=== PATIENT | female | born 1965 | race Caucasian/White ===

== ENCOUNTER 2020-10-30 22:08 | Inpatient (IN) | payer MEDICAID, SELFPAY ==
--- NOTE | ~2020-10-30 | XR_ITS ---
EXAMINATIONS: LEFT HAND 3 VIEWS AND FOREARM 2 VIEWS, LEFT CLINICAL INFORMATION: Pain. COMPARISON: None. TECHNIQUE: PA, lateral, oblique views of the left hand were obtained. AP and lateral views of the left forearm are provided. FINDINGS: There is dorsal angulation to a fracture to the proximal aspect of the fourth proximal phalanx. The proximal carpal row is intact. There is no elbow joint effusion. There is no displacement of the pronator fat pad. XR/XR forearm LT 2V IMPRESSION: Fourth proximal phalanx fracture.
--- NOTE | ~2020-10-30 | XR_ITS ---
EXAMINATIONS: LEFT HAND 3 VIEWS AND FOREARM 2 VIEWS, LEFT CLINICAL INFORMATION: Pain. COMPARISON: None. TECHNIQUE: PA, lateral, oblique views of the left hand were obtained. AP and lateral views of the left forearm are provided. FINDINGS: There is dorsal angulation to a fracture to the proximal aspect of the fourth proximal phalanx. The proximal carpal row is intact. There is no elbow joint effusion. There is no displacement of the pronator fat pad. XR/XR hand LT min 3V IMPRESSION: Fourth proximal phalanx fracture.
--- NOTE | ~2020-10-30 | XR_ITS ---
EXAMINATION: XR CHEST CLINICAL INFORMATION: Shortness of breath COMPARISON: None TECHNIQUE: Frontal view of the chest was obtained. FINDINGS: Heart size is normal. No infiltrates, effusions or lung masses are seen. A right-sided PICC line has its tip in the SVC. Adjacent to the PICC line near the right humeral head is a approximately 5 cm catheter fragment that appears to be encrusted with calcification that I suspect may be intravascular. I suspect that there may be underlying COPD with hyperinflation and pulmonary. Cervical spine fixation hardware is present. Embolization coils are seen near the area of the splenic or coronary vein. Curvilinear calcification in the right paravertebral region could represent a hips but this is a bit unusual in appearance and EKG leads overlie the area of question. XR/XR chest 1V IMPRESSION: 1. Right PICC line with tip in SVC 2. Intravascular encrusted catheter fragment in right brachial/axillary vein. 3. A TIPS is present with embolization coils which I suspect are in the coronary vein. This critical result was discussed with Dr. Tomasa Snyder at 11:35 PM on the day of the exam and it was ascertained that the content and urgency of the report was understood at the time of direct communication.
--- NOTE | ~2020-10-30 | CT_ITS ---
EXAMINATION: CT PULMONARY EMBOLISM STUDY CLINICAL INFORMATION: Elevated d-dimer. Hypoxia. COMPARISON: 10/30/2020. TECHNIQUE: Contiguous helical images of the chest were obtained following the administration of IV contrast. Multiplanar reconstructions were performed. MIPS were obtained and reviewed. DLP: 377 mGy-cm. CONTRAST: 65 mL of Omnipaque 350 were administered without incident. FINDINGS: The heart is of normal size. There is no pericardial effusion. The great vessels are unremarkable. Specifically, there is no pulmonary arterial filling defect. There is no CT evidence for pulmonary embolism. There are no chest wall masses. Review of lung windows demonstrates that there are neither pleural effusions nor pneumothoraces. There are severe manifestations of emphysema. There are consolidations within the posterior basal segments within the lower lobes bilaterally. There are no pulmonary parenchymal nodules. Limited evaluation of the upper abdomen demonstrates that the liver is of normal size and attenuation without focal lesions. Normal adrenal glands are identified. Vascular coils are noted within the upper abdomen. There is an ovoid focus of low-attenuation along the lateral aspect of the spleen measuring approximately 6.4 x 3.3 cm. This is likely subcapsular in location. CT/CT angio chest PE protocol IMPRESSION: No CT evidence for pulmonary embolism. Bilateral posterior basal segment lower lobe consolidations. Severe emphysema. Automated exposure control (Care Dose) Adjustment of the mA and/or kv according to patient size (this includes techniques or standardized protocols for targeted exams where dose is matched to indication / reason for exam; i.e. extremities or head).
--- NOTE | 2020-10-30 22:24 | ECG_ITS ---
Test Reason : DIFF BREATHING Blood Pressure : / mmHG Vent. Rate : 077 BPM Atrial Rate : 077 BPM P-R Int : 138 ms QRS Dur : 088 ms QT Int : 416 ms P-R-T Axes : 067 038 039 degrees QTc Int : 470 ms Normal sinus rhythm Normal ECG No previous ECGs available Referred By: Tomasa Snyder Electronically Signed By:ANNA IVAN MD
[2020-10-30 22:26] VITALS: BP 90/55; PULSE 78; RESP 19; TEMP 36.8; O2SAT 97; O2SAT 99; BMI 26.4
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
[2020-10-30 23:04] LABS: MANUAL DIFF FLAG NO
[2020-10-30 23:05] LABS: Basophils Percent Auto 0.3 % (0-2); Eosinophils Absolute Auto 0.5 X10*3/uL (0.0-0.4); Eosinophils Percent Auto 4.5 % (0-4); Hematocrit 29.8 % (37-47); Hemoglobin 9.5 g/dl (12.0-16.0); Imm Gran Pct Auto 0.8 % (0.0-0.4); Lymphocytes Absolute Auto 1.2 X10*3/uL (1.2-4.9); Lymphocytes Percent Auto 10.2 % (20-40); Mean Corpuscular HGB Conc 31.9 g/dl (31.0-35.0); Mean Corpuscular Hemoglobin 26.8 pg (27.0-33.0); Mean Corpuscular Volume 84.2 fL (80-98); Mean Platelet Volume 10.4 fL (9.4-12.3); Monocytes Absolute Auto 0.6 X10*3/uL (0.1-1.2); Monocytes Percent Auto 4.7 % (2-11); Neutrophils Absolute Auto 9.6 X10*3/uL (2.0-8.3); Neutrophils Percent Auto 79.5 % (45-73); Platelet Count 310 X10*3/uL (160-400); Red Blood Count 3.54 X10*6/uL (4.20-5.50); Red Cell Distribution Width 18.2 % (11.0-16.0)
[2020-10-30 23:11] LABS: INTERNATIONAL NORM RATIO 1.9 (0.9-1.1); Prothrombin Time 22.1 SEC (10.8-13.0)
[2020-10-30] MEDS: 0.9 % Sodium Chloride 1,000 ML 999 ML IVCONT (23:13)
--- NOTE | 2020-10-30 23:24 | PC.NURSE ---
picc line in left upper extremity used for saline bolus. pt's picc line needs to be flushed with heparin before discharge, instructions in her mar from [facility].
[2020-10-30 23:26] VITALS: BP 87/67; PULSE 76; RESP 21; O2SAT 99
--- NOTE | 2020-10-30 23:26 | PC.NURSE ---
transferrring patient to ne at 4lpm, pt reports feeling much better on nrb mask, has been 99%.
[2020-10-30 23:36] LABS: Lactic Acid 0.5 mmol/L (0.5-2.0)
[2020-10-30 23:41] LABS: Alanine Aminotransferase 28 U/L (0-31); Albumin Level 3.3 g/dL (3.5-5.0); Alkaline Phosphatase 106 U/L (39-117); Anion Gap 15 (12-20); Aspartate Amino Transferase 28 U/L (5-31); Bilirubin Direct < 0.2 mg/dL (0.0-0.5); Bilirubin Total 0.2 mg/dL (0.0-1.0); Blood Urea Nitrogen 17 mg/dL (9-16); Calcium 8.7 mg/dL (8.4-10.2); Carbon Dioxide 26 mmol/L (22-29); Chloride 96 mmol/L (96-108); Creatinine Clr Calc Pharmacy 99.1; Estimated Glomerular Filt Rate > 60; Glucose Random 108 mg/dL (60-115); Potassium 3.9 mmol/L (3.3-5.1); Sodium 133 mmol/L (135-145); Total Protein 6.8 g/dL (6.5-8.0)
[2020-10-30 23:44] LABS: B Type Natriuretic Peptide 22 pg/mL (<100); Troponin-I High Sensitivity < 3.5 ng/L (<3.5-17.0)
[2020-10-31] VITALS (23 sets, daily range): BP systolic 78–147; BP diastolic 38–75; PULSE 54–87; RESP 12–26; TEMP 36.3–36.9; O2SAT 86–100
[2020-10-31 00:22] LABS: D Dimer 427 NG/ML
--- NOTE | 2020-10-31 00:31 | PC.NURSE ---
PT NEEDED TO BE PLACED BACK ON NRB MASK, SPO2 86% ON 4 LPM NC.
[2020-10-31 01:09] LABS: Glucose Urine UA NEG (NEG); Leukocyte Esterase Urine 3+ (NEG); Nitrite Urine NEG (NEG); Specific Gravity - Urine 1.015 (1.005-1.025); UACC Culture Trigger YES; Urine Blood 3+ (NEG); Urine Ketones NEG (NEG); Urine Protein TRACE MG/DL (NEG-TRACE)
[2020-10-31 01:10] LABS: Appearance Urine HAZY; Color Urine YELLOW
[2020-10-31 01:14] LABS: VBG Base Excess 0.5 mmol/L; VBG HCO3 22 mmol/L (22-26); VBG pCO2 27 mmHg; VBG pH 7.52 (7.32-7.43); VBG pO2 176 mmHg
[2020-10-31] MEDS: levoFLOXacin/D5W 500 MG/100 ML PIGGYBACK 100 MG IV (01:14)
[2020-10-31] MEDS: 0.9 % Sodium Chloride 1,000 ML 999 ML IVCONT ×2 (01:14→04:24)
[2020-10-31 01:16] LABS: Venous Blood Gas Refer to POC result
[2020-10-31 01:24] LABS: Bacteria Urine 2+ /LPF; Calcium Oxalate Crystals Urine 2+ /LPF; Mucus Urine 2+ /LPF; RBC Urine 30-49 /HPF (0); Squamous Epithelial Cell Urine 1+ /LPF; WBC Urine 50-75 /HPF (0-4)
[2020-10-31 01:54] LABS: Influenza A PCR NEGATIVE (Negative); Influenza B PCR NEGATIVE (Negative); Resp Syncy Virus RNA Qual PCR NEGATIVE (Negative); SARS COV2 PCR INHOUSE NEGATIVE (Negative)
--- NOTE | 2020-10-31 02:20 | PC.NURSE ---
PT CAME WITH URINARY CATHETER FROM FACILITY, CLOUDY YELLOW URINE IN TUBING.
[2020-10-31] MEDS: Midodrine HCl 10 MG TABLET PO (03:03)
--- NOTE | 2020-10-31 03:03 | PC.NURSE ---
PT HAS A WET SOUNDING COUGH, MOSTLY IN UPPER AIRWAY. PT HAS A TRACH THAT IS CLOSED, HAS HAD A MUCUS PLUG IN THE PAS CAUSING LOW SPO2.
--- NOTE | 2020-10-31 04:08 | PC.NURSE ---
RT AND MD AT BEDSIDE, TRACH SUCTIONED WITH THICK SPUTUM FROM SMALL OPENING. PT PLACED ON 3 LPM 02 VIA NC AND WILL MONITOR SPO2.
--- NOTE | 2020-10-31 04:16 | PC.NURSE ---
PT TRANSFERRED TO TRACH MASK AT 80%. SPO2 89% WITH EXISTING 3 LPM NC.
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
[2020-10-31] MEDS: Albuterol/Iprat 2.5/0.5MG 3 ML AMPUL.NEB INHALE (04:24)
[2020-10-31] MEDS: Albuterol Sulfate (0.083%) 2.5 MG/3 ML VIAL.NEB INHALE (04:24)
[2020-10-31] MEDS: Morphine Sulfate 4 MG/ML CARTRIDGE IVPUSH (05:04)
[2020-10-31] MEDS: 0.9 % Sodium Chloride 1,000 ML 100 ML IVCONT (05:25)
[2020-10-31 07:20] LABS: MANUAL DIFF FLAG NO
[2020-10-31 07:22] LABS: Basophils Percent Auto 0.4 % (0-2); Eosinophils Absolute Auto 0.3 X10*3/uL (0.0-0.4); Hematocrit 27.1 % (37-47); Hemoglobin 8.5 g/dl (12.0-16.0); Imm Gran Abs Auto 0.05 X10*3/uL (0.00-0.03); Imm Gran Pct Auto 0.7 % (0.0-0.4); Lymphocytes Absolute Auto 1.3 X10*3/uL (1.2-4.9); Mean Corpuscular HGB Conc 31.4 g/dl (31.0-35.0); Mean Corpuscular Hemoglobin 26.3 pg (27.0-33.0); Mean Corpuscular Volume 83.9 fL (80-98); Mean Platelet Volume 10.8 fL (9.4-12.3); Monocytes Absolute Auto 0.6 X10*3/uL (0.1-1.2); Monocytes Percent Auto 7.6 % (2-11); Neutrophils Absolute Auto 5.2 X10*3/uL (2.0-8.3); Neutrophils Percent Auto 70.3 % (45-73); Platelet Count 286 X10*3/uL (160-400); Red Blood Count 3.23 X10*6/uL (4.20-5.50); White Blood Count 7.5 X10*3/uL (4.8-10.8)
[2020-10-31] MEDS: Morphine Sulfate 2 MG/ML CARTRIDGE 1 MG IVPUSH ×3 (07:28→20:39)
[2020-10-31] MEDS: 0.9 % Sodium Chloride Flush 3 ML SYRINGE IVFLUSH (07:30)
[2020-10-31 07:52] LABS: Anion Gap 12 (12-20); Blood Urea Nitrogen 12 mg/dL (9-16); Calcium 8.2 mg/dL (8.4-10.2); Carbon Dioxide 24 mmol/L (22-29); Chloride 108 mmol/L (96-108); Creatinine Clr Calc Pharmacy 138.8; Estimated Glomerular Filt Rate > 60; Glucose Random 101 mg/dL (60-115); Potassium 3.7 mmol/L (3.3-5.1); Sodium 140 mmol/L (135-145)
[2020-10-31] MEDS: Midodrine HCl 5 MG TABLET PO ×3 (09:29→20:45)
[2020-10-31] MEDS: Famotidine 20 MG TABLET PO ×2 (09:30→20:42)
[2020-10-31] MEDS: Sertraline HCL 100 MG TABLET 200 MG PO (09:30)
[2020-10-31] MEDS: Baclofen 10 MG TABLET 5 MG PO ×3 (09:30→20:43)
[2020-10-31] MEDS: Gabapentin 100 MG CAPSULE PO ×3 (09:31→20:42)
[2020-10-31] MEDS: rifAMPin 300 MG CAPSULE PO ×2 (09:31→20:43)
[2020-10-31] MEDS: QUEtiapine Fumarate 50 MG TABLET PO ×2 (09:31→20:43)
[2020-10-31] MEDS: Apixaban 5 MG TABLET PO ×2 (09:31→20:42)
[2020-10-31] MEDS: Ascorbic Acid 500 MG TABLET PO (09:31)
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
--- NOTE | 2020-10-31 11:54 | MHC.CM.PN ---
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 She reports she was at [facility] and plans to return there however pts H&P indicates she is here from [facility]. CM did send a message to [facility] to determine if pt is a resident. pt reports her daughter Monet is her HCP. CM attempted to reach Monet at both of the numbers listed however both were out of service. CM currently awaiting response from SNF. Current DC plan is for pt to return to alf facility via BLS
--- NOTE | 2020-10-31 15:14 | MHC.CLN ---
RE: CONSULT RECOMMEND ADDING CORRIE AND ENSURE BID TO INCREASE KCALS AND PROMOTE WOUND HEALING SUPPLEMENT TO PROVIDE [id number], 45G PROTEIN FULL ASSESSMENT TO FOLLOW
--- NOTE | 2020-10-31 16:42 | PC.NURSE ---
P: Patient c/o dizziness. bp 81/47. o2 sat 87% on 4L cannula. Patient with weak cough and congestion. Unable to bring up secretions. Feeling more anxious and in distress. I: MD notified. Orders already in place to suction. Patient refusing nasal suctioning. Respiratory called to assist with oral suctioning. Small amount of clear phlegm suctioned. o2 sats remaining in high 80's. Encouraged pursed lip breathing but breathes through mouth. Ventimask applied but patient c/o discomfort from the mask being too big. Small size nonrebreather at bedside from ED. Patient placed on that. o2 sat 95% on nonrebreather. BP 108/60.
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
[2020-10-31] MEDS: Melatonin 3 MG TABLET PO (20:42)
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
[2020-10-31] MEDS: Heparin Sodium,Porcine Flush 50 UNITS/5 ML SYRINGE 10 UNITS IVFLUSH (21:04)
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
[2020-11-01] VITALS (8 sets, daily range): BP systolic 92–153; BP diastolic 42–70; PULSE 66–84; RESP 18–19; TEMP 36.2–37.3; O2SAT 97–99
[2020-11-01] MEDS: Heparin Sodium,Porcine Flush 50 UNITS/5 ML SYRINGE IVFLUSH ×3 (01:00→16:44)
[2020-11-01] MEDS: Morphine Sulfate 2 MG/ML CARTRIDGE 1 MG IVPUSH ×3 (04:51→18:26)
[2020-11-01] MEDS: guaiFEN/Codeine SF 200/20/10ML 10 ML LIQUID 5 ML PO (06:06)
[2020-11-01 06:56] LABS: MANUAL DIFF FLAG NO
[2020-11-01 07:02] LABS: Basophils Percent Auto 0.5 % (0-2); Eosinophils Absolute Auto 0.6 X10*3/uL (0.0-0.4); Eosinophils Percent Auto 6.6 % (0-4); Hematocrit 27.7 % (37-47); Hemoglobin 8.8 g/dl (12.0-16.0); Imm Gran Abs Auto 0.06 X10*3/uL (0.00-0.03); Imm Gran Pct Auto 0.7 % (0.0-0.4); Lymphocytes Absolute Auto 1.1 X10*3/uL (1.2-4.9); Lymphocytes Percent Auto 12.9 % (20-40); Mean Corpuscular HGB Conc 31.8 g/dl (31.0-35.0); Mean Corpuscular Hemoglobin 26.7 pg (27.0-33.0); Mean Corpuscular Volume 83.9 fL (80-98); Mean Platelet Volume 10.7 fL (9.4-12.3); Monocytes Absolute Auto 0.7 X10*3/uL (0.1-1.2); Monocytes Percent Auto 7.7 % (2-11); Neutrophils Absolute Auto 6.1 X10*3/uL (2.0-8.3); Neutrophils Percent Auto 71.6 % (45-73); Platelet Count 295 X10*3/uL (160-400); Red Cell Distribution Width 18.5 % (11.0-16.0); White Blood Count 8.5 X10*3/uL (4.8-10.8)
[2020-11-01 07:19] LABS: Anion Gap 12 (12-20); Blood Urea Nitrogen 8 mg/dL (9-16); Calcium 8.6 mg/dL (8.4-10.2); Carbon Dioxide 28 mmol/L (22-29); Chloride 103 mmol/L (96-108); Creatinine Clr Calc Pharmacy 130.1; Estimated Glomerular Filt Rate > 60; Glucose Fasting 84 mg/dL (60-99); Potassium 3.7 mmol/L (3.3-5.1); Sodium 139 mmol/L (135-145)
[2020-11-01] MEDS: Sertraline HCL 100 MG TABLET 200 MG PO (09:34)
[2020-11-01] MEDS: Apixaban 5 MG TABLET PO ×2 (09:35→22:09)
[2020-11-01] MEDS: Gabapentin 100 MG CAPSULE PO ×3 (09:35→22:08)
[2020-11-01] MEDS: Famotidine 20 MG TABLET PO ×2 (09:35→22:08)
[2020-11-01] MEDS: Baclofen 10 MG TABLET 5 MG PO ×3 (09:35→22:07)
[2020-11-01] MEDS: rifAMPin 300 MG CAPSULE PO ×2 (09:35→22:11)
[2020-11-01] MEDS: Ascorbic Acid 500 MG TABLET PO (09:35)
[2020-11-01] MEDS: QUEtiapine Fumarate 50 MG TABLET PO ×2 (09:35→22:09)
[2020-11-01] MEDS: Midodrine HCl 5 MG TABLET PO ×2 (09:36→14:57)
--- NOTE | 2020-11-01 11:45 | HO.PM.IMPN ---
Subjective Subjective Date of Service: 11/01/20 Interval History: secreations, otherwise no changes Cardiovascular Cardiovascular: Reports no additional cardiovascular complaints Gastrointestinal Gastrointestinal: Reports no additional gastrointestinal complaints Physical Exam Vital Signs: Vital Signs: Last Vital Signs Temp 97.1 F 11/01/20 11:42 Pulse 66 11/01/20 11:42 Resp 18 11/01/20 11:42 BP 92/42 L 11/01/20 11:42 Pulse Ox 99 11/01/20 11:42 Body Mass Index 26.4 General: AO X 3, no acute distress Resp: rhonchi CVS: S1,S2,RRR GI: soft, non tender, non distended Neuro: motor grossly intact Psych: appropriate affect skin: see previous pics Objective Data Current Medications Generic Name Dose Route Start Last Admin Trade Name Freq PRN Reason Stop Dose Admin Acetaminophen 650 mg 10/31/20 04:11 Acetaminophen 325 Mg Tablet PO Q6H PRN Pain, Mild (Pain Scale 1-3) Apixaban 5 mg 10/31/20 09:00 11/01/20 09:35 Apixaban 5 Mg Tablet PO 5 mg BID RAMBO Administration Ascorbic Acid 500 mg 10/31/20 09:00 11/01/20 09:35 Ascorbic Acid 500 Mg Tablet PO 500 mg DAILY RAMBO Administration Baclofen 5 mg 10/31/20 09:00 11/01/20 09:35 Baclofen 10 Mg Tablet PO 5 mg TID RAMBO Administration Famotidine 20 mg 10/31/20 09:00 11/01/20 09:35 Famotidine 20 Mg Tablet PO 20 mg BID RAMBO Administration Gabapentin 100 mg 10/31/20 09:00 11/01/20 09:35 Gabapentin 100 Mg Capsule PO 100 mg TID RAMBO Administration Heparin Sodium (Porcine) 50 units 11/01/20 00:00 11/01/20 09:34 Heparin Sodium,Porcine Flush 50 Units/5 Ml Syringe IVFLUSH 50 units QSHIFT RAMBO Administration Lorazepam 1 mg 10/31/20 04:16 Lorazepam 1 Mg Tablet PO BID PRN Anxiety Melatonin 3 mg 10/31/20 04:16 10/31/20 20:42 Melatonin 3 Mg Tablet PO 3 mg BEDTIME PRN Administration Sleep Midodrine 5 mg 10/31/20 09:00 11/01/20 09:36 Midodrine Hcl 5 Mg Tablet PO 5 mg TID RAMBO Administration Morphine Sulfate 1 mg 10/31/20 05:19 11/01/20 04:51 Morphine Sulfate 2 Mg/Ml Cartridge IVPUSH 1 mg Q6H PRN Administration [facility] Consult 1 each 10/31/20 03:47 Consult Rx Perform Med Rec MISCELLANE ONCE PRN Consult order Quetiapine Fumarate 50 mg 10/31/20 09:00 11/01/20 09:35 Quetiapine Fumarate 50 Mg Tablet PO 50 mg BID RAMBO Administration Rifampin 300 mg 10/31/20 09:00 11/01/20 09:35 Rifampin 300 Mg Capsule PO 300 mg BID RAMBO Administration Sertraline HCl 200 mg 10/31/20 09:00 11/01/20 09:34 Sertraline Hcl 100 Mg Tablet PO 200 mg DAILY RAMBO Administration Sodium Chloride 3 ml 10/31/20 08:00 11/01/20 09:37 0.9 % Sodium Chloride Flush 3 Ml Syringe IVFLUSH Not Given QSHIFT RAMBO Trimethoprim/Sulfamethoxazole 1 tab 10/31/20 09:00 11/01/20 09:34 Sulfamethox/Trimeth 800/160 1 Tab Tablet PO 1 tab BID RAMBO Administration Labs CBC & Chem 7: 11/01/20 06:31 11/01/20 06:31 Microbiology Microbiology Results: Microbiology 10/31/20 00:00 Urine clean catch - Clean Catch Midstream Urine Culture - Final No growth. 10/30/20 22:54 Blood - Venous Blood Culture - Preliminary No growth after 24 hours. 10/30/20 22:54 Blood - Venous Blood Culture - Preliminary No growth after 24 hours. Assessment and Plan (1) Chronic pulmonary aspiration: Problem details: She has chronic mucus plugging and aspiration and likely pyuria as well chronic There is no acute illness at this time and no fever,toxicity and WBC unremarkable Status: Acute (2) Aspiration pneumonitis: Status: Acute Assessment and Plan: 55F presented with hypoxia. 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
[2020-11-01] MEDS: guaiFENesin 100 MG/5 ML LIQUID PO (16:43)
[2020-11-01] MEDS: LORazepam 1 MG TABLET PO (22:07)
[2020-11-01] MEDS: Melatonin 3 MG TABLET PO (22:12)
--- NOTE | 2020-11-01 23:38 | PC.NURSE ---
pt has more pain in left hand she said last night maybe she dislocated while pooling blankiet she has hardware in there. also special air bed was ordered for skin breakdown prevention. dr Ho notified about the hand pain
[2020-11-02] VITALS (9 sets, daily range): BP systolic 90–150; BP diastolic 47–77; PULSE 64–90; RESP 16–19; TEMP 36.1–37.2; O2SAT 94–98
[2020-11-02] MEDS: 0.9 % Sodium Chloride Flush 3 ML SYRINGE IVFLUSH ×2 (00:28→09:02)
[2020-11-02] MEDS: Heparin Sodium,Porcine Flush 50 UNITS/5 ML SYRINGE IVFLUSH (00:28)
[2020-11-02] MEDS: Morphine Sulfate 2 MG/ML CARTRIDGE 1 MG IVPUSH ×3 (09:02→20:09)
[2020-11-02] MEDS: Ascorbic Acid 500 MG TABLET PO (09:03)
[2020-11-02] MEDS: Dextrose 5 % and 0.9 % NaCl 1,000 ML 50 ML IVCONT (09:03)
[2020-11-02] MEDS: Baclofen 10 MG TABLET 5 MG PO ×3 (09:04→20:08)
[2020-11-02] MEDS: Apixaban 5 MG TABLET PO ×2 (09:04→20:08)
[2020-11-02] MEDS: QUEtiapine Fumarate 50 MG TABLET PO ×2 (09:04→20:08)
[2020-11-02] MEDS: Sertraline HCL 100 MG TABLET 200 MG PO (09:04)
[2020-11-02] MEDS: Gabapentin 100 MG CAPSULE PO ×3 (09:04→20:09)
[2020-11-02] MEDS: rifAMPin 300 MG CAPSULE PO ×2 (09:04→20:08)
[2020-11-02] MEDS: Famotidine 20 MG TABLET PO ×2 (09:04→20:09)
--- NOTE | 2020-11-02 14:40 | HO.PM.IMPN ---
Subjective Subjective Date of Service: 11/05/20 Interval History: ? aspiration vs mucuc pluging Review of Systems Says shortness of breath improving, feels generally very weak, also blood pressure is on softer side. She also have left hand pain which was scanned last night found to have fracture of the finger. Says that no cough or phlegm. Denies any abdominal pain or nausea or vomiting. No fever or chills. Physical Exam Vital Signs: Vital Signs: Last Vital Signs Temp 97.0 F 11/02/20 11:19 Pulse 64 11/02/20 11:19 Resp 18 11/02/20 11:19 BP 93/57 L 11/02/20 11:19 Pulse Ox 94 11/02/20 11:19 Body Mass Index 26.4 Physical exam: Constitutional: Not in acute distress, slightly anxious. Cvs: rrr, [id number] , no murmur res: grossly fair air entry , slightly diminshes at bases , no rales or wheezing abd: no rebound or guarding ,nt, bs present. ext pulses present , no cyanosis neuro: axo3 , nonfocal. Objective Data Current Medications Generic Name Dose Route Start Last Admin Trade Name Freq PRN Reason Stop Dose Admin Acetaminophen 650 mg 10/31/20 04:11 Acetaminophen 325 Mg Tablet PO Q6H PRN Pain, Mild (Pain Scale 1-3) Apixaban 5 mg 10/31/20 09:00 11/02/20 09:04 Apixaban 5 Mg Tablet PO 5 mg BID RAMBO Administration Ascorbic Acid 500 mg 10/31/20 09:00 11/02/20 09:03 Ascorbic Acid 500 Mg Tablet PO 500 mg DAILY RAMBO Administration Baclofen 5 mg 10/31/20 09:00 11/02/20 09:04 Baclofen 10 Mg Tablet PO 5 mg TID RAMBO Administration Famotidine 20 mg 10/31/20 09:00 11/02/20 09:04 Famotidine 20 Mg Tablet PO 20 mg BID RAMBO Administration Gabapentin 100 mg 10/31/20 09:00 11/02/20 09:04 Gabapentin 100 Mg Capsule PO 100 mg TID RAMBO Administration Guaifenesin 5 ml 11/01/20 15:36 11/01/20 16:43 Guaifenesin 100 Mg/5 Ml Liquid PO 5 ml Q4H PRN Administration cough Heparin Sodium (Porcine) 50 units 11/01/20 00:00 11/02/20 09:35 Heparin Sodium,Porcine Flush 50 Units/5 Ml Syringe IVFLUSH Not Given QSHIFT [facility] Dextrose/Sodium Chloride 1,000 mls @ 50 mls/hr 11/02/20 08:00 11/02/20 09:03 D5ns IVCONT 50 mls/hr .Q20H RAMBO Administration Lorazepam 1 mg 10/31/20 04:16 11/01/20 22:07 Lorazepam 1 Mg Tablet PO 1 mg BID PRN Administration Anxiety Melatonin 3 mg 10/31/20 04:16 11/01/20 22:12 Melatonin 3 Mg Tablet PO 3 mg BEDTIME PRN Administration Sleep Midodrine 5 mg 10/31/20 09:00 11/02/20 09:05 Midodrine Hcl 5 Mg Tablet PO Not Given TID RAMBO Morphine Sulfate 1 mg 10/31/20 05:19 11/02/20 09:02 Morphine Sulfate 2 Mg/Ml Cartridge IVPUSH 1 mg Q6H PRN Administration [facility] Consult 1 each 10/31/20 03:47 Consult Rx Perform Med Rec MISCELLANE ONCE PRN Consult order Quetiapine Fumarate 50 mg 10/31/20 09:00 11/02/20 09:04 Quetiapine Fumarate 50 Mg Tablet PO 50 mg BID RAMBO Administration Rifampin 300 mg 10/31/20 09:00 11/02/20 09:04 Rifampin 300 Mg Capsule PO 300 mg BID RAMBO Administration Sertraline HCl 200 mg 10/31/20 09:00 11/02/20 09:04 Sertraline Hcl 100 Mg Tablet PO 200 mg DAILY RAMBO Administration Sodium Chloride 3 ml 10/31/20 08:00 11/02/20 09:02 0.9 % Sodium Chloride Flush 3 Ml Syringe IVFLUSH 3 ml QSHIFT [facility] Administration Trimethoprim/Sulfamethoxazole 1 tab 10/31/20 09:00 11/02/20 09:03 Sulfamethox/Trimeth 800/160 1 Tab Tablet PO 1 tab BID RAMBO Administration Labs CBC & Chem 7: 11/03/20 06:33 11/03/20 06:33 Microbiology Microbiology Results: Microbiology 10/30/20 22:54 Blood - Venous Blood Culture - Preliminary No growth after 48 hours. 10/30/20 22:54 Blood - Venous Blood Culture - Preliminary No growth after 48 hours. 10/31/20 00:00 Urine clean catch - Clean Catch Midstream Urine Culture - Final No growth. Assessment and Plan (1) Aspiration pneumonitis: Status: Acute Assessment and Plan: 55F presented with hypoxia. 1.acute hypoxic respiratory failure due to acute on chronic mucus plugging/aspiration pneumonitis noted to be thought-no evidence of bacterial infection sob seems imrpving but still requies oxygen blood culture neg@48 hours plan: no acute illness at this time and no fever,toxicity and WBC unremarkable. continue intermittent suctioning, wean o2 , incentive sprio, chest physio [employer] eval pending 2.osteomyelitis continue bactrim, rifampin 3.history of P.E. eliquis 4. ? orthostasis hx: gentle hydraion/midodrine , if still bloodpressure stay lower side -will adjust midodrine dose. 5.left hand -4th phalanx fx : pain management, as per patient she does not know if she had any injury. will add ortho eval.
[2020-11-02] MEDS: Midodrine HCl 5 MG TABLET PO (15:06)
[2020-11-02] MEDS: LORazepam 1 MG TABLET PO (22:19)
[2020-11-02] MEDS: Acetaminophen 325 MG TABLET 650 MG PO (22:43)
[2020-11-03] MEDS: 0.9 % Sodium Chloride Flush 3 ML SYRINGE IVFLUSH ×2 (00:03→09:06)
[2020-11-03] MEDS: HYDROmorphone HCl 2 MG TABLET 1 MG PO ×3 (01:05→14:40)
[2020-11-03 01:07] VITALS: BP 90/47; PULSE 88
[2020-11-03] MEDS: Midodrine HCl 5 MG TABLET PO ×3 (01:07→14:38)
[2020-11-03 03:38] VITALS: BP 100/56; PULSE 60; RESP 16; TEMP 36.6; O2SAT 98
[2020-11-03] MEDS: Dextrose 5 % and 0.9 % NaCl 1,000 ML 50 ML IVCONT (04:18)
[2020-11-03] MEDS: Acetaminophen 325 MG TABLET 650 MG PO (05:56)
[2020-11-03] MEDS: Morphine Sulfate 2 MG/ML CARTRIDGE 1 MG IVPUSH (05:56)
[2020-11-03 06:52] LABS: Hemoglobin 9.8 g/dl (12.0-16.0); Mean Corpuscular HGB Conc 31.6 g/dl (31.0-35.0); Mean Corpuscular Hemoglobin 26.3 pg (27.0-33.0); Mean Corpuscular Volume 83.3 fL (80-98); Mean Platelet Volume 10.6 fL (9.4-12.3); Platelet Count 344 X10*3/uL (160-400); Red Blood Count 3.72 X10*6/uL (4.20-5.50); Red Cell Distribution Width 18.7 % (11.0-16.0); White Blood Count 6.9 X10*3/uL (4.8-10.8)
[2020-11-03 07:15] LABS: Anion Gap 14 (12-20); Blood Urea Nitrogen 17 mg/dL (9-16); Calcium 8.5 mg/dL (8.4-10.2); Carbon Dioxide 26 mmol/L (22-29); Chloride 102 mmol/L (96-108); Creatinine Clr Calc Pharmacy 111.5; Estimated Glomerular Filt Rate > 60; Glucose Random 86 mg/dL (60-115); Potassium 3.7 mmol/L (3.3-5.1); Sodium 138 mmol/L (135-145)
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
[2020-11-03 07:59] VITALS: BP 104/55; PULSE 64; RESP 18; TEMP 36.5; O2SAT 97
[2020-11-03] MEDS: Baclofen 10 MG TABLET 5 MG PO ×2 (09:05→14:39)
[2020-11-03] MEDS: Ascorbic Acid 500 MG TABLET PO (09:05)
[2020-11-03] MEDS: Apixaban 5 MG TABLET PO (09:06)
[2020-11-03] MEDS: QUEtiapine Fumarate 50 MG TABLET PO (09:06)
[2020-11-03] MEDS: rifAMPin 300 MG CAPSULE PO (09:06)
[2020-11-03] MEDS: Gabapentin 100 MG CAPSULE PO ×2 (09:06→14:39)
[2020-11-03] MEDS: Famotidine 20 MG TABLET PO (09:06)
[2020-11-03] MEDS: Sertraline HCL 100 MG TABLET 200 MG PO (09:06)
[2020-11-03 11:24] VITALS: BP 113/53; PULSE 63; RESP 19; TEMP 36.2; O2SAT 97
[2020-11-03 12:08] LABS: COVID-19 Test Negative (Negative); IDNOW Serial# 9DD0AD1C
--- NOTE | 2020-11-03 12:31 | PM.DS ---
DS: Providers Provider Date of Service: 11/03/20 Date of admission: 10/31/20 04:11 Primary care physician: Unknown Physician Consults: 10/31/20 04:11 Consult to Infectious Diseases Routine Consulting Provider: Zeenat Corado Reason for consultation: PNA Consult to Pulmonology Routine Consulting Provider: Ara Bailey Reason for consultation: Resp Failure; hx Trach; PNA 11/02/20 13:12 Consult to Orthopedics Routine Consulting Provider: Marky Correa Reason for consultation: left hand fracture?4th phlanx fx Has provider been notified: No DS: Diagnosis Discharge Diagnosis (1) Aspiration pneumonitis: Status: Acute (2) Chronic pulmonary aspiration: Status: Acute Problem details: She has chronic mucus plugging and aspiration and likely pyuria as well chronic There is no acute illness at this time and no fever,toxicity and WBC unremarkable (3) History of pulmonary embolism: Status: Acute (4) Acute on chronic respiratory failure with hypoxemia: Status: Acute (5) Paraplegia: Status: Acute DS: Medications Discharge Medications Home Medications: Home Medications Medication Instructions Recorded Confirmed Eliquis 5 mg PO BID 10/31/20 10/31/20 SilvaSorb 1 appl TOPICAL Q2D@0900 10/31/20 10/31/20 acetaminophen 650 mg PO Q4H PRN 10/31/20 10/31/20 ascorbic acid (vitamin C) 500 mg PO DAILY 10/31/20 10/31/20 aspirin 81 mg PO DAILY 10/31/20 10/31/20 baclofen 5 mg PO TID 10/31/20 10/31/20 bisacodyl 10 mg GA Q24H PRN 10/31/20 10/31/20 famotidine 20 mg PO BID 10/31/20 10/31/20 gabapentin 200 mg PO TID 10/31/20 10/31/20 lorazepam 1 mg PO Q12H PRN 10/31/20 10/31/20 magnesium hydroxide [Milk of 30 ml PO BEDTIME PRN 10/31/20 10/31/20 Magnesia] melatonin 6 mg PO BEDTIME PRN 10/31/20 10/31/20 midodrine 5 mg PO TID 10/31/20 10/31/20 multivitamin 1 tab PO DAILY 10/31/20 10/31/20 ondansetron HCl [Zofran] 4 mg PO Q8H PRN 10/31/20 10/31/20 oxycodone 2.5 mg PO Q4H PRN 10/31/20 10/31/20 oxycodone 5 mg PO Q4H PRN 10/31/20 10/31/20 polyethylene glycol 3350 [Miralax] 17 g PO BID PRN 10/31/20 10/31/20 quetiapine 50 mg PO BID 10/31/20 10/31/20 quetiapine [Seroquel] 25 mg PO BID 10/31/20 10/31/20 rifampin 300 mg PO BID 10/31/20 10/31/20 sertraline 200 mg PO DAILY 10/31/20 10/31/20 sulfamethoxazole-trimethoprim 1 tab PO BID 10/31/20 10/31/20 [Bactrim DS] DS: Summary Hospital Course Hospital Course: patient was admitted for acute on chronic hypoxic respiratory failure due to mucus secretions/ aspiratoin pneumonitis. she was suctioned to good effect and o2 requirements significantly decreased. she did have a couple other episodes during hospitalization that responded to suctioning. she was seen by infectious disease who felt that there was no active bacterial infection. intermittent suctioning to help clear secreations was recommended. patient had also complained of left 4th finger pain. she was noted to have Fourth proximal phalanx fracture. she was seen by ortho who recommended conservative management. Time Spent with Patient Time attestation: Total time spent providing and/or coordinating discharge services: Discharge coordination time: Greater than 30 minutes Physical Exam Vital Signs: Vital Signs: Last Vital Signs Temp 97.2 F 11/03/20 11:24 Pulse 63 11/03/20 11:24 Resp 19 11/03/20 11:24 BP 113/53 L 11/03/20 11:24 Pulse Ox 97 11/03/20 11:24 Body Mass Index 26.4 General: AO X 3, no acute distress Resp: rhonchi CVS: S1,S2,RRR GI: soft, non tender, non distended Neuro: paraplegia Psych: appropriate affect DS: Data Data Completed and Pending Labs on day of discharge: Laboratory Results - last 24 hr 11/03/20 11/03/20 11/03/20 06:33 06:33 11:30 WBC 6.9 RBC 3.72 L Hgb 9.8 L Hct 31.0 L MCV 83.3 MCH 26.3 L MCHC 31.6 RDW 18.7 H Plt Count 344 MPV 10.6 Absolute Nucleated RBC 0.000 Nucleated RBC % (auto) 0.0 Sodium 138 Potassium 3.7 Chloride 102 Carbon Dioxide 26 Anion Gap 14 BUN 17 H D Creatinine 0.56 Estim Creat Clear Calc 111.5 Estimated GFR > 60 Random Glucose 86 Calcium 8.5 COVID-19 (THEO) Negative COVID-19 Clin Com See Note Preliminary micro results at discharge 10/30/20 22:54 Blood Culture - Preliminary Blood - Venous No growth after 48 hours. 10/30/20 22:54 Blood Culture - Preliminary Blood - Venous No growth after 48 hours. Discharge Plan Discharge Patient Disposition: [facility] Referrals: Physician,Unknown [Primary Care Provider] - Discharge Medications: Continued baclofen 5 mg Tablet 5 mg PO TID RF: 0 sulfamethoxazole-trimethoprim [Bactrim DS] 800-160 mg Tablet 1 tab PO BID RF: 0 famotidine 20 mg Tablet 20 mg PO BID RF: 0 gabapentin 100 mg Capsule 200 mg PO TID RF: 0 Eliquis 5 mg Tablet 5 mg PO BID RF: 0 acetaminophen 325 mg Tablet 650 mg PO Q4H PRN (Reason: Fever Or Pain) RF: 0 ascorbic acid (vitamin C) 500 mg Tablet 500 mg PO DAILY RF: 0 ondansetron HCl [Zofran] 4 mg Tablet 4 mg PO Q8H PRN (Reason: Nausea) RF: 0 sertraline 100 mg Tablet 200 mg PO DAILY RF: 0 midodrine 5 mg Tablet 5 mg PO TID RF: 0 rifampin 300 mg Capsule 300 mg PO BID RF: 0 lorazepam 1 mg Tablet 1 mg PO Q12H PRN (Reason: Anxiety) RF: 0 quetiapine 50 mg Tablet 50 mg PO BID RF: 0 melatonin 3 mg Capsule 6 mg PO BEDTIME PRN (Reason: Sleep) RF: 0 multivitamin Tablet 1 tab PO DAILY RF: 0 quetiapine [Seroquel] 25 mg Tablet 25 mg PO BID RF: 0 aspirin 81 mg Tablet,Delayed Release (Dr/Ec) 81 mg PO DAILY RF: 0 magnesium hydroxide [Milk of Magnesia] 400 mg/5 mL Suspension 30 ml PO BEDTIME PRN (Reason: Constipation) RF: 0 bisacodyl 10 mg Suppository 10 mg GA Q24H PRN (Reason: Constipation) RF: 0 oxycodone 5 mg Capsule 5 mg PO Q4H PRN (Reason: Pain (Scale Score 7-10)) RF: 0 polyethylene glycol 3350 [Miralax] 17 gram/dose Powder 17 g PO BID PRN (Reason: Constipation) RF: 0 oxycodone 5 mg Tablet 2.5 mg PO Q4H PRN (Reason: Pain (Scale Score 4-6)) RF: 0 SilvaSorb Gel,Extended Release 1 appl TOPICAL Q2D@0900 RF: 0 Discharge Orders: Discharge Order (Routine); Ordered 11/03/20 Ordered By: Jorden Babcock Activity on Discharge: As tolerated Stand Alone Forms: Patient Portal Discharge page Care Plan Goals: avoid hospitalizations Health Concerns: secretions, hand fracture Plan of Treatment: intermittent suctioning Discharge Date/Time: 11/03/20 18:11
--- NOTE | 2020-11-03 13:04 | MHC.CM.PN ---
nurse care manger ntoe electronic medical record reviewed along with case discussed with staff nurse and on multiple disciplianry rounds patient will be discharged today back to [facility] to be transported vio[facility] pending hui and micheal assess emnt, clinical update sent to [facility] i tried to reach her next of kin mignon tavares [phone] phone number out of services (tried several times and checked with [facility] and this isthe correctm,number . discharge plan return back to [facility] transported via [facility] stretcher with o2 currently ahmadi cath, clinical updates sent to them and informed staff nurse of pending time for 4pm
[2020-11-03 15:21] VITALS: BP 117/59; PULSE 69; RESP 19; TEMP 36.8; O2SAT 94
== END 2020-11-03 18:11 | disposition skilled nursing facility (03) | DRG 137 ==
LOC: HO.ED 10-31 04:49 → HO.EDOVER 10-31 07:08 → HO.S3 11-02 07:30 → HO.ED 01-02 11:50 → HO.EDOVER 01-02 11:50 → HO.IMC 01-02 11:50 → HO.S3 01-02 11:50
PROVIDERS: Internal Medicine; Admitting Provider Hospitalist; Emergency Provider Emergency Medicine; Visit Provider Internal Medicine
DX: J69.0 Pneumonitis due to inhalation of food and vomit (principal); J96.21 Acute and chronic respiratory failure with hypoxia; Z93.0 Tracheostomy status; G82.20 Paraplegia, unspecified; N39.0 Urinary tract infection, site not specified; F41.9 Anxiety disorder, unspecified; F32.9 Major depressive disorder, single episode, unspecified; I95.1 Orthostatic hypotension; M86.9 Osteomyelitis, unspecified; Z20.822 Contact with and (suspected) exposure to COVID-19; Z86.711 Personal history of pulmonary embolism; S62.611A Displaced fracture of proximal phalanx of left index finger, initial encounter for closed fracture; X58.XXXA Exposure to other specified factors, initial encounter; Y93.9 Activity, unspecified; Y92.9 Unspecified place or not applicable; Y99.9 Unspecified external cause status; Z88.0 Allergy status to penicillin; Z88.5 Allergy status to narcotic agent; Z79.01 Long term (current) use of anticoagulants; Z79.82 Long term (current) use of aspirin; Z79.891 Long term (current) use of opiate analgesic; Z79.899 Other long term (current) drug therapy
CPT/HCPCS: 0241U; 36415; 71045; 71275; 73090; 73130; 80048; 80076; 81001; 81003; 83605; 83880; 84484; 85025; 85027; 85379; 85610; 87040; 87086; 87635; 92610; 93005; 94640; 96365; 96367; 99285; J1642; J1956; J2270; J2543; Q9967

== ENCOUNTER 2021-01-24 18:32 | Emergency (ER) | payer MEDICAID, SELFPAY ==
--- NOTE | 2021-01-24 | ECG_ITS ---
Test Reason : WEAKNESS Blood Pressure : / mmHG Vent. Rate : 045 BPM Atrial Rate : 045 BPM P-R Int : 166 ms QRS Dur : 076 ms QT Int : 504 ms P-R-T Axes : 063 055 068 degrees QTc Int : 435 ms Sinus bradycardia Nonspecific ST and T wave abnormality Abnormal ECG When compared with ECG of 30-OCT-2020 22:29, Vent. rate has decreased BY 32 BPM Referred By: Generic ED Physician Electronically Signed By:Asad Melara
[2021-01-24 18:37] VITALS: BP 120/65; PULSE 48; RESP 16; TEMP 36.5; O2SAT 94; BMI 25.0
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
[2021-01-24 19:20] VITALS: BP 103/52; PULSE 45
[2021-01-24] MEDS: Midodrine HCl 10 MG TABLET PO (19:20)
[2021-01-24] MEDS: 0.9 % Sodium Chloride 1,000 ML 999 ML IVCONT (19:21)
[2021-01-24 19:35] LABS: MANUAL DIFF FLAG NO
[2021-01-24 19:43] LABS: Basophils Absolute Auto 0.1 X10*3/uL (0.0-0.2); Basophils Percent Auto 0.9 % (0-2); Eosinophils Absolute Auto 0.4 X10*3/uL (0.0-0.4); Eosinophils Percent Auto 6.7 % (0-4); Hematocrit 34.3 % (37-47); Hemoglobin 10.7 g/dl (12.0-16.0); Imm Gran Abs Auto 0.01 X10*3/uL (0.00-0.03); Imm Gran Pct Auto 0.2 % (0.0-0.4); Lymphocytes Absolute Auto 1.8 X10*3/uL (1.2-4.9); Lymphocytes Percent Auto 31.5 % (20-40); Mean Corpuscular HGB Conc 31.2 g/dl (31.0-35.0); Mean Corpuscular Hemoglobin 28.4 pg (27.0-33.0); Monocytes Absolute Auto 0.5 X10*3/uL (0.1-1.2); Monocytes Percent Auto 9.4 % (2-11); Neutrophils Absolute Auto 2.9 X10*3/uL (2.0-8.3); Neutrophils Percent Auto 51.3 % (45-73); Platelet Count 299 X10*3/uL (160-400); Red Blood Count 3.77 X10*6/uL (4.20-5.50); Red Cell Distribution Width 16.2 % (11.0-16.0); White Blood Count 5.6 X10*3/uL (4.8-10.8)
[2021-01-24 19:59] LABS: Lactic Acid 1.4 mmol/L (0.5-2.0)
[2021-01-24 20:01] LABS: Anion Gap 16 (12-20); Blood Urea Nitrogen 21 mg/dL (9-16); Calcium 8.8 mg/dL (8.4-10.2); Carbon Dioxide 23 mmol/L (22-29); Chloride 105 mmol/L (96-108); Creatinine Clr Calc Pharmacy 103.2; Estimated Glomerular Filt Rate > 60; Glucose Random 85 mg/dL (60-115); Potassium 4.5 mmol/L (3.3-5.1); Sodium 139 mmol/L (135-145)
[2021-01-24 21:06] VITALS: BP 124/58; PULSE 46; RESP 16; TEMP 36.6; O2SAT 94
[2021-01-24 21:17] LABS: Glucose Urine UA NEG (NEG); Leukocyte Esterase Urine 3+ (NEG); Nitrite Urine POS (NEG); UACC Culture Trigger YES; Urine Blood 1+ (NEG); Urine Ketones NEG (NEG); Urine Protein NEG (NEG-TRACE)
[2021-01-24 21:18] LABS: Appearance Urine CLEAR; Color Urine YELLOW
[2021-01-24 21:27] LABS: Bacteria Urine 2+ /LPF; Squamous Epithelial Cell Urine TRACE /LPF; WBC Urine 30-49 /HPF (0-4)
[2021-01-24 21:28] LABS: Calcium Oxalate Crystals Urine TRACE /LPF; Mucus Urine TRACE /LPF
--- NOTE | 2021-01-24 21:52 | PC.NURSE ---
FERNANDEZ CATHETER CHANGER PER PROVIDER ORDER. PT TOLERATED PROCESS WELL. WHEN EXISTING CATHETER REMOVED THE TIP OF THE CATHETER WAS COVERED IN BROWN SLUDGE AND CRYSTALLINE STRUCTURES, PT REPORTS FERNANDEZ WAS PLACED 05/20 AND HAS NOT BEEN REPLACED SINCE.
[2021-01-24] MEDS: cefTRIAXone sodium 1 GM in 0.9 % Sodium Chloride 50 ML IV (21:57)
[2021-01-24] MEDS: oxyCODONE HCl Immed Release 5 MG TABLET PO (22:06)
== END 2021-01-24 23:04 ==
PROVIDERS: Emergency Provider Internal Medicine
DX: N30.00 Acute cystitis without hematuria (principal); R00.1 Bradycardia, unspecified; I10 Essential (primary) hypertension; G82.20 Paraplegia, unspecified; Z86.711 Personal history of pulmonary embolism; Z79.01 Long term (current) use of anticoagulants; Z79.82 Long term (current) use of aspirin; Z79.899 Other long term (current) drug therapy; Z96.0 Presence of urogenital implants; Z93.0 Tracheostomy status
CPT/HCPCS: 36415; 51702; 80048; 81001; 81003; 83605; 85025; 87040; 87086; 87088; 87186; 93005; 96360; 96361; 96365; 99284; 99285; J0696

== ENCOUNTER 2021-10-03 06:55 | Emergency (ER) | payer MEDICAID, SELFPAY ==
--- NOTE | ~2021-10-03 | XR_ITS ---
EXAMINATION: XR CHEST CLINICAL INFORMATION: Cough. COMPARISON: Chest radiograph dated 10/30/2020. TECHNIQUE: Frontal view of the chest was obtained. FINDINGS: No airspace consolidation. No pleural effusion or pneumothorax. Stable cardiomediastinal silhouette. Partially visualized cervical spine orthopedic hardware. XR/XR chest 1V IMPRESSION: No acute cardiopulmonary findings.
[2021-10-03 07:15] VITALS: BP 85/36; PULSE 60; RESP 20; TEMP 36.5; O2SAT 94; BMI 30.3
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
[2021-10-03] MEDS: 0.9 % Sodium Chloride 1,000 ML 999 ML IV (07:48)
[2021-10-03 07:50] LABS: MANUAL DIFF FLAG NO
--- NOTE | 2021-10-03 07:50 | PC.NURSE ---
Provider made aware of pts BP in triage. 1 L NS ordered and given 20g PIV placed in the left hand. Labs sent.
[2021-10-03 07:55] LABS: Basophils Percent Auto 0.6 % (0-2); Eosinophils Absolute Auto 0.3 X10*3/uL (0.0-0.4); Eosinophils Percent Auto 6.3 % (0-4); Hematocrit 36.9 % (37.0-47.0); Hemoglobin 11.7 g/dl (12.0-16.0); Imm Gran Abs Auto 0.02 X10*3/uL (0.00-0.03); Imm Gran Pct Auto 0.4 % (0.0-0.4); Lymphocytes Absolute Auto 1.9 X10*3/uL (1.2-4.9); Lymphocytes Percent Auto 36.5 % (20-40); Mean Corpuscular HGB Conc 31.7 g/dl (31.0-35.0); Mean Corpuscular Hemoglobin 29.8 pg (27.0-33.0); Mean Corpuscular Volume 93.9 fL (80.0-98.0); Mean Platelet Volume 10.9 fL (9.4-12.3); Monocytes Absolute Auto 0.5 X10*3/uL (0.1-1.2); Monocytes Percent Auto 10.1 % (2-11); Neutrophils Absolute Auto 2.3 x10*3/uL (2.0-8.3); Neutrophils Percent Auto 46.1 % (45-73); Platelet Count 243 X10*3/uL (160-400); Red Blood Count 3.93 X10*6/uL (4.20-5.50); Red Cell Distribution Width 14.5 % (11.0-16.0); White Blood Count 5.1 X10*3/uL (4.8-10.8)
[2021-10-03 08:11] LABS: COVID-19 Test Negative (Negative); IDNOW Serial# 16C4AD1C
[2021-10-03 08:42] LABS: Alanine Aminotransferase 9 U/L (0-31); Albumin Level 3.5 g/dL (3.5-5.0); Alkaline Phosphatase 116 U/L (39-117); Anion Gap 10 (12-20); Aspartate Amino Transferase 15 U/L (5-31); Bilirubin Total 0.2 mg/dL (0.0-1.0); Blood Urea Nitrogen 15 mg/dL (9-16); Calcium 8.8 mg/dL (8.4-10.2); Carbon Dioxide 25 mmol/L (22-29); Chloride 108 mmol/L (96-108); Creatinine Clr Calc Pharmacy 119.8; Estimated Glomerular Filt Rate > 60; Glucose Random 95 mg/dL (60-115); Potassium 4.2 mmol/L (3.3-5.1); Sodium 139 mmol/L (135-145); Total Protein 6.7 g/dL (6.5-8.0)
[2021-10-03 09:30] VITALS: BP 106/40; PULSE 52; RESP 20; O2SAT 95
--- NOTE | 2021-10-03 09:38 | PC.NURSE ---
Report given to Yaritza STOLL at [facility] [place]. RN verbalized understanding of DC instructions. Awaiting ambulance to transport pt home.
[2021-10-03] MEDS: Acetaminophen 325 MG TABLET 650 MG PO (13:48)
--- NOTE | 2021-10-03 13:56 | PC.NURSE ---
Report given to EMS at this time. Care transferred.
== END 2021-10-03 13:58 | disposition home or self-care (01) ==
PROVIDERS: Emergency Provider Emergency Medicine
DX: J40 Bronchitis, not specified as acute or chronic (principal); R06.02 Shortness of breath; G82.20 Paraplegia, unspecified; Z93.0 Tracheostomy status; Z20.822 Contact with and (suspected) exposure to COVID-19; Z86.711 Personal history of pulmonary embolism; Z86.14 Personal history of Methicillin resistant Staphylococcus aureus infection
CPT/HCPCS: 71045; 80053; 85025; 87635; 96360; 99284; 99285

== ENCOUNTER 2021-10-12 20:16 | Emergency (ER) | payer MEDICAID, SELFPAY ==
--- NOTE | ~2021-10-12 | CT_ITS ---
EXAMINATION: CT HEAD WITHOUT CONTRAST CLINICAL INFORMATION: Headache. COMPARISON: None TECHNIQUE: Contiguous axial imaging was performed from the skull base to vertex without intravenous administration of contrast. Coronal and sagittal reformatted images were obtained. This CT examination was performed using dose optimization techniques as appropriate, variously including the following: *Automated exposure control *Adjustment of mA and/or kV according to patient size (this includes techniques or standardized protocols for targeted exams where dose is matched to indication/reason for exam; i.e. extremities or head) *Use of iterative reconstruction technique DLP: 1282 mGy-cm FINDINGS: Mild encephalomalacia is seen posteromedially in the left parietal-occipital region, asymmetric with the right side. No mass effect or midline shift. No evidence for acute hemorrhage. Huber to white matter differentiation is well preserved. No extra-axial fluid collections are identified. The ventricles are normal in size. The osseous structures and soft tissues are normal. There is a trace dependent air-fluid level in the right maxillary sinus. The remainder of the paranasal sinuses are clear. The mastoid air cells are clear. CT/CT head/brain wo con IMPRESSION: 1. No acute intracranial pathology. 2. Mild encephalomalacia posteromedially in the left parietal occipital region could be secondary to old infarct or asymmetric atrophy. 3. Trace air-fluid level in the right maxillary sinus.
--- NOTE | ~2021-10-12 | CT_ITS ---
EXAMINATION: CT ABDOMEN AND PELVIS WITHOUT CONTRAST CLINICAL INFORMATION: No bowel movement for 5 days rule out ileus versus COMPARISON: CT angiogram chest 10/31/2020 TECHNIQUE: Multidetector volumetric imaging was performed from the superior aspect of the liver through the pubic symphysis. Sagittal and coronal reformatted images were obtained on the technologist's workstation. This CT examination was performed using dose optimization techniques as appropriate, variously including the following: *Automated exposure control *Adjustment of mA and/or kV according to patient size (this includes techniques or standardized protocols for targeted exams where dose is matched to indication/reason for exam; i.e. extremities or head) *Use of iterative reconstruction technique DLP: 722 mGy-cm FINDINGS: LUNG BASES: Bibasilar atelectasis is present with some traction bronchiectasis. No pleural effusions LIVER, GALLBLADDER, AND BILIARY TREE: The liver is normal in size, shape, and attenuation. No focal hepatic lesion or biliary ductal dilatation is present. The gallbladder is unremarkable with no evidence of radiopaque gallstones, gallbladder wall thickening, or obvious pericholecystic inflammatory changes. PANCREAS: Unremarkable. SPLEEN: There is probably an evolving subcapsular hematoma in the peripheral aspect of the spleen with some calcifications. Possibly secondary to old injury. 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 Please correlate with any known history. ADRENAL GLANDS: Unremarkable. KIDNEYS AND URETERS: The kidneys are normal in size, shape, and attenuation. No hydronephrosis, hydroureter, or calculi seen. No perinephric stranding. BLADDER: Beatty catheter is present in the bladder which is empty. GASTROINTESTINAL TRACT: The small and large bowel are unremarkable. Moderate stool burden is present in the colon. There is no evidence of obstruction. The appendix is unremarkable. ABDOMINAL WALL: No significant hernia is appreciated. Tiny periumbilical hernia seen containing only fat. LYMPH NODES: No retroperitoneal lymphadenopathy. VASCULAR: An inferior vena cava filter is in place. Embolization coils are seen in the splenic artery with one possibly distally in the spleen. PELVIC VISCERA: An anteverted retroflexed uterus is present. An abnormal adnexal mass or free intraperitoneal fluid is not seen. OSSEOUS STRUCTURES: Unremarkable. CT/CT abdomen pelvis wo con IMPRESSION: There is no evidence of bowel obstruction. Moderate stool burden is present colon. Embolization coils are present in the splenic artery with probable evolving subcapsular hematoma which has developed some calcifications. Fleischner guidelines were followed.
[2021-10-12 20:26] VITALS: BP 108/42; PULSE 52; O2SAT 95
[2021-10-12 20:27] VITALS: BP 134/62; PULSE 46; RESP 16; O2SAT 93; BMI 28.3
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
[2021-10-12 20:42] VITALS: TEMP 36.3
[2021-10-12] MEDS: Ondansetron ODT 4 MG TAB.RAPDIS TRANSLINGU (20:54)
[2021-10-12] MEDS: 0.9 % Sodium Chloride 1,000 ML 999 ML IV (21:45)
[2021-10-12 21:54] LABS: Basophils Percent Auto 0.4 % (0-2); Eosinophils Percent Auto 0.8 % (0-4); Hematocrit 37.9 % (37.0-47.0); Hemoglobin 12.8 g/dl (12.0-16.0); Imm Gran Abs Auto 0.01 X10*3/uL (0.00-0.03); Imm Gran Pct Auto 0.2 % (0.0-0.4); Lymphocytes Absolute Auto 1.1 X10*3/uL (1.2-4.9); Lymphocytes Percent Auto 21.7 % (20-40); MANUAL DIFF FLAG NO; Mean Corpuscular HGB Conc 33.8 g/dl (31.0-35.0); Mean Corpuscular Hemoglobin 30.5 pg (27.0-33.0); Mean Corpuscular Volume 90.2 fL (80.0-98.0); Mean Platelet Volume 10.8 fL (9.4-12.3); Monocytes Absolute Auto 0.2 X10*3/uL (0.1-1.2); Monocytes Percent Auto 4.3 % (2-11); Neutrophils Absolute Auto 3.7 x10*3/uL (2.0-8.3); Neutrophils Percent Auto 72.6 % (45-73); Platelet Count 198 X10*3/uL (160-400); Red Cell Distribution Width 13.8 % (11.0-16.0); White Blood Count 5.1 X10*3/uL (4.8-10.8)
[2021-10-12] MEDS: Acetaminophen 325 MG TABLET 650 MG PO (21:58)
[2021-10-12 22:10] LABS: Appearance Urine HAZY; Color Urine YELLOW; Glucose Urine UA NEG (NEG); Leukocyte Esterase Urine 3+ (NEG); Nitrite Urine NEG (NEG); UACC Culture Trigger YES; Urine Blood 3+ (NEG); Urine Ketones 5 MG/DL (NEG); Urine Protein NEG (NEG-TRACE)
[2021-10-12 22:19] LABS: Bacteria Urine 4+ /LPF
[2021-10-12 22:20] LABS: Squamous Epithelial Cell Urine 1+ /LPF
[2021-10-12 22:21] LABS: Amorphous Sediment Urine 1+ /LPF; WBC Urine 30-49 /HPF (0-4)
[2021-10-12 23:30] LABS: Alanine Aminotransferase 13 U/L (0-31); Albumin Level 3.7 g/dL (3.5-5.0); Alkaline Phosphatase 124 U/L (39-117); Anion Gap 15 (12-20); Aspartate Amino Transferase 17 U/L (5-31); Bilirubin Direct 0.2 mg/dL (0.0-0.5); Bilirubin Total 0.2 mg/dL (0.0-1.0); Blood Urea Nitrogen 10 mg/dL (9-16); Calcium 8.7 mg/dL (8.4-10.2); Carbon Dioxide 21 mmol/L (22-29); Chloride 99 mmol/L (96-108); Creatinine Clr Calc Pharmacy 127.4; Estimated Glomerular Filt Rate > 60; Glucose Random 105 mg/dL (60-115); Lipase 17 U/L (8-78); Potassium 4.8 mmol/L (3.3-5.1); Sodium 130 mmol/L (135-145); Total Protein 7.6 g/dL (6.5-8.0)
[2021-10-13 00:11] VITALS: BP 108/61; PULSE 58; RESP 16; O2SAT 94
[2021-10-13 00:23] VITALS: BP 116/50; PULSE 50; RESP 18; TEMP 36.6; O2SAT 95
[2021-10-13] MEDS: HYDROmorphone HCl 0.5 MG/0.5 ML SYRINGE IVPUSH (00:24)
[2021-10-13] MEDS: 0.9 % Sodium Chloride 1,000 ML 999 ML IV (00:25)
== END 2021-10-13 00:57 | disposition skilled nursing facility (03) ==
PROVIDERS: Emergency Medicine; Emergency Provider Emergency Medicine
DX: K59.00 Constipation, unspecified (principal); E87.6 Hypokalemia; M54.2 Cervicalgia; Z86.711 Personal history of pulmonary embolism; G82.20 Paraplegia, unspecified
CPT/HCPCS: 36415; 70450; 74176; 80048; 80076; 81001; 83690; 85025; 87086; 96361; 96374; 99284; J1170

== ENCOUNTER 2022-12-16 13:36 | Emergency (ER) | payer MEDICAID, SELFPAY ==
--- NOTE | ~2022-12-16 | CT_ITS ---
EXAMINATION: CT ABDOMEN AND PELVIS WITHOUT CONTRAST CLINICAL INFORMATION: Distention, pain, concern for bowel obstruction COMPARISON: CT abdomen pelvis 10/12/2021 TECHNIQUE: Multidetector volumetric imaging was performed from the superior aspect of the liver through the pubic symphysis. Sagittal and coronal reformatted images were obtained on the technologist's workstation. This CT examination was performed using dose optimization techniques as appropriate, variously including the following: *Automated exposure control *Adjustment of mA and/or kV according to patient size (this includes techniques or standardized protocols for targeted exams where dose is matched to indication/reason for exam; i.e. extremities or head) *Use of iterative reconstruction technique DLP: 992 mGy-cm FINDINGS: LUNG BASES: Trace right pleural effusion similar to prior. Calcified pulmonary granulomas. Dependent bibasilar consolidation similar to prior may reflect atelectasis. ABDOMINAL AND PELVIC WALL: Small fat-containing umbilical hernia. LIVER AND BILIARY TREE: Unremarkable. GALLBLADDER: Unremarkable. PANCREAS: Unremarkable. SPLEEN: Again seen is a partially calcified subcapsular splenic fluid collection measuring approximately 5.3 cm, previously 5.8 cm. Embolization coil material noted in the splenic artery and spleen. ADRENAL GLANDS: Unremarkable. KIDNEYS AND URETERS: Mild right hydroureter nephrosis without obstructing stone seen. There is asymmetric right-sided periureteral fat stranding. A nonobstructing 3 mm right midpole renal stone. GASTROINTESTINAL TRACT: Small bowel is nondilated without evidence of bowel obstruction. Large volume of desiccated stool in the rectum measuring up to 6.9 cm with some rectal wall thickening relative to the degree of underdistention which could reflect mild stercoral colitis. Background of large colonic stool burden suggesting constipation. VASCULAR: IVC filter in place. LYMPH NODES/PERITONEUM: No lymphadenopathy. FREE FLUID: Small volume ascites. BLADDER: Beatty catheter decompresses the bladder. PELVIC VISCERA: Unremarkable. OSSEOUS STRUCTURES: New age-indeterminate wedge compression deformities of the L3 and L5 vertebral bodies with 25% height loss and 50% height loss respectively. CT/CT abdomen pelvis wo IV con IMPRESSION: 1. Large volume of desiccated stool in the rectum measuring up to 6.9 cm with some rectal wall thickening relative to the degree of underdistention which could reflect mild stercoral colitis. Background of large colonic stool burden suggesting constipation. 2. Mild right hydroureter nephrosis without obstructing stone seen. There is asymmetric right-sided periureteral fat stranding. Differential considerations could include a recently passed stone or possibly ascending urinary tract infection, recommend correlation with urinalysis. A nonobstructing 3 mm right midpole renal stone is seen. 3. New age-indeterminate wedge compression deformities of the L3 and L5 vertebral bodies with 25% height loss and 50% height loss respectively. 4. Again seen is a partially calcified subcapsular splenic fluid collection measuring approximately 5.3 cm slightly decreased in size, which may reflect an old seroma or hematoma. 5. Trace right pleural effusion similar to prior. Dependent bibasilar consolidation similar to prior may reflect atelectasis.
--- NOTE | ~2022-12-16 | XR_ITS ---
EXAMINATION: XR CHEST CLINICAL INFORMATION: Hypoxia with history of aspiration COMPARISON: 10/03/2021 TECHNIQUE: Frontal view of the chest was obtained. FINDINGS: No significant abnormality is noted involving the heart, lungs, mediastinum, bony thorax or soft tissues. Again seen is cervical fixation hardware and embolization coils in the splenic artery. No infiltrates, pleural effusions or pneumothorax is seen. XR/XR chest 1V IMPRESSION: No acute intrathoracic disease.
[2022-12-16 13:43] VITALS: BP 134/85; PULSE 65; O2SAT 91
[2022-12-16 13:46] VITALS: BMI 32.2
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
[2022-12-16 14:52] LABS: MANUAL DIFF FLAG NO
[2022-12-16 15:11] LABS: Basophils Absolute Auto 0.1 X10*3/uL (0.0-0.2); Basophils Percent Auto 0.5 % (0-2); Eosinophils Absolute Auto 0.1 X10*3/uL (0.0-0.4); Eosinophils Percent Auto 0.7 % (0-4); Hematocrit 40.7 % (37.0-47.0); Hemoglobin 13.2 g/dl (12.0-16.0); Imm Gran Abs Auto 0.05 X10*3/uL (0.00-0.03); Imm Gran Pct Auto 0.5 % (0.0-0.4); Lymphocytes Absolute Auto 1.1 X10*3/uL (1.2-4.9); Lymphocytes Percent Auto 11.1 % (20-40); Mean Corpuscular HGB Conc 32.4 g/dl (31.0-35.0); Mean Corpuscular Hemoglobin 30.1 pg (27.0-33.0); Mean Corpuscular Volume 92.7 fL (80.0-98.0); Mean Platelet Volume 10.4 fL (9.4-12.3); Monocytes Absolute Auto 0.9 X10*3/uL (0.1-1.2); Monocytes Percent Auto 9.2 % (2-11); Neutrophils Absolute Auto 7.8 x10*3/uL (2.0-8.3); Platelet Count 220 X10*3/uL (160-400); Red Blood Count 4.39 X10*6/uL (4.20-5.50); Red Cell Distribution Width 13.8 % (11.0-16.0)
[2022-12-16 15:24] VITALS: BP 121/53; PULSE 70; RESP 18; TEMP 37; O2SAT 91
[2022-12-16 15:24] LABS: Alanine Aminotransferase 10 U/L (0-31); Albumin Level 3.6 g/dL (3.5-5.0); Alkaline Phosphatase 129 U/L (39-117); Anion Gap 17 (12-20); Aspartate Amino Transferase 19 U/L (5-31); Bilirubin Direct 0.3 mg/dL (0.0-0.5); Bilirubin Total 0.8 mg/dL (0.0-1.0); Blood Urea Nitrogen 17 mg/dL (9-16); Calcium 9.1 mg/dL (8.4-10.2); Carbon Dioxide 18 mmol/L (22-29); Chloride 108 mmol/L (96-108); Creatinine Clr Calc Pharmacy 85.9; Estimated Glomerular Filt Rate > 60; Glucose Random 118 mg/dL (60-115); Potassium 4.8 mmol/L (3.3-5.1); Sodium 138 mmol/L (135-145); Total Protein 7.1 g/dL (6.5-8.0)
[2022-12-16] MEDS: ondansetron HCL 4 MG/2 ML VIAL IVPUSH (15:31)
[2022-12-16] MEDS: 0.9 % Sodium Chloride 1,000 ML 999 ML IVCONT (15:31)
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
[2022-12-16] MEDS: Pregabalin 50 MG CAPSULE PO (18:37)
[2022-12-16 18:40] VITALS: BP 94/64; PULSE 62; RESP 16; O2SAT 92
[2022-12-16 18:45] LABS: Appearance Urine Turbid; Color Urine Dark Yellow; Glucose Urine UA Negative (Negative); Leukocyte Esterase Urine Large (3+) (Negative); Nitrite Urine Negative (Negative); PH 5.5 (5.0-9.0); Specific Gravity - Urine 1.015 (1.005-1.025); UMIC TRIGGER UACC YES; Urine Blood Large (3+) (Negative); Urine Ketones Negative (Negative); Urine Protein 100 (2+) mg/dL (Neg-Trace)
[2022-12-16 19:11] LABS: WBC Clumps Urine Present
[2022-12-16 19:12] LABS: Bacteria Urine 4+ (None Seen); RBC Urine >20 /HPF (0-2); Squamous Epithelial Cell Urine 0-2 /HPF (0-2); UACC Culture Trigger YES; WBC Urine >50 /HPF (0-5)
--- NOTE | 2022-12-16 19:31 | PC.NURSE ---
assumed care of pt A&O no apparent distress, watching tv pain 10/08, but states that pain is chronic and she is comfortable
--- NOTE | 2022-12-16 19:58 | PC.NURSE ---
pt up for discharge pt made aware US aware pt awaiting transport
[2022-12-16 20:39] VITALS: BP 95/47; PULSE 55; RESP 12; O2SAT 92
--- NOTE | 2022-12-16 20:44 | PC.NURSE ---
Addendum entered by April Richardson 12/16/22 21:08: [facility]* report given to DODIE Amanda Addendum entered by April Richardson 12/16/22 20:46: discharged* pt to be transported back to SNF ([facility]) Original Note: pt dischared via stretcher with [facility] IV cath tip intact upon removal no apparent distress aox4 discharge instructions given and report given to EMS [facility]
== END 2022-12-16 20:45 | disposition home or self-care (01) ==
PROVIDERS: Physician Assistant; Emergency Provider Student in an Organized Health Care Education/Training Program
DX: J69.0 Pneumonitis due to inhalation of food and vomit (principal); R14.0 Abdominal distension (gaseous); R33.9 Retention of urine, unspecified; T83.098A Other mechanical complication of other urinary catheter, initial encounter; Y73.8 Miscellaneous gastroenterology and urology devices associated with adverse incidents, not elsewhere classified; Y92.129 Unspecified place in nursing home as the place of occurrence of the external cause; Z79.01 Long term (current) use of anticoagulants; Z79.899 Other long term (current) drug therapy
CPT/HCPCS: 36415; 51702; 71045; 74176; 80048; 80076; 81001; 83735; 85025; 87086; 87088; 87186; 96361; 96374; 99284; 99285; J2405

== ENCOUNTER 2024-06-30 11:50 | Inpatient (IN) | payer MEDICAID, SELFPAY ==
[2024-06-30] VITALS (38 sets, daily range): BP systolic 74–150; BP diastolic 29–93; PULSE 82–121; RESP 11–28; TEMP 34.4–37.3; O2SAT 75–98; BMI 25.1; BMI 23.5
--- NOTE | ~2024-06-30 | CT_ITS ---
EXAMINATION: CT ANGIOGRAM CHEST CLINICAL INFORMATION: Dyspnea. Hypoxia. Sepsis. COMPARISON: Chest radiograph done earlier the same day. CTA chest dated 10/31/2020. TECHNIQUE: Multiple axial images were obtained through the chest after the administration of 85 mL of Omnipaque 350 intravenous contrast. Extensive vascular post-processing including two-dimensional and three-dimensional reformatted images were created and reviewed on an independent workstation. This CT examination was performed using dose optimization techniques as appropriate, variously including the following: *Automated exposure control *Adjustment of mA and/or kV according to patient size (this includes techniques or standardized protocols for targeted exams where dose is matched to indication/reason for exam; i.e. extremities or head) *Use of iterative reconstruction technique DLP: 1116 mGy-cm. FINDINGS: QUALITY OF STUDY/CONTRAST BOLUS: Satisfactory. PULMONARY ARTERIES: No central or segmental pulmonary embolism. Evaluation of the peripheral pulmonary artery is somewhat limited due to respiratory motion. THORACIC AORTA: No thoracic aortic dilatation or dissection. LUNG: Prominent emphysematous changes are redemonstrated. Posterior right upper and lower lobe airspace opacities, which could represent atelectasis versus early infiltrates. More linear left basilar probable atelectasis, decreased when compared to the prior examination. No large pulmonary nodule or mass. The central airways are patent. PLEURA: No pleural effusion or pneumothorax. MEDIASTINUM: Normal heart size. No pericardial effusion. No hilar or mediastinal lymphadenopathy. No evidence of septal bowing or right heart strain. CORONARY ARTERY CALCIFICATION: None visualized on this study. CHEST WALL/AXILLA: No axillary or internal mammary lymphadenopathy. OSSEOUS STRUCTURES: No acute or suspicious osseous abnormality. UPPER ABDOMEN: Unremarkable. No reflux of contrast into the hepatic veins to suggest elevated right heart pressures. CT/CT angio chest PE protocol IMPRESSION: 1. No central or segmental pulmonary embolism. Evaluation of the peripheral pulmonary arteries somewhat limited due to respiratory motion. 2. Prominent emphysematous changes are redemonstrated. Posterior right upper and lower lobe airspace opacities, which could represent atelectasis versus early infiltrates. More linear left basilar probable atelectasis, decreased when compared to the prior examination. 3. No significant lymphadenopathy. Fleischner guidelines were followed. Electronically signed by: Phoenix Choudhary MD 06/30/2024 03:23 PM [facility]
--- NOTE | ~2024-06-30 | CT_ITS ---
EXAMINATION: CT ABDOMEN AND PELVIS WITH CONTRAST CLINICAL INFORMATION: Sepsis. COMPARISON: Most recent CT abdomen/pelvis dated 12/16/2022. TECHNIQUE: Multidetector volumetric images were obtained from the superior aspect of the liver through the pubic symphysis following administration 85 mL of Omnipaque 350 intravenous contrast. Sagittal and coronal reformatted images were obtained on the technologist's workstation. Oral contrast: No This CT examination was performed using dose optimization techniques as appropriate, variously including the following: *Automated exposure control *Adjustment of mA and/or kV according to patient size (this includes techniques or standardized protocols for targeted exams where dose is matched to indication/reason for exam; i.e. extremities or head) *Use of iterative reconstruction technique DLP: 1116 mGy-cm. FINDINGS: LUNG BASES: Bibasilar dependent atelectasis versus infiltrates, better evaluated on the recent CT chest. LIVER, GALLBLADDER, AND BILIARY TREE: The liver is normal in size, shape, and attenuation. No focal hepatic lesion or biliary ductal dilatation is present. The gallbladder is unremarkable with no evidence of radiopaque gallstones, gallbladder wall thickening, or obvious pericholecystic inflammatory changes. PANCREAS: Atrophic. SPLEEN: Probable lateral splenic, partially calcified hemangioma with adjacent surgical clips, unchanged when compared to the prior examination. No new splenic parenchymal lesion. ADRENAL GLANDS: Unremarkable. KIDNEYS AND URETERS: The kidneys are normal in size, shape, and attenuation. Posterior right midpole renal stone. No additional renal or ureteral stone. No hydronephrosis or hydroureter. No perinephric stranding. BLADDER: Nondistended with a Beatty catheter in place. GASTROINTESTINAL TRACT: Prominent stool within the rectum measuring up to 7.6 cm, consistent with fecal impaction. [id number]-jm-[id number] stool throughout the colon which could indicate a degree of constipation. No bowel wall thickening or inflammatory change. No small or large bowel obstruction. Appendix not seen; however, no right lower quadrant inflammatory changes suggesting acute appendicitis. PERITONEAL CAVITY: No intra-abdominal free air or free fluid. ABDOMINAL WALL: No significant hernia is appreciated. LYMPH NODES: No significant lymphadenopathy. VASCULAR: No abdominal aortic dilatation or dissection. Atherosclerotic calcifications. IVC filter in place. PELVIC VISCERA: Atrophic uterus. OSSEOUS STRUCTURES: Stable superior endplate compression deformities at L3 and L5, unchanged. There is a new inferior endplate compression deformity at L3 with cortical step-off, measuring up to 0.5 cm. Findings could represent an acute/subacute compression deformity in the appropriate clinical setting. CT/CT abdomen pelvis w IV con IMPRESSION: 1. Prominent stool within the rectum, consistent with fecal impaction. Oeqf-[id number]-hmhyexik stool throughout the colon which could indicate a degree of constipation. No small or large bowel obstruction. 2. Inferior endplate compression deformity at L3 with cortical step-off measuring up to 0.5 cm, new compared to the prior examination. Findings could represent an acute/subacute compression deformity in the appropriate clinical setting. Stable superior endplate depression deformities at L3 and L5. 3. Additional chronic findings are unchanged. Fleischner guidelines were followed. Electronically signed by: Phoenix Choudhary MD 06/30/2024 03:22 PM [facility]
--- NOTE | ~2024-06-30 | XR_ITS ---
EXAMINATION: XR CHEST CLINICAL INFORMATION: Hypoxia. Dyspnea. Cough. COMPARISON: Chest radiograph dated 12/16/2022. TECHNIQUE: Frontal view of the chest was obtained. FINDINGS: Chronic interstitial prominence without focal airspace consolidation. No pleural effusion or pneumothorax. Stable cardiomediastinal silhouette. Cervical and thoracic orthopedic hardware is unchanged. XR/XR chest 1V IMPRESSION: Chronic interstitial prominence without focal airspace consolidation. Electronically signed by: Phoenix Choudhary MD 06/30/2024 01:25 PM EST
--- NOTE | 2024-06-30 11:58 | ECG_ITS ---
Test Reason : sob Blood Pressure : / mmHG Vent. Rate : 094 BPM Atrial Rate : 094 BPM P-R Int : 148 ms QRS Dur : 086 ms QT Int : 382 ms P-R-T Axes : 086 033 041 degrees QTc Int : 477 ms Artifact in tracing Normal sinus rhythm Nonspecific ST and T wave abnormality Abnormal ECG When compared with ECG of 24-JAN-2021 18:46, Vent. rate has increased BY 49 BPM T wave inversion no longer evident in Anterior leads Nonspecific T wave abnormality now evident in Lateral leads Referred By: Judy Mi Electronically Signed By:JET LOZANO
[2024-06-30 12:00] LABS: Glucose, Whole Blood 120 mg/dL (60-115)
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
[2024-06-30 12:13] LABS: MANUAL DIFF FLAG NO
[2024-06-30 12:14] LABS: ABG Base Excess -18.4 mmol/L; ABG HCO3 7 mmol/L (22-26); ABG pCO2 15 mmHg (32-45); ABG pH 7.26 (7.35-7.45); ABG pO2 51 mmHg (83-108)
[2024-06-30 12:16] LABS: Basophils Percent Auto 0.8 % (0-2); Eosinophils Absolute Auto 0.2 X10*3/uL (0.0-0.4); Eosinophils Percent Auto 4.2 % (0-4); Hematocrit 35.2 % (37.0-47.0); Hemoglobin 11.4 g/dl (12.0-16.0); Imm Gran Abs Auto 0.01 X10*3/uL (0.00-0.03); Imm Gran Pct Auto 0.2 % (0.0-0.4); Lymphocytes Absolute Auto 1.5 X10*3/uL (1.2-4.9); Lymphocytes Percent Auto 28.5 % (20-40); Mean Corpuscular HGB Conc 32.4 g/dl (31.0-35.0); Mean Corpuscular Hemoglobin 29.2 pg (27.0-33.0); Mean Corpuscular Volume 90.3 fL (80.0-98.0); Mean Platelet Volume 11.5 fL (9.4-12.3); Monocytes Absolute Auto 0.5 X10*3/uL (0.1-1.2); Monocytes Percent Auto 8.5 % (2-11); Neutrophils Absolute Auto 3.1 x10*3/uL (2.0-8.3); Neutrophils Percent Auto 57.8 % (45-73); Platelet Count 178 X10*3/uL (160-400); Red Cell Distribution Width 15.1 % (11.0-16.0); White Blood Count 5.3 X10*3/uL (4.8-10.8)
[2024-06-30] MEDS: Lactated Ringers 1,000 ML 999 ML IV ×2 (12:17→12:39)
[2024-06-30] MEDS: Acetaminophen Supp 650 MG SUPP.RECT PR (12:17)
[2024-06-30] MEDS: cefEPime HCl/D5W 2 GM/50 ML PIGGYBACK IV ×2 (12:22→21:15)
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
[2024-06-30 12:30] LABS: Lactic Acid 1.1 mmol/L (0.5-2.0)
[2024-06-30 12:36] LABS: B Type Natriuretic Peptide 89 pg/mL (<100)
[2024-06-30 12:40] LABS: Alanine Aminotransferase 25 U/L (0-31); Albumin Level 3.6 g/dL (3.5-5.0); Alkaline Phosphatase 114 U/L (39-117); Anion Gap 15 (12-20); Aspartate Amino Transferase 47 U/L (5-31); Bilirubin Direct < 0.2 mg/dL (0.0-0.5); Bilirubin Total 0.2 mg/dL (0.0-1.0); Blood Urea Nitrogen 11 mg/dL (9-16); C Reactive Protein 3.98 mg/dL (< or = 0.50); Calcium 9.3 mg/dL (8.4-10.2); Carbon Dioxide 18 mmol/L (22-29); Chloride 111 mmol/L (96-108); Creatinine Clr Calc Pharmacy 103.5; Estimated Glomerular Filt Rate > 60; Glucose Random 122 mg/dL (60-115); Lipase 12 U/L (8-78); Magnesium 1.9 mg/dL (1.6-2.6); Potassium 4.1 mmol/L (3.3-5.1); Sodium 140 mmol/L (135-145); Total Protein 7.6 g/dL (6.5-8.0); Troponin-I High Sensitivity < 2.7 ng/L (<3.5-17.0)
[2024-06-30] MEDS: Albuterol Sulfate 5 MG, Albuterol/Iprat 2.5/0.5MG 3 ML 3 ML INHALE (12:42)
[2024-06-30] MEDS: Lactated Ringers 500 ML 999 ML IV (12:49)
[2024-06-30 12:53] LABS: Influenza A PCR NEGATIVE (Negative); Influenza B PCR NEGATIVE (Negative); Resp Syncy Virus RNA Qual PCR NEGATIVE (Negative); SARS COV2 PCR INHOUSE NEGATIVE (Negative)
[2024-06-30 13:02] LABS: VBG Base Excess 1.8 mmol/L; VBG HCO3 29 mmol/L (22-26); VBG pCO2 61 mmHg; VBG pH 7.28 (7.32-7.43); VBG pO2 118 mmHg
[2024-06-30 13:02] LABS: Venous Blood Gas Refer to POC result
[2024-06-30 13:04] LABS: Procalcitonin 0.04 ng/mL
[2024-06-30] MEDS: Midodrine HCl 5 MG TABLET PO (13:23)
[2024-06-30] MEDS: Albumin Human 25 % 100 ML IV ×2 (13:27→13:58)
[2024-06-30] MEDS: Norepinephrine Bitartrate/D5W 8 MG/250 ML PLAST..BAG 6.81 MG IVCONT (13:45)
--- NOTE | 2024-06-30 13:57 | PC.NURSE ---
Albumin rate increased above protocol per MD request d/t hypotension. Pressors started at this time.
[2024-06-30 14:32] LABS: ABG Refer to POC result
[2024-06-30 14:33] LABS: Appearance Urine Clear; Color Urine Yellow; Glucose Urine UA Negative (Negative); Leukocyte Esterase Urine Negative (Negative); Nitrite Urine Negative (Negative); PH 5.5 (5.0-9.0); UMIC TRIGGER UACC YES; Urine Blood Large (3+) (Negative); Urine Ketones Negative (Negative); Urine Protein Negative (Neg-Trace)
[2024-06-30 14:40] LABS: Bacteria Urine None Seen (None Seen); Hyaline Casts Urine 0-2 /LPF (0-2); RBC Urine >20 /HPF (0-2); Squamous Epithelial Cell Urine 0-2 /HPF (0-2); WBC Urine 0-5 /HPF (0-5)
--- NOTE | 2024-06-30 14:41 | PC.NURSE ---
Levophed paused d/t improved pressures, Dr. Mi aware.
[2024-06-30] MEDS: iohexoL 350 MG/ML 100 ML INFUS..BTL 85 ML IV (14:52)
--- NOTE | 2024-06-30 15:05 | PC.NURSE ---
BP dropping, levophed to be restarted.
[2024-06-30] MEDS: vancomycin HCL 1,000 MG, vancomycin HCL 750 MG in 0.9 % Sodium Chloride 500 ML 267.5 MG IV (15:24)
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
--- NOTE | 2024-06-30 16:31 | PHA.MEDREC ---
Pharmacy Consult ? Medication Reconciliation Pharmacy has completed the medication reconciliation. MED REC COMPLETE USING LIST PROVIDED BY [facility] DATED 06/30/24.
--- NOTE | 2024-06-30 17:10 | HO.SKINPHOTO ---
Location: upper back back Location: Right lower leg
[2024-06-30] MEDS: Sulfamethoxazole/Trimethoprim 160 MG in Dextrose 5 % 500 ML 225 MG IV (17:44)
[2024-06-30 18:30] LABS: VBG Base Excess -5.8 mmol/L; VBG HCO3 18 mmol/L (22-26); VBG pCO2 32 mmHg; VBG pH 7.36 (7.32-7.43); VBG pO2 80 mmHg
[2024-06-30 18:30] LABS: Venous Blood Gas Refer to POC result
[2024-06-30 18:47] LABS: Anion Gap 17 (12-20); Blood Urea Nitrogen 9 mg/dL (9-16); Calcium 8.7 mg/dL (8.4-10.2); Carbon Dioxide 18 mmol/L (22-29); Chloride 109 mmol/L (96-108); Creatinine Clr Calc Pharmacy 113.1; Estimated Glomerular Filt Rate > 60; Glucose Random 208 mg/dL (60-115); Magnesium 1.6 mg/dL (1.6-2.6); Phosphorus 3.3 mg/dL (2.7-4.5); Potassium 4.2 mmol/L (3.3-5.1); Sodium 140 mmol/L (135-145)
[2024-06-30] MEDS: Albuterol/Iprat 2.5/0.5MG 3 ML AMPUL.NEB INHALE (20:24)
[2024-06-30] MEDS: Famotidine/PF 20 MG/2 ML VIAL IVPUSH (21:15)
[2024-06-30] MEDS: Morphine Sulfate 2 MG/ML CARTRIDGE IVPUSH (21:54)
[2024-06-30] MEDS: oxyCODONE HCl Immed Release 5 MG TABLET 10 MG PO (23:42)
[2024-06-30] MEDS: Apixaban 5 MG TABLET PO (23:43)
[2024-06-30] MEDS: Midodrine HCl 5 MG TABLET 15 MG PO (23:43)
[2024-06-30] MEDS: Baclofen 10 MG TABLET PO (23:43)
[2024-06-30] MEDS: ondansetron HCL 4 MG/2 ML VIAL IVPUSH (23:50)
[2024-07-01] VITALS (37 sets, daily range): BP systolic 103–154; BP diastolic 41–74; PULSE 53–94; RESP 11–23; TEMP 36.3–36.7; O2SAT 90–96; BMI 23.6
[2024-07-01] MEDS: vancomycin HCL 1,250 MG in 0.9 % Sodium Chloride 250 ML 166.67 MG IV (02:24)
[2024-07-01] MEDS: cefEPime HCl/D5W 2 GM/50 ML PIGGYBACK IV ×3 (03:11→21:01)
[2024-07-01] MEDS: Sulfamethoxazole/Trimethoprim 160 MG in Dextrose 5 % 500 ML 225 MG IV ×2 (03:11→16:45)
[2024-07-01] MEDS: oxyCODONE HCl Immed Release 5 MG TABLET 10 MG PO ×2 (03:18→08:13)
[2024-07-01] MEDS: Acetaminophen 325 MG TABLET PO ×2 (03:18→08:13)
[2024-07-01] MEDS: bisacodyL 10 MG SUPP.RECT PR (05:46)
[2024-07-01 05:51] LABS: MANUAL DIFF FLAG NO
[2024-07-01 05:53] LABS: Basophils Percent Auto 0.5 % (0-2); Eosinophils Percent Auto 0.3 % (0-4); Hematocrit 30.4 % (37.0-47.0); Hemoglobin 9.8 g/dl (12.0-16.0); Imm Gran Abs Auto 0.03 X10*3/uL (0.00-0.03); Imm Gran Pct Auto 0.5 % (0.0-0.4); Lymphocytes Absolute Auto 0.8 X10*3/uL (1.2-4.9); Lymphocytes Percent Auto 13.6 % (20-40); Mean Corpuscular HGB Conc 32.2 g/dl (31.0-35.0); Mean Corpuscular Hemoglobin 28.7 pg (27.0-33.0); Mean Corpuscular Volume 89.1 fL (80.0-98.0); Mean Platelet Volume 12.1 fL (9.4-12.3); Monocytes Absolute Auto 0.5 X10*3/uL (0.1-1.2); Monocytes Percent Auto 7.7 % (2-11); Neutrophils Absolute Auto 4.5 x10*3/uL (2.0-8.3); Neutrophils Percent Auto 77.4 % (45-73); Platelet Count 174 X10*3/uL (160-400); Red Blood Count 3.41 X10*6/uL (4.20-5.50); Red Cell Distribution Width 14.8 % (11.0-16.0); White Blood Count 5.8 X10*3/uL (4.8-10.8)
[2024-07-01 06:13] LABS: Anion Gap 14 (12-20); Blood Urea Nitrogen 6 mg/dL (9-16); Carbon Dioxide 20 mmol/L (22-29); Chloride 107 mmol/L (96-108); Creatinine Clr Calc Pharmacy 117.5; Estimated Glomerular Filt Rate > 60; Glucose Random 155 mg/dL (60-115); Magnesium 1.6 mg/dL (1.6-2.6); Phosphorus 1.5 mg/dL (2.7-4.5); Potassium 3.6 mmol/L (3.3-5.1); Sodium 137 mmol/L (135-145)
[2024-07-01] MEDS: Albuterol/Iprat 2.5/0.5MG 3 ML AMPUL.NEB INHALE ×4 (07:48→20:58)
[2024-07-01] MEDS: Potassium Phosphate/NS 15 MMOL/250 ML PLAST..BAG 62.5 MMOL IV (08:01)
[2024-07-01] MEDS: 0.9 % Sodium Chloride Flush 3 ML SYRINGE IVFLUSH ×3 (08:03→16:46)
[2024-07-01] MEDS: Baclofen 10 MG TABLET PO ×3 (08:04→20:18)
[2024-07-01] MEDS: Famotidine/PF 20 MG/2 ML VIAL IVPUSH ×2 (08:04→20:21)
[2024-07-01] MEDS: Midodrine HCl 5 MG TABLET 15 MG PO ×3 (08:04→20:18)
[2024-07-01] MEDS: Apixaban 5 MG TABLET PO ×2 (08:04→20:18)
[2024-07-01] MEDS: Aspirin 81 MG TAB.CHEW PO (08:04)
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
[2024-07-01] MEDS: Magnesium Sulfate/D5W 1 GM/100 ML PIGGYBACK IV (08:57)
--- NOTE | 2024-07-01 10:54 | MHC.SLORD ---
Speech Language Pathology Order Status: EXECUTIVE TEAM LEADER called-in to see patient for bedside swallow eval this morning. Patient was lying in bed, shivering, requesting her tv be turned off. EXECUTIVE TEAM LEADER honored that request, explained rationale for swallow eval and procedure. Patient refused, c/o not feeling well, nausea. RN reports patient tolerated pills whole with applesauce this morning. EXECUTIVE TEAM LEADER called [facility] for hx, nursing staff reports she was on a chopped diet with thin liquids, tolerated some foods regular texture, took her pills whole with liquid, was followed by OT and EXECUTIVE TEAM LEADER. Notified RN and MD. Eval deferred for tomorrow a.m.
[2024-07-01 12:38] LABS: Vancomycin Random 23.8 mcg/mL (15-20)
--- NOTE | 2024-07-01 12:47 | HE.PHANOTE ---
Re: Vanco Renal function improving. Trough returned at 23.8. Dose held, to resume at 2100 07/01. Dose reduced to 750mg q12h with predicted AUC 476 and predicted trough 14.5. Next trough 07/03 @ 0700.
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
[2024-07-01] MEDS: Pregabalin 75 MG CAPSULE PO ×2 (14:34→20:18)
[2024-07-01] MEDS: LORazepam 0.5 MG TABLET PO (20:18)
[2024-07-01] MEDS: vancomycin HCL 750 MG in 0.9 % Sodium Chloride 250 ML 265 MG IV (21:05)
[2024-07-01] MEDS: QUEtiapine Fumarate 50 MG TABLET PO (21:10)
[2024-07-01] MEDS: Melatonin 3 MG TABLET 6 MG PO (21:10)
[2024-07-02] VITALS (25 sets, daily range): BP systolic 99–135; BP diastolic 43–67; PULSE 51–77; RESP 10–19; TEMP 36.3–36.6; O2SAT 91–98; BMI 23.6
[2024-07-02] MEDS: 0.9 % Sodium Chloride Flush 3 ML SYRINGE IVFLUSH ×4 (00:05→20:15)
[2024-07-02] MEDS: Sulfamethoxazole/Trimethoprim 160 MG in Dextrose 5 % 500 ML 225 MG IV (04:05)
[2024-07-02] MEDS: cefEPime HCl/D5W 2 GM/50 ML PIGGYBACK IV (04:09)
[2024-07-02 05:27] LABS: MANUAL DIFF FLAG NO
[2024-07-02 05:29] LABS: Basophils Percent Auto 0.7 % (0-2); Eosinophils Absolute Auto 0.2 X10*3/uL (0.0-0.4); Eosinophils Percent Auto 3.7 % (0-4); Hematocrit 32.6 % (37.0-47.0); Hemoglobin 10.6 g/dl (12.0-16.0); Imm Gran Abs Auto 0.01 X10*3/uL (0.00-0.03); Imm Gran Pct Auto 0.2 % (0.0-0.4); Lymphocytes Absolute Auto 0.8 X10*3/uL (1.2-4.9); Lymphocytes Percent Auto 17.4 % (20-40); Mean Corpuscular HGB Conc 32.5 g/dl (31.0-35.0); Mean Corpuscular Hemoglobin 28.8 pg (27.0-33.0); Mean Corpuscular Volume 88.6 fL (80.0-98.0); Mean Platelet Volume 11.9 fL (9.4-12.3); Monocytes Absolute Auto 0.4 X10*3/uL (0.1-1.2); Monocytes Percent Auto 8.5 % (2-11); Neutrophils Absolute Auto 3.2 x10*3/uL (2.0-8.3); Neutrophils Percent Auto 69.5 % (45-73); Platelet Count 183 X10*3/uL (160-400); Red Blood Count 3.68 X10*6/uL (4.20-5.50); Red Cell Distribution Width 14.9 % (11.0-16.0); White Blood Count 4.6 X10*3/uL (4.8-10.8)
[2024-07-02 05:44] LABS: Anion Gap 11 (12-20); Blood Urea Nitrogen 6 mg/dL (9-16); Calcium 9.5 mg/dL (8.4-10.2); Carbon Dioxide 22 mmol/L (22-29); Chloride 106 mmol/L (96-108); Creatinine Clr Calc Pharmacy 105.3; Estimated Glomerular Filt Rate > 60; Glucose Random 149 mg/dL (60-115); Magnesium 1.9 mg/dL (1.6-2.6); Phosphorus 2.5 mg/dL (2.7-4.5); Potassium 3.2 mmol/L (3.3-5.1); Sodium 136 mmol/L (135-145)
[2024-07-02] MEDS: vancomycin HCL 750 MG in 0.9 % Sodium Chloride 250 ML 265 MG IV (08:15)
[2024-07-02] MEDS: Potassium Phosphate/NS 15 MMOL/250 ML PLAST..BAG 62.5 MMOL IV ×2 (08:15→12:25)
[2024-07-02] MEDS: Aspirin 81 MG TAB.CHEW PO (09:55)
[2024-07-02] MEDS: QUEtiapine Fumarate 50 MG TABLET PO ×2 (09:55→20:14)
[2024-07-02] MEDS: Midodrine HCl 5 MG TABLET 15 MG PO ×4 (09:55→20:09)
[2024-07-02] MEDS: Apixaban 5 MG TABLET PO ×2 (09:55→20:14)
[2024-07-02] MEDS: levoFLOXacin/D5W 750 MG/150 ML PIGGYBACK 100 MG IV (09:56)
[2024-07-02] MEDS: Famotidine 20 MG TABLET PO ×2 (09:56→20:14)
[2024-07-02] MEDS: Pregabalin 75 MG CAPSULE PO ×3 (09:56→20:15)
[2024-07-02] MEDS: Baclofen 10 MG TABLET PO ×3 (09:56→20:14)
--- NOTE | 2024-07-02 09:58 | MHC.CM.PN ---
Patient remains in ICU. Currently on 7LNC. Off all pressors since 07/01. Anticipate transfer out of ICU today. ANticipate patient will return to [facility] via [facility] when medically stable. Continue to monitor for d/c needs.
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
[2024-07-02] MEDS: Albuterol/Iprat 2.5/0.5MG 3 ML AMPUL.NEB INHALE ×2 (15:23→20:36)
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
--- NOTE | 2024-07-02 16:35 | HO.WOUND ---
Wound Consult: Initial 58yr old? female admitted to [facility] on 06/30/24 - See progress notes and H&P for detailed history.? Wound consult placed for Right alaniz and Upper Back wounds POA.? Patient agreeable to assessment and photo documentation.? Patient reports the upper back is secondary to a previous back surgery and poor healing, the right leg she is unclear of etiology reports it was previously approximately 3 weeks ago significantly larger and with bruising, currently consistent with resolving hematoma. Right Alaniz Prior to gentle cleansing Right Alaniz post cleaning Etiology: ??Unclear etiology suspect resolving hematoma Measurements: 0.2cm x 0.2cm x 0.1cm Wound Bed: small dry stable scab remains - recently epithelialized tissue Drainage / Odor: None Edges: ? attached Mckenna wound: ? slight soft fluctuance noted, bruising noted, no induration and no Warmth noted Pain: denies feeling Goals of Treatment: ? protect from trauma and allow healing to continue Upper Back Etiology: ??nonhealing surgical site - assessed from photo Wound Bed: small areas of dry yellow crusted wound bed Drainage / Odor: appears mckoy brown in photo Edges: ? irregular Mckenna wound: Scar tissue noted Goals of Treatment: ?Foam dressing to allow for moist wound healing and protect from friction Recommendations: 1. Turn and Reposition every 2 hours and as needed for patient comfort.? Use pillows or wedges to support off loading positions. 2. Off Load all bony prominences with use of pillows and heel boots if needed.? Apply Preventative foams where needed. ? 3. Monitor for incontinence and moisture control, use barrier creams when needed for prevention and treatment. 4. Provide adequate and supplemental nutrition.? 5. Continue low air loss mattress. 6. When applicable maintain blood glucose levels per Providers order. 7. Upper Back - Cleanse with Ns, pat dry. Apply skin prep allow to dry. Cover with foam dressing, change every 5 days and PRN. 8. Right Alaniz - Apply skin prep allow to dry. Cover with gentle dry gauze dressing, change every 3 days and prn. Re-consult wound care Nurse for wound deterioration or wound changes.
[2024-07-02] MEDS: Lactated Ringers 1,000 ML 999 ML IVCONT (17:40)
[2024-07-02] MEDS: Sulfamethox/Trimeth 800/160 TABLET 1 TAB PO (20:14)
[2024-07-02] MEDS: oxyCODONE HCl Immed Release 5 MG TABLET PO (20:18)
[2024-07-02] MEDS: LORazepam 0.5 MG TABLET PO (20:18)
[2024-07-03] VITALS (12 sets, daily range): BP systolic 90–134; BP diastolic 41–65; PULSE 56–89; RESP 16–20; TEMP 36–36.2; O2SAT 90–97; BMI 25.3
[2024-07-03] MEDS: Midodrine HCl 5 MG TABLET 15 MG PO ×4 (02:08→22:11)
--- NOTE | 2024-07-03 02:41 | PC.ADMIT ---
Patient alert/oriented, states always in pain. Oxy adminiistered for pain control as ordered. Turned and repositioned every 2-4 hours for skin care and comfort. Wound care as ordered right alaniz and upper mid back, dressings are c/d/i changed 12-2. Heels are offloaded in soft boots and compression therapy for dvt prophylaxis. Patient reports no feeling chest down pretty much . Hands are contracted but able to use call berumen with them. No purposeful movement of legs. +1pedal edema. Patient reports difficulty sleeping d/t a cough she didnt have before. Patient has a weak, non productive cough, phlegm occasionally pooling in stoma if she can get phelgm up that far. Lungs are dim throughout, patient is on 7L nj n/c. Respiratory working with patient. VSS. Patient takes pills whole in applesauce. States she drinks liquids ok but on aspiration precautions. Purewick for urinary incontinence. No acute issues tonight. WIll continue to monitor.
[2024-07-03] MEDS: oxyCODONE HCl Immed Release 5 MG TABLET PO ×2 (03:18→15:50)
[2024-07-03] MEDS: Albuterol/Iprat 2.5/0.5MG 3 ML AMPUL.NEB INHALE ×4 (07:52→18:54)
[2024-07-03 08:04] LABS: MANUAL DIFF FLAG NO
[2024-07-03 08:10] LABS: Basophils Absolute Auto 0.1 X10*3/uL (0.0-0.2); Basophils Percent Auto 0.9 % (0-2); Eosinophils Absolute Auto 0.4 X10*3/uL (0.0-0.4); Eosinophils Percent Auto 5.4 % (0-4); Hematocrit 34.9 % (37.0-47.0); Hemoglobin 11.4 g/dl (12.0-16.0); Imm Gran Abs Auto 0.02 X10*3/uL (0.00-0.03); Imm Gran Pct Auto 0.3 % (0.0-0.4); Lymphocytes Absolute Auto 0.8 X10*3/uL (1.2-4.9); Lymphocytes Percent Auto 11.6 % (20-40); Mean Corpuscular HGB Conc 32.7 g/dl (31.0-35.0); Mean Corpuscular Volume 88.8 fL (80.0-98.0); Monocytes Absolute Auto 0.6 X10*3/uL (0.1-1.2); Monocytes Percent Auto 9.4 % (2-11); Neutrophils Absolute Auto 4.9 x10*3/uL (2.0-8.3); Neutrophils Percent Auto 72.4 % (45-73); Platelet Count 166 X10*3/uL (160-400); Red Blood Count 3.93 X10*6/uL (4.20-5.50); Red Cell Distribution Width 15.2 % (11.0-16.0); White Blood Count 6.8 X10*3/uL (4.8-10.8)
[2024-07-03] MEDS: Apixaban 5 MG TABLET PO ×2 (08:17→22:14)
[2024-07-03] MEDS: Pregabalin 75 MG CAPSULE PO ×3 (08:17→22:15)
[2024-07-03] MEDS: Sulfamethox/Trimeth 800/160 TABLET 1 TAB PO ×2 (08:18→22:11)
[2024-07-03] MEDS: levoFLOXacin/D5W 750 MG/150 ML PIGGYBACK 150 MG IV (08:18)
[2024-07-03] MEDS: QUEtiapine Fumarate 50 MG TABLET PO ×2 (08:18→22:10)
[2024-07-03] MEDS: Baclofen 10 MG TABLET PO ×3 (08:18→22:11)
[2024-07-03] MEDS: Famotidine 20 MG TABLET PO ×2 (08:18→22:10)
[2024-07-03] MEDS: Aspirin 81 MG TAB.CHEW PO (08:18)
[2024-07-03 08:30] LABS: Anion Gap 13 (12-20); Blood Urea Nitrogen 9 mg/dL (9-16); Calcium 9.7 mg/dL (8.4-10.2); Carbon Dioxide 22 mmol/L (22-29); Chloride 110 mmol/L (96-108); Creatinine Clr Calc Pharmacy 109.1; Estimated Glomerular Filt Rate > 60; Glucose Random 93 mg/dL (60-115); Phosphorus 2.9 mg/dL (2.7-4.5); Potassium 4.3 mmol/L (3.3-5.1); Sodium 141 mmol/L (135-145)
[2024-07-03] MEDS: 0.9 % Sodium Chloride Flush 3 ML SYRINGE IVFLUSH ×2 (08:30→22:18)
--- NOTE | 2024-07-03 14:21 | MHC.SPEECHCO ---
Pt resting sound this morning. Per RN, she has not woken yet. DENTAL THERAPIST requested RN to text if Pt is more alert in the afternoon.
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
[2024-07-03] MEDS: oxyCODONE HCl Immed Release 5 MG TABLET 10 MG PO (18:43)
[2024-07-03] MEDS: Docusate Sodium 100 MG CAPSULE PO (22:14)
[2024-07-03] MEDS: Sennosides 8.6 MG TABLET 17.2 MG PO (22:14)
[2024-07-04] VITALS (12 sets, daily range): BP systolic 94–120; BP diastolic 47–71; PULSE 64–95; RESP 14–20; TEMP 36.4–37.1; O2SAT 91–97; BMI 25.7
[2024-07-04] MEDS: Midodrine HCl 5 MG TABLET 15 MG PO ×4 (03:53→21:23)
[2024-07-04 06:58] LABS: Basophils Absolute Auto 0.1 X10*3/uL (0.0-0.2); Eosinophils Absolute Auto 0.3 X10*3/uL (0.0-0.4); Eosinophils Percent Auto 5.4 % (0-4); Hematocrit 37.8 % (37.0-47.0); Hemoglobin 11.9 g/dl (12.0-16.0); Imm Gran Abs Auto 0.03 X10*3/uL (0.00-0.03); Imm Gran Pct Auto 0.5 % (0.0-0.4); Lymphocytes Absolute Auto 0.8 X10*3/uL (1.2-4.9); MANUAL DIFF FLAG SCAN; Mean Corpuscular HGB Conc 31.5 g/dl (31.0-35.0); Mean Corpuscular Hemoglobin 28.8 pg (27.0-33.0); Mean Corpuscular Volume 91.5 fL (80.0-98.0); Monocytes Absolute Auto 0.7 X10*3/uL (0.1-1.2); Monocytes Percent Auto 11.7 % (2-11); Neutrophils Absolute Auto 4.2 x10*3/uL (2.0-8.3); Neutrophils Percent Auto 68.4 % (45-73); PLT CLUMP 1; Red Blood Count 4.13 X10*6/uL (4.20-5.50); Red Cell Distribution Width 15.5 % (11.0-16.0); SCAN SMEAR FLAG 1
[2024-07-04 07:06] LABS: Anion Gap 13 (12-20); Blood Urea Nitrogen 10 mg/dL (9-16); Calcium 9.7 mg/dL (8.4-10.2); Carbon Dioxide 20 mmol/L (22-29); Chloride 110 mmol/L (96-108); Creatinine Clr Calc Pharmacy 127.2; Estimated Glomerular Filt Rate > 60; Glucose Random 82 mg/dL (60-115); Magnesium 2.2 mg/dL (1.6-2.6); Phosphorus 2.6 mg/dL (2.7-4.5); Potassium 4.2 mmol/L (3.3-5.1); Sodium 139 mmol/L (135-145)
[2024-07-04] MEDS: Albuterol/Iprat 2.5/0.5MG 3 ML AMPUL.NEB INHALE ×4 (07:32→20:23)
[2024-07-04] MEDS: oxyCODONE HCl Immed Release 5 MG TABLET 10 MG PO ×4 (07:51→21:24)
[2024-07-04] MEDS: Multivitamin TABLET 1 TAB PO (07:52)
[2024-07-04] MEDS: Pregabalin 75 MG CAPSULE PO ×3 (07:52→21:23)
[2024-07-04] MEDS: Sennosides 8.6 MG TABLET 17.2 MG PO ×2 (07:52→21:24)
[2024-07-04] MEDS: Baclofen 10 MG TABLET PO ×3 (07:53→21:23)
[2024-07-04] MEDS: QUEtiapine Fumarate 50 MG TABLET PO ×2 (07:53→21:25)
[2024-07-04] MEDS: Aspirin 81 MG TAB.CHEW PO (07:53)
[2024-07-04] MEDS: Sertraline HCL 100 MG TABLET 200 MG PO (07:53)
[2024-07-04] MEDS: Sulfamethox/Trimeth 800/160 TABLET 1 TAB PO ×2 (07:53→21:23)
[2024-07-04] MEDS: Docusate Sodium 100 MG CAPSULE PO ×2 (07:53→21:25)
[2024-07-04] MEDS: Famotidine 20 MG TABLET PO ×2 (07:53→21:23)
[2024-07-04] MEDS: levoFLOXacin/D5W 750 MG/150 ML PIGGYBACK 100 MG IV (07:54)
[2024-07-04] MEDS: Apixaban 5 MG TABLET PO ×2 (07:54→21:25)
[2024-07-04] MEDS: Cholecalciferol (Vitamin D3) 25 MCG TABLET PO (07:54)
[2024-07-04] MEDS: 0.9 % Sodium Chloride Flush 3 ML SYRINGE IVFLUSH ×2 (07:55→21:25)
[2024-07-04 08:04] LABS: Mean Platelet Volume 12.4 fL (9.4-12.3); Platelet Count 168 X10*3/uL (160-400); White Blood Count 6.1 X10*3/uL (4.8-10.8)
[2024-07-04 08:05] LABS: SLIDE REVIEW VERIFIED
--- NOTE | 2024-07-04 11:26 | MHC.SL.SWA ---
Speech Pathologist Impression: Mild oropharyngeal dysphagia, pt back to baseline Risk of Aspiration Due to: Medically Fragile History of Pneumonia Dysphasia Diet Status: Patient is post tracheostomy with residual open stoma Liquid Consistency and Strategies for Safe Swallow: Liquid Intake Recommendation: Thin Liquid Intake Strategies: Small Sips Solid Food Consistency: Dietary Recommendations: Chopped/Advanced (NDD3) Additional Modifications to Solid Foods: Oral Medication Intake: Crushed with Puree Please contact the pharmacy regarding appropriate crushable or liquid drug formulations that are available whenever modified delivery is recommended. Compensatory Strategies and Precautions to be Taken for Safe Swallow: Sitting Upright (90 deg) Liquids from Straw Alternate Liquids/Solids Rate of Ingestion Change Oral Check Supervision While Eating and Drinking for Safe Swallow: Total Supervision (1:1) Foods to Avoid: Patient has missing teeth. Recommend avoid tough/sticky foods and utilize compensatory strategies to promote oral clearance: small bites/sips, alternate bite of food with sip of liquid, chew food well, moisten with sauce/gravy. Patient requires 1:1 assistance feeding due to paraplegia. Swallowing Recommended Treatments: Compens. Strategy Educat. Recommendation for Speech: Speech Therapy upon d/c not indicated if pt status remains stable. Pt doesn't eat food at the facility where she resides, her daughter brings in food for her as pt is managing her own dysphagia and preferences for certain foods. Comment: Frequency/Duration: Date Range for Service Req: Timeline to reassess: Recreational Specialist Clinican/Clinical Fellow: No Supervisory Statement: I have reviewed and agree with the student/clinical fellow's documentation: N/A Speech Language Pathologist: Modesta Varela M.S., [facility]-MANAGER MOBILITY
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
[2024-07-05] VITALS (16 sets, daily range): BP systolic 80–131; BP diastolic 37–65; PULSE 64–87; RESP 16–18; TEMP 36.4–37; O2SAT 93–98; BMI 25.5
[2024-07-05] MEDS: Melatonin 3 MG TABLET 6 MG PO ×2 (00:11→22:05)
[2024-07-05] MEDS: Midodrine HCl 5 MG TABLET 15 MG PO ×4 (03:11→22:06)
[2024-07-05] MEDS: oxyCODONE HCl Immed Release 5 MG TABLET 10 MG PO (05:06)
[2024-07-05 07:40] LABS: MANUAL DIFF FLAG NO
[2024-07-05 07:59] LABS: Basophils Absolute Auto 0.1 X10*3/uL (0.0-0.2); Basophils Percent Auto 0.8 % (0-2); Eosinophils Absolute Auto 0.5 X10*3/uL (0.0-0.4); Eosinophils Percent Auto 7.8 % (0-4); Hematocrit 34.6 % (37.0-47.0); Hemoglobin 11.1 g/dl (12.0-16.0); Imm Gran Abs Auto 0.05 X10*3/uL (0.00-0.03); Imm Gran Pct Auto 0.8 % (0.0-0.4); Lymphocytes Absolute Auto 1.6 X10*3/uL (1.2-4.9); Lymphocytes Percent Auto 24.8 % (20-40); Mean Corpuscular HGB Conc 32.1 g/dl (31.0-35.0); Mean Corpuscular Hemoglobin 28.8 pg (27.0-33.0); Mean Corpuscular Volume 89.6 fL (80.0-98.0); Mean Platelet Volume 11.9 fL (9.4-12.3); Monocytes Absolute Auto 0.6 X10*3/uL (0.1-1.2); Monocytes Percent Auto 9.9 % (2-11); Neutrophils Absolute Auto 3.6 x10*3/uL (2.0-8.3); Neutrophils Percent Auto 55.9 % (45-73); Platelet Count 220 X10*3/uL (160-400); Red Blood Count 3.86 X10*6/uL (4.20-5.50); Red Cell Distribution Width 15.4 % (11.0-16.0); White Blood Count 6.4 X10*3/uL (4.8-10.8)
[2024-07-05 08:14] LABS: Anion Gap 13 (12-20); Blood Urea Nitrogen 10 mg/dL (9-16); Calcium 9.4 mg/dL (8.4-10.2); Carbon Dioxide 22 mmol/L (22-29); Chloride 106 mmol/L (96-108); Creatinine Clr Calc Pharmacy 124.5; Estimated Glomerular Filt Rate > 60; Glucose Random 80 mg/dL (60-115); Magnesium 1.9 mg/dL (1.6-2.6); Phosphorus 3.7 mg/dL (2.7-4.5); Potassium 4.2 mmol/L (3.3-5.1); Sodium 137 mmol/L (135-145)
[2024-07-05] MEDS: Albuterol/Iprat 2.5/0.5MG 3 ML AMPUL.NEB INHALE ×4 (08:22→19:15)
[2024-07-05] MEDS: QUEtiapine Fumarate 50 MG TABLET PO ×2 (08:44→22:08)
[2024-07-05] MEDS: Baclofen 10 MG TABLET PO ×3 (08:44→22:09)
[2024-07-05] MEDS: Sennosides 8.6 MG TABLET 17.2 MG PO ×2 (08:44→22:09)
[2024-07-05] MEDS: Sertraline HCL 100 MG TABLET 200 MG PO (08:45)
[2024-07-05] MEDS: Multivitamin TABLET 1 TAB PO (08:45)
[2024-07-05] MEDS: Cholecalciferol (Vitamin D3) 25 MCG TABLET PO (08:46)
[2024-07-05] MEDS: Apixaban 5 MG TABLET PO ×2 (08:46→22:10)
[2024-07-05] MEDS: Sulfamethox/Trimeth 800/160 TABLET 1 TAB PO ×2 (08:46→22:09)
[2024-07-05] MEDS: Pregabalin 75 MG CAPSULE PO ×3 (08:46→22:08)
[2024-07-05] MEDS: Aspirin 81 MG TAB.CHEW PO (08:46)
[2024-07-05] MEDS: Famotidine 20 MG TABLET PO ×2 (08:47→22:08)
[2024-07-05] MEDS: levoFLOXacin/D5W 750 MG/150 ML PIGGYBACK 100 MG IV (08:47)
[2024-07-05] MEDS: Docusate Sodium 100 MG CAPSULE PO ×2 (08:47→22:08)
[2024-07-05] MEDS: 0.9 % Sodium Chloride Flush 3 ML SYRINGE IVFLUSH ×2 (09:05→22:09)
--- NOTE | 2024-07-05 09:53 | MHC.SL.SWA ---
Speech Pathologist Impression: Risk of Aspiration Due to: Medically Fragile History of Pneumonia Dysphasia Diet Status: Continue on Chopped/Advanced (NDD3) with Thin liquids (straw o.k.), pills whole with puree. 1-1 feeding/full assist at all meals. Liquid Consistency and Strategies for Safe Swallow: Liquid Intake Recommendation: Thin Liquid Intake Strategies: Small Sips Solid Food Consistency: Dietary Recommendations: Chopped/Advanced (NDD3) Additional Modifications to Solid Foods: Oral Medication Intake: Crushed with Puree Please contact the pharmacy regarding appropriate crushable or liquid drug formulations that are available whenever modified delivery is recommended. Compensatory Strategies and Precautions to be Taken for Safe Swallow: Sitting Upright (90 deg) Liquids from Cup Liquids from Straw Small Bites and Sips Alternate Liquids/Solids Supervision While Eating and Drinking for Safe Swallow: Total Assistance (1:1) Foods to Avoid: Mixed consistencies, hard, difficult to chew solids. Swallowing Recommended Treatments: Compens. Strategy Educat. Recommendation for Speech: Speech Therapy through Rehab Facility Comment: Patient seen this morning at breakfast. Patient with diet upgrade yesterday (07/04) to Chopped Advanced/Thin, which is patient's baseline. This morning, she had eggs, oatmeal, magic cup and juices available for breakfast. She elected to eat the eggs and orange juice on the tray initially, and on both textures produced timely oral and pharyngeal phases of swallow, with no clinical signs of aspiration, and no oral residual or pocketing with solids. Patient took liquids by straw with no difficulties. She was initially surprised by the Ice Cream on the tray, but did consume some of the Magic Cup when it's nutritional purpose was explained. Patient was pleasant and cooperative throughout, appears to be managing upgrade well, continues to require full assist at all meals. No change recommended at this time. Frequency/Duration: Date Range for Service Req: Timeline to reassess: Skip Tracer Clinican/Clinical Fellow: No Supervisory Statement: I have reviewed and agree with the student/clinical fellow's documentation: N/A Speech Language Pathologist: Zahida Montano M.A., CCC-NEWS COMMENTATOR
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
--- NOTE | 2024-07-05 11:38 | MHC.CM.PN ---
PT TO BE MEDICALLY CLEARED FOR DC BACK TO LTC AT [facility], CM ATTEMPTED TO CONTACT PT'S DTR/HCP JORDI AT BOTH NUMBERS ON FILE, NEITHER IN WORKING SERVICE, CM HAS REQUESTED UPDATED CONTACT NUMBER, [facility] FOR BLS TRANSPORT AT 2PM.
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
[2024-07-05] MEDS: Albumin Human 25 % 100 ML 133.33 ML IV ×2 (12:32→13:45)
[2024-07-05] MEDS: oxyCODONE HCl Immed Release 5 MG TABLET PO ×2 (15:51→22:15)
[2024-07-06] VITALS (8 sets, daily range): BP systolic 108–149; BP diastolic 57–83; PULSE 65–82; RESP 15–20; TEMP 36.2–36.9; O2SAT 92–97; BMI 23.5
[2024-07-06] MEDS: Midodrine HCl 5 MG TABLET 15 MG PO ×4 (04:03→21:19)
[2024-07-06 06:48] LABS: MANUAL DIFF FLAG NO
[2024-07-06 07:06] LABS: Basophils Percent Auto 0.6 % (0-2); Eosinophils Absolute Auto 0.5 X10*3/uL (0.0-0.4); Eosinophils Percent Auto 6.2 % (0-4); Hematocrit 33.4 % (37.0-47.0); Hemoglobin 11.1 g/dl (12.0-16.0); Imm Gran Abs Auto 0.03 X10*3/uL (0.00-0.03); Imm Gran Pct Auto 0.4 % (0.0-0.4); Lymphocytes Absolute Auto 1.5 X10*3/uL (1.2-4.9); Mean Corpuscular HGB Conc 33.2 g/dl (31.0-35.0); Mean Corpuscular Hemoglobin 29.3 pg (27.0-33.0); Mean Corpuscular Volume 88.1 fL (80.0-98.0); Mean Platelet Volume 11.7 fL (9.4-12.3); Monocytes Absolute Auto 0.7 X10*3/uL (0.1-1.2); Monocytes Percent Auto 9.5 % (2-11); Neutrophils Absolute Auto 4.5 x10*3/uL (2.0-8.3); Neutrophils Percent Auto 62.3 % (45-73); Platelet Count 223 X10*3/uL (160-400); Red Blood Count 3.79 X10*6/uL (4.20-5.50); Red Cell Distribution Width 15.4 % (11.0-16.0); White Blood Count 7.3 X10*3/uL (4.8-10.8)
[2024-07-06 07:13] LABS: Anion Gap 14 (12-20); Blood Urea Nitrogen 11 mg/dL (9-16); Calcium 10.3 mg/dL (8.4-10.2); Carbon Dioxide 24 mmol/L (22-29); Chloride 105 mmol/L (96-108); Creatinine Clr Calc Pharmacy 105.3; Estimated Glomerular Filt Rate > 60; Glucose Random 92 mg/dL (60-115); Phosphorus 2.8 mg/dL (2.7-4.5); Sodium 139 mmol/L (135-145)
[2024-07-06] MEDS: Albuterol/Iprat 2.5/0.5MG 3 ML AMPUL.NEB INHALE (07:49)
[2024-07-06] MEDS: levoFLOXacin/D5W 750 MG/150 ML PIGGYBACK 100 MG IV (10:41)
[2024-07-06] MEDS: Pregabalin 75 MG CAPSULE PO ×3 (10:42→21:19)
[2024-07-06] MEDS: Apixaban 5 MG TABLET PO ×2 (10:43→21:20)
[2024-07-06] MEDS: Aspirin 81 MG TAB.CHEW PO (10:43)
[2024-07-06] MEDS: Sertraline HCL 100 MG TABLET 200 MG PO (10:43)
[2024-07-06] MEDS: Sulfamethox/Trimeth 800/160 TABLET 1 TAB PO ×2 (10:43→21:20)
[2024-07-06] MEDS: QUEtiapine Fumarate 50 MG TABLET PO ×2 (10:43→21:20)
[2024-07-06] MEDS: Cholecalciferol (Vitamin D3) 25 MCG TABLET PO (10:44)
[2024-07-06] MEDS: Famotidine 20 MG TABLET PO ×2 (10:44→21:19)
[2024-07-06] MEDS: polyethylene glycoL 3350 17 GM POWD.PACK PO (10:44)
[2024-07-06] MEDS: Docusate Sodium 100 MG CAPSULE PO ×2 (10:44→21:19)
[2024-07-06] MEDS: Baclofen 10 MG TABLET PO ×3 (10:44→21:20)
[2024-07-06] MEDS: 0.9 % Sodium Chloride Flush 3 ML SYRINGE IVFLUSH ×2 (10:44→21:20)
[2024-07-06] MEDS: Sennosides 8.6 MG TABLET 17.2 MG PO ×2 (10:44→21:20)
[2024-07-06] MEDS: Multivitamin TABLET 1 TAB PO (10:44)
--- NOTE | 2024-07-06 11:21 | MHC.SL.SWA ---
Speech Pathologist Impression: Risk of Aspiration Risk of Aspiration Due to: Medically Fragile History of Pneumonia Dysphasia Diet Status: Continue on Chopped/Advanced (NDD3) with Thin liquids (straw o.k.), pills whole with puree. 1-1 feeding/full assist at all meals. Liquid Consistency and Strategies for Safe Swallow: Liquid Intake Recommendation: Thin Liquid Intake Strategies: Small Sips Solid Food Consistency: Dietary Recommendations: Chopped/Advanced (NDD3) Oral Medication Intake: Crushed with Puree Please contact the pharmacy regarding appropriate crushable or liquid drug formulations that are available whenever modified delivery is recommended. Compensatory Strategies and Precautions to be Taken for Safe Swallow: Sitting Upright (90 deg) Liquids from Cup Liquids from Straw Small Bites and Sips Alternate Liquids/Solids Supervision While Eating and Drinking for Safe Swallow: Total Assistance (1:1) Foods to Avoid: Mixed consistencies, hard, difficult to chew solids. Swallowing Recommended Treatments: Compens. Strategy Educat. Recommendation for Speech: Speech Therapy through Rehab Facility [facility] Clinican/Clinical Fellow: No Supervisory Statement: I have reviewed and agree with the student/clinical fellow's documentation: N/A Speech Language Pathologist: Romana Velazquez M.A., CCC-SOAP MIXER
[2024-07-06] MEDS: bisacodyL 10 MG SUPP.RECT PR (13:57)
[2024-07-06] MEDS: oxyCODONE HCl Immed Release 5 MG TABLET PO ×2 (13:58→21:19)
--- NOTE | 2024-07-06 15:11 | MHC.CM.PN ---
EMR reviewed and per MD rounds, pt is not medically cleared for discharge due to management of acute hypoxic respiratory failure due to acute on chronic mucus plugging/aspiration pneumonitis. Per MD/respiratory therapy, pt currently needs PRN suctioning at this time. Per [facility], they are not comfortable with her discharging back to their facility until at least Monday 07/09, so they can prepare and get tools in place to properly manage her secretions there. Hospitalist aware.
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
[2024-07-07] VITALS (8 sets, daily range): BP systolic 98–135; BP diastolic 49–75; PULSE 60–79; RESP 14–20; TEMP 36.3–36.9; O2SAT 92–98; BMI 24.8
[2024-07-07 06:09] LABS: Basophils Percent Auto 0.5 % (0-2); Eosinophils Absolute Auto 0.4 X10*3/uL (0.0-0.4); Eosinophils Percent Auto 5.1 % (0-4); Hematocrit 35.8 % (37.0-47.0); Hemoglobin 11.7 g/dl (12.0-16.0); Imm Gran Abs Auto 0.06 X10*3/uL (0.00-0.03); Imm Gran Pct Auto 0.7 % (0.0-0.4); Lymphocytes Absolute Auto 1.6 X10*3/uL (1.2-4.9); Lymphocytes Percent Auto 19.9 % (20-40); MANUAL DIFF FLAG SCAN; Mean Corpuscular HGB Conc 32.7 g/dl (31.0-35.0); Mean Corpuscular Hemoglobin 28.8 pg (27.0-33.0); Mean Corpuscular Volume 88.2 fL (80.0-98.0); Mean Platelet Volume 11.7 fL (9.4-12.3); Monocytes Absolute Auto 0.7 X10*3/uL (0.1-1.2); Monocytes Percent Auto 8.4 % (2-11); Neutrophils Absolute Auto 5.3 x10*3/uL (2.0-8.3); Neutrophils Percent Auto 65.4 % (45-73); Platelet Count 227 X10*3/uL (160-400); Red Blood Count 4.06 X10*6/uL (4.20-5.50); Red Cell Distribution Width 15.2 % (11.0-16.0); SCAN SMEAR FLAG 1; White Blood Count 8.1 X10*3/uL (4.8-10.8)
[2024-07-07 06:17] LABS: Anion Gap 13 (12-20); Blood Urea Nitrogen 14 mg/dL (9-16); Calcium 9.8 mg/dL (8.4-10.2); Carbon Dioxide 23 mmol/L (22-29); Chloride 104 mmol/L (96-108); Creatinine Clr Calc Pharmacy 109.1; Estimated Glomerular Filt Rate > 60; Glucose Random 107 mg/dL (60-115); Magnesium 1.9 mg/dL (1.6-2.6); Phosphorus 2.8 mg/dL (2.7-4.5); Potassium 4.1 mmol/L (3.3-5.1); Sodium 136 mmol/L (135-145)
[2024-07-07 06:32] LABS: SLIDE REVIEW VERIFIED
[2024-07-07] MEDS: Apixaban 5 MG TABLET PO ×2 (08:13→22:20)
[2024-07-07] MEDS: Cholecalciferol (Vitamin D3) 25 MCG TABLET PO (08:13)
[2024-07-07] MEDS: Aspirin 81 MG TAB.CHEW PO (08:13)
[2024-07-07] MEDS: QUEtiapine Fumarate 50 MG TABLET PO ×2 (08:13→22:22)
[2024-07-07] MEDS: Sertraline HCL 100 MG TABLET 200 MG PO (08:13)
[2024-07-07] MEDS: Sennosides 8.6 MG TABLET 17.2 MG PO (08:14)
[2024-07-07] MEDS: Multivitamin TABLET 1 TAB PO (08:14)
[2024-07-07] MEDS: Baclofen 10 MG TABLET PO ×3 (08:14→22:21)
[2024-07-07] MEDS: Sulfamethox/Trimeth 800/160 TABLET 1 TAB PO ×2 (08:18→22:21)
[2024-07-07] MEDS: Pregabalin 75 MG CAPSULE PO ×3 (08:18→22:20)
[2024-07-07] MEDS: Famotidine 20 MG TABLET PO ×2 (08:18→22:22)
[2024-07-07] MEDS: 0.9 % Sodium Chloride Flush 3 ML SYRINGE IVFLUSH ×2 (08:20→22:22)
[2024-07-07] MEDS: Midodrine HCl 5 MG TABLET 15 MG PO ×3 (08:20→22:21)
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
[2024-07-07] MEDS: oxyCODONE HCl Immed Release 5 MG TABLET PO ×2 (16:28→22:21)
[2024-07-08] VITALS (9 sets, daily range): BP systolic 92–112; BP diastolic 54–78; PULSE 62–74; RESP 14–18; TEMP 36.1–37.1; O2SAT 86–95; BMI 24.8
[2024-07-08] MEDS: Midodrine HCl 5 MG TABLET 15 MG PO ×4 (02:57→21:27)
[2024-07-08] MEDS: Melatonin 3 MG TABLET 6 MG PO ×2 (02:57→21:28)
[2024-07-08] MEDS: oxyCODONE HCl Immed Release 5 MG TABLET PO ×4 (02:59→21:28)
[2024-07-08] MEDS: Cholecalciferol (Vitamin D3) 25 MCG TABLET PO (08:19)
[2024-07-08] MEDS: Sulfamethox/Trimeth 800/160 TABLET 1 TAB PO ×2 (08:19→21:27)
[2024-07-08] MEDS: QUEtiapine Fumarate 50 MG TABLET PO ×2 (08:19→21:27)
[2024-07-08] MEDS: Sertraline HCL 100 MG TABLET 200 MG PO (08:19)
[2024-07-08] MEDS: Aspirin 81 MG TAB.CHEW PO (08:19)
[2024-07-08] MEDS: 0.9 % Sodium Chloride Flush 3 ML SYRINGE IVFLUSH ×3 (08:20→21:33)
[2024-07-08] MEDS: Multivitamin TABLET 1 TAB PO (08:20)
[2024-07-08] MEDS: Pregabalin 75 MG CAPSULE PO ×3 (08:20→21:28)
[2024-07-08] MEDS: Apixaban 5 MG TABLET PO ×2 (08:20→21:31)
[2024-07-08] MEDS: Baclofen 10 MG TABLET PO ×3 (08:20→21:28)
[2024-07-08] MEDS: Famotidine 20 MG TABLET PO ×2 (08:30→21:27)
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
[2024-07-09] VITALS: BP 102/57; PULSE 74; RESP 20; TEMP 36.4; O2SAT 92
[2024-07-09 03:03] VITALS: BP 100/63
[2024-07-09] MEDS: Midodrine HCl 5 MG TABLET 15 MG PO ×2 (03:03→09:42)
[2024-07-09 04:00] VITALS: BP 100/53; PULSE 60; RESP 18; TEMP 36.1; O2SAT 93
[2024-07-09 06:00] VITALS: BMI 24.7
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
[2024-07-09 07:58] VITALS: BP 113/59; PULSE 58; RESP 20; TEMP 36.9; O2SAT 95
[2024-07-09] MEDS: 0.9 % Sodium Chloride Flush 3 ML SYRINGE IVFLUSH (09:32)
[2024-07-09] MEDS: Apixaban 5 MG TABLET PO (09:33)
[2024-07-09] MEDS: Aspirin 81 MG TAB.CHEW PO (09:33)
[2024-07-09] MEDS: Docusate Sodium 100 MG CAPSULE PO (09:33)
[2024-07-09] MEDS: Sennosides 8.6 MG TABLET 17.2 MG PO (09:33)
[2024-07-09] MEDS: Multivitamin TABLET 1 TAB PO (09:34)
[2024-07-09] MEDS: QUEtiapine Fumarate 50 MG TABLET PO (09:34)
[2024-07-09] MEDS: Sulfamethox/Trimeth 800/160 TABLET 1 TAB PO (09:34)
[2024-07-09] MEDS: Cholecalciferol (Vitamin D3) 25 MCG TABLET PO (09:34)
[2024-07-09] MEDS: Famotidine 20 MG TABLET PO (09:34)
[2024-07-09] MEDS: Sertraline HCL 100 MG TABLET 200 MG PO (09:34)
[2024-07-09] MEDS: Pregabalin 75 MG CAPSULE PO (09:34)
[2024-07-09] MEDS: Baclofen 10 MG TABLET PO (09:34)
[2024-07-09 09:42] VITALS: BP 95/59
[2024-07-09] MEDS: oxyCODONE HCl Immed Release 5 MG TABLET PO (09:42)
[2024-07-09 11:24] VITALS: BP 133/77; PULSE 71; RESP 18; TEMP 36.9; O2SAT 96
--- NOTE | 2024-07-09 13:56 | MHC.CM.PN ---
Pt is medically cleared for discharge back to LTC at [facility] today via BLS/[facility].
== END 2024-07-09 16:12 | DRG 137 ==
LOC: HO.ED 15:10 → HO.EDOVER 15:40 → HO.ICU 15:41 → HO.IMC 07-02 17:05 → HO.ICU 07-02 17:45 → HO.IMC 07-02 19:02
PROVIDERS: Admitting Provider Internal Medicine Critical Care Medicine; Emergency Provider Emergency Medicine; PCP Internal Medicine; Visit Provider Nurse Practitioner Acute Care
DX: J69.0 Pneumonitis due to inhalation of food and vomit (principal); J96.21 Acute and chronic respiratory failure with hypoxia; R57.8 Other shock; G90.9 Disorder of the autonomic nervous system, unspecified; Z09 Encounter for follow-up examination after completed treatment for conditions other than malignant neoplasm; K59.00 Constipation, unspecified; G82.20 Paraplegia, unspecified; J44.9 Chronic obstructive pulmonary disease, unspecified; D64.9 Anemia, unspecified; W34.00XS Accidental discharge from unspecified firearms or gun, sequela; M46.24 Osteomyelitis of vertebra, thoracic region; J96.22 Acute and chronic respiratory failure with hypercapnia; Z20.822 Contact with and (suspected) exposure to COVID-19; Z79.01 Long term (current) use of anticoagulants; Z87.891 Personal history of nicotine dependence; Z86.711 Personal history of pulmonary embolism; Z79.82 Long term (current) use of aspirin; Z79.899 Other long term (current) drug therapy
CPT/HCPCS: 0241U; 36415; 71045; 71275; 74177; 80048; 80076; 80202; 81001; 82803; 82947; 83605; 83690; 83735; 83880; 84100; 84145; 84484; 85025; 86140; 87040; 92526; 92610; 93005; 94640; 99285; C1758; J0692; J1956; J2270; J2405; J3370; J3371; J3475; J7120; P9047; Q9967

== ENCOUNTER → 2024-06-30 11:58 | Outpatient (BNV) | payer MEDICAID, SELFPAY | PROVIDERS: Admitting Provider Internal Medicine Critical Care Medicine; Emergency Provider Emergency Medicine; Visit Provider Internal Medicine | DX: R94.31 Abnormal electrocardiogram [ECG] [EKG] (principal) | CPT/HCPCS: 93010 ==

== ENCOUNTER → 2024-06-30 15:30 | Outpatient (BNV) | payer MEDICAID, SELFPAY | PROVIDERS: Admitting Provider Internal Medicine Critical Care Medicine; Emergency Provider Emergency Medicine; PCP Internal Medicine; Visit Provider Internal Medicine | DX: J18.9 Pneumonia, unspecified organism (principal) | CPT/HCPCS: 99232; 99233; 99239; 99499 ==

== ENCOUNTER → 2024-06-30 15:30 | Outpatient (BNV) | payer MEDICAID, SELFPAY | PROVIDERS: Admitting Provider Internal Medicine Critical Care Medicine; Emergency Provider Emergency Medicine; Visit Provider Internal Medicine Critical Care Medicine | DX: J69.0 Pneumonitis due to inhalation of food and vomit (principal); J96.21 Acute and chronic respiratory failure with hypoxia; J96.22 Acute and chronic respiratory failure with hypercapnia; T17.908A Unspecified foreign body in respiratory tract, part unspecified causing other injury, initial encounter | CPT/HCPCS: 99223; 99291 ==

== ENCOUNTER → 2024-06-30 15:30 | Outpatient (BNV) | payer MEDICAID, SELFPAY | PROVIDERS: Admitting Provider Internal Medicine Critical Care Medicine; Emergency Provider Emergency Medicine; Visit Provider Internal Medicine Pulmonary Disease | DX: J96.01 Acute respiratory failure with hypoxia (principal); T17.908A Unspecified foreign body in respiratory tract, part unspecified causing other injury, initial encounter; G82.20 Paraplegia, unspecified; M46.24 Osteomyelitis of vertebra, thoracic region | CPT/HCPCS: 99233 ==

== ENCOUNTER 2024-09-22 21:41 | Inpatient (IN) | payer MEDICAID, SELFPAY ==
[2024-09-22] VITALS (10 sets, daily range): BP systolic 76–139; BP diastolic 51–96; PULSE 80–89; RESP 19–24; TEMP 36.3–38; O2SAT 77–94; BMI 25.5
--- NOTE | ~2024-09-22 | XR_ITS ---
CLINICAL HISTORY: Shortness of breath 1 view chest x-ray. Comparison: CR - XR CHEST 1V - 09/22/24 22:41 EST Findings: Evaluation of the lungs is mildly limited by overlying costochondral calcifications. Evaluation of the left lung base is also limited by overlying soft tissues. No focal pulmonary consolidation, pneumothorax, or pleural effusion identified. Heart size normal. Surgical hardware redemonstrated across the thoracolumbar junction. Impression: 1. Mildly limited examination as described above, with limited evaluation of the bilateral lung bases related to overlying soft tissues/costochondral calcifications. No focal pulmonary consolidation appreciated. This document has been electronically signed by: Edgar Rodriguez MD on 10/01/2024 01:57:54
--- NOTE | ~2024-09-22 | XR_ITS ---
CLINICAL HISTORY: cough 1 view chest x-ray Comparison: Chest x-ray from 06/30/2024 Findings: Mild bibasilar atelectasis/pneumonitis, left worse than right. Emphysematous changes are redemonstrated. Mild cardiomegaly accentuated by AP technique. No pneumothorax or pleural effusion with partial obscuration of the left lung base. Cervicothoracic spine hardware is redemonstrated. Degenerative changes include imaged shoulders and AC joints. IMPRESSION: 1. Mild bibasilar atelectasis and/or pneumonitis, left worse than right. This document has been electronically signed by: Braxton Khan MD on 09/22/2024 23:21:13
--- NOTE | 2024-09-22 22:05 | PC.NURSE ---
After rectal temperature obtained pt was 100.4 and then labs obtained and after RN observed oxygen saturations 77% on 4LNC. MD at bedside and Respiratory called to provide occlusive dressing to previous trach site to help with oxygen. Oxygen still unable to increase pt placed on NRB 15L with oxygen improvement to only 83%, MD made aware and pt was placed on high flow NC by RT and nasal deep suction provided for concerns of mucus plug. Pt tolerated very well and oxygen now maintaining 89-90% on high flow nasal cannula of 60% 50L. delay in cultures being obtained and antiobitics being administered d/t patient difficult access and oxygen needs taking priority per MD munguia.
--- NOTE | 2024-09-22 22:37 | ECG_ITS ---
Test Reason : SOB Blood Pressure : */* mmHG Vent. Rate : 76 BPM Atrial Rate : 76 BPM P-R Int : 148 ms QRS Dur : 70 ms QT Int : 364 ms P-R-T Axes : 79 -21 8 degrees QTcB Int : 409 ms Artifact in tracing Normal sinus rhythm Possible Left atrial enlargement Nonspecific ST and T wave abnormality Abnormal ECG When compared with ECG of 30-Jun-2024 12:20, No significant changes seen Referred By: Judy Mi Electronically Signed By: JET LOZANO
[2024-09-22 22:49] LABS: Basophils Percent Auto 0.5 % (0-2); Eosinophils Absolute Auto 0.2 X10*3/uL (0.0-0.4); Eosinophils Percent Auto 3.2 % (0-4); Hematocrit 39.8 % (37.0-47.0); Hemoglobin 13.6 g/dl (12.0-16.0); Imm Gran Abs Auto 0.02 X10*3/uL (0.00-0.03); Imm Gran Pct Auto 0.3 % (0.0-0.4); Lymphocytes Absolute Auto 1.7 X10*3/uL (1.2-4.9); Lymphocytes Percent Auto 25.1 % (20-40); MANUAL DIFF FLAG NO; Mean Corpuscular HGB Conc 34.2 g/dl (31.0-35.0); Mean Corpuscular Hemoglobin 29.4 pg (27.0-33.0); Mean Corpuscular Volume 86.1 fL (80.0-98.0); Monocytes Absolute Auto 0.8 X10*3/uL (0.1-1.2); Monocytes Percent Auto 12.6 % (2-11); Neutrophils Absolute Auto 3.9 x10*3/uL (2.0-8.3); Neutrophils Percent Auto 58.3 % (45-73); Platelet Count 164 X10*3/uL (160-400); Red Blood Count 4.62 X10*6/uL (4.20-5.50); Red Cell Distribution Width 17.2 % (11.0-16.0); White Blood Count 6.7 X10*3/uL (4.8-10.8)
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
--- OUTSIDE RECORDS SUMMARY | 2024-09-22 23:00 | XMS_ITS | Encounter Summary ---
Author Organization [facility] Address [address] [place] [address] Care Team Providers Care Grain Miller Helper Name Role Phone Heaven Robertson MD Primary Care Provider + Encounter Details Date Type Department Care Team (Late st Contact Info) Description 07/17/2024 Lab Requisition [facility] - Main Lab [address] [place] [address] Heaven Robertson MD [address] [address] Vitamin D deficiency, unspecified Social History Tobacco Use Types Packs/Day Years Used Date Smoking Tobacco: Never Assessed Comments Unknown Sex and Gender Information Value Date Recorded Sex Assigned at Not on file Legal Sex Female 9:48 AM EST Gender Identity Not on file Sexual Orientation Not on file documented as of this encounter Plan of Treatment Not on file documented as of this encounter Procedures Procedure Name Priority Date/Time Associated Diagnosis Comments VITAMIN D 25 HYDROXY Routine 07/18/2024 5:37 AM EST Vitamin D deficiency, unspecified documented in this encounter Results * Vitamin D 25 hydroxy (07/18/2024 5:37 AM EST) Vit D, 25-Hydroxy 37.1 30.0 - 80.0 ng/mL LAB CHEMISTRY METHOD 07/18/2024 10:47 AM EST [facility] Blood Venous blood specimen / Unknown Venipuncture / Unknown 07/18/2024 5:37 AM EST 07/18/2024 10:05 AM EST us Heaven Robertson MD LAB BLOOD ORDERABLES Fin al Result [facility] [address] [place] [address], documented in this encounter Visit Diagnoses Diagnosis Vitamin D deficiency, unspecified documented in this encounter Care Teams Grain Miller Helper Relationship Specialty Start Date End Date Heaven Robertson MD [address] [address] PCP - General Family Medicine 06/13/24 documented as of this encounter
--- OUTSIDE RECORDS SUMMARY | 2024-09-22 23:00 | XMS_ITS | Clinical Summary ---
Author Organization [facility] Address [address] [place] [address] Phone Care Team Providers Care Digital Advertising Analyst Name Role Phone Heaven Robertson MD Primary Care Provider + Encounters Date Type Department Care Team Description 09/10/2024 Lab Requisition [facility] [address] [place] [phone] Heaven Robertson MD Essential (primary) hypertension 07/17/2024 Lab Requisition [facility] Lab [address] [place] [phone] Heaven Robertson MD Vitamin D deficiency, unspecified 07/10/2024 Lab Requisition [facility] Lab [address] [place] [phone] Heaven Robertson MD Pneumonia, unspecified organism from Last 3 Months Social History Tobacco Use Types Packs/Day Years Used Date Smoking Tobacco: Never Assessed Comments Unknown Sex and Gender Information Value Date Recorded Sex Assigned at Not on file Legal Sex Female 9:48 AM EST Gender Identity Not on file Sexual Orientation Not on file Plan of Treatment Health Maintenance Due Date Last Done Comments Breast Cancer Screening 1967 DTaP,Tdap,and Td Vaccines (1 - Tdap) 1986 Hepatitis B Vaccines (1 of 3 - 19+ 3-dose series) 1986 Cervical Cancer Screening: P ap Smear 1988 Pneumococcal Vaccine: 50+ Years (1 of 1 - PCV) 2017 Zoster Vaccines (1 of 2) 2017 COVID-19 Vaccine ( - 2023-2 5 season) 2024 Influenza Vaccine (#1) 2024 Cholesterol Screening (Lipid Panel) 06/13/2024 Colorectal Cancer Screening: Colonoscopy 06/13/2024 Depression Screening 06/13/2024 HIV Screening 06/13/2024 Hepatitis C Screening 06/13/2024 Social Influencers of Health Screening 06/13/2024 Hypertension/CHF/CAD Annual BMP Blood Test 09/10/2025 09/10/2024, 07/10/2024 HIB Vaccines Aged Out No longer eligi ble based on patient's age to complete this topic HPV Vaccines Aged Out No longer eligi ble based on patient's age to complete this topic Hepatitis A Vaccines Aged Out No long er eligible based on patient's age to complete this topic IPV Vaccines Aged Out No longer eligi ble based on patient's age to complete this topic MMR Vaccines Aged Out No longer eligi ble based on patient's age to complete this topic Meningococcal ACWY Vaccine Aged Out N o longer eligible based on patient's age to complete this topic Meningococcal B Vacine Aged Out No lo nger eligible based on patient's age to complete this topic Pneumococcal Vaccine: Pediatrics (0 to 5 Years) and At-Risk Patients (6 to 64 Years) Aged Out No longer eligible b ased on patient's age to complete this topic RSV Immunization Patients Under 20 months Aged Out No longer eligible b ased on patient's age to complete this topic Varicella Vaccines Aged Out No longer eligible based on patient's age to complete this topic Procedures Procedure Name Priority Date/Time Associated Diagnosis Comments BASIC METABOLIC PANEL Routine 09/10/2024 9:02 AM EST Essential (primary) hypertension COMPLETE BLOOD COUNT Routine 09/10/2024 9:02 AM EST Essential (primary) hypertension VITAMIN D 25 HYDROXY Routine 07/18/2024 5:37 AM EST Vitamin D deficiency, unspecified COMPREHENSIVE METABOLIC PANEL Routine 07/10/2024 6:28 AM EST Pneumonia, unspecified organism COMPLETE BLOOD COUNT Routine 07/10/2024 6:28 AM EST Pneumonia, unspecified organism from Last 3 Months Results * (ABNORMAL) Complete blood count (09/10/2024 9:02 AM EST) Only the most recent of2 resultswithin the time period is included. [facility] WBC 5.7 4.8 - 10.8 K/mcL LAB HEMETOLOGY METHOD 09/10/2024 1:46 PM [facility] RBC 4.50 3.80 - 4.80 M/mcL LAB HEMETOLOGY METHOD 09/10/2024 1:46 PM [facility] Hemoglobin 12.9 11.5 - 16.0 g/dL LAB HEMETOLOGY METHOD 09/10/2024 1:46 PM [facility] Hematocrit 41.1 35.0 - 47.0 % LAB HEMETOLOGY METHOD 09/10/2024 1:46 PM [facility] MCV 90.5 79.0 - 98.0 FL LAB HEMETOLOGY METHOD 09/10/2024 1:46 PM [facility] MCH 28.4 27.0 - 32.0 pcg LAB HEMETOLOGY METHOD 09/10/2024 1:46 PM [facility] MCHC 31.4(L) 32.0 - 37.0 g/dL LAB HEMETOLOGY METHOD 09/10/2024 1:46 PM [facility] RDW 17.4(H) 11.0 - 15.0 % LAB HEMETOLOGY METHOD 09/10/2024 1:46 PM [facility] Platelets 217 130 - 400 K/mcL LAB HEMETOLOGY METHOD 09/10/2024 1:46 PM [facility] MPV 11.8(H) 7.0 - 11.0 FL LAB HEMETOLOGY METHOD 09/10/2024 1:46 PM [facility] NRBC 0.0 <1.0 % LAB HEMETOLOGY METHOD 09/10/2024 1:46 PM [facility] NRBC Absolute 0.00 <0.10 K/mcL LAB HEMETOLOGY METHOD 09/10/2024 1:46 PM [facility] Blood Venous blood specimen / Unknown Venipuncture / Unknown 09/10/2024 9:02 AM EST 09/10/2024 11:43 AM EST us Heaven Robertson MD LAB BLOOD ORDERABLES Fin al Result [facility] [address] [place] [address], [place] [phone] * (ABNORMAL) Basic metabolic panel (09/10/2024 9:02 AM EST) Sodium 140 133 - 145 mmol/L LAB CHEMISTRY METHOD 09/10/2024 3:06 PM [facility] Potassium 3.5 3.5 - 5.5 mmol/L LAB CHEMISTRY METHOD 09/10/2024 3:06 PM [facility] Chloride 111(H) 96 - 110 mmol/L LAB CHEMISTRY METHOD 09/10/2024 3:06 PM [facility] CO2 21 21 - 32 mmol/L LAB CHEMISTRY METHOD 09/10/2024 3:06 PM [facility] Anion Gap 8 3 - 11 LAB CHEMISTRY METHOD 09/10/2024 3:06 PM [facility] Glucose 90 70 - 100 mg/dL LAB CHEMISTRY METHOD 09/10/2024 3:06 PM [facility] BUN 13 5 - 25 mg/dL LAB CHEMISTRY METHOD 09/10/2024 3:06 PM [facility] Creatinine 0.47(L) 0.50 - 1.10 mg/dL LAB CHEMISTRY METHOD 09/10/2024 3:06 PM [facility] eGFR 111 >=60 mL/min/1. 73m2 LAB CHEMISTRY METHOD 09/10/2024 3:06 PM [facility] Comment:Calculation based on the??Chronic Kidney Disease Epidemiology Collaboration (CKD-EPI) equation refit??without adjustment for race. BUN/Creatinine Ratio 27.7 LAB CHEMISTRY METHOD 09/10/2024 3:06 PM EST [facility] Calcium 8.9 8.5 - 10.5 mg/dL LAB CHEMISTRY METHOD 09/10/2024 3:06 PM EST [facility] Blood Venous blood specimen / Unknown Venipuncture / Unknown 09/10/2024 9:02 AM EST 09/10/2024 11:43 AM EST Heaven Robertson MD LAB BLOOD ORDERABLES Fin al Result Performing Organization Address City/[facility]/ZIP Co de Phone Number [facility] [address] [place] [address], [place] [phone] * Vitamin D 25 hydroxy (07/18/2024 5:37 AM EST) Vit D, 25-Hydroxy 37.1 30.0 - 80.0 ng/mL LAB CHEMISTRY METHOD 07/18/2024 10:47 AM EST [facility] Blood Venous blood specimen / Unknown Venipuncture / Unknown 07/18/2024 5:37 AM EST 07/18/2024 10:05 AM EST Heaven Robertson MD LAB BLOOD ORDERABLES Fin al Result Performing Organization Address City/[facility]/ZIP Co de Phone Number [facility] [address] [place] [address], [place] [phone] * (ABNORMAL) Comprehensive metabolic panel (07/10/2024 6:28 AM EST) Sodium 140 133 - 145 mmol/L LAB CHEMISTRY METHOD 07/10/2024 9:39 AM EST [facility] Potassium 3.5 3.5 - 5.5 mmol/L LAB CHEMISTRY METHOD 07/10/2024 9:39 AM EST [facility] Chloride 107 96 - 110 mmol/L LAB CHEMISTRY METHOD 07/10/2024 9:39 AM [facility] CO2 25 21 - 32 mmol/L LAB CHEMISTRY METHOD 07/10/2024 9:39 AM [facility] Anion Gap 8 3 - 11 LAB CHEMISTRY METHOD 07/10/2024 9:39 AM [facility] Glucose 87 70 - 100 mg/dL LAB CHEMISTRY METHOD 07/10/2024 9:39 AM [facility] BUN 14 5 - 25 mg/dL LAB CHEMISTRY METHOD 07/10/2024 9:39 AM [facility] Creatinine 0.42(L) 0.50 - 1.10 mg/dL LAB CHEMISTRY METHOD 07/10/2024 9:39 AM [facility] eGFR 115 >=60 mL/min/1. 73m2 LAB CHEMISTRY METHOD 07/10/2024 9:39 AM [facility] Comment:Calculation based on the??Chronic Kidney Disease Epidemiology Collaboration (CKD-EPI) equation refit??without adjustment for race. BUN/Creatinine Ratio 33.3 LAB CHEMISTRY METHOD 07/10/2024 9:39 AM [facility] Calcium 9.4 8.5 - 10.5 mg/dL LAB CHEMISTRY METHOD 07/10/2024 9:39 AM [facility] AST (SGOT) 50(H) 10 - 42 unit/L LAB CHEMISTRY METHOD 07/10/2024 9:39 AM [facility] ALT (SGPT) 40 10 - 60 unit/L LAB CHEMISTRY METHOD 07/10/2024 9:39 AM [facility] Alkaline Phosphatase 104 42 - 121 unit/L LAB CHEMISTRY METHOD 07/10/2024 9:39 AM [facility] Total Protein 7.6 6.0 - 8.0 g/dL LAB CHEMISTRY METHOD 07/10/2024 9:39 AM [facility] Albumin 3.8 3.2 - 5.0 g/dL LAB CHEMISTRY METHOD 07/10/2024 9:39 AM EST [facility] Total Bilirubin 0.3 0.0 - 1.4 mg/dL LAB CHEMISTRY METHOD 07/10/2024 9:39 AM EST [facility] Blood Venous blood specimen / Unknown Venipuncture / Unknown 07/10/2024 6:28 AM EST 07/10/2024 9:03 AM EST us Heaven Robertson MD LAB BLOOD ORDERABLES Fin al Result [facility] [address] [place] [address], from Last 3 Months Insurance MEDICAID - [place] Care Teams Digital Advertising Analyst Relationship Specialty Start Date End Date Heaven Robertson MD [address] [place] [phone] PCP - General Family Medicine 06/13/24
--- OUTSIDE RECORDS SUMMARY | 2024-09-22 23:00 | XMS_ITS | Encounter Summary ---
Author Organization [employer] [facility] Address [address] [place] [address] Care Team Providers Care Checkering Machine Operator Name Role Phone Heaven Robertson MD Primary Care Provider + Encounter Details Date Type Department Care Team (Late st Contact Info) Description 07/10/2024 Lab Requisition [facility] - Main Lab [address] [place] [address] Heaven Robertson MD [address] [facility] [address] [place] [address] Pneumonia, unspecified organism Social History Tobacco Use Types Packs/Day Years [...] Procedure Name Priority Date/Time Associated Diagnosis Comments COMPLETE BLOOD COUNT Routine 07/10/2024 6:28 AM EST Pneumonia, unspecified organism COMPREHENSIVE METABOLIC PANEL Routine 07/10/2024 6:28 AM EST Pneumonia, unspecified organism documented in this encounter Results * (ABNORMAL) Comprehensive metabolic panel (07/10/2024 6:28 AM EST) Sodium 140 133 - 145 mmol/L LAB CHEMISTRY METHOD 07/10/2024 9:[address] [facility] Potassium 3.5 3.5 - 5.5 mmol/L LAB CHEMISTRY METHOD 07/10/2024 9:[address] [facility] Chloride 107 96 - 110 mmol/L LAB CHEMISTRY METHOD 07/10/2024 9:[address] [facility] CO2 25 21 - 32 mmol/L LAB CHEMISTRY METHOD 07/10/2024 9:39 AM [facility] Anion Gap 8 3 - 11 LAB CHEMISTRY METHOD 07/10/2024 9:39 AM [facility] Glucose 87 70 - 100 mg/dL LAB CHEMISTRY METHOD 07/10/2024 9:39 AM [facility] BUN 14 5 - 25 mg/dL LAB CHEMISTRY METHOD 07/10/2024 9:39 AM [facility] Creatinine 0.42(L) 0.50 - 1.10 mg/dL LAB CHEMISTRY METHOD 07/10/2024 9:39 AM [facility] eGFR 115 >=60 mL/min/1. 73m2 LAB CHEMISTRY METHOD 07/10/2024 9:39 AM [facility] Comment:Calculation based on the??Chronic Kidney Disease Epidemiology Collaboration (CKD-EPI) equation refit??without adjustment for race. BUN/Creatinine Ratio 33.3 LAB CHEMISTRY METHOD 07/10/2024 9:39 AM [facility] Calcium 9.4 8.5 - 10.5 mg/dL LAB CHEMISTRY METHOD 07/10/2024 9:39 AM [facility] AST (SGOT) 50(H) 10 - 42 unit/L LAB CHEMISTRY METHOD 07/10/2024 9:39 AM [facility] ALT (SGPT) 40 10 - 60 unit/L LAB CHEMISTRY METHOD 07/10/2024 9:39 AM [facility] Alkaline Phosphatase 104 42 - 121 unit/L LAB CHEMISTRY METHOD 07/10/2024 9:39 AM [facility] Total Protein 7.6 6.0 - 8.0 g/dL LAB CHEMISTRY METHOD 07/10/2024 9:39 AM [facility] Albumin 3.8 3.2 - 5.0 g/dL LAB CHEMISTRY METHOD 07/10/2024 9:39 AM [facility] Total Bilirubin 0.3 0.0 - 1.4 mg/dL LAB CHEMISTRY METHOD 07/10/2024 9:39 AM [facility] Blood Venous blood specimen / Unknown Venipuncture / Unknown 07/10/2024 6:28 AM EST 07/10/2024 9:03 AM EST us Heaven Robertson MD LAB BLOOD ORDERABLES Fin al Result [facility] [address] [place] [address], * (ABNORMAL) Complete blood count (07/10/2024 6:28 AM EST) WBC 5.8 4.8 - 10.8 K/mcL LAB HEMETOLOGY METHOD 07/10/2024 9:14 AM [facility] RBC 3.90 3.80 - 4.80 M/[facility] LAB HEMETOLOGY METHOD 07/10/2024 9:14 AM [facility] Hemoglobin 11.1(L) 11.5 - 16.0 g/dL LAB HEMETOLOGY METHOD 07/10/2024 9:14 AM [facility] Hematocrit 34.6(L) 35.0 - 47.0 % LAB HEMETOLOGY METHOD 07/10/2024 9:14 AM [facility] MCV 88.3 79.0 - 98.0 FL LAB HEMETOLOGY METHOD 07/10/2024 9:14 AM [facility] MCH 28.3 27.0 - 32.0 pcg LAB HEMETOLOGY METHOD 07/10/2024 9:14 AM [facility] MCHC 32.1 32.0 - 37.0 g/dL LAB HEMETOLOGY METHOD 07/10/2024 9:14 AM [facility] RDW 15.0 11.0 - 15.0 % LAB HEMETOLOGY METHOD 07/10/2024 9:[address] [facility] Platelets 212 130 - 400 K/mcL LAB HEMETOLOGY METHOD 07/10/2024 9:[address] [facility] MPV 11.6(H) 7.0 - 11.0 FL LAB HEMETOLOGY METHOD 07/10/2024 9:[address] [facility] NRBC 0.0 <1.0 % LAB HEMETOLOGY METHOD 07/10/2024 9:[address] [facility] NRBC Absolute 0.00 <0.10 K/mcL LAB HEMETOLOGY METHOD 07/10/2024 9:14 AM [facility] Blood Venous blood specimen / Unknown Venipuncture / Unknown 07/10/2024 6:28 AM EST 07/10/2024 9:03 AM EST us Heaven Robertson MD LAB BLOOD ORDERABLES Fin al Result [facility] [address] [place] [address], documented in this encounter Visit Diagnoses Diagnosis Pneumonia, unspecified organism documented in this encounter Care Teams Checkering Machine Operator Relationship Specialty Start Date End Date Heaven Robertson MD [address] [place] [id number] PCP - General Family Medicine 06/13/24 documented as of this encounter
--- OUTSIDE RECORDS SUMMARY | 2024-09-22 23:00 | XMS_ITS | Encounter Summary ---
Author Organization [employer] [facility] Address [address] [place] [address] Care Team Providers Care Labour Market Economist Name Role Phone Heaven Robertson MD Primary Care Provider + Encounter Details Date Type Department Care Team (Late st Contact Info) Description 06/13/2024 Lab Requisition [facility] Lab [address] [place] [address] Heaven Robertson MD [address] [address] Heart failure, unspecified (CMS/HCC) Social History Tobacco Use Types Packs/Day Years [...] Associated Diagnosis Comments COMPLETE BLOOD COUNT Routine 06/13/2024 7:41 AM EST Heart failure, unspecified (CMS/HCC) documented in this encounter Results * (ABNORMAL) Complete blood count (06/13/2024 7:41 AM EST) WBC 7.2 4.8 - 10.8 K/mcL LAB HEMETOLOGY METHOD 06/13/2024 11:18 AM EST [facility] RBC 4.20 3.80 - 4.80 M/[facility] LAB HEMETOLOGY METHOD 06/13/2024 11:18 AM EST [facility] Hemoglobin 12.1 11.5 - 16.0 g/dL LAB HEMETOLOGY METHOD 06/13/2024 11:18 AM EST [facility] Hematocrit 39.1 35.0 - 47.0 % LAB HEMETOLOGY METHOD 06/13/2024 11:18 AM EST [facility] MCV 94.2 79.0 - 98.0 FL LAB HEMETOLOGY METHOD 06/13/2024 11:[address] [facility] MCH 29.2 27.0 - 32.0 pcg LAB HEMETOLOGY METHOD 06/13/2024 11:18 AM EST [facility] MCHC 30.9(L) 32.0 - 37.0 g/dL LAB HEMETOLOGY METHOD 06/13/2024 11:[address] [facility] RDW 14.6 11.0 - 15.0 % LAB HEMETOLOGY METHOD 06/13/2024 11:[address] [facility] Platelets 256 130 - 400 K/mcL LAB HEMETOLOGY METHOD 06/13/2024 11:18 AM EST [facility] MPV 11.8(H) 7.0 - 11.0 FL LAB HEMETOLOGY METHOD 06/13/2024 11:18 AM EST [facility] NRBC 0.0 <1.0 % LAB HEMETOLOGY METHOD 06/13/2024 11:[address] [facility] NRBC Absolute 0.00 <0.10 K/mcL LAB HEMETOLOGY METHOD 06/13/2024 11:[address] [facility] Blood Venous blood specimen / Unknown Venipuncture / Unknown 06/13/2024 7:41 AM EST 06/13/2024 9:51 AM EST us Heaven Robertson MD LAB BLOOD ORDERABLES Fin al Result [facility] [address] [place] [address], documented in this encounter Visit Diagnoses Diagnosis Heart failure, unspecified (CMS/HCC) Heart failure, unspecified documented in this encounter Care Teams Labour Market Economist Relationship Specialty Start Date End Date Heaven Robertson MD [address] [place] [address] PCP - General Family Medicine 06/13/24 documented as of this encounter
--- OUTSIDE RECORDS SUMMARY | 2024-09-22 23:00 | XMS_ITS | Encounter Summary ---
Author Organization [employer] [facility] Address [address] [place] [address] Care Team Providers Care Supervisor Heavy Equipment Name Role Phone Heaven Robertson MD Primary Care Provider + Encounter Details Date Type Department Care Team (Late st Contact Info) Description 09/10/2024 Lab Requisition [facility] - Main Lab [address] [facility] [place] [address] Heaven Robertson MD [address] [facility] [address] [place] [address] Essential (primary) hypertension Social History Tobacco Use Types Packs/Day Years [...] Associated Diagnosis Comments COMPLETE BLOOD COUNT Routine 09/10/2024 9:02 AM EST Essential (primary) hypertension BASIC METABOLIC PANEL Routine 09/10/2024 9:02 AM EST Essential (primary) hypertension documented in this encounter Results * (ABNORMAL) Basic metabolic panel (09/10/2024 9:02 AM EST) Sodium 140 133 - 145 mmol/L LAB CHEMISTRY METHOD 09/10/2024 3:06 PM EST [facility] Potassium 3.5 3.5 - 5.5 mmol/L LAB CHEMISTRY METHOD 09/10/2024 3:06 PM EST [facility] Chloride 111(H) 96 - 110 mmol/L LAB CHEMISTRY METHOD 09/10/2024 3:06 PM EST [facility] CO2 21 21 - 32 mmol/L LAB CHEMISTRY METHOD 09/10/2024 3:06 PM [facility] Anion Gap 8 3 - 11 LAB CHEMISTRY METHOD 09/10/2024 3:06 PM [facility] Glucose 90 70 - 100 mg/dL LAB CHEMISTRY METHOD 09/10/2024 3:06 PM [facility] BUN 13 5 - 25 mg/dL LAB CHEMISTRY METHOD 09/10/2024 3:06 PM [facility] Creatinine 0.47(L) 0.50 - 1.10 mg/dL LAB CHEMISTRY METHOD 09/10/2024 3:06 PM [facility] eGFR 111 >=60 mL/min/1. 73m2 LAB CHEMISTRY METHOD 09/10/2024 3:06 PM [facility] Comment:Calculation based on the??Chronic Kidney Disease Epidemiology Collaboration (CKD-EPI) equation refit??without adjustment for race. BUN/Creatinine Ratio 27.7 LAB CHEMISTRY METHOD 09/10/2024 3:06 PM [facility] Calcium 8.9 8.5 - 10.5 mg/dL LAB CHEMISTRY METHOD 09/10/2024 3:06 PM [facility] Blood Venous blood specimen / Unknown Venipuncture / Unknown 09/10/2024 9:02 AM EST 09/10/2024 11:43 AM EST us Heaven Robertson MD LAB BLOOD ORDERABLES Fin al Result [facility] [address] [place] [address], * (ABNORMAL) Complete blood count (09/10/2024 9:02 AM EST) WBC 5.7 4.8 - 10.8 K/mcL LAB HEMETOLOGY METHOD 09/10/2024 1:46 PM [facility] RBC 4.50 3.80 - 4.80 M/mcL LAB HEMETOLOGY METHOD 09/10/2024 1:46 PM [facility] Hemoglobin 12.9 11.5 - 16.0 g/dL LAB HEMETOLOGY METHOD 09/10/2024 1:46 PM [facility] Hematocrit 41.1 35.0 - 47.0 % LAB HEMETOLOGY METHOD 09/10/2024 1:46 PM [facility] MCV 90.5 79.0 - 98.0 FL LAB HEMETOLOGY METHOD 09/10/2024 1:46 PM [facility] MCH 28.4 27.0 - 32.0 pcg LAB HEMETOLOGY METHOD 09/10/2024 1:46 PM [facility] MCHC 31.4(L) 32.0 - 37.0 g/dL LAB HEMETOLOGY METHOD 09/10/2024 1:46 PM [facility] RDW 17.4(H) 11.0 - 15.0 % LAB HEMETOLOGY METHOD 09/10/2024 1:46 PM [facility] Platelets 217 130 - 400 K/mcL LAB HEMETOLOGY METHOD 09/10/2024 1:46 PM [facility] MPV 11.8(H) 7.0 - 11.0 FL LAB HEMETOLOGY METHOD 09/10/2024 1:46 PM [facility] NRBC 0.0 <1.0 % LAB HEMETOLOGY METHOD 09/10/2024 1:46 PM [facility] NRBC Absolute 0.00 <0.10 K/mcL LAB HEMETOLOGY METHOD 09/10/2024 1:46 PM [facility] Blood Venous blood specimen / Unknown Venipuncture / Unknown 09/10/2024 9:02 AM EST 09/10/2024 11:43 AM EST us Heaven Robertson MD LAB BLOOD ORDERABLES Fin al Result [facility] ([facility] [address] [place] [address], documented in this encounter Visit Diagnoses Diagnosis Essential (primary) hypertension Unspecified essential hypertension documented in this encounter Care Teams Supervisor Heavy Equipment Relationship Specialty Start Date End Date Heaven Robertson MD [address] [place] [phone] PCP - General Family Medicine 06/13/24 documented as of this encounter
[2024-09-22] MEDS: Acetaminophen 1,000 MG/100 ML PIGGYBACK 400 MG IV (23:04)
[2024-09-22] MEDS: Magnesium Sulfate/H2O 2 GM/50 ML PIGGYBACK IV (23:04)
[2024-09-22] MEDS: methylPREDNISolone Sod Succ 125 MG/2 ML VIAL 60 MG IVPUSH (23:05)
[2024-09-22 23:09] LABS: B Type Natriuretic Peptide 39 pg/mL (<100)
[2024-09-22] MEDS: Albuterol Sulfate 2.5 MG, Albuterol/Iprat 2.5/0.5MG 3 ML 3 ML INHALE (23:25)
[2024-09-22 23:43] LABS: Venous Blood Gas Refer to POC result
[2024-09-22 23:44] LABS: VBG Base Excess -0.9 mmol/L; VBG HCO3 23 mmol/L (22-26); VBG pCO2 38 mmHg; VBG pH 7.39 (7.32-7.43); VBG pO2 90 mmHg
[2024-09-22] MEDS: cefTRIAXone sodium 1 GM VIAL IVPUSH (23:44)
[2024-09-23] VITALS (30 sets, daily range): BP systolic 74–157; BP diastolic 43–82; PULSE 61–87; RESP 11–22; TEMP 36.3–36.5; O2SAT 89–97
[2024-09-23 00:02] LABS: Lactic Acid 1.1 mmol/L (0.5-2.0)
[2024-09-23 00:09] LABS: Alanine Aminotransferase 27 U/L (0-31); Albumin Level 3.9 g/dL (3.5-5.0); Alkaline Phosphatase 112 U/L (39-117); Anion Gap 15 (12-20); Aspartate Amino Transferase 32 U/L (5-31); Bilirubin Direct 0.1 mg/dL (0.0-0.5); Bilirubin Total 0.3 mg/dL (0.0-1.0); Blood Urea Nitrogen 13 mg/dL (9-16); C Reactive Protein 4.31 mg/dL (< or = 0.50); Calcium 9.2 mg/dL (8.4-10.2); Carbon Dioxide 20 mmol/L (22-29); Chloride 108 mmol/L (96-108); Creatinine Clr Calc Pharmacy 102.3; Estimated Glomerular Filt Rate > 60; Glucose Random 104 mg/dL (60-115); Lipase 25 U/L (8-78); Magnesium 1.9 mg/dL (1.6-2.6); Potassium 3.9 mmol/L (3.3-5.1); Sodium 139 mmol/L (135-145); Total Protein 8.2 g/dL (6.5-8.0)
--- NOTE | 2024-09-23 00:10 | PC.NURSE ---
Pt currently on high flow ventilation. Current settings: 60% FIO2 with 50% O2. Goal is to stay between 88-92% sat. Pt tolerating well.
[2024-09-23 00:11] LABS: Troponin-I High Sensitivity < 2.7 ng/L (<3.5-17.0)
--- NOTE | 2024-09-23 00:17 | PC.NURSE ---
Late administration of initial ab, pending blood cultures to be drawn.
[2024-09-23 00:18] LABS: Influenza A PCR NEGATIVE (Negative); Influenza B PCR NEGATIVE (Negative); Resp Syncy Virus RNA Qual PCR NEGATIVE (Negative); SARS COV2 PCR INHOUSE NEGATIVE (Negative)
[2024-09-23 00:24] LABS: Procalcitonin 0.04 ng/mL
[2024-09-23] MEDS: Midodrine HCl 10 MG TABLET PO ×3 (00:24→20:50)
--- NOTE | 2024-09-23 01:18 | PC.NURSE ---
RT called as pt sat O2 97%. New high flow settings: 40% FIO2 and 40% O2. Pt tolerating well. VSS. Monitoring is ongoing.
[2024-09-23] MEDS: metroNIDAZOLE/NS 500 MG/100 ML PIGGYBACK 100 MG IV ×3 (01:45→16:04)
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
--- NOTE | 2024-09-23 07:19 | PM.EVENT ---
Event Note Date of Service: 09/23/24 Event Note: 59 year old female evaluated this AM in the emergency department. Was admitted to the medical team earlier this AM for acute hypoxic respiratory failure likely due to mucus plug/aspiration. Upon evaluation patient is feeling short of breath but reports overall slight improvement in symptoms. No nursing complaints. She is saturating 89% on high flow at this time. #Acute hypoxic respiratory failure due to acute on chronic mucus plugging/aspiration pneumonitis improved following suctioning continue highflow and wean Ceftriaxone + Flagyl for pneumonia cultures pending #COPD exacerbation bronchodilators by Neb IV steroid O2 as above #Autonomic dysfunction with hypotension On chronic midodrine Blood pressure stable #hx of chronic thoracic osteomyelitis continue baseline bactrim. #history of P.E. continue eliquis #Chronic normocytic anemia Above transfusion threshold DVT prophylaxis-Eliquis Cod status: full code Time Spent With Patient Time: Total time managing care of this patient today 15 minutes.
--- NOTE | 2024-09-23 07:31 | PHA.MEDREC ---
Pharmacy Consult ? Medication Reconciliation Pharmacy has completed the medication reconciliation. Utilized med list from [facility] to confirm meds.
[2024-09-23] MEDS: Albuterol/Iprat 2.5/0.5MG 3 ML AMPUL.NEB INHALE ×4 (10:01→20:26)
[2024-09-23] MEDS: methylPREDNISolone Sod Succ 40 MG/ML VIAL 20 MG IVPUSH ×2 (10:20→20:46)
[2024-09-23] MEDS: Sertraline HCL 100 MG TABLET 200 MG PO (10:22)
[2024-09-23] MEDS: 0.9 % Sodium Chloride Flush 3 ML SYRINGE IVFLUSH (10:22)
[2024-09-23] MEDS: Famotidine 20 MG TABLET PO ×2 (10:23→20:48)
[2024-09-23] MEDS: Sennosides 8.6 MG TABLET 17.2 MG PO ×2 (10:23→20:48)
[2024-09-23] MEDS: guaiFENesin LA 600 MG TAB.ER.12H PO ×2 (10:23→20:48)
[2024-09-23] MEDS: Baclofen 10 MG TABLET 5 MG PO ×3 (10:23→20:50)
[2024-09-23] MEDS: Ascorbic Acid 500 MG TABLET PO (10:23)
[2024-09-23] MEDS: Sulfamethox/Trimeth 800/160 TABLET 1 TAB PO ×2 (10:23→20:48)
[2024-09-23] MEDS: Apixaban 5 MG TABLET PO ×2 (10:23→20:48)
[2024-09-23] MEDS: Cholecalciferol (Vitamin D3) 25 MCG TABLET PO (10:23)
[2024-09-23] MEDS: Simethicone 80 MG TAB.CHEW PO ×3 (10:23→21:06)
[2024-09-23] MEDS: Pregabalin 75 MG CAPSULE PO ×3 (10:24→20:48)
[2024-09-23] MEDS: QUEtiapine Fumarate 50 MG TABLET PO ×2 (10:24→20:48)
[2024-09-23] MEDS: Aspirin Enteric Coated 81 MG TABLET.DR PO (10:24)
[2024-09-23] MEDS: Multivitamin TABLET 1 TAB PO (10:25)
[2024-09-23] MEDS: polyethylene glycoL 3350 17 GM POWD.PACK PO (10:25)
[2024-09-23] MEDS: Docusate Sodium 100 MG CAPSULE PO ×2 (10:25→20:47)
--- NOTE | 2024-09-23 11:06 | PC.NURSE ---
pt mediated per MAR- Pt remains on high flow O2 at thsi time SpO2 89%. pt takes medications whole in applesauce.
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
--- NOTE | 2024-09-23 12:48 | MHC.CM.PN ---
PT REPORTS SHE IS A LTC RESIDENT OF [facility] SHE IS WHEEL CHAIR BOUND AT [facility]ELINE AND REQUIRES A DAMIAN TO TRANSFER PT HAS A MOLST ON FILE, SHE SAYS SHE DOES NOT HAVE, OR WANT, A HCP, MESSAGE SENT TO SNF TO CONFIRM THEY DO NOT HAVE ONE ON FILE PCP: SMILEY MOREJON P[facility] PREFERRED DCP: RETURN TO [facility] VIA BLS
--- NOTE | 2024-09-23 18:17 | PC.NURSE ---
pt weaned off of high flow, transitioned to NC @ 6L- pt SpO2 95%.
[2024-09-23] MEDS: cefTRIAXone sodium 1 GM VIAL IVPUSH (20:47)
[2024-09-23] MEDS: TiZANidine HCL 4 MG TABLET 2 MG PO (20:49)
[2024-09-23] MEDS: LORazepam 1 MG TABLET PO (20:49)
[2024-09-24] VITALS (11 sets, daily range): BP systolic 100–138; BP diastolic 45–69; PULSE 65–95; RESP 13–20; TEMP 35.8–36.9; O2SAT 88–97
[2024-09-24] MEDS: metroNIDAZOLE/NS 500 MG/100 ML PIGGYBACK 100 MG IV ×3 (00:07→16:50)
[2024-09-24] MEDS: 0.9 % Sodium Chloride Flush 3 ML SYRINGE IVFLUSH ×3 (00:12→16:47)
[2024-09-24] MEDS: Albuterol/Iprat 2.5/0.5MG 3 ML AMPUL.NEB INHALE ×4 (07:08→20:14)
[2024-09-24] MEDS: methylPREDNISolone Sod Succ 40 MG/ML VIAL 20 MG IVPUSH ×2 (09:42→22:06)
[2024-09-24] MEDS: Pregabalin 75 MG CAPSULE PO ×3 (09:44→21:56)
[2024-09-24] MEDS: guaiFENesin LA 600 MG TAB.ER.12H PO ×2 (09:44→21:56)
[2024-09-24] MEDS: Aspirin Enteric Coated 81 MG TABLET.DR PO (09:44)
[2024-09-24] MEDS: Sertraline HCL 100 MG TABLET 200 MG PO (09:44)
[2024-09-24] MEDS: Ascorbic Acid 500 MG TABLET PO (09:44)
[2024-09-24] MEDS: QUEtiapine Fumarate 50 MG TABLET PO ×2 (09:44→21:56)
[2024-09-24] MEDS: Cholecalciferol (Vitamin D3) 25 MCG TABLET PO (09:44)
[2024-09-24] MEDS: Famotidine 20 MG TABLET PO ×2 (09:44→21:56)
[2024-09-24] MEDS: Baclofen 10 MG TABLET 5 MG PO ×3 (09:45→22:01)
[2024-09-24] MEDS: Sulfamethox/Trimeth 800/160 TABLET 1 TAB PO ×2 (09:45→22:00)
[2024-09-24] MEDS: Apixaban 5 MG TABLET PO ×2 (09:45→22:01)
[2024-09-24] MEDS: Multivitamin TABLET 1 TAB PO (09:45)
[2024-09-24] MEDS: Sennosides 8.6 MG TABLET 17.2 MG PO ×2 (09:45→22:00)
[2024-09-24] MEDS: Simethicone 80 MG TAB.CHEW PO ×3 (09:45→21:56)
[2024-09-24] MEDS: Docusate Sodium 100 MG CAPSULE PO ×2 (09:45→22:01)
[2024-09-24] MEDS: polyethylene glycoL 3350 17 GM POWD.PACK PO (09:46)
[2024-09-24] MEDS: Midodrine HCl 10 MG TABLET PO ×3 (09:46→21:56)
--- NOTE | 2024-09-24 11:21 | MHC.SL.SWA ---
Speech Pathologist Impression: Persisting dysphagia, vocal dysarthria (whisper) Risk of Aspiration Due to: Medically Fragile History of Pneumonia Weak Cough Weak Voice Open stoma s/p decannulation +5 years ago Dysphasia Diet Status: Recc Regular diet with Thin liquids (straw o.k.), pills whole with puree. 1-1 feeding/full assist at all meals. Liquid Consistency and Strategies for Safe Swallow: Liquid Intake Recommendation: Thin Liquid Intake Strategies: Small Sips Solid Food Consistency: Dietary Recommendations: Regular Additional Modifications to Solid Foods: Oral Medication Intake: Whole with Puree Please contact the pharmacy regarding appropriate crushable or liquid drug formulations that are available whenever modified delivery is recommended. Compensatory Strategies and Precautions to be Taken for Safe Swallow: Sitting Upright (90 deg) Small Bites and Sips Alternate Liquids/Solids Rate of Ingestion Change Supervision While Eating and Drinking for Safe Swallow: 2:1 feeding Foods to Avoid: Mixed consistencies, hard, difficult to chew solids. Swallowing Recommended Treatments: Compens. Strategy Educat. Recommendation for Speech: Comment: [facility] regular diet with thin liquids to allow pt choices, pt is full feed as she cannot feed herself. SUPERVISOR PLASTERING will continue to follow during inpatient stay, consider continued SUPERVISOR PLASTERING intervention if indicated. Frequency/Duration: Date Range for Service Req: Timeline to reassess: Cereal Maker Clinican/Clinical Fellow: No Supervisory Statement: I have reviewed and agree with the student/clinical fellow's documentation: N/A Speech Language Pathologist: Modesta Varela M.S., [facility]-SUPERVISOR PLASTERING
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
--- NOTE | 2024-09-24 14:46 | MHC.CM.PN ---
PT NOT YET CLEARED FOR DC, PER PN, PT HYPOXIC AND REQUIRING IV ABX DCP: RETURN TO LTC VIA BLS
[2024-09-24] MEDS: LORazepam 1 MG TABLET PO (21:56)
[2024-09-24] MEDS: TiZANidine HCL 4 MG TABLET 2 MG PO (22:00)
[2024-09-24] MEDS: cefTRIAXone sodium 1 GM VIAL IVPUSH (22:06)
[2024-09-25] VITALS (8 sets, daily range): BP systolic 97–125; BP diastolic 52–72; PULSE 70–97; RESP 12–18; TEMP 36–36.6; O2SAT 90–98
[2024-09-25] MEDS: metroNIDAZOLE/NS 500 MG/100 ML PIGGYBACK 100 MG IV ×2 (01:42→09:35)
[2024-09-25] MEDS: 0.9 % Sodium Chloride Flush 3 ML SYRINGE IVFLUSH ×3 (01:43→20:59)
[2024-09-25 07:50] LABS: Hematocrit 39.4 % (37.0-47.0); Mean Corpuscular Hemoglobin 29.5 pg (27.0-33.0); Mean Corpuscular Volume 89.5 fL (80.0-98.0); Mean Platelet Volume 11.5 fL (9.4-12.3); Platelet Count 192 X10*3/uL (160-400); Red Cell Distribution Width 16.7 % (11.0-16.0); White Blood Count 7.2 X10*3/uL (4.8-10.8)
[2024-09-25] MEDS: Albuterol/Iprat 2.5/0.5MG 3 ML AMPUL.NEB INHALE ×2 (08:06→20:47)
[2024-09-25 08:12] LABS: Anion Gap 16 (12-20); Blood Urea Nitrogen 21 mg/dL (9-16); Calcium 9.5 mg/dL (8.4-10.2); Carbon Dioxide 23 mmol/L (22-29); Chloride 108 mmol/L (96-108); Creatinine Clr Calc Pharmacy 93.4; Estimated Glomerular Filt Rate > 60; Glucose Random 96 mg/dL (60-115); Potassium 4.6 mmol/L (3.3-5.1); Sodium 142 mmol/L (135-145)
[2024-09-25 08:28] LABS: Procalcitonin 0.06 ng/mL
[2024-09-25] MEDS: Pregabalin 75 MG CAPSULE PO ×3 (09:33→20:57)
[2024-09-25] MEDS: Aspirin Enteric Coated 81 MG TABLET.DR PO (09:33)
[2024-09-25] MEDS: methylPREDNISolone Sod Succ 40 MG/ML VIAL 20 MG IVPUSH ×2 (09:33→21:00)
[2024-09-25] MEDS: Sertraline HCL 100 MG TABLET 200 MG PO (09:34)
[2024-09-25] MEDS: Midodrine HCl 10 MG TABLET PO ×3 (09:34→20:57)
[2024-09-25] MEDS: QUEtiapine Fumarate 50 MG TABLET PO ×2 (09:34→20:58)
[2024-09-25] MEDS: Famotidine 20 MG TABLET PO ×2 (09:34→20:58)
[2024-09-25] MEDS: Multivitamin TABLET 1 TAB PO (09:34)
[2024-09-25] MEDS: Sennosides 8.6 MG TABLET 17.2 MG PO ×2 (09:34→20:58)
[2024-09-25] MEDS: Sulfamethox/Trimeth 800/160 TABLET 1 TAB PO ×2 (09:34→21:02)
[2024-09-25] MEDS: Baclofen 10 MG TABLET 5 MG PO ×3 (09:34→21:01)
[2024-09-25] MEDS: Simethicone 80 MG TAB.CHEW PO ×3 (09:34→20:59)
[2024-09-25] MEDS: Apixaban 5 MG TABLET PO ×2 (09:34→21:01)
[2024-09-25] MEDS: guaiFENesin LA 600 MG TAB.ER.12H PO ×2 (09:34→20:58)
[2024-09-25] MEDS: Cholecalciferol (Vitamin D3) 25 MCG TABLET PO (09:34)
[2024-09-25] MEDS: Docusate Sodium 100 MG CAPSULE PO ×2 (09:34→21:00)
[2024-09-25] MEDS: Ascorbic Acid 500 MG TABLET PO (09:34)
--- NOTE | 2024-09-25 11:28 | MHC.SL.SWA ---
Speech Pathologist Impression: Mild oral phase dysphagia Risk of Aspiration Due to: Medically Fragile History of Pneumonia Weak Cough Weak Voice Dysphasia Diet Status: No Change Liquid Consistency and Strategies for Safe Swallow: Liquid Intake Recommendation: Thin Liquid Intake Strategies: Small Sips Solid Food Consistency: Dietary Recommendations: Regular Additional Modifications to Solid Foods: METAL EXTRUSION SUPERVISOR to f/u 1-2x to monitor Oral Medication Intake: Whole with Puree Please contact the pharmacy regarding appropriate crushable or liquid drug formulations that are available whenever modified delivery is recommended. Compensatory Strategies and Precautions to be Taken for Safe Swallow: Sitting Upright (90 deg) Small Bites and Sips Alternate Liquids/Solids Rate of Ingestion Change Avoid Specific Foods Supervision While Eating and Drinking for Safe Swallow: Total Assistance (1:1) Foods to Avoid: [place] hard or tough to chew solids Swallowing Recommended Treatments: Compens. Strategy Educat. Recommendation for Speech: 1-2 f/u Comment: Pt needs full assistance to eat as she cannot feed herself. Frequency/Duration: Date Range for Service Req: Timeline to reassess: Map Compiler Clinican/Clinical Fellow: No Supervisory Statement: I have reviewed and agree with the student/clinical fellow's documentation: N/A Speech Language Pathologist: Romana Velazquez M.A., [facility], [place]-METAL EXTRUSION SUPERVISOR
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
--- NOTE | 2024-09-25 15:54 | HO.WOUND ---
Wound Consult: Initial 59yr old? female admitted to [facility] on 09/23/24 - See progress notes and H&P for detailed history.? Wound consult placed for Upper Back wounds POA.? Patient agreeable to assessment and photo documentation.? Patient reports the upper back is secondary to a previous back surgery and poor healing. Upper Back Etiology: ??nonhealing surgical site Wound Bed: small areas of dry yellow crusted drainage Drainage / Odor: None Edges: ? irregular [place] wound: Scar tissue noted - irregular formation of healed skin Goals of Treatment: ?Foam dressing to allow for moist wound healing and protect from friction Sacrum was assessed remains intact and blanchable - scar tissue noted - recommend Sacral foam application for prevention. Heels assessed remain intact and blanchable - recommend off load with pillows and foam dressing application. Recommendations: 1. Turn and Reposition every 2 hours and as needed for patient comfort.? Use pillows or wedges to support off loading positions. 2. Off Load all bony prominences with use of pillows and heel boots if needed.? Apply Preventative foams where needed. ? 3. Monitor for incontinence and moisture control, use barrier creams when needed for prevention and treatment. 4. Provide adequate and supplemental nutrition.? 5. Order low air loss mattress. 6. When applicable maintain blood glucose levels per Providers order. 7. Upper Back - Cleanse with Ns, pat dry. Apply skin prep allow to dry. Cover with foam dressing, change every 5 days and PRN. 8. Sacrum - Apply skin prep - apply sacral foam dressing peel back and assess Q shift and Change every 5 days and PRN. 9. Bilateral Heels - Elevate heels off of bed surface with pillows. Apply preventative foam dressing - peel back and assess Q shift and change every 5 days and PRN. Re-consult wound care Nurse for wound deterioration or wound changes.
[2024-09-25] MEDS: metroNIDAZOLE 500 MG TABLET PO (16:48)
[2024-09-25] MEDS: LORazepam 1 MG TABLET PO (20:57)
[2024-09-25] MEDS: TiZANidine HCL 4 MG TABLET 2 MG PO (20:58)
[2024-09-25] MEDS: cefTRIAXone sodium 1 GM VIAL IVPUSH (21:00)
[2024-09-26] VITALS (9 sets, daily range): BP systolic 99–123; BP diastolic 46–64; PULSE 58–93; RESP 16–18; TEMP 36.3–37.2; O2SAT 92–95
[2024-09-26] MEDS: metroNIDAZOLE 500 MG TABLET PO ×3 (01:28→16:37)
[2024-09-26] MEDS: Sulfamethox/Trimeth 800/160 TABLET 1 TAB PO ×2 (07:43→20:34)
[2024-09-26] MEDS: methylPREDNISolone Sod Succ 40 MG/ML VIAL 20 MG IVPUSH ×2 (07:43→20:34)
[2024-09-26] MEDS: guaiFENesin LA 600 MG TAB.ER.12H PO ×2 (07:44→20:36)
[2024-09-26] MEDS: Sertraline HCL 100 MG TABLET 200 MG PO (07:44)
[2024-09-26] MEDS: Aspirin Enteric Coated 81 MG TABLET.DR PO (07:44)
[2024-09-26] MEDS: Midodrine HCl 10 MG TABLET PO ×3 (07:44→20:36)
[2024-09-26] MEDS: Sennosides 8.6 MG TABLET 17.2 MG PO ×2 (07:44→20:34)
[2024-09-26] MEDS: Multivitamin TABLET 1 TAB PO (07:45)
[2024-09-26] MEDS: Pregabalin 75 MG CAPSULE PO ×3 (07:45→20:34)
[2024-09-26] MEDS: Famotidine 20 MG TABLET PO ×2 (07:45→20:36)
[2024-09-26] MEDS: Baclofen 10 MG TABLET 5 MG PO ×3 (07:45→20:35)
[2024-09-26] MEDS: Docusate Sodium 100 MG CAPSULE PO ×2 (07:45→20:35)
[2024-09-26] MEDS: Apixaban 5 MG TABLET PO ×2 (07:45→20:37)
[2024-09-26] MEDS: Simethicone 80 MG TAB.CHEW PO ×3 (07:45→20:36)
[2024-09-26] MEDS: Ascorbic Acid 500 MG TABLET PO (07:45)
[2024-09-26] MEDS: Cholecalciferol (Vitamin D3) 25 MCG TABLET PO (07:45)
[2024-09-26] MEDS: QUEtiapine Fumarate 50 MG TABLET PO ×2 (07:46→20:37)
[2024-09-26] MEDS: 0.9 % Sodium Chloride Flush 3 ML SYRINGE IVFLUSH ×3 (07:47→20:37)
[2024-09-26] MEDS: Albuterol/Iprat 2.5/0.5MG 3 ML AMPUL.NEB INHALE ×3 (08:01→20:49)
--- NOTE | 2024-09-26 11:29 | P.PNIM_ITS ---
Subjective Subjective Date of Service: 09/26/24 Interval History: still needing 6L Physical Exam 2 Vital Signs: Vital Signs: Last Vital Signs Temp 98.9 F 09/26/24 07:06 Pulse 64 09/26/24 11:21 Resp 17 09/26/24 11:21 BP 106/46 L 09/26/24 07:44 Pulse Ox 93 09/26/24 07:06 O2 Del Method Nasal Cannula 09/26/24 07:06 O2 Flow Rate 6 09/26/24 07:06 FiO2 60 09/22/24 22:37 BMI result Body Mass Index 25.5 Gen: in no acute distress HEENT: sclera anicteric, moist mucus membranes Neck: supple, old tracheostomy Lungs: diminished at bases Heart: regular rate and rhythm, no murmurs Abd: soft, non-tender, non-distended Ext: no edema Skin: warm/well-perfused Neuro: alert and oriented x3, paraplegic Psych: appropriate affect Objective Data Active Medications Acetaminophen (Acetaminophen 325 Mg Tablet) 650 mg PO Q6H PRN PRN Reason: Pain, Mild 1-3,fever,headache Acetaminophen (Acetaminophen 325 Mg Tablet) 650 mg PO Q6H PRN PRN Reason: Fever Or Pain Albuterol Sulfate (Albuterol Sulfate (0.083%) 2.5 Mg/3 Ml Vial.Neb) 2.5 mg INHALE Q6H PRN PRN Reason: Shortness Of Breath Or Wheezing Albuterol/Ipratropium (Albuterol/Iprat 2.5/0.5mg 3 Ml Ampul.Neb) 3 ml INHALE Q2H PRN PRN Reason: Shortness of Breath/Wheezing Albuterol/Ipratropium (Albuterol/Iprat 2.5/0.5mg 3 Ml Ampul.Neb) 3 ml INHALE RQ4H WHILE AWAKE [facility] Last Admin: 09/26/24 11:21 Dose: 3 ml Documented By: JW Apixaban (Apixaban 5 Mg Tablet) 5 mg PO BID [facility] Last Admin: 09/26/24 07:45 Dose: 5 mg Documented By: PATRICIA Ascorbic Acid (Ascorbic Acid 500 Mg Tablet) 500 mg PO DAILY [facility] Last Admin: 09/26/24 07:45 Dose: 500 mg Documented By: PATRICIA Aspirin (Aspirin Enteric Coated 81 Mg Tablet.Dr) 81 mg PO DAILY [facility] Last Admin: 09/26/24 07:44 Dose: 81 mg Documented By: PATRICIA Baclofen (Baclofen 10 Mg Tablet) 5 mg PO TID [facility] Last Admin: 09/26/24 07:45 Dose: 5 mg Documented By: PATRICIA Bisacodyl (Bisacodyl 10 Mg Supp.Rect) 10 mg AR Q24H PRN PRN Reason: Constipation Calcium Carbonate (Calcium Carbonate 750 Mg Tab.Chew) 750 mg PO Q4H PRN PRN Reason: Heartburn Ceftriaxone Sodium (Ceftriaxone Sodium 1 Gm Vial) 1 gm IVPUSH Q24H [facility] Last Admin: 09/25/24 21:00 Dose: 1 gm Documented By: JUSTIN Docusate Sodium (Docusate Sodium 100 Mg Capsule) 100 mg PO BID [facility] Last Admin: 09/26/24 07:45 Dose: 100 mg Documented By: PATRICIA Famotidine (Famotidine 20 Mg Tablet) 20 mg PO BID [facility] Last Admin: 09/26/24 07:45 Dose: 20 mg Documented By: PATRICIA Guaifenesin (Guaifenesin 100 Mg/5 Ml 5 Ml Liquid) 15 ml PO Q4H PRN PRN Reason: Cough Guaifenesin (Guaifenesin La 600 Mg Tab.Er.12h) 600 mg PO BID [facility] Last Admin: 09/26/24 07:44 Dose: 600 mg Documented By: PATRICIA Lorazepam (Lorazepam 1 Mg Tablet) 1 mg PO BEDTIME [facility] Last Admin: 09/25/24 20:57 Dose: 1 mg Documented By: JUSTIN Magnesium Citrate (Magnesium Citrate 300 Ml Solution) 300 ml PO DAILY PRN PRN Reason: Constipation Magnesium Hydroxide (Milk Of Magnesia 30 Ml Oral.Susp) 30 ml PO DAILY PRN PRN Reason: Constipation Magnesium Hydroxide (Milk Of Magnesia 30 Ml Oral.Susp) 30 ml PO BEDTIME PRN PRN Reason: Constipation Melatonin (Melatonin 3 Mg Tablet) 6 mg PO BEDTIME PRN PRN Reason: Insomnia Methylprednisolone Sodium Succinate (Methylprednisolone Sod Succ 40 Mg/Ml Vial) 20 mg IVPUSH BID [facility] Last Admin: 09/26/24 07:43 Dose: 20 mg Documented By: PATRICIA Metronidazole (Metronidazole 500 Mg Tablet) 500 mg PO Q8H [facility] Last Admin: 09/26/24 07:44 Dose: 500 mg Documented By: PATRICIA Midodrine (Midodrine Hcl 10 Mg Tablet) 10 mg PO TID [facility] Last Admin: 09/26/24 07:44 Dose: 10 mg Documented By: PATRICIA Multivitamins/Vitamin C (Multivitamin Tablet) 1 tab PO DAILY [facility] Last Admin: 09/26/24 07:45 Dose: 1 tab Documented By: PATRICIA Ondansetron HCl (Ondansetron Odt 4 Mg Tab.Rapdis) 4 mg TRANSLINGU Q8H PRN PRN Reason: Nausea Oxycodone HCl (Oxycodone Hcl Immed Release 5 Mg Tablet) 5 mg PO Q3H PRN PRN Reason: Pain (Scale Score 4-6) Polyethylene Glycol (Polyethylene Glycol 3350 17 Gm Powd.Pack) 17 gm PO DAILY PRN PRN Reason: Constipation Polyethylene Glycol (Polyethylene Glycol 3350 17 Gm Powd.Pack) 17 gm PO DAILY [facility] Last Admin: 09/26/24 07:46 Dose: Not Given Documented By: PATRICIA Non-Admin Reason: Patient Refused Pregabalin (Pregabalin 75 Mg Capsule) 75 mg PO TID [facility] Last Admin: 09/26/24 07:45 Dose: 75 mg Documented By: PATRICIA Quetiapine Fumarate (Quetiapine Fumarate 50 Mg Tablet) 50 mg PO BID [facility] Last Admin: 09/26/24 07:46 Dose: 50 mg Documented By: PATRICIA Senna (Sennosides 8.6 Mg Tablet) 17.2 mg PO BID [facility] Last Admin: 09/26/24 07:44 Dose: 17.2 mg Documented By: PATRICIA Sertraline HCl (Sertraline Hcl 100 Mg Tablet) 200 mg PO DAILY [facility] Last Admin: 09/26/24 07:44 Dose: 200 mg Documented By: PATRICIA Simethicone (Simethicone 80 Mg Tab.Chew) 80 mg PO TID [facility] Last Admin: 09/26/24 07:45 Dose: 80 mg Documented By: PATRICIA Sodium Biphosphate/Sodium Phosphate (Sodium Phosphate,[place]-Dibasic 133 Ml Enema) 118 ml AR DAILY PRN PRN Reason: Constipation Sodium Chloride (0.9 % Sodium Chloride Flush 3 Ml Syringe) 3 ml IVFLUSH QSHIFT [facility] Last Admin: 09/26/24 07:47 Dose: 3 ml Documented By: PATRICIA Sumatriptan Succinate (Sumatriptan Succinate 100 Mg Tablet) 100 mg PO DAILY PRN PRN Reason: Migraine Headache Tizanidine HCl (Tizanidine Hcl 4 Mg Tablet) 2 mg PO BEDTIME [facility] Last Admin: 09/25/24 20:58 Dose: 2 mg Documented By: JUSTIN Trimethoprim/Sulfamethoxazole (Sulfamethox/Trimeth 800/160 Tablet) 1 tab PO BID [facility] Last Admin: 09/26/24 07:43 Dose: 1 tab Documented By: PATRICIA Vitamin D (Cholecalciferol (Vitamin D3) 25 Mcg Tablet) 25 mcg PO DAILY [facility] Last Admin: 09/26/24 07:45 Dose: 25 mcg Documented By: PATRICIA Labs 09/25/24 07:34 09/25/24 07:34 Assessment and Plan (1) Acute on chronic respiratory failure with hypoxemia: Status: Acute Assessment and Plan: 59F [facility], prior tracheostomy now decannulated, autonomic dysfunction, COPD, hx PE now on apixaban, recurrent aspiration with mucus plugging, chronic osteomyelitis presented with dyspnea + hypoxia + fever found to be hypotensive [resolved after midodrine], admitted for acute hypoxia due to acute/chronic mucus plugging/aspiration pneumonitis; initially on HFNC acute hypoxic respiratory failure due to acute/chronic mucus plugging/aspiration pneumonitis + COPD exacerbation 09/23- ceftriaxone + metronidazole, BCx negative, PCT low continue IV methylprednisolone [currently on 20 mg bid], nebs supplemental O2, weaned off of HFNC and wean off NC as tolerated autonomic dysfunction midodrine; hypotension resolved chronic thoracic osteomyelitis continue TMP-SMX hx of PE apixaban mood disorder sertraline + lorazepam paraplegia tizanidine + pregabalin old tracheostomy outpt f/u with ENT Surgery to arrange closure VTE ppx apixaban dispo eventual return to LTC reason for continued hospitalization:hypoxia Total time managing care of this patient today: 35 minutes. Quality Stroke Does the patient have a stroke diagnosis?: No VTE Prior VTE?: No VTE Risk Level:: Medical - moderate - high VTE Device Contraindication: Treatment Not Indicated VTE Drug Contraindication: N/A - Med Ordered
--- NOTE | 2024-09-26 12:58 | MHC.SLORD ---
Speech Language Pathology Order Status: Pt seen for dysphagia treatment, pt endorsed she is doing well with PO intake but did not want anything at this time. Pt reported feeling cold, SALES DEVELOPMENT CONSULTANT assisted with securing heated blanket for pt. [employer] will continue to follow.
--- NOTE | 2024-09-26 13:59 | MHC.CM.PN ---
Per rounds, pt. is not ready for DC, she is requiring tx for hypoxia, is being weaned down on O2. DCP: to return to [facility] where she is LTC resident.
[2024-09-26] MEDS: cefTRIAXone sodium 1 GM VIAL IVPUSH (20:34)
[2024-09-26] MEDS: TiZANidine HCL 4 MG TABLET 2 MG PO (20:34)
[2024-09-26] MEDS: LORazepam 1 MG TABLET PO (20:36)
[2024-09-27] VITALS (8 sets, daily range): BP systolic 98–128; BP diastolic 55–65; PULSE 59–99; RESP 16–24; TEMP 36.3–36.4; O2SAT 72–99
[2024-09-27] MEDS: metroNIDAZOLE 500 MG TABLET PO ×3 (00:30→15:45)
[2024-09-27] MEDS: oxyCODONE HCl Immed Release 5 MG TABLET PO ×4 (00:30→21:25)
[2024-09-27] MEDS: Albumin Human 25 % 100 ML IV ×2 (06:28→12:08)
[2024-09-27 06:34] LABS: Venous Blood Gas Refer to POC result
--- NOTE | 2024-09-27 06:35 | PM.EVENT ---
Event Note Date of Service: 09/27/24 Event Note: Patient previously on 6 L nasal cannula. As per the nurse, oxygen came off and patient was satting 77% on room air. Placed on high-flow nasal cannula. Wean as tolerated. VBG pending Time Spent With Patient Time: Total time managing care of this patient today ____ minutes.
[2024-09-27 06:36] LABS: Hematocrit 38.2 % (37.0-47.0); Hemoglobin 12.6 g/dl (12.0-16.0); Mean Corpuscular Volume 87.8 fL (80.0-98.0); Mean Platelet Volume 10.8 fL (9.4-12.3); Platelet Count 194 X10*3/uL (160-400); Red Blood Count 4.35 X10*6/uL (4.20-5.50); Red Cell Distribution Width 16.6 % (11.0-16.0); White Blood Count 7.9 X10*3/uL (4.8-10.8)
[2024-09-27 06:36] LABS: VBG Base Excess 1.7 mmol/L; VBG HCO3 25 mmol/L (22-26); VBG pCO2 37 mmHg; VBG pH 7.44 (7.32-7.43); VBG pO2 77 mmHg
[2024-09-27 06:51] LABS: Anion Gap 12 (12-20); Blood Urea Nitrogen 17 mg/dL (9-16); Calcium 9.2 mg/dL (8.4-10.2); Carbon Dioxide 23 mmol/L (22-29); Chloride 108 mmol/L (96-108); Creatinine Clr Calc Pharmacy 106.3; Estimated Glomerular Filt Rate > 60; Glucose Random 83 mg/dL (60-115); Magnesium 1.9 mg/dL (1.6-2.6); Potassium 4.1 mmol/L (3.3-5.1); Sodium 139 mmol/L (135-145)
[2024-09-27] MEDS: Albuterol/Iprat 2.5/0.5MG 3 ML AMPUL.NEB INHALE ×2 (08:44→20:19)
[2024-09-27] MEDS: guaiFENesin LA 600 MG TAB.ER.12H PO ×2 (10:37→21:25)
[2024-09-27] MEDS: guaiFENesin 100 MG/5 ML 5 ML LIQUID 15 ML PO (10:37)
[2024-09-27] MEDS: Baclofen 10 MG TABLET 5 MG PO ×3 (10:37→21:24)
[2024-09-27] MEDS: Docusate Sodium 100 MG CAPSULE PO ×2 (10:38→21:25)
[2024-09-27] MEDS: Aspirin Enteric Coated 81 MG TABLET.DR PO (10:38)
[2024-09-27] MEDS: QUEtiapine Fumarate 50 MG TABLET PO ×2 (10:38→21:25)
[2024-09-27] MEDS: Sulfamethox/Trimeth 800/160 TABLET 1 TAB PO ×2 (10:38→21:25)
[2024-09-27] MEDS: Sennosides 8.6 MG TABLET 17.2 MG PO (10:38)
[2024-09-27] MEDS: Simethicone 80 MG TAB.CHEW PO ×3 (10:39→21:25)
[2024-09-27] MEDS: Sertraline HCL 100 MG TABLET 200 MG PO (10:39)
[2024-09-27] MEDS: Apixaban 5 MG TABLET PO ×2 (10:39→21:25)
[2024-09-27] MEDS: Multivitamin TABLET 1 TAB PO (10:39)
[2024-09-27] MEDS: Pregabalin 75 MG CAPSULE PO ×3 (10:39→21:25)
[2024-09-27] MEDS: methylPREDNISolone Sod Succ 40 MG/ML VIAL 20 MG IVPUSH ×2 (10:39→21:24)
[2024-09-27] MEDS: Cholecalciferol (Vitamin D3) 25 MCG TABLET PO (10:39)
[2024-09-27] MEDS: Ascorbic Acid 500 MG TABLET PO (10:39)
[2024-09-27] MEDS: Famotidine 20 MG TABLET PO ×2 (10:40→21:25)
[2024-09-27] MEDS: Midodrine HCl 10 MG TABLET PO ×3 (10:40→21:25)
[2024-09-27] MEDS: 0.9 % Sodium Chloride Flush 3 ML SYRINGE IVFLUSH (10:40)
[2024-09-27] MEDS: Ondansetron ODT 4 MG TAB.RAPDIS TRANSLINGU (10:41)
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
[2024-09-27] MEDS: TiZANidine HCL 4 MG TABLET 2 MG PO (21:24)
[2024-09-27] MEDS: Melatonin 3 MG TABLET 6 MG PO (21:25)
[2024-09-27] MEDS: cefTRIAXone sodium 1 GM VIAL IVPUSH (21:25)
[2024-09-27] MEDS: LORazepam 1 MG TABLET PO (21:25)
[2024-09-28] VITALS (9 sets, daily range): BP systolic 82–144; BP diastolic 49–77; PULSE 55–81; RESP 16–20; TEMP 36–37.2; O2SAT 90–95
[2024-09-28] MEDS: 0.9 % Sodium Chloride Flush 3 ML SYRINGE IVFLUSH ×3 (00:26→18:22)
[2024-09-28] MEDS: metroNIDAZOLE 500 MG TABLET PO ×3 (00:26→16:59)
[2024-09-28 06:11] LABS: Hematocrit 36.9 % (37.0-47.0); Hemoglobin 11.9 g/dl (12.0-16.0); Mean Corpuscular HGB Conc 32.2 g/dl (31.0-35.0); Mean Corpuscular Hemoglobin 28.7 pg (27.0-33.0); Mean Corpuscular Volume 88.9 fL (80.0-98.0); Mean Platelet Volume 11.9 fL (9.4-12.3); Platelet Count 209 X10*3/uL (160-400); Red Blood Count 4.15 X10*6/uL (4.20-5.50); Red Cell Distribution Width 16.6 % (11.0-16.0); White Blood Count 8.2 X10*3/uL (4.8-10.8)
[2024-09-28 06:24] LABS: Anion Gap 14 (12-20); Blood Urea Nitrogen 15 mg/dL (9-16); Carbon Dioxide 25 mmol/L (22-29); Chloride 104 mmol/L (96-108); Creatinine Clr Calc Pharmacy 106.3; Estimated Glomerular Filt Rate > 60; Glucose Random 104 mg/dL (60-115); Potassium 4.6 mmol/L (3.3-5.1); Sodium 138 mmol/L (135-145)
[2024-09-28] MEDS: Multivitamin TABLET 1 TAB PO (10:21)
[2024-09-28] MEDS: Pregabalin 75 MG CAPSULE PO ×3 (10:21→21:20)
[2024-09-28] MEDS: Ascorbic Acid 500 MG TABLET PO (10:21)
[2024-09-28] MEDS: Cholecalciferol (Vitamin D3) 25 MCG TABLET PO (10:21)
[2024-09-28] MEDS: Simethicone 80 MG TAB.CHEW PO ×3 (10:22→21:19)
[2024-09-28] MEDS: Baclofen 10 MG TABLET 5 MG PO ×3 (10:22→21:19)
[2024-09-28] MEDS: Sertraline HCL 100 MG TABLET 200 MG PO (10:22)
[2024-09-28] MEDS: Famotidine 20 MG TABLET PO ×2 (10:22→21:20)
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
[2024-09-28] MEDS: Docusate Sodium 100 MG CAPSULE PO ×2 (10:24→21:20)
[2024-09-28] MEDS: Sulfamethox/Trimeth 800/160 TABLET 1 TAB PO ×2 (10:24→21:19)
[2024-09-28] MEDS: QUEtiapine Fumarate 50 MG TABLET PO ×2 (10:24→21:20)
[2024-09-28] MEDS: Aspirin Enteric Coated 81 MG TABLET.DR PO (10:24)
[2024-09-28] MEDS: Sennosides 8.6 MG TABLET 17.2 MG PO ×2 (10:25→21:19)
[2024-09-28] MEDS: guaiFENesin LA 600 MG TAB.ER.12H PO ×2 (10:25→21:19)
[2024-09-28] MEDS: methylPREDNISolone Sod Succ 40 MG/ML VIAL 20 MG IVPUSH ×2 (10:26→21:22)
[2024-09-28] MEDS: Apixaban 5 MG TABLET PO ×2 (10:27→21:20)
--- NOTE | 2024-09-28 11:14 | MHC.SL.SWA ---
Speech Pathologist Impression: Risk of Aspiration Due to: Medically Fragile History of Pneumonia Weak Cough Weak Voice Dysphasia Diet Status: Continue on REGULAR diet, THIN liquids, Pills whole with puree. Continue 1-1 feed. Encourage patient to participate in electing food preferences from regular menu. D/C speech. Liquid Consistency and Strategies for Safe Swallow: Liquid Intake Recommendation: Thin Liquid Intake Strategies: Small Sips Solid Food Consistency: Dietary Recommendations: Regular Additional Modifications to Solid Foods: RIGGING WORKER to f/u 1x to monitor Oral Medication Intake: Whole with Puree Please contact the pharmacy regarding appropriate crushable or liquid drug formulations that are available whenever modified delivery is recommended. Compensatory Strategies and Precautions to be Taken for Safe Swallow: Sitting Upright (90 deg) Small Bites and Sips Alternate Liquids/Solids Rate of Ingestion Change Avoid Specific Foods Supervision While Eating and Drinking for Safe Swallow: Total Assistance (1:1) Foods to Avoid: [place] hard or tough to chew solids Swallowing Recommended Treatments: Compens. Strategy Educat. Recommendation for Speech: Comment: Patient seen at breakfast this morning, being fed by [employer]. Room was dark at onset of the visit, patient allowed curtains to be drawn to let in natural light. [employer] presenting food at an appropriate slow pace, asking patient preferences, alternating solids with liquids (doing an excellent job). Patient noted to decline alves on tray (too tough) and was was given positive feedback about using good judgement about food and textures. Patient tolerating regular diet, thin liquids well, ate well this morning. Patient is at baseline least restrictive diet, continues to require 1-1 feeding, however evidences good insight into her needs and communicates well about them. Recommend D/C speech services at this time. Frequency/Duration: Date Range for Service Req: Timeline to reassess: Certified Hand Therapist Clinican/Clinical Fellow: No Supervisory Statement: I have reviewed and agree with the student/clinical fellow's documentation: N/A Speech Language Pathologist: Zahida Montano M.A., CCC-[employer]ER
[2024-09-28] MEDS: Midodrine HCl 10 MG TABLET PO ×3 (12:23→21:19)
--- NOTE | 2024-09-28 13:10 | MHC.CM.PN ---
Per rounds, pt. is still acute, and not ready to DC. She will return to [facility] via BLS when ready.
[2024-09-28] MEDS: Albuterol/Iprat 2.5/0.5MG 3 ML AMPUL.NEB INHALE ×2 (16:36→19:19)
[2024-09-28] MEDS: Melatonin 3 MG TABLET 6 MG PO (21:19)
[2024-09-28] MEDS: TiZANidine HCL 4 MG TABLET 2 MG PO (21:20)
[2024-09-28] MEDS: cefTRIAXone sodium 1 GM VIAL IVPUSH (21:23)
[2024-09-29] MEDS: metroNIDAZOLE 500 MG TABLET PO ×3 (01:33→16:20)
[2024-09-29 03:18] VITALS: BP 131/64; PULSE 61; RESP 16; TEMP 36.3; O2SAT 95
[2024-09-29 07:20] VITALS: BP 125/73; PULSE 65; RESP 16; TEMP 36.2; O2SAT 95
--- NOTE | 2024-09-29 09:54 | HO.PM.IMPN ---
Subjective Subjective Date of Service: 09/29/24 Interval History: now back to 4L Physical Exam Vital Signs: Vital Signs: Last Vital Signs Temp 97.2 F 09/29/24 07:20 Pulse 65 09/29/24 07:20 Resp 16 09/29/24 07:20 BP 125/73 09/29/24 07:20 Pulse Ox 95 09/29/24 07:20 O2 Del Method Nasal Cannula 09/29/24 07:20 O2 Flow Rate 4 09/29/24 07:20 FiO2 86.6 09/27/24 07:15 BMI result Body Mass Index 25.5 Gen: in no acute distress HEENT: sclera anicteric, moist mucus membranes Neck: supple, old tracheostomy Lungs: diminished at bases Heart: regular rate and rhythm, no murmurs Abd: soft, non-tender, non-distended Ext: no edema Skin: warm/well-perfused Neuro: alert and oriented x3, paraplegic Psych: appropriate affect Objective Data Active Medications Acetaminophen (Acetaminophen 325 Mg Tablet) 650 mg PO Q6H PRN PRN Reason: Pain, Mild 1-3,fever,headache Albuterol Sulfate (Albuterol Sulfate (0.083%) 2.5 Mg/3 Ml Vial.Neb) 2.5 mg INHALE Q6H PRN PRN Reason: Shortness Of Breath Or Wheezing Albuterol/Ipratropium (Albuterol/Iprat 2.5/0.5mg 3 Ml Ampul.Neb) 3 ml INHALE Q2H PRN PRN Reason: Shortness of Breath/Wheezing Albuterol/Ipratropium (Albuterol/Iprat 2.5/0.5mg 3 Ml Ampul.Neb) 3 ml INHALE RQ4H WHILE AWAKE [facility] Last Admin: 09/29/24 07:26 Dose: Not Given Documented By: FADY Non-Admin Reason: Patient Refused Apixaban (Apixaban 5 Mg Tablet) 5 mg PO BID [facility] Last Admin: 09/28/24 21:20 Dose: 5 mg Documented By: LIZA Ascorbic Acid (Ascorbic Acid 500 Mg Tablet) 500 mg PO DAILY [facility] Last Admin: 09/28/24 10:21 Dose: 500 mg Documented By: AUDREY Aspirin (Aspirin Enteric Coated 81 Mg Tablet.) 81 mg PO DAILY [facility] Last Admin: 09/28/24 10:24 Dose: 81 mg Documented By: AUDREY Baclofen (Baclofen 10 Mg Tablet) 5 mg PO TID [facility] Last Admin: 09/28/24 21:19 Dose: 5 mg Documented By: LIZA Bisacodyl (Bisacodyl 10 Mg Supp.Rect) 10 mg OK Q24H PRN PRN Reason: Constipation Calcium Carbonate (Calcium Carbonate 750 Mg Tab.Chew) 750 mg PO Q4H PRN PRN Reason: Heartburn Ceftriaxone Sodium (Ceftriaxone Sodium 1 Gm Vial) 1 gm IVPUSH Q24H [facility] Last Admin: 09/28/24 21:23 Dose: 1 gm Documented By: LIZA Docusate Sodium (Docusate Sodium 100 Mg Capsule) 100 mg PO BID [facility] Last Admin: 09/28/24 21:20 Dose: 100 mg Documented By: LIZA Famotidine (Famotidine 20 Mg Tablet) 20 mg PO BID [facility] Last Admin: 09/28/24 21:20 Dose: 20 mg Documented By: LIZA Guaifenesin (Guaifenesin 100 Mg/5 Ml 5 Ml Liquid) 15 ml PO Q4H PRN PRN Reason: Cough Last Admin: 09/27/24 10:37 Dose: 15 ml Documented By: DILIP Guaifenesin (Guaifenesin La 600 Mg Tab.Er.12h) 600 mg PO BID [facility] Last Admin: 09/28/24 21:19 Dose: 600 mg Documented By: LIZA Magnesium Citrate (Magnesium Citrate 300 Ml Solution) 300 ml PO DAILY PRN PRN Reason: Constipation Magnesium Hydroxide (Milk Of Magnesia 30 Ml Oral.Susp) 30 ml PO DAILY PRN PRN Reason: Constipation Magnesium Hydroxide (Milk Of Magnesia 30 Ml Oral.Susp) 30 ml PO BEDTIME PRN PRN Reason: Constipation Melatonin (Melatonin 3 Mg Tablet) 6 mg PO BEDTIME PRN PRN Reason: Insomnia Last Admin: 09/28/24 21:19 Dose: 6 mg Documented By: LIZA Methylprednisolone Sodium Succinate (Methylprednisolone Sod Succ 40 Mg/Ml Vial) 20 mg IVPUSH BID [facility] Last Admin: 09/28/24 21:22 Dose: 20 mg Documented By: LIZA Metronidazole (Metronidazole 500 Mg Tablet) 500 mg PO Q8H [facility] Last Admin: 09/29/24 01:33 Dose: 500 mg Documented By: LIZA Midodrine (Midodrine Hcl 10 Mg Tablet) 10 mg PO TID [facility] Last Admin: 09/28/24 21:19 Dose: 10 mg Documented By: LIZA Multivitamins/Vitamin C (Multivitamin Tablet) 1 tab PO DAILY [facility] Last Admin: 09/28/24 10:21 Dose: 1 tab Documented By: AUDREY Ondansetron HCl (Ondansetron Odt 4 Mg Tab.Rapdis) 4 mg TRANSLINGU Q8H PRN PRN Reason: Nausea Last Admin: 09/27/24 10:41 Dose: 4 mg Documented By: RIOSCEL Polyethylene Glycol (Polyethylene Glycol 3350 17 Gm Powd.Pack) 17 gm PO DAILY PRN PRN Reason: Constipation Polyethylene Glycol (Polyethylene Glycol 3350 17 Gm Powd.Pack) 17 gm PO DAILY [facility] Last Admin: 09/28/24 10:25 Dose: Not Given Documented By: AUDREY Non-Admin Reason: Patient Refused Pregabalin (Pregabalin 75 Mg Capsule) 75 mg PO TID [facility] Last Admin: 09/28/24 21:20 Dose: 75 mg Documented By: LIZA Quetiapine Fumarate (Quetiapine Fumarate 50 Mg Tablet) 50 mg PO BID [facility] Last Admin: 09/28/24 21:20 Dose: 50 mg Documented By: LIZA Senna (Sennosides 8.6 Mg Tablet) 17.2 mg PO BID [facility] Last Admin: 09/28/24 21:19 Dose: 17.2 mg Documented By: LIZA Sertraline HCl (Sertraline Hcl 100 Mg Tablet) 200 mg PO DAILY [facility] Last Admin: 09/28/24 10:22 Dose: 200 mg Documented By: AUDREY Simethicone (Simethicone 80 Mg Tab.Chew) 80 mg PO TID [facility] Last Admin: 09/28/24 21:19 Dose: 80 mg Documented By: LIZA Sodium Biphosphate/Sodium Phosphate (Sodium Phosphate,[place]-Dibasic 133 Ml Enema) 118 ml OK DAILY PRN PRN Reason: Constipation Sodium Chloride (0.9 % Sodium Chloride Flush 3 Ml Syringe) 3 ml IVFLUSH QSHIFT [facility] Last Admin: 09/29/24 01:43 Dose: Not Given Documented By: LIZA Non-Admin Reason: Previously Administered Sumatriptan Succinate (Sumatriptan Succinate 100 Mg Tablet) 100 mg PO DAILY PRN PRN Reason: Migraine Headache Tizanidine HCl (Tizanidine Hcl 4 Mg Tablet) 2 mg PO BEDTIME [facility] Last Admin: 09/28/24 21:20 Dose: 2 mg Documented By: LIZA Trimethoprim/Sulfamethoxazole (Sulfamethox/Trimeth 800/160 Tablet) 1 tab PO BID [facility] Last Admin: 09/28/24 21:19 Dose: 1 tab Documented By: LIZA Vitamin D (Cholecalciferol (Vitamin D3) 25 Mcg Tablet) 25 mcg PO DAILY [facility] Last Admin: 09/28/24 10:21 Dose: 25 mcg Documented By: AUDREY Labs 09/28/24 05:40 09/28/24 05:40 Assessment and Plan (1) Acute on chronic respiratory failure with hypoxemia: Status: Acute Assessment and Plan: 59F [facility], prior tracheostomy now decannulated, autonomic dysfunction, COPD, hx PE now on apixaban, recurrent aspiration with mucus plugging, chronic osteomyelitis presented with dyspnea + hypoxia + fever found to be hypotensive [resolved after midodrine], admitted for acute hypoxia due to acute/chronic mucus plugging/aspiration pneumonitis; initially on HFNC acute hypoxic respiratory failure due to acute/chronic mucus plugging/aspiration pneumonitis + COPD exacerbation 09/23- ceftriaxone + metronidazole, BCx negative, PCT low Completed course of steroids, will DC, continue nebs supplemental O2, weaned off of HFNC now on 4L, continue to wean autonomic dysfunction midodrine; hypotension resolved chronic thoracic osteomyelitis continue TMP-SMX hx of PE apixaban mood disorder sertraline + lorazepam paraplegia tizanidine + pregabalin old tracheostomy outpt f/u with ENT Surgery to arrange closure VTE ppx apixaban dispo eventual return to LTC reason for continued hospitalization:hypoxia Total time managing care of this patient today: 35 minutes. Quality Stroke Does the patient have a stroke diagnosis?: No VTE Prior VTE?: No VTE Risk Level:: Medical - moderate - high VTE Device Contraindication: Treatment Not Indicated VTE Drug Contraindication: N/A - Med Ordered
[2024-09-29] MEDS: Baclofen 10 MG TABLET 5 MG PO ×3 (10:12→20:17)
[2024-09-29] MEDS: Sennosides 8.6 MG TABLET 17.2 MG PO ×2 (10:14→20:29)
[2024-09-29] MEDS: QUEtiapine Fumarate 50 MG TABLET PO ×2 (10:15→20:28)
[2024-09-29] MEDS: Pregabalin 75 MG CAPSULE PO ×3 (10:15→20:16)
[2024-09-29] MEDS: Ascorbic Acid 500 MG TABLET PO (10:15)
[2024-09-29] MEDS: guaiFENesin LA 600 MG TAB.ER.12H PO ×2 (10:15→20:16)
[2024-09-29] MEDS: Midodrine HCl 10 MG TABLET PO ×2 (10:15→16:21)
[2024-09-29] MEDS: Apixaban 5 MG TABLET PO ×2 (10:16→20:18)
[2024-09-29] MEDS: Multivitamin TABLET 1 TAB PO (10:16)
[2024-09-29] MEDS: Sertraline HCL 100 MG TABLET 200 MG PO (10:16)
[2024-09-29] MEDS: Simethicone 80 MG TAB.CHEW PO ×3 (10:16→20:16)
[2024-09-29] MEDS: Cholecalciferol (Vitamin D3) 25 MCG TABLET PO (10:16)
[2024-09-29] MEDS: Sulfamethox/Trimeth 800/160 TABLET 1 TAB PO ×2 (10:16→20:17)
[2024-09-29] MEDS: Docusate Sodium 100 MG CAPSULE PO ×2 (10:16→20:17)
[2024-09-29] MEDS: Aspirin Enteric Coated 81 MG TABLET.DR PO (10:16)
[2024-09-29] MEDS: Famotidine 20 MG TABLET PO ×2 (10:17→20:17)
[2024-09-29] MEDS: 0.9 % Sodium Chloride Flush 3 ML SYRINGE IVFLUSH ×2 (11:03→16:22)
[2024-09-29 15:40] VITALS: BP 125/55; PULSE 77; RESP 16; TEMP 36.2; O2SAT 98
[2024-09-29 16:00] VITALS: RESP 16; O2SAT 98
[2024-09-29 20:00] VITALS: BP 133/66; PULSE 73; RESP 20; TEMP 36.2; O2SAT 91
[2024-09-29] MEDS: Melatonin 3 MG TABLET 6 MG PO (20:16)
[2024-09-29] MEDS: TiZANidine HCL 4 MG TABLET 2 MG PO (20:28)
[2024-09-29] MEDS: cefTRIAXone sodium 1 GM VIAL IVPUSH (20:29)
[2024-09-29 20:31] VITALS: BP 135/74
[2024-09-30] VITALS (12 sets, daily range): BP systolic 90–130; BP diastolic 58–67; PULSE 66–77; RESP 12–20; TEMP 36–36.7; O2SAT 84–96
[2024-09-30] MEDS: metroNIDAZOLE 500 MG TABLET PO ×3 (01:03→16:12)
[2024-09-30 07:24] LABS: Hematocrit 40.8 % (37.0-47.0); Hemoglobin 13.4 g/dl (12.0-16.0); Mean Corpuscular HGB Conc 32.8 g/dl (31.0-35.0); Mean Corpuscular Hemoglobin 29.1 pg (27.0-33.0); Mean Corpuscular Volume 88.5 fL (80.0-98.0); Mean Platelet Volume 12.5 fL (9.4-12.3); Platelet Count 261 X10*3/uL (160-400); Red Blood Count 4.61 X10*6/uL (4.20-5.50); White Blood Count 7.2 X10*3/uL (4.8-10.8)
[2024-09-30 07:43] LABS: Anion Gap 17 (12-20); Blood Urea Nitrogen 27 mg/dL (9-16); Calcium 9.9 mg/dL (8.4-10.2); Carbon Dioxide 20 mmol/L (22-29); Chloride 107 mmol/L (96-108); Creatinine Clr Calc Pharmacy 95.1; Estimated Glomerular Filt Rate > 60; Glucose Random 77 mg/dL (60-115); Potassium 3.8 mmol/L (3.3-5.1); Sodium 140 mmol/L (135-145)
[2024-09-30] MEDS: Ascorbic Acid 500 MG TABLET PO (09:26)
[2024-09-30] MEDS: Aspirin Enteric Coated 81 MG TABLET.DR PO (09:26)
[2024-09-30] MEDS: Simethicone 80 MG TAB.CHEW PO ×3 (09:26→20:42)
[2024-09-30] MEDS: Sertraline HCL 100 MG TABLET 200 MG PO (09:26)
[2024-09-30] MEDS: Famotidine 20 MG TABLET PO ×2 (09:26→20:42)
[2024-09-30] MEDS: Apixaban 5 MG TABLET PO ×2 (09:26→20:42)
[2024-09-30] MEDS: Cholecalciferol (Vitamin D3) 25 MCG TABLET PO (09:26)
[2024-09-30] MEDS: Midodrine HCl 10 MG TABLET PO ×3 (09:27→20:41)
[2024-09-30] MEDS: Sennosides 8.6 MG TABLET 17.2 MG PO ×2 (09:27→20:41)
[2024-09-30] MEDS: guaiFENesin LA 600 MG TAB.ER.12H PO ×2 (09:27→20:41)
[2024-09-30] MEDS: Pregabalin 75 MG CAPSULE PO ×3 (09:27→20:43)
[2024-09-30] MEDS: QUEtiapine Fumarate 50 MG TABLET PO ×2 (09:27→20:41)
[2024-09-30] MEDS: Baclofen 10 MG TABLET 5 MG PO ×3 (09:27→20:43)
[2024-09-30] MEDS: Sulfamethox/Trimeth 800/160 TABLET 1 TAB PO ×2 (09:27→20:43)
[2024-09-30] MEDS: Multivitamin TABLET 1 TAB PO (09:28)
--- NOTE | 2024-09-30 11:02 | HO.PM.IMPN ---
Subjective Subjective Date of Service: 09/30/24 Interval History: now back to 5L Physical Exam Vital Signs: Vital Signs: Last Vital Signs Temp 97.1 F 09/30/24 08:00 Pulse 70 09/30/24 08:00 Resp 14 09/30/24 08:00 BP 90/60 09/30/24 08:00 Pulse Ox 92 09/30/24 08:00 O2 Del Method Nasal Cannula, Hu midified O2 09/30/24 08:00 O2 Flow Rate 5 09/30/24 08:00 FiO2 86.6 09/27/24 07:15 BMI result Body Mass Index 25.5 Gen: in no acute distress HEENT: sclera anicteric, moist mucus membranes Neck: supple, old tracheostomy Lungs: diminished at bases Heart: regular rate and rhythm, no murmurs Abd: soft, non-tender, non-distended Ext: no edema Skin: warm/well-perfused Neuro: alert and oriented x3, paraplegic Psych: appropriate affect Objective Data Active Medications Acetaminophen (Acetaminophen 325 Mg Tablet) 650 mg PO Q6H PRN PRN Reason: Pain, Mild 1-3,fever,headache Apixaban (Apixaban 5 Mg Tablet) 5 mg PO BID [facility] Last Admin: 09/30/24 09:26 Dose: 5 mg Documented By: ROXANE Ascorbic Acid (Ascorbic Acid 500 Mg Tablet) 500 mg PO DAILY [facility] Last Admin: 09/30/24 09:26 Dose: 500 mg Documented By: ROXANE Aspirin (Aspirin Enteric Coated 81 Mg Tablet.) 81 mg PO DAILY [facility] Last Admin: 09/30/24 09:26 Dose: 81 mg Documented By: ROXANE Baclofen (Baclofen 10 Mg Tablet) 5 mg PO TID [facility] Last Admin: 09/30/24 09:27 Dose: 5 mg Documented By: ROXANE Bisacodyl (Bisacodyl 10 Mg Supp.Rect) 10 mg IA Q24H PRN PRN Reason: Constipation Calcium Carbonate (Calcium Carbonate 750 Mg Tab.Chew) 750 mg PO Q4H PRN PRN Reason: Heartburn Ceftriaxone Sodium (Ceftriaxone Sodium 1 Gm Vial) 1 gm IVPUSH Q24H [facility] Last Admin: 09/29/24 20:29 Dose: 1 gm Documented By: LIZA Docusate Sodium (Docusate Sodium 100 Mg Capsule) 100 mg PO BID [facility] Last Admin: 09/30/24 10:43 Dose: Not Given Documented By: ROXANE Non-Admin Reason: Patient Refused Famotidine (Famotidine 20 Mg Tablet) 20 mg PO BID [facility] Last Admin: 09/30/24 09:26 Dose: 20 mg Documented By: ROXANE Guaifenesin (Guaifenesin 100 Mg/5 Ml 5 Ml Liquid) 15 ml PO Q4H PRN PRN Reason: Cough Last Admin: 09/27/24 10:37 Dose: 15 ml Documented By: DILIP Guaifenesin (Guaifenesin La 600 Mg Tab.Er.12h) 600 mg PO BID [facility] Last Admin: 09/30/24 09:27 Dose: 600 mg Documented By: ROXANE Magnesium Citrate (Magnesium Citrate 300 Ml Solution) 300 ml PO DAILY PRN PRN Reason: Constipation Magnesium Hydroxide (Milk Of Magnesia 30 Ml Oral.Susp) 30 ml PO DAILY PRN PRN Reason: Constipation Magnesium Hydroxide (Milk Of Magnesia 30 Ml Oral.Susp) 30 ml PO BEDTIME PRN PRN Reason: Constipation Melatonin (Melatonin 3 Mg Tablet) 6 mg PO BEDTIME PRN PRN Reason: Insomnia Last Admin: 09/29/24 20:16 Dose: 6 mg Documented By: ILZA Metronidazole (Metronidazole 500 Mg Tablet) 500 mg PO Q8H [facility] Last Admin: 09/30/24 09:27 Dose: 500 mg Documented By: ROXANE Midodrine (Midodrine Hcl 10 Mg Tablet) 10 mg PO TID [facility] Last Admin: 09/30/24 09:27 Dose: 10 mg Documented By: ROXANE Multivitamins/Vitamin C (Multivitamin Tablet) 1 tab PO DAILY [facility] Last Admin: 09/30/24 09:28 Dose: 1 tab Documented By: ROXANE Ondansetron HCl (Ondansetron Odt 4 Mg Tab.Rapdis) 4 mg TRANSLINGU Q8H PRN PRN Reason: Nausea Last Admin: 09/27/24 10:41 Dose: 4 mg Documented By: DILIP Polyethylene Glycol (Polyethylene Glycol 3350 17 Gm Powd.Pack) 17 gm PO DAILY PRN PRN Reason: Constipation Polyethylene Glycol (Polyethylene Glycol 3350 17 Gm Powd.Pack) 17 gm PO DAILY [facility] Last Admin: 09/30/24 10:43 Dose: Not Given Documented By: ROXANE Non-Admin Reason: Patient Refused Pregabalin (Pregabalin 75 Mg Capsule) 75 mg PO TID [facility] Last Admin: 09/30/24 09:27 Dose: 75 mg Documented By: ROXANE Quetiapine Fumarate (Quetiapine Fumarate 50 Mg Tablet) 50 mg PO BID [facility] Last Admin: 09/30/24 09:27 Dose: 50 mg Documented By: ROXANE Senna (Sennosides 8.6 Mg Tablet) 17.2 mg PO BID [facility] Last Admin: 09/30/24 09:27 Dose: 17.2 mg Documented By: ROXANE Sertraline HCl (Sertraline Hcl 100 Mg Tablet) 200 mg PO DAILY [facility] Last Admin: 09/30/24 09:26 Dose: 200 mg Documented By: ROXANE Simethicone (Simethicone 80 Mg Tab.Chew) 80 mg PO TID [facility] Last Admin: 09/30/24 09:26 Dose: 80 mg Documented By: ROXANE Sodium Biphosphate/Sodium Phosphate (Sodium Phosphate,[place]-Dibasic 133 Ml Enema) 118 ml IA DAILY PRN PRN Reason: Constipation Sodium Chloride (0.9 % Sodium Chloride Flush 3 Ml Syringe) 3 ml IVFLUSH QSHIFT [facility] Last Admin: 09/30/24 02:51 Dose: Not Given Documented By: LIZA Non-Admin Reason: Previously Administered Sumatriptan Succinate (Sumatriptan Succinate 100 Mg Tablet) 100 mg PO DAILY PRN PRN Reason: Migraine Headache Tizanidine HCl (Tizanidine Hcl 4 Mg Tablet) 2 mg PO BEDTIME [facility] Last Admin: 09/29/24 20:28 Dose: 2 mg Documented By: LIZA Trimethoprim/Sulfamethoxazole (Sulfamethox/Trimeth 800/160 Tablet) 1 tab PO BID [facility] Last Admin: 09/30/24 09:27 Dose: 1 tab Documented By: ROXANE Vitamin D (Cholecalciferol (Vitamin D3) 25 Mcg Tablet) 25 mcg PO DAILY [facility] Last Admin: 09/30/24 09:26 Dose: 25 mcg Documented By: ROXANE Labs 09/30/24 06:29 09/30/24 06:29 Labs: Laboratory Results - last 24 hr 09/30/24 06:29 MCV 88.5 MCH 29.1 MCHC 32.8 RDW 17.0 H Plt Count 261 MPV 12.5 H Absolute Nucleated RBC 0.000 Nucleated RBC % (auto) 0.0 Anion Gap 17 Estim Creat Clear Calc 95.1 Estimated GFR > 60 Random Glucose 77 Calcium 9.9 Assessment and Plan (1) Acute on chronic respiratory failure with hypoxemia: Status: Acute Assessment and Plan: 59F [facility], prior tracheostomy now decannulated, autonomic dysfunction, COPD, hx PE now on apixaban, recurrent aspiration with mucus plugging, chronic osteomyelitis presented with dyspnea + hypoxia + fever found to be hypotensive [resolved after midodrine], admitted for acute hypoxia due to acute/chronic mucus plugging/aspiration pneumonitis; initially on HFNC acute hypoxic respiratory failure due to acute/chronic mucus plugging/aspiration pneumonitis + COPD exacerbation 09/23- ceftriaxone + metronidazole, BCx negative, PCT low Completed course of steroids, will DC, continue nebs supplemental O2, weaned off of HFNC now on 5L, continue to wean autonomic dysfunction midodrine; hypotension resolved chronic thoracic osteomyelitis continue TMP-SMX hx of PE apixaban mood disorder sertraline + lorazepam paraplegia tizanidine + pregabalin old tracheostomy outpt f/u with ENT Surgery to arrange closure VTE ppx apixaban dispo eventual return to LTC reason for continued hospitalization:hypoxia Total time managing care of this patient today: 35 minutes. Quality Stroke Does the patient have a stroke diagnosis?: No VTE Prior VTE?: No VTE Risk Level:: Medical - moderate - high VTE Device Contraindication: Treatment Not Indicated VTE Drug Contraindication: N/A - Med Ordered
[2024-09-30] MEDS: cefTRIAXone sodium 1 GM VIAL IVPUSH (20:41)
[2024-09-30] MEDS: Melatonin 3 MG TABLET 6 MG PO (20:41)
[2024-09-30] MEDS: Docusate Sodium 100 MG CAPSULE PO (20:42)
[2024-09-30] MEDS: TiZANidine HCL 4 MG TABLET 2 MG PO (20:42)
[2024-09-30] MEDS: 0.9 % Sodium Chloride Flush 3 ML SYRINGE IVFLUSH (20:43)
[2024-10-01] VITALS (18 sets, daily range): BP systolic 99–122; BP diastolic 50–61; PULSE 66–84; RESP 16–20; TEMP 36.3–37.1; O2SAT 78–99
[2024-10-01] MEDS: metroNIDAZOLE 500 MG TABLET PO ×3 (00:56→17:20)
[2024-10-01] MEDS: methylPREDNISolone Sod Succ 125 MG/2 ML VIAL IVPUSH (01:36)
--- NOTE | 2024-10-01 01:57 | PM.EVENT ---
Event Note Date of Service: 10/01/24 Event Note: Patient with an episode of hypoxic with SpO2 of ~ 78 % on 5 L improving to 83% on 15 L NRM. CXR with no concerning findings She received an Albuterol updraft and 125 mg of IV Solumedrol with minimal improvement Physical exam Vital signs reviewed RS: Diminished BS bilaterally. No wheezing Ass/Plan # Respiratory failure with hypoxia (acute on chronic) - will place on HiFlow with target SpO2 of ~ 90% - will order scheduled Duo Nebs and PRN Albuterol - Will continue to closely monitor Time Spent With Patient Time: Total time managing care of this patient today _30___ minutes.
--- NOTE | 2024-10-01 03:41 | PC.NURSE ---
Pt seen on bed alert and oriented, presented back pain, repos on bed, due meds tolerated, Tolerating O2 at 3.5L/min via NC, comfortable with no resp distress noted, occasional weak and loose cough noted, slept after. At 0100 ,revisited pt for scheduled meds, O2 sats checked and was at 78% at 3.5L/min via NC, increased O2 at 5L but no effect, pt now having increased WOB, LS very dim and fine crackles on the right, placed pt on non rebreathing mask, RT paged, O2 sats went to 85%, Dr. Rangel was paged to bedside, ordered neb and STAT CXR, CPT done by RT, Solumedrol Iv given, O2 sats went to 91 % on NRB mask, RT placed pt on Hi Carla 90% at 55L of O2, later pt felt better and O2 sats went to 96%. Pt going to [place], report given to [place] at 0245, pt transported to rm [id number] after.
--- NOTE | 2024-10-01 07:18 | PC.NURSE ---
On 09/27/24 pt reported pain 9 out of 10. The highest pain medication per MAR was oxycodone for 4-6 pain. Per pt request, administered oxycodone.
[2024-10-01] MEDS: Albuterol/Iprat 2.5/0.5MG 3 ML AMPUL.NEB INHALE ×3 (07:43→20:20)
[2024-10-01] MEDS: 0.9 % Sodium Chloride Flush 3 ML SYRINGE IVFLUSH ×3 (09:24→20:19)
[2024-10-01] MEDS: Pregabalin 75 MG CAPSULE PO ×3 (09:25→20:13)
[2024-10-01] MEDS: Aspirin Enteric Coated 81 MG TABLET.DR PO (09:25)
[2024-10-01] MEDS: Sulfamethox/Trimeth 800/160 TABLET 1 TAB PO ×2 (09:26→20:13)
[2024-10-01] MEDS: Ascorbic Acid 500 MG TABLET PO (09:26)
[2024-10-01] MEDS: Multivitamin TABLET 1 TAB PO (09:26)
[2024-10-01] MEDS: Cholecalciferol (Vitamin D3) 25 MCG TABLET PO (09:26)
[2024-10-01] MEDS: QUEtiapine Fumarate 50 MG TABLET PO ×2 (09:26→20:13)
[2024-10-01] MEDS: Baclofen 10 MG TABLET 5 MG PO ×3 (09:26→20:13)
[2024-10-01] MEDS: Sertraline HCL 100 MG TABLET 200 MG PO (09:27)
[2024-10-01] MEDS: guaiFENesin LA 600 MG TAB.ER.12H PO ×2 (09:27→20:13)
[2024-10-01] MEDS: Docusate Sodium 100 MG CAPSULE PO ×2 (09:27→20:13)
[2024-10-01] MEDS: Famotidine 20 MG TABLET PO ×2 (09:28→20:13)
[2024-10-01] MEDS: Simethicone 80 MG TAB.CHEW PO ×3 (09:28→20:13)
[2024-10-01] MEDS: polyethylene glycoL 3350 17 GM POWD.PACK PO (09:28)
[2024-10-01] MEDS: Sennosides 8.6 MG TABLET 17.2 MG PO ×2 (09:28→20:13)
[2024-10-01] MEDS: Midodrine HCl 10 MG TABLET PO ×3 (09:28→20:13)
[2024-10-01] MEDS: Apixaban 5 MG TABLET PO ×2 (09:28→20:13)
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
--- NOTE | 2024-10-01 11:28 | PC.RT ---
Pt agreeable to suction at this shannan. RT suctioned thin clear secretions through stoma. pt adolfo well
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
[2024-10-01] MEDS: Milk of Magnesia 30 ML ORAL.SUSP PO (13:36)
[2024-10-01] MEDS: Doxycycline Hyclate 100 MG in 0.9 % Sodium Chloride 250 ML 166.67 MG IV (13:39)
--- NOTE | 2024-10-01 13:46 | PC.RT ---
Pt taken off HFNC and placed on 4L NC with humidification at this time.
--- NOTE | 2024-10-01 15:29 | MHC.CM.PN ---
EMR reviewed and per MD rounds, pt is not medically cleared for discharge due to management of hypoxia, pt on hi-flow.
[2024-10-01] MEDS: oxyCODONE HCl Immed Release 5 MG TABLET PO ×2 (16:06→23:17)
[2024-10-01] MEDS: Melatonin 3 MG TABLET 6 MG PO (20:13)
[2024-10-01] MEDS: cefTRIAXone sodium 1 GM VIAL IVPUSH (20:13)
[2024-10-01] MEDS: Acetylcysteine 10 % 400 MG/4 ML VIAL INHALE (20:20)
[2024-10-01] MEDS: TiZANidine HCL 4 MG TABLET 2 MG PO (20:20)
[2024-10-02] VITALS (9 sets, daily range): BP systolic 82–126; BP diastolic 47–70; PULSE 67–75; RESP 16–19; TEMP 36.1–36.8; O2SAT 94–98
[2024-10-02] MEDS: bisacodyL 10 MG SUPP.RECT PR (00:08)
[2024-10-02] MEDS: Doxycycline Hyclate 100 MG in 0.9 % Sodium Chloride 250 ML 166.67 MG IV ×2 (01:00→12:39)
[2024-10-02] MEDS: metroNIDAZOLE 500 MG TABLET PO ×3 (01:05→16:38)
[2024-10-02 07:28] LABS: Hematocrit 37.1 % (37.0-47.0); Hemoglobin 12.2 g/dl (12.0-16.0); Mean Corpuscular HGB Conc 32.9 g/dl (31.0-35.0); Mean Corpuscular Volume 88.3 fL (80.0-98.0); Mean Platelet Volume 11.5 fL (9.4-12.3); Platelet Count 207 X10*3/uL (160-400); Red Cell Distribution Width 16.5 % (11.0-16.0); White Blood Count 8.7 X10*3/uL (4.8-10.8)
[2024-10-02 07:37] LABS: Anion Gap 12 (12-20); Blood Urea Nitrogen 15 mg/dL (9-16); Carbon Dioxide 24 mmol/L (22-29); Chloride 108 mmol/L (96-108); Creatinine Clr Calc Pharmacy 110.6; Estimated Glomerular Filt Rate > 60; Glucose Random 87 mg/dL (60-115); Potassium 3.7 mmol/L (3.3-5.1); Sodium 140 mmol/L (135-145)
[2024-10-02] MEDS: Albuterol/Iprat 2.5/0.5MG 3 ML AMPUL.NEB INHALE (07:55)
[2024-10-02] MEDS: 0.9 % Sodium Chloride Flush 3 ML SYRINGE IVFLUSH ×3 (08:01→22:10)
[2024-10-02] MEDS: Apixaban 5 MG TABLET PO ×2 (08:06→21:52)
[2024-10-02] MEDS: Ascorbic Acid 500 MG TABLET PO (08:07)
[2024-10-02] MEDS: Aspirin Enteric Coated 81 MG TABLET.DR PO (08:08)
[2024-10-02] MEDS: Baclofen 10 MG TABLET 5 MG PO ×3 (08:09→21:49)
[2024-10-02] MEDS: Docusate Sodium 100 MG CAPSULE PO ×2 (08:11→21:55)
[2024-10-02] MEDS: Cholecalciferol (Vitamin D3) 25 MCG TABLET PO (08:11)
[2024-10-02] MEDS: Famotidine 20 MG TABLET PO ×2 (08:12→21:50)
[2024-10-02] MEDS: guaiFENesin LA 600 MG TAB.ER.12H PO ×2 (08:12→21:52)
[2024-10-02] MEDS: Midodrine HCl 10 MG TABLET PO ×3 (08:14→21:50)
[2024-10-02] MEDS: Multivitamin TABLET 1 TAB PO (08:15)
[2024-10-02] MEDS: polyethylene glycoL 3350 17 GM POWD.PACK PO (08:17)
[2024-10-02] MEDS: Pregabalin 75 MG CAPSULE PO ×3 (08:17→21:52)
[2024-10-02] MEDS: Sennosides 8.6 MG TABLET 17.2 MG PO ×2 (08:19→21:50)
[2024-10-02] MEDS: Sertraline HCL 100 MG TABLET 200 MG PO (08:20)
[2024-10-02] MEDS: Sulfamethox/Trimeth 800/160 TABLET 1 TAB PO ×2 (08:21→21:50)
[2024-10-02] MEDS: Simethicone 80 MG TAB.CHEW PO ×3 (08:21→21:50)
[2024-10-02] MEDS: QUEtiapine Fumarate 50 MG TABLET PO ×2 (08:41→21:50)
--- NOTE | 2024-10-02 09:23 | P.PNPL_ITS ---
Subjective Subjective Date of Service: 10/02/24 Interval history: The patient was seen and examined. Mucomyst nebs. Wean to nasal cannula oxygen supplementation. Needs aggressive CPT. She is willing to try the cough assist. Objective Data Labs 10/02/24 07:04 10/02/24 07:04 Labs: Laboratory Results - last 24 hr 10/02/24 07:04 WBC 8.7 RBC 4.20 Hgb 12.2 Hct 37.1 MCV 88.3 MCH 29.0 MCHC 32.9 RDW 16.5 H Plt Count 207 MPV 11.5 Absolute Nucleated RBC 0.000 Nucleated RBC % (auto) 0.0 Sodium 140 Potassium 3.7 Chloride 108 Carbon Dioxide 24 Anion Gap 12 BUN 15 Creatinine 0.49 L Estim Creat Clear Calc 110.6 Estimated GFR > 60 Random Glucose 87 Calcium 9.0 D Microbiology Microbiology Results: Microbiology 09/22/24 23:29 Blood - Venous Blood Culture - Final No growth after 5 days. 09/22/24 22:42 Blood - Venous Blood Culture - Final No growth after 5 days. Review of Systems Constitutional: Denies excessive sweating, Denies fever(s), Denies night sweats and Reports weakness Eyes: Reports no additional eye complaints Denies nasal congestion, Denies post nasal drip, Denies sinus pain, Denies sinus pressure and Denies other ( Thrush) Cardiovascular: Denies chest pain, Denies pedal edema, Reports dyspnea, Denies orthopnea and Denies paroxysmal nocturnal dyspnea Respiratory: Reports chest congestion, Reports cough, Denies hemoptysis, Reports dyspnea and Denies wheezing Gastrointestinal: Denies abdominal pain and Denies heartburn Musculoskeletal: Reports muscle weakness Skin/Breast: Denies rash Denies memory loss, Denies seizure-like activity and Reports weakness Psychiatric: Denies abnormal sleep pattern, Reports anxiety and Denies memory loss Endocrine: Denies excessive sweating and Denies heat intolerance Hematologic/Lymphatic: Denies easy bruising Allergic/Immunologic: Denies seasonal rhinorrhea and Denies wheezing Physical Exam 2 Vital Signs: Vital Signs: Last Vital Signs Temp 98.2 F 10/02/24 07:56 Pulse 73 10/02/24 08:56 Resp 18 10/02/24 08:56 BP 126/59 L 10/02/24 08:56 Pulse Ox 97 10/02/24 07:56 O2 Del Method Room Air 10/02/24 07:56 O2 Flow Rate 5 10/02/24 04:00 FiO2 40 10/01/24 07:48 BMI result Body Mass Index 25.5 Gen: in no acute distress HEENT: sclera anicteric, moist mucus membranes Neck: supple, old tracheostomy Lungs: diminished at bases Heart: regular rate and rhythm, no murmurs Abd: soft, non-tender, non-distended Ext: no edema Skin: warm/well-perfused Neuro: alert and oriented x3, paraplegic Psych: appropriate affect Procedures Date of Service Date of Service: 10/02/24 Assessment and Plan Assessment and plan (1) Chronic incomplete quadriplegia: Status: Acute (2) Hypoxia: Status: Acute (3) Acute exacerbation of chronic obstructive airways disease: Status: Acute (4) Mucus plugging of bronchi: Status: Acute Plan continue with CPT, trial cough assist continue mucomyst/albuterol nebs x 3 days continue respiratory therapy continue abx coverage Time Spent With Patient Time: Total time managing care of this patient today ____ minutes. Progress Note: Quality Stroke Does the patient have a stroke diagnosis?: No
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
[2024-10-02] MEDS: oxyCODONE HCl Immed Release 5 MG TABLET PO ×2 (11:47→21:53)
[2024-10-02] MEDS: Milk of Magnesia 30 ML ORAL.SUSP PO (15:55)
[2024-10-02] MEDS: TiZANidine HCL 4 MG TABLET 2 MG PO (21:50)
[2024-10-02] MEDS: Melatonin 3 MG TABLET 6 MG PO (21:50)
[2024-10-02] MEDS: cefTRIAXone sodium 1 GM VIAL IVPUSH (21:55)
[2024-10-03] MEDS: metroNIDAZOLE 500 MG TABLET PO ×2 (00:05→09:02)
[2024-10-03] MEDS: Doxycycline Hyclate 100 MG in 0.9 % Sodium Chloride 250 ML 166.67 MG IV ×2 (00:05→14:05)
[2024-10-03] MEDS: bisacodyL 10 MG SUPP.RECT PR (00:21)
[2024-10-03 00:22] VITALS: BP 126/61; PULSE 62; RESP 20; TEMP 36.4; O2SAT 98
[2024-10-03 03:38] VITALS: BP 100/47; PULSE 58; RESP 18; TEMP 36.4; O2SAT 96
[2024-10-03 07:12] VITALS: BP 105/57; PULSE 57; RESP 16; TEMP 36.9; O2SAT 96
[2024-10-03] MEDS: Albuterol/Iprat 2.5/0.5MG 3 ML AMPUL.NEB INHALE (08:11)
[2024-10-03 08:13] VITALS: PULSE 57; RESP 20; O2SAT 97
[2024-10-03] MEDS: polyethylene glycoL 3350 17 GM POWD.PACK PO (08:59)
[2024-10-03] MEDS: Baclofen 10 MG TABLET 5 MG PO ×2 (08:59→14:06)
[2024-10-03] MEDS: Sertraline HCL 100 MG TABLET 200 MG PO (09:00)
[2024-10-03] MEDS: Multivitamin TABLET 1 TAB PO (09:00)
[2024-10-03] MEDS: Famotidine 20 MG TABLET PO (09:00)
[2024-10-03] MEDS: oxyCODONE HCl Immed Release 5 MG TABLET PO (09:01)
[2024-10-03] MEDS: guaiFENesin LA 600 MG TAB.ER.12H PO (09:02)
[2024-10-03] MEDS: Sulfamethox/Trimeth 800/160 TABLET 1 TAB PO (09:02)
[2024-10-03] MEDS: Sennosides 8.6 MG TABLET 17.2 MG PO (09:02)
[2024-10-03] MEDS: Midodrine HCl 10 MG TABLET PO ×2 (09:02→14:07)
[2024-10-03] MEDS: Cholecalciferol (Vitamin D3) 25 MCG TABLET PO (09:02)
[2024-10-03] MEDS: Simethicone 80 MG TAB.CHEW PO ×2 (09:02→14:06)
[2024-10-03] MEDS: Aspirin Enteric Coated 81 MG TABLET.DR PO (09:02)
[2024-10-03] MEDS: Pregabalin 75 MG CAPSULE PO ×2 (09:02→14:06)
[2024-10-03] MEDS: Ascorbic Acid 500 MG TABLET PO (09:02)
[2024-10-03] MEDS: QUEtiapine Fumarate 50 MG TABLET PO (09:02)
[2024-10-03] MEDS: Docusate Sodium 100 MG CAPSULE PO (09:03)
[2024-10-03] MEDS: Apixaban 5 MG TABLET PO (09:03)
--- NOTE | 2024-10-03 10:44 | MHC.CM.PN ---
Pt is medically cleared for discharge to [facility] today via BLS/[facility].
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
[2024-10-03] MEDS: Milk of Magnesia 30 ML ORAL.SUSP PO (14:06)
[2024-10-03 14:07] VITALS: BP 92/50
== END 2024-10-03 15:36 | DRG 137 ==
LOC: HO.ED 09-23 01:12 → HO.EDOVER 09-23 03:26 → HO.IMC 09-24 15:03 → HO.S3 09-25 17:20 → HO.IMC 09-25 17:33 → HO.S3 09-30 16:05 → HO.IMC 10-01 02:27
PROVIDERS: Family Medicine; Internal Medicine; Student in an Organized Health Care Education/Training Program; Admitting Provider Physician Assistant; Emergency Provider Emergency Medicine; PCP Internal Medicine; Visit Provider Student in an Organized Health Care Education/Training Program
DX: J69.0 Pneumonitis due to inhalation of food and vomit (principal); J96.01 Acute respiratory failure with hypoxia; G82.20 Paraplegia, unspecified; I95.9 Hypotension, unspecified; G90.9 Disorder of the autonomic nervous system, unspecified; D64.9 Anemia, unspecified; T14.8XXS Other injury of unspecified body region, sequela; J98.09 Other diseases of bronchus, not elsewhere classified; J44.1 Chronic obstructive pulmonary disease with (acute) exacerbation; W34.00XS Accidental discharge from unspecified firearms or gun, sequela; M46.24 Osteomyelitis of vertebra, thoracic region; Z86.711 Personal history of pulmonary embolism; Z20.822 Contact with and (suspected) exposure to COVID-19; Z91.199 Patient's noncompliance with other medical treatment and regimen due to unspecified reason; Z79.01 Long term (current) use of anticoagulants; Z87.891 Personal history of nicotine dependence; Z79.82 Long term (current) use of aspirin; Z79.899 Other long term (current) drug therapy
CPT/HCPCS: 0241U; 36415; 71045; 80048; 80076; 82803; 83605; 83690; 83735; 83880; 84145; 84484; 85025; 85027; 86140; 87040; 92526; 92610; 93005; 94640; 99285; J0131; J0696; J1836; J2919; J3475; J7120; P9047

== ENCOUNTER → 2024-09-22 22:37 | Outpatient (BNV) | payer MEDICAID, SELFPAY | PROVIDERS: Admitting Provider Physician Assistant; Emergency Provider Emergency Medicine; Visit Provider Internal Medicine | DX: R94.31 Abnormal electrocardiogram [ECG] [EKG] (principal); R06.02 Shortness of breath | CPT/HCPCS: 93010 ==

== ENCOUNTER → 2024-09-22 22:37 | Outpatient (BNV) | payer MEDICAID, SELFPAY | PROVIDERS: Emergency Provider Emergency Medicine; Visit Provider Radiology Neuroradiology | DX: J98.11 Atelectasis (principal); J18.9 Pneumonia, unspecified organism | CPT/HCPCS: 71045 ==

== ENCOUNTER 2024-09-23 03:24 | Outpatient (BNV) | payer MEDICAID, SELFPAY | END 2024-10-01 01:30 | PROVIDERS: Admitting Provider Physician Assistant; Emergency Provider Emergency Medicine; PCP Internal Medicine; Visit Provider Radiology Diagnostic Radiology | DX: R06.02 Shortness of breath (principal) | CPT/HCPCS: 71045 ==

== ENCOUNTER → 2024-09-23 03:24 | Outpatient (BNV) | payer MEDICAID, SELFPAY | PROVIDERS: Admitting Provider Physician Assistant; Emergency Provider Emergency Medicine; Visit Provider Physician Assistant | DX: J96.21 Acute and chronic respiratory failure with hypoxia (principal) | CPT/HCPCS: 99232; 99233; 99499 ==

== ENCOUNTER → 2024-09-23 03:24 | Outpatient (BNV) | payer MEDICAID, SELFPAY | PROVIDERS: Admitting Provider Physician Assistant; Emergency Provider Emergency Medicine; PCP Internal Medicine; Visit Provider Hospitalist | DX: J44.1 Chronic obstructive pulmonary disease with (acute) exacerbation (principal); G82.50 Quadriplegia, unspecified; T17.500A Unspecified foreign body in bronchus causing asphyxiation, initial encounter | CPT/HCPCS: 99223; 99232 ==

== ENCOUNTER 2024-10-16 14:43 | Emergency (ER) | payer MEDICAID, SELFPAY ==
[2024-10-16] VITALS (11 sets, daily range): BP systolic 90–152; BP diastolic 47–79; PULSE 66–79; RESP 15–18; TEMP 36.3–36.8; O2SAT 91–94; BMI 25.0
--- NOTE | ~2024-10-16 | CT_ITS ---
CLINICAL HISTORY: R sided expanding hematoma on [employer] CT abdomen and pelvis with contrast Comparison: CT/SR - CT ABDOMEN PELVIS W IV CON - 06/30/24 14:10 EST Findings: Right lower and left lower lobe atelectasis. Lateral splenic hypodensity with internal hyperdensity possibly a hemangioma, similar to prior. Postprocedural changes around the spleen with embolization coils. Mild atrophy of the pancreatic neck. Liver, gallbladder, and adrenal glands are within normal limits. No hydronephrosis. Symmetric contrast enhancement of the kidneys. Stool throughout the colon. No bowel obstruction, pneumatosis or pneumoperitoneum. Normal appendix. Right anterior abdominal wall hematoma with acute and chronic blood products. Scattered areas of hyperdensity concerning for active bleeding. Hematoma measures 11.5 (transverse) x 10.8 (CC) x 6.3 (AP) cm. Infrarenal IVC filter in place. Aortic atherosclerosis. No aneurysm. Intraluminal calculi in the bladder. Diffuse urinary bladder wall thickening. Trace intraluminal air. Osteopenia. Chronic mild compression fractures of L5 and L3. Fatty atrophy of the hip and paraspinal muscles. IMPRESSION: 1. Right anterior abdominal wall hematoma measuring 11.5 x 10.8 x 6.3 cm with areas of acute hemorrhage. 2. Urinary bladder wall thickening with intraluminal calculi and trace air, correlate for cystitis and recent catheterization. This document has been electronically signed by: Mic Clark MD on 10/16/2024 19:14:47
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
[2024-10-16 15:57] LABS: MANUAL DIFF FLAG NO
[2024-10-16 15:59] LABS: Basophils Percent Auto 0.4 % (0-2); Eosinophils Absolute Auto 0.2 X10*3/uL (0.0-0.4); Eosinophils Percent Auto 3.3 % (0-4); Hematocrit 31.5 % (37.0-47.0); Hemoglobin 10.5 g/dl (12.0-16.0); Imm Gran Abs Auto 0.04 X10*3/uL (0.00-0.03); Imm Gran Pct Auto 0.6 % (0.0-0.4); Lymphocytes Absolute Auto 1.6 X10*3/uL (1.2-4.9); Lymphocytes Percent Auto 23.4 % (20-40); Mean Corpuscular HGB Conc 33.3 g/dl (31.0-35.0); Mean Corpuscular Hemoglobin 29.8 pg (27.0-33.0); Mean Corpuscular Volume 89.5 fL (80.0-98.0); Mean Platelet Volume 10.7 fL (9.4-12.3); Monocytes Absolute Auto 0.7 X10*3/uL (0.1-1.2); Monocytes Percent Auto 10.5 % (2-11); Neutrophils Absolute Auto 4.3 x10*3/uL (2.0-8.3); Neutrophils Percent Auto 61.8 % (45-73); Platelet Count 199 X10*3/uL (160-400); Red Blood Count 3.52 X10*6/uL (4.20-5.50); Red Cell Distribution Width 17.3 % (11.0-16.0); White Blood Count 6.9 X10*3/uL (4.8-10.8)
--- NOTE | 2024-10-16 16:02 | PC.NURSE ---
Addendum entered by Phuong Chandler RN 10/16/24 16:03: Picture taken by primary RN Tiarra Original Note:
[2024-10-16 16:06] LABS: Prothrombin Time 11.6 SEC (10.9-12.4)
[2024-10-16 16:09] LABS: Partial Thromboplastin Time 50.9 SEC (26.0-36.8)
[2024-10-16 16:13] LABS: Alanine Aminotransferase 37 U/L (0-31); Albumin Level 3.3 g/dL (3.5-5.0); Alkaline Phosphatase 93 U/L (39-117); Anion Gap 12 (12-20); Aspartate Amino Transferase 50 U/L (5-31); Bilirubin Direct 0.1 mg/dL (0.0-0.5); Bilirubin Total 0.3 mg/dL (0.0-1.0); Blood Urea Nitrogen 13 mg/dL (9-16); Calcium 8.6 mg/dL (8.4-10.2); Carbon Dioxide 24 mmol/L (22-29); Chloride 112 mmol/L (96-108); Creatinine Clr Calc Pharmacy 88.1; Estimated Glomerular Filt Rate > 60; Glucose Random 114 mg/dL (60-115); Magnesium 1.7 mg/dL (1.6-2.6); Sodium 144 mmol/L (135-145); Total Protein 6.9 g/dL (6.5-8.0)
[2024-10-16] MEDS: iohexoL 350 MG/ML 100 ML INFUS..BTL IV (18:09)
[2024-10-16 18:48] LABS: Mean Corpuscular HGB Conc 33.3 g/dl (31.0-35.0); Mean Corpuscular Hemoglobin 29.9 pg (27.0-33.0); Mean Corpuscular Volume 89.6 fL (80.0-98.0); Mean Platelet Volume 10.8 fL (9.4-12.3); Platelet Count 186 X10*3/uL (160-400); Red Blood Count 3.35 X10*6/uL (4.20-5.50); Red Cell Distribution Width 17.2 % (11.0-16.0); White Blood Count 6.2 X10*3/uL (4.8-10.8)
[2024-10-16] MEDS: Midodrine HCl 10 MG TABLET PO (19:03)
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
[2024-10-16] MEDS: Famotidine/PF 20 MG/2 ML VIAL IVPUSH (19:36)
[2024-10-16] MEDS: Morphine Sulfate 4 MG/ML CARTRIDGE IVPUSH (19:36)
[2024-10-16] MEDS: Lactated Ringers 1,000 ML 100 ML IVCONT (19:38)
[2024-10-16] MEDS: Protamine Sulfate 250 MG/25 ML VIAL 50 MG IV (19:48)
--- NOTE | 2024-10-16 20:40 | PC.NURSE ---
RN to RN report given to DODIE Peacock, all questions answered. EMS given bedside report, all questions answered. Pt. left via stretcher.
== END 2024-10-16 20:40 | disposition short-term general hospital (02) ==
PROVIDERS: Emergency Provider Emergency Medicine; PCP Internal Medicine
DX: S30.1XXA Contusion of abdominal wall, initial encounter (principal); X58.XXXA Exposure to other specified factors, initial encounter; Y93.9 Activity, unspecified; Y92.9 Unspecified place or not applicable; Y99.9 Unspecified external cause status; G82.20 Paraplegia, unspecified; J44.9 Chronic obstructive pulmonary disease, unspecified; Z93.0 Tracheostomy status; Z79.01 Long term (current) use of anticoagulants; Z79.899 Other long term (current) drug therapy
CPT/HCPCS: 36415; 74177; 80048; 80076; 83735; 85025; 85027; 85610; 85730; 86850; 86900; 86901; 96374; 96375; 99285; J2270; J2720; J7120; Q9967

== ENCOUNTER → 2024-10-16 15:14 | Outpatient (BNV) | payer MEDICAID, SELFPAY | PROVIDERS: Emergency Provider Emergency Medicine; PCP Internal Medicine; Visit Provider Radiology Diagnostic Radiology | DX: S30.1XXA Contusion of abdominal wall, initial encounter (principal); N21.0 Calculus in bladder | CPT/HCPCS: 74177 ==

== ENCOUNTER → 2024-10-16 15:36 | Outpatient (BNV) | payer MEDICAID, SELFPAY | PROVIDERS: Emergency Provider Emergency Medicine; PCP Internal Medicine; Visit Provider Surgery | DX: S30.1XXA Contusion of abdominal wall, initial encounter (principal) | CPT/HCPCS: 99285 ==

== ENCOUNTER 2025-01-06 04:28 | Inpatient (IN) | payer MEDICAID, SELFPAY ==
[2025-01-06] VITALS (34 sets, daily range): BP systolic 73–136; BP diastolic 43–82; PULSE 73–137; RESP 10–115; TEMP 35.6–37.1; O2SAT 77–99; BMI 29.3; BMI 27.2
--- NOTE | 2025-01-06 | ECG_ITS ---
Test Reason : CP Blood Pressure : */* mmHG Vent. Rate : 86 BPM Atrial Rate : 86 BPM P-R Int : 140 ms QRS Dur : 86 ms QT Int : 284 ms P-R-T Axes : 75 51 -53 degrees QTcB Int : 339 ms Artifact in tracing Normal sinus rhythm with sinus arrhythmia Cannot rule out Anterior infarct , age undetermined ST & T wave abnormality, consider inferolateral ischemia Abnormal ECG When compared with ECG of 22-Sep-2024 22:50, due to quality, cannot compare Inverted T waves have replaced nonspecific T wave abnormality in Inferior leads T wave inversion less evident in Anterior leads T wave inversion now evident in Lateral leads QT has shortened Referred By: Michelle Pizarro Electronically Signed By: JET LOZANO
--- NOTE | ~2025-01-06 | CT_ITS ---
CLINICAL HISTORY: tachy, hypoxic CT angiography chest with contrast. 3D Postprocessing. Comparison: CT/SR - CT ABDOMEN PELVIS W IV CON - 10/16/24 18:05 EDT Findings: The heart size is normal. RV/LV ratio is normal. Unremarkable thoracic aorta and great vessels. No aneurysm. No pulmonary artery filling defects. The visualized thyroid and mediastinum are unremarkable. Ill-defined left basilar consolidation with airway thickening. Right lower lobe subsegmental atelectasis. No effusion or pneumothorax. Moderate centrilobular emphysema. The visualized upper abdomen demonstrates no acute process. Chronic changes about the spleen. No acute osseous finding. Impression: No evidence of pulmonary embolism or heart strain. Probable left lower lobe pneumonia. Chronic changes. This document has been electronically signed by: Scot Villavicencio MD on 01/06/2025 08:20:36
--- NOTE | ~2025-01-06 | XR_ITS ---
CLINICAL HISTORY: sob 1 view chest x-ray. Comparison: CR - XR CHEST 1V - 10/01/24 01:26 EST Findings: The lungs are adequately expanded. Minimal chronic interstitial change. No focal consolidation. No effusion or pneumothorax. Cardiac and mediastinal contours are stable. No acute osseous abnormality Impression: No acute process. Minimal chronic interstitial change. This document has been electronically signed by: Scot Villavicencio MD on 01/06/2025 05:52:54
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
[2025-01-06] MEDS: 0.9 % Sodium Chloride 1,000 ML 999 ML IV (04:51)
[2025-01-06 04:54] LABS: MANUAL DIFF FLAG NO
[2025-01-06 04:55] LABS: Basophils Percent Auto 0.5 % (0-2); Eosinophils Absolute Auto 0.1 X10*3/uL (0.0-0.4); Eosinophils Percent Auto 1.4 % (0-4); Hematocrit 39.1 % (37.0-47.0); Hemoglobin 12.8 g/dl (12.0-16.0); Imm Gran Abs Auto 0.04 X10*3/uL (0.00-0.03); Imm Gran Pct Auto 0.6 % (0.0-0.4); Lymphocytes Absolute Auto 2.6 X10*3/uL (1.2-4.9); Lymphocytes Percent Auto 40.3 % (20-40); Mean Corpuscular HGB Conc 32.7 g/dl (31.0-35.0); Mean Corpuscular Hemoglobin 28.5 pg (27.0-33.0); Mean Corpuscular Volume 87.1 fL (80.0-98.0); Mean Platelet Volume 11.2 fL (9.4-12.3); Monocytes Absolute Auto 0.5 X10*3/uL (0.1-1.2); Monocytes Percent Auto 8.2 % (2-11); Neutrophils Absolute Auto 3.1 x10*3/uL (2.0-8.3); Platelet Count 224 X10*3/uL (160-400); Red Blood Count 4.49 X10*6/uL (4.20-5.50); Red Cell Distribution Width 16.3 % (11.0-16.0); White Blood Count 6.4 X10*3/uL (4.8-10.8)
[2025-01-06 04:57] LABS: Venous Blood Gas Refer to POC result
[2025-01-06 04:58] LABS: VBG Base Excess 1.7 mmol/L; VBG HCO3 25 mmol/L (22-26); VBG pCO2 37 mmHg; VBG pH 7.43 (7.32-7.43); VBG pO2 68 mmHg
[2025-01-06 05:01] LABS: INTERNATIONAL NORM RATIO 1.5 (0.9-1.1); Prothrombin Time 16.9 SEC (10.9-12.4)
[2025-01-06 05:03] LABS: D Dimer High Sensitivity 204 NG/ML; Partial Thromboplastin Time 32.8 SEC (26.0-36.8)
[2025-01-06] MEDS: cefTRIAXone sodium 1 GM VIAL IVPUSH (05:06)
[2025-01-06] MEDS: Albuterol Sulfate 7.5 MG, Albuterol Sulfate (0.083%) 2.5 MG 10 MG INHALE (05:07)
[2025-01-06 05:09] LABS: Lactic Acid 1.5 mmol/L (0.5-2.0)
[2025-01-06 05:17] LABS: B Type Natriuretic Peptide 36 pg/mL (<100); Troponin-I High Sensitivity < 2.7 ng/L (<3.5-17.0)
[2025-01-06 05:19] LABS: Alanine Aminotransferase 37 U/L (0-31); Albumin Level 3.7 g/dL (3.5-5.0); Alkaline Phosphatase 101 U/L (39-117); Anion Gap 13 (12-20); Aspartate Amino Transferase 56 U/L (5-31); Bilirubin Total 0.2 mg/dL (0.0-1.0); Blood Urea Nitrogen 15 mg/dL (9-16); Calcium 9.5 mg/dL (8.4-10.2); Carbon Dioxide 24 mmol/L (22-29); Chloride 112 mmol/L (96-108); Creatinine Clr Calc Pharmacy 111.2; Estimated Glomerular Filt Rate > 60; Glucose Random 81 mg/dL (60-115); Magnesium 1.9 mg/dL (1.6-2.6); Potassium 3.9 mmol/L (3.3-5.1); Sodium 145 mmol/L (135-145); Total Protein 8.1 g/dL (6.5-8.0)
--- NOTE | 2025-01-06 05:31 | PC.NURSE ---
[facility], respirations even and unlabored. per ems, pt was found in room not on baseline 3l o2, pt was found to be at 70%. pt was purple . pt was given 1 duoneb, on arrival pt 15L non rebreather. rt at bedside, pt placed on duoneb. 20g placed in right wrist and 22g in left hand.sepsis alert called at 0446. fluids and antibiotics administered. pt on 7l mask with duoneb at 88-92%.
[2025-01-06 05:32] LABS: Influenza A PCR NEGATIVE (Negative); Influenza B PCR NEGATIVE (Negative); Resp Syncy Virus RNA Qual PCR NEGATIVE (Negative); SARS COV2 PCR INHOUSE POSITIVE (Negative)
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
--- NOTE | 2025-01-06 06:06 | PC.NURSE ---
pt placed on 8l oxymax at this time, maintaining sats between 88-90%. rt remains at bedside
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
[2025-01-06] MEDS: Doxycycline Hyclate 100 MG in 0.9 % Sodium Chloride 250 ML 166.67 MG IV ×2 (06:38→17:27)
--- NOTE | 2025-01-06 06:47 | PC.NURSE ---
pt noted to be desating to 86% on oxymax. rt called to place pt on highflow per provider order
--- NOTE | 2025-01-06 06:48 | PM.EVENT ---
Event Note Date of Service: 01/06/25 Event Note: right after admission complete nurse alerted me that pt's O2 has dropped to 87% on 15L oxymask. inital VBG normal, repeat ordered VBG, stat CTA chest to r/o PE and RT starting high flow. ICU was alerted of pt's status and awaiting results of above testing. Time Spent With Patient Time: Total time managing care of this patient today ____ minutes.
[2025-01-06] MEDS: levalbuterol HCL 1.25 MG, Ipratropium Bromide 0.5 MG INHALE ×4 (07:08→20:27)
[2025-01-06 07:31] LABS: C Reactive Protein 1.89 mg/dL (< or = 0.50)
--- NOTE | 2025-01-06 07:43 | PC.NURSE ---
Addendum entered by Missy Arnold 01/06/25 08:08: This RN accompanied patient to CT on portable monitor for SPO2 observation. Patient transitioned to 15L via nonrebreather w/ good effect. SPO2 ranged between 90%-94% via nonrebreather while laying flat. Otherwise vss and up to date aside from remaining sinus tachycardic on the monitor - HR in the 120s bpm. Patient tolerated transfer well w/o complications. Original Note: This RN assumed care of patient @ 0700. Patient covid positive, precautions in place. Doxy still running at this time through 22G in left hand Patient soft spoken. Hx decannulated trach. Patient O2 86% oxy mask 8L. RT notified, patient placed on high flow settings 55L O2 90.4 % Patient O2 sat 96%. Patient experiencing lethargy, alert and responsive to verbal stimuli but quickly falls back asleep with little response. Patient placed on non rebreather 13L and narcotics and/or vice detective as she is being transferred for CT scan, results pending at this time. VSS at this time.
--- NOTE | 2025-01-06 07:56 | PC.NURSE ---
Patient returned from CT at this time. Patient placed back on high flow - SPO2 91% on 50L @ 95%. Otherwise VSS and up to date aside from patient being sinus tach on the monitor. HR 120 bpm. Per hospitalist, possible ICU admit depending on CT scan results. Ct results pending at this time. Plan of care on going.
[2025-01-06] MEDS: iohexoL 350 MG/ML 100 ML INFUS..BTL IV (08:09)
--- NOTE | 2025-01-06 08:13 | PHA.MEDREC ---
Pharmacy Consult ? Medication Reconciliation Pharmacy has completed the medication reconciliation. Utilized list from [facility].
[2025-01-06 08:33] LABS: Venous Blood Gas Refer to POC result
[2025-01-06 08:34] LABS: VBG HCO3 22 mmol/L (22-26); VBG pCO2 45 mmHg; VBG pH 7.29 (7.32-7.43); VBG pO2 123 mmHg
[2025-01-06] MEDS: Apixaban 5 MG TABLET PO ×2 (08:55→19:58)
[2025-01-06] MEDS: Baclofen 10 MG TABLET 5 MG PO ×3 (08:55→19:57)
[2025-01-06] MEDS: Midodrine HCl 10 MG TABLET PO (08:56)
--- NOTE | 2025-01-06 09:00 | PC.NURSE ---
Patient noted to have brief period of hypotension s/p returning from CT. BP reassessed on upper extremities bilaterally BP remained hypotensive. Patient denies dizziness/lightheadedness during event. Hospitalist notified/ aware. Additional 18G placed in right wrist. IV fluid bolus infusing per provider order. Despite hypotension, Patient more alert at this time. Patient passed nursing swallow eval. Patient able to take PO medications whole in applesauce. Ct results returned no evidence of PE and probable left lower lobe PNA. Hospitalist aware of CT results. Patient remains on same settings via high flow TN. Plan of care on going.
--- NOTE | 2025-01-06 09:11 | PC.NURSE ---
Placed placed on huber hugger r/t rectal temp 96.4. Hospitalist aware
[2025-01-06 09:16] LABS: Procalcitonin 0.08 ng/mL
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
[2025-01-06] MEDS: QUEtiapine Fumarate 25 MG TABLET 75 MG PO ×2 (11:59→19:58)
[2025-01-06] MEDS: Famotidine 20 MG TABLET PO ×2 (11:59→19:58)
[2025-01-06] MEDS: Sertraline HCL 100 MG TABLET 200 MG PO (11:59)
[2025-01-06] MEDS: LORazepam 1 MG TABLET PO (11:59)
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
[2025-01-06] MEDS: Sulfamethox/Trimeth 800/160 TABLET 1 TAB PO ×2 (12:12→19:58)
--- NOTE | 2025-01-06 13:06 | PC.NURSE ---
patient transferred to floor by RT and RN x 2.
[2025-01-06] MEDS: Simethicone 80 MG TAB.CHEW PO ×2 (16:37→19:57)
[2025-01-06] MEDS: Pregabalin 75 MG CAPSULE PO ×2 (16:37→19:59)
[2025-01-06] MEDS: methylPREDNISolone Sod Succ 40 MG/ML VIAL IVPUSH (16:38)
[2025-01-06] MEDS: 0.9 % Sodium Chloride Flush 3 ML SYRINGE IVFLUSH ×2 (17:27→20:05)
[2025-01-06] MEDS: Sennosides 8.6 MG TABLET 17.2 MG PO (19:57)
[2025-01-06] MEDS: TiZANidine HCL 4 MG TABLET 2 MG PO (19:57)
[2025-01-06] MEDS: guaiFENesin LA 600 MG TAB.ER.12H 1200 MG PO (19:57)
[2025-01-06] MEDS: Docusate Sodium 100 MG CAPSULE PO (19:58)
[2025-01-07] VITALS (11 sets, daily range): BP systolic 114–166; BP diastolic 49–78; PULSE 70–106; RESP 16–20; TEMP 36.7–37.3; O2SAT 92–95; BMI 27.2
[2025-01-07] MEDS: Doxycycline Hyclate 100 MG in 0.9 % Sodium Chloride 250 ML 166.67 MG IV (05:43)
[2025-01-07] MEDS: cefTRIAXone sodium 1 GM VIAL IVPUSH (05:43)
[2025-01-07] MEDS: methylPREDNISolone Sod Succ 40 MG/ML VIAL IVPUSH ×2 (05:43→16:34)
[2025-01-07] MEDS: levalbuterol HCL 1.25 MG, Ipratropium Bromide 0.5 MG INHALE ×4 (07:27→20:50)
[2025-01-07 07:41] LABS: MANUAL DIFF FLAG NO
[2025-01-07 07:52] LABS: Basophils Percent Auto 0.2 % (0-2); Eosinophils Percent Auto 0.5 % (0-4); Hematocrit 37.3 % (37.0-47.0); Hemoglobin 11.8 g/dl (12.0-16.0); Imm Gran Abs Auto 0.03 X10*3/uL (0.00-0.03); Imm Gran Pct Auto 0.7 % (0.0-0.4); Lymphocytes Absolute Auto 1.2 X10*3/uL (1.2-4.9); Lymphocytes Percent Auto 28.1 % (20-40); Mean Corpuscular HGB Conc 31.6 g/dl (31.0-35.0); Mean Corpuscular Hemoglobin 27.8 pg (27.0-33.0); Mean Platelet Volume 11.4 fL (9.4-12.3); Monocytes Absolute Auto 0.3 X10*3/uL (0.1-1.2); Monocytes Percent Auto 7.5 % (2-11); Neutrophils Absolute Auto 2.8 x10*3/uL (2.0-8.3); Platelet Count 213 X10*3/uL (160-400); Red Blood Count 4.24 X10*6/uL (4.20-5.50); Red Cell Distribution Width 16.5 % (11.0-16.0); White Blood Count 4.4 X10*3/uL (4.8-10.8)
[2025-01-07 08:07] LABS: Alanine Aminotransferase 30 U/L (0-31); Albumin Level 3.4 g/dL (3.5-5.0); Alkaline Phosphatase 92 U/L (39-117); Anion Gap 11 (12-20); Aspartate Amino Transferase 36 U/L (5-31); Bilirubin Total 0.2 mg/dL (0.0-1.0); Blood Urea Nitrogen 6 mg/dL (9-16); Calcium 8.8 mg/dL (8.4-10.2); Carbon Dioxide 25 mmol/L (22-29); Chloride 111 mmol/L (96-108); Creatinine Clr Calc Pharmacy 131.9; Estimated Glomerular Filt Rate > 60; Glucose Random 83 mg/dL (60-115); Potassium 3.1 mmol/L (3.3-5.1); Sodium 144 mmol/L (135-145); Total Protein 6.9 g/dL (6.5-8.0)
[2025-01-07 08:50] LABS: Magnesium 1.6 mg/dL (1.6-2.6)
--- NOTE | 2025-01-07 09:53 | MHC.CM.PN ---
Pt is a LTC resident at [facility], where she will return via BLS once medically cleared. Pt uses a wheelchair and trinh lift. PCP: Dr. Du Robertson
[2025-01-07] MEDS: QUEtiapine Fumarate 25 MG TABLET 75 MG PO ×2 (10:49→21:12)
[2025-01-07] MEDS: LORazepam 1 MG TABLET PO (10:49)
[2025-01-07] MEDS: Sennosides 8.6 MG TABLET 17.2 MG PO ×2 (10:49→21:12)
[2025-01-07] MEDS: Pregabalin 75 MG CAPSULE PO ×3 (10:49→21:12)
[2025-01-07] MEDS: Sertraline HCL 100 MG TABLET 200 MG PO (10:49)
[2025-01-07] MEDS: guaiFENesin LA 600 MG TAB.ER.12H 1200 MG PO ×2 (10:49→21:13)
[2025-01-07] MEDS: Famotidine 20 MG TABLET PO ×2 (10:49→21:12)
[2025-01-07] MEDS: Potassium Chloride ER 20 MEQ TAB.ER.PRT 40 MEQ PO (10:50)
[2025-01-07] MEDS: Cholecalciferol (Vitamin D3) 25 MCG TABLET PO (10:50)
[2025-01-07] MEDS: Multivitamin TABLET 1 TAB PO (10:50)
[2025-01-07] MEDS: Baclofen 10 MG TABLET 5 MG PO ×3 (10:51→21:12)
[2025-01-07] MEDS: Midodrine HCl 10 MG TABLET PO ×2 (10:51→15:01)
[2025-01-07] MEDS: Simethicone 80 MG TAB.CHEW PO ×3 (10:52→21:13)
[2025-01-07] MEDS: Aspirin Enteric Coated 81 MG TABLET.DR PO (10:52)
[2025-01-07] MEDS: Apixaban 5 MG TABLET PO ×2 (10:52→21:12)
[2025-01-07] MEDS: Sulfamethox/Trimeth 800/160 TABLET 1 TAB PO ×2 (10:52→21:13)
[2025-01-07] MEDS: 0.9 % Sodium Chloride Flush 3 ML SYRINGE IVFLUSH ×2 (10:52→21:14)
[2025-01-07] MEDS: Ascorbic Acid 500 MG TABLET PO (10:52)
[2025-01-07] MEDS: Docusate Sodium 100 MG CAPSULE PO ×2 (10:52→21:12)
[2025-01-07] MEDS: polyethylene glycoL 3350 17 GM POWD.PACK PO (10:53)
--- NOTE | 2025-01-07 12:30 | HO.WOUND ---
Addendum entered by Argenis Baptiste RN 01/07/25 12:39: Right Heel - Intact blanchable well defined - not PI at this time - off loaded and preventative foam pressing applied Left Heel - Intact blanchable well defined - not PI at this time - off loaded and preventative foam pressing applied Original Note: Wound Consult: Initial 59yr old? female admitted to [facility] on 01/06/25 - See progress notes and H&P for detailed history.? Wound consult placed for Upper Back wounds POA and coccyx.? Patient agreeable to assessment and photo documentation.? Patient reports the upper back is secondary to a previous back surgery and poor healing. Upper Back Etiology: ??nonhealing surgical site Wound Bed: small areas of dry yellow crusted drainage vs scab Drainage / Odor: None Edges: ? irregular Mckenna wound: Scar tissue noted - irregular formation of healed skin Goals of Treatment: ?Foam dressing to allow for moist wound healing and protect from friction Coccyx Etiology: ??Stage 3 Pressure Injury POA Wound Bed: Full thickness tissue loss with marbled moist red pink yellow slough adherent to wound bed - no bone or deeper structures noted Drainage / Odor: Flores drainage Edges: ? epibole and macerated Mckenna wound: Scar tissue noted, Hyperpigmentation noted - previously documented as irregular formation of healed skin Goals of Treatment: ?Durafiber AG and Foam dressing to allow for moist wound healing and autolytic debridement Bilateral Heels noted for redness - well defined - remain intact and blanchable - but given significant risk factor for PI development recommend off loading with pillows and preventative foams dressing application. Patient tolerated application well. Recommendations: 1. Turn and Reposition every 2 hours and as needed for patient comfort.? Use pillows or wedges to support off loading positions. 2. Off Load all bony prominences with use of pillows and heel boots if needed.? Apply Preventative foams where needed. ? 3. Monitor for incontinence and moisture control, use barrier creams when needed for prevention and treatment. 4. Provide adequate and supplemental nutrition.? 5. Order low air loss mattress. 6. When applicable maintain blood glucose levels per Providers order. Upper Back - Cleanse with Ns, pat dry. Apply skin prep allow to dry. Cover with foam dressing, change every 5 days and PRN. Coccyx - Off Load Pressure with Q2 hr turns and use of pillows Cleanse and irrigate with NS, Pat dry.? Apply barrier to periwound, lightly pack with Durafiber AG, be sure to leave a wick to easy removal.? Cover with Foam dressing.? Change every other day. Bilateral Heels - Elevate heels off of bed surface with pillows. Apply preventative foam dressing - peel back and assess Q shift and change every 5 days and PRN. Re-consult wound care Nurse for wound deterioration or wound changes.
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
[2025-01-07] MEDS: vancomycin HCL 1,500 MG in 0.9 % Sodium Chloride 500 ML 333.33 MG IV (14:56)
--- NOTE | 2025-01-07 15:45 | PHA.PROG ---
Admission Date/Time: January 06, 2025 06:04 Indication: bacteremia Weight in k.1 kg Adjusted body weight in Kg: [place] body weight in Kg: Obesity Dosing Indication % IBW: BMI 27.7 Serum Creatinine - Last 168 Hours 01/06/25 01/07/25 04:46 06:52 Creatinine 0.48 L 0.39 L Estimated CrCl and GFR - Last 168 Hours 01/06/25 01/07/25 04:46 06:52 Estim Creat Clear Calc 111.2 131.9 Estimated GFR > 60 > 60 Vancomycin Loading Dose: 1500mg X1 Current Vancomycin Dosing Regimen: 1000mg Q8H Vancomycin Monitoring using AUC goal of 400 - 600 range with trough as surrogate marker: 555 Date and Time for next Vancomycin Level to be drawn: 01/08 @1300 Pharmacist Comments on Vancomycin Plan: Pt's renal fx appears stable, slightly elevated BMI - starting off more aggressive as indication is bacteremia. Targeting trough of 16.8. To be checked and readjusted tomorrow as needed. Vancomycin dosing will take advantage of [employer] as a clinical decision support tool that uses Bayesian modeling to calculate individual patient's pharmacokinetic parameters and forecast the patient's drug concentration time course with the target goal AUC 24 range of 400 - 600 mg/L/hr.
--- NOTE | 2025-01-07 16:43 | MHC.SL.SWA ---
Speech Pathologist Impression: Significant pharyngeal dysphagia d/t longstanding open stoma s/p trach removal Risk of Aspiration Due to: Hx of aspiration PNAs Hx of compromised airway patency Dysphasia Diet Status: Continue on REGULAR diet, THIN liquids, Pills whole with puree. Continue 1-1 feed. Encourage patient to participate in electing food preferences from regular menu. Direct speech intervention. Liquid Consistency and Strategies for Safe Swallow: Liquid Intake Recommendation: Thin Liquid Intake Strategies: Solid Food Consistency: Dietary Recommendations: Regular Additional Modifications to Solid Foods: [employer] to f/u 1x to monitor Oral Medication Intake: Whole with Puree Please contact the pharmacy regarding appropriate crushable or liquid drug formulations that are available whenever modified delivery is recommended. Compensatory Strategies and Precautions to be Taken for Safe Swallow: Supervision While Eating and Drinking for Safe Swallow: Total Assistance (1:1) Foods to Avoid: [place] hard or tough to chew solids Swallowing Recommended Treatments: Recommendation for Speech: Further Testing Needed Inpatient Speech Therapy Modified Barium Swallow Study - Inpatient Comment: Pt drank water by straw sips, ate tsps of sherbet, and bites of sachin crackers without overt s/s of aspiration; however, silent aspiration cannot be ruled out as visualization is necessary. [facility] MBSS to assess physiological function of pt swallow/airway protection. D/t open stoma and length of time stoma has been present, repair surgery is considered imperative to reduce continued risk of pulmonary/respiratory infection. Pt remains on regular diet to allow for choices. [employer] will follow. Frequency/Duration: Daily M-F Date Range for Service Req: Timeline to reassess: [employer] Attendant Clinican/Clinical Fellow: No Supervisory Statement: I have reviewed and agree with the student/clinical fellow's documentation: N/A Speech Language Pathologist: Modesta Varela M.S., CCC-[employer]
[2025-01-07] MEDS: TiZANidine HCL 4 MG TABLET 2 MG PO (21:13)
[2025-01-07] MEDS: vancomycin HCL 1,000 MG in 0.9 % Sodium Chloride 250 ML 270 MG IV (23:50)
[2025-01-07] MEDS: Acetaminophen 325 MG TABLET 975 MG PO (23:51)
[2025-01-08] VITALS (9 sets, daily range): BP systolic 92–136; BP diastolic 53–71; PULSE 67–90; RESP 14–18; TEMP 36.3–37.2; O2SAT 93–95
[2025-01-08] MEDS: Melatonin 3 MG TABLET 6 MG PO ×2 (00:57→21:44)
[2025-01-08] MEDS: methylPREDNISolone Sod Succ 40 MG/ML VIAL IVPUSH (05:58)
[2025-01-08] MEDS: cefTRIAXone sodium 1 GM VIAL IVPUSH (05:58)
[2025-01-08] MEDS: vancomycin HCL 1,000 MG in 0.9 % Sodium Chloride 250 ML 270 MG IV (05:58)
[2025-01-08 06:38] LABS: Venous Blood Gas Refer to POC result
[2025-01-08 06:40] LABS: MANUAL DIFF FLAG NO
[2025-01-08 06:46] LABS: Basophils Percent Auto 0.3 % (0-2); Eosinophils Percent Auto 0.7 % (0-4); Hematocrit 36.6 % (37.0-47.0); Hemoglobin 11.9 g/dl (12.0-16.0); Imm Gran Abs Auto 0.07 X10*3/uL (0.00-0.03); Imm Gran Pct Auto 1.1 % (0.0-0.4); Lymphocytes Absolute Auto 1.9 X10*3/uL (1.2-4.9); Lymphocytes Percent Auto 30.4 % (20-40); Mean Corpuscular HGB Conc 32.5 g/dl (31.0-35.0); Mean Corpuscular Volume 86.1 fL (80.0-98.0); Mean Platelet Volume 10.6 fL (9.4-12.3); Monocytes Absolute Auto 0.6 X10*3/uL (0.1-1.2); Monocytes Percent Auto 9.5 % (2-11); Neutrophils Absolute Auto 3.5 x10*3/uL (2.0-8.3); Platelet Count 231 X10*3/uL (160-400); Red Blood Count 4.25 X10*6/uL (4.20-5.50); Red Cell Distribution Width 16.5 % (11.0-16.0); White Blood Count 6.1 X10*3/uL (4.8-10.8)
[2025-01-08 07:15] LABS: Alanine Aminotransferase 28 U/L (0-31); Albumin Level 3.4 g/dL (3.5-5.0); Alkaline Phosphatase 96 U/L (39-117); Anion Gap 12 (12-20); Aspartate Amino Transferase 34 U/L (5-31); Bilirubin Total 0.2 mg/dL (0.0-1.0); Blood Urea Nitrogen 17 mg/dL (9-16); Carbon Dioxide 24 mmol/L (22-29); Chloride 108 mmol/L (96-108); Creatinine Clr Calc Pharmacy 102.9; Estimated Glomerular Filt Rate > 60; Glucose Random 81 mg/dL (60-115); Sodium 140 mmol/L (135-145); Total Protein 6.9 g/dL (6.5-8.0)
[2025-01-08 07:31] LABS: Procalcitonin 0.07 ng/mL
[2025-01-08] MEDS: levalbuterol HCL 1.25 MG, Ipratropium Bromide 0.5 MG INHALE ×4 (08:23→20:32)
--- NOTE | 2025-01-08 10:30 | PC.NURSE ---
per patient's request deep suction performed, patient tolerated procedure well
[2025-01-08] MEDS: QUEtiapine Fumarate 25 MG TABLET 75 MG PO ×2 (10:43→21:45)
[2025-01-08] MEDS: Ascorbic Acid 500 MG TABLET PO (10:43)
[2025-01-08] MEDS: Sertraline HCL 100 MG TABLET 200 MG PO (10:43)
[2025-01-08] MEDS: Midodrine HCl 10 MG TABLET PO ×3 (10:43→21:46)
[2025-01-08] MEDS: Simethicone 80 MG TAB.CHEW PO ×3 (10:43→21:44)
[2025-01-08] MEDS: Aspirin Enteric Coated 81 MG TABLET.DR PO (10:43)
[2025-01-08] MEDS: Multivitamin TABLET 1 TAB PO (10:44)
[2025-01-08] MEDS: Sulfamethox/Trimeth 800/160 TABLET 1 TAB PO ×2 (10:44→21:44)
[2025-01-08] MEDS: Baclofen 10 MG TABLET 5 MG PO ×3 (10:45→21:46)
[2025-01-08] MEDS: Docusate Sodium 100 MG CAPSULE PO ×2 (10:45→21:46)
[2025-01-08] MEDS: Cholecalciferol (Vitamin D3) 25 MCG TABLET PO (10:46)
[2025-01-08] MEDS: Famotidine 20 MG TABLET PO ×2 (10:46→21:46)
[2025-01-08] MEDS: Sennosides 8.6 MG TABLET 17.2 MG PO ×2 (10:46→21:44)
[2025-01-08] MEDS: Apixaban 5 MG TABLET PO ×2 (10:46→21:46)
[2025-01-08] MEDS: Pregabalin 75 MG CAPSULE PO ×3 (10:46→21:45)
[2025-01-08] MEDS: LORazepam 1 MG TABLET PO (10:46)
[2025-01-08] MEDS: guaiFENesin LA 600 MG TAB.ER.12H 1200 MG PO ×2 (10:46→21:44)
[2025-01-08] MEDS: polyethylene glycoL 3350 17 GM POWD.PACK PO (10:46)
[2025-01-08] MEDS: predniSONE 20 MG TABLET 40 MG PO (10:49)
[2025-01-08] MEDS: 0.9 % Sodium Chloride Flush 3 ML SYRINGE IVFLUSH (10:49)
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
--- NOTE | 2025-01-08 15:04 | MHC.SLORD ---
Speech Language Pathology Order Status: RN reports pt tolerating regular solids, thin liquids, and pills whole in applesauce. [facility]
[2025-01-08] MEDS: Doxycycline Monohydrate 100 MG CAPSULE PO (18:29)
[2025-01-08] MEDS: TiZANidine HCL 4 MG TABLET 2 MG PO (21:46)
[2025-01-09] VITALS (11 sets, daily range): BP systolic 93–144; BP diastolic 51–69; PULSE 57–90; RESP 15–20; TEMP 36.1–37.2; O2SAT 91–97
[2025-01-09] MEDS: Doxycycline Monohydrate 100 MG CAPSULE PO ×2 (05:12→18:24)
[2025-01-09] MEDS: cefTRIAXone sodium 1 GM VIAL IVPUSH (05:12)
[2025-01-09 07:20] LABS: MANUAL DIFF FLAG NO
[2025-01-09] MEDS: levalbuterol HCL 1.25 MG, Ipratropium Bromide 0.5 MG INHALE ×4 (07:25→19:14)
[2025-01-09 07:57] LABS: Basophils Percent Auto 0.3 % (0-2); Eosinophils Absolute Auto 0.1 X10*3/uL (0.0-0.4); Eosinophils Percent Auto 0.8 % (0-4); Hematocrit 41.1 % (37.0-47.0); Hemoglobin 13.2 g/dl (12.0-16.0); Imm Gran Abs Auto 0.13 X10*3/uL (0.00-0.03); Imm Gran Pct Auto 1.4 % (0.0-0.4); Lymphocytes Absolute Auto 2.6 X10*3/uL (1.2-4.9); Lymphocytes Percent Auto 28.1 % (20-40); Mean Corpuscular HGB Conc 32.1 g/dl (31.0-35.0); Mean Corpuscular Hemoglobin 27.6 pg (27.0-33.0); Mean Platelet Volume 11.2 fL (9.4-12.3); Monocytes Absolute Auto 0.7 X10*3/uL (0.1-1.2); Monocytes Percent Auto 7.7 % (2-11); Neutrophils Absolute Auto 5.7 x10*3/uL (2.0-8.3); Neutrophils Percent Auto 61.7 % (45-73); Platelet Count 289 X10*3/uL (160-400); Red Blood Count 4.78 X10*6/uL (4.20-5.50); Red Cell Distribution Width 16.6 % (11.0-16.0); White Blood Count 9.2 X10*3/uL (4.8-10.8)
[2025-01-09 08:12] LABS: Alanine Aminotransferase 32 U/L (0-31); Albumin Level 3.7 g/dL (3.5-5.0); Alkaline Phosphatase 96 U/L (39-117); Anion Gap 12 (12-20); Aspartate Amino Transferase 40 U/L (5-31); Bilirubin Total 0.1 mg/dL (0.0-1.0); Blood Urea Nitrogen 20 mg/dL (9-16); Calcium 9.5 mg/dL (8.4-10.2); Carbon Dioxide 25 mmol/L (22-29); Chloride 104 mmol/L (96-108); Creatinine Clr Calc Pharmacy 93.6; Estimated Glomerular Filt Rate > 60; Glucose Random 75 mg/dL (60-115); Potassium 4.3 mmol/L (3.3-5.1); Sodium 137 mmol/L (135-145); Total Protein 7.3 g/dL (6.5-8.0)
[2025-01-09] MEDS: Sulfamethox/Trimeth 800/160 TABLET 1 TAB PO ×2 (09:33→20:51)
[2025-01-09] MEDS: Simethicone 80 MG TAB.CHEW PO ×3 (09:33→20:51)
[2025-01-09] MEDS: Baclofen 10 MG TABLET 5 MG PO ×3 (09:34→21:10)
[2025-01-09] MEDS: QUEtiapine Fumarate 25 MG TABLET 75 MG PO ×2 (09:34→20:51)
[2025-01-09] MEDS: Sertraline HCL 100 MG TABLET 200 MG PO (09:35)
[2025-01-09] MEDS: predniSONE 20 MG TABLET 40 MG PO (09:35)
[2025-01-09] MEDS: Sennosides 8.6 MG TABLET 17.2 MG PO ×2 (09:35→20:51)
[2025-01-09] MEDS: LORazepam 1 MG TABLET PO (09:35)
[2025-01-09] MEDS: Aspirin Enteric Coated 81 MG TABLET.DR PO (09:36)
[2025-01-09] MEDS: Docusate Sodium 100 MG CAPSULE PO ×2 (09:36→20:51)
[2025-01-09] MEDS: guaiFENesin LA 600 MG TAB.ER.12H 1200 MG PO ×2 (09:36→20:52)
[2025-01-09] MEDS: Cholecalciferol (Vitamin D3) 25 MCG TABLET PO (09:36)
[2025-01-09] MEDS: Famotidine 20 MG TABLET PO ×2 (09:36→20:51)
[2025-01-09] MEDS: Midodrine HCl 10 MG TABLET PO ×3 (09:36→20:51)
[2025-01-09] MEDS: Multivitamin TABLET 1 TAB PO (09:36)
[2025-01-09] MEDS: Ascorbic Acid 500 MG TABLET PO (09:36)
[2025-01-09] MEDS: Pregabalin 75 MG CAPSULE PO ×3 (09:36→20:52)
[2025-01-09] MEDS: Apixaban 5 MG TABLET PO ×2 (09:37→20:51)
[2025-01-09] MEDS: 0.9 % Sodium Chloride Flush 3 ML SYRINGE IVFLUSH ×3 (09:37→21:12)
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
--- NOTE | 2025-01-09 12:28 | MHC.CLN ---
F/U PT WITH INCREASED NUTRITION RISK R/T PRESSURE INJURY PO INTAKE 50% AVG DIET RX; REGULAR DIET RECEIVING ENSURE BID TO PROMOTE WOUND HEALING SUPP TO PROVIDE 700KCALS, 40G PROTEIN MONITOR PO INTAKE AND ENCOURAGE SUPPLEMENTS
--- NOTE | 2025-01-09 13:23 | MHC.SLORD ---
Speech Language Pathology Order Status: MBSS postponed to tomorrow as radiology unable to assess pt today. RN and MD notified per DIRECTOR OF SALES SUPPORT request.
[2025-01-09] MEDS: TiZANidine HCL 4 MG TABLET 2 MG PO (20:52)
[2025-01-09] MEDS: Melatonin 3 MG TABLET 6 MG PO (20:59)
[2025-01-10] VITALS (10 sets, daily range): BP systolic 90–131; BP diastolic 54–74; PULSE 54–78; RESP 16–20; TEMP 36.2–36.6; O2SAT 92–95
[2025-01-10] MEDS: Doxycycline Monohydrate 100 MG CAPSULE PO ×2 (05:19→17:27)
[2025-01-10] MEDS: cefTRIAXone sodium 1 GM VIAL IVPUSH (05:19)
[2025-01-10] MEDS: levalbuterol HCL 1.25 MG, Ipratropium Bromide 0.5 MG INHALE ×3 (08:31→16:12)
[2025-01-10] MEDS: predniSONE 20 MG TABLET 40 MG PO (09:01)
[2025-01-10] MEDS: Sulfamethox/Trimeth 800/160 TABLET 1 TAB PO (09:01)
[2025-01-10] MEDS: Apixaban 5 MG TABLET PO (09:01)
[2025-01-10] MEDS: Sertraline HCL 100 MG TABLET 200 MG PO (09:01)
[2025-01-10] MEDS: Ascorbic Acid 500 MG TABLET PO (09:01)
[2025-01-10] MEDS: QUEtiapine Fumarate 25 MG TABLET 75 MG PO (09:01)
[2025-01-10] MEDS: Simethicone 80 MG TAB.CHEW PO ×2 (09:01→15:10)
[2025-01-10] MEDS: Aspirin Enteric Coated 81 MG TABLET.DR PO (09:01)
[2025-01-10] MEDS: Cholecalciferol (Vitamin D3) 25 MCG TABLET PO (09:02)
[2025-01-10] MEDS: LORazepam 1 MG TABLET PO (09:02)
[2025-01-10] MEDS: Famotidine 20 MG TABLET PO (09:02)
[2025-01-10] MEDS: Multivitamin TABLET 1 TAB PO (09:03)
[2025-01-10] MEDS: Sennosides 8.6 MG TABLET 17.2 MG PO (09:03)
[2025-01-10] MEDS: Pregabalin 75 MG CAPSULE PO ×2 (09:03→15:10)
[2025-01-10] MEDS: 0.9 % Sodium Chloride Flush 3 ML SYRINGE IVFLUSH ×2 (09:03→15:12)
[2025-01-10] MEDS: Docusate Sodium 100 MG CAPSULE PO (09:03)
[2025-01-10] MEDS: Baclofen 10 MG TABLET 5 MG PO ×2 (09:03→15:10)
[2025-01-10] MEDS: guaiFENesin LA 600 MG TAB.ER.12H 1200 MG PO (09:03)
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
--- NOTE | 2025-01-10 14:13 | MHC.SL.SWA ---
Speech Pathologist Impression: Risk of Aspiration Due to: Dysphasia Diet Status: Continue on REGULAR diet, THIN liquids, Pills whole with puree. Continue 1-1 feed. Encourage patient to participate in electing food preferences from regular menu. D/C speech. Liquid Consistency and Strategies for Safe Swallow: Liquid Intake Recommendation: Thin Liquid Intake Strategies: Small Sips Solid Food Consistency: Dietary Recommendations: Regular Additional Modifications to Solid Foods: ASSEMBLIES AND INSTALLATIONS INSPECTOR to f/u 1x to monitor Oral Medication Intake: Whole with Puree Please contact the pharmacy regarding appropriate crushable or liquid drug formulations that are available whenever modified delivery is recommended. Compensatory Strategies and Precautions to be Taken for Safe Swallow: Sitting Upright (90 deg) No Straw Liquids from Cup Small Bites and Sips Alternate Liquids/Solids Supervision While Eating and Drinking for Safe Swallow: None Needed Foods to Avoid: Hominy hard or tough to chew solids Swallowing Recommended Treatments: Recommendation for Speech: Further Testing Needed Inpatient Speech Therapy Modified Barium Swallow Study - Inpatient Comment: Patient seen this morning at conclusion of breakfast. Patient put on Regular Diet with Thin Liquids Pills whole with liquid after ASSEMBLIES AND INSTALLATIONS INSPECTOR clinical swallow assessment on 01/07/25(Patient's baseline). Patient has reportedly tolerated diet to date with no difficulties, however noted that patient has not been seen by ASSEMBLIES AND INSTALLATIONS INSPECTOR since 01/07/25. Patient reported that she enjoyed her breakfast with no swallowing difficulties. On historical review of ASSEMBLIES AND INSTALLATIONS INSPECTOR service during inpatient admissions, Patient has history in [facility] dating back to 2020, with mostly unremarkable issues with swallow function, apart from presence of trach, and then persistent stoma from trach (mild oral phase dysphagia noted, secondary to limited dentition). ASSEMBLIES AND INSTALLATIONS INSPECTOR on 01/07/25 had recommended MBSS study due to concerns about stoma and possible risk of dysphagia/aspiration pna. Given patient's history, toleration of least restrictive diet over several days, and in consultation with ASSEMBLIES AND INSTALLATIONS INSPECTOR threshing department supervisor, it was determined that MBSS study is not indicated at this time as a part of patient's current inpatient stay. This recommendation was discussed in person with MD, who agreed to cancel order in [facility]. If medical team at [facility] have concerns regarding swallow, it is recommended patient have procedure as outpatient. Patient currently pending discharge back to [facility] where she is LTR.. Frequency/Duration: Daily M-F Date Range for Service Req: Timeline to reassess: Guidance Secretary Clinican/Clinical Fellow: No Supervisory Statement: I have reviewed and agree with the student/clinical fellow's documentation: N/A Speech Language Pathologist: Zahida Montano M.A., CCC-ASSEMBLIES AND INSTALLATIONS INSPECTOR
[2025-01-10] MEDS: Midodrine HCl 10 MG TABLET PO (15:10)
--- NOTE | 2025-01-10 16:25 | MHC.CM.PN ---
PATIENT IS DISCHARGED TODAY. SHE WILL RETURN TO [facility]. TRANSPORT IS BOOKED FOR 5:30PM TEST SPECIALIST. ALL DC INFO SENT TO THE SNF.
--- NOTE | 2025-01-11 12:45 | P.CDIM_ITS ---
PROVIDER RESPONSE TEXT: To clarify, the appropriate diagnosis supported by the clinical indicators: Pressure (decubitus) ulcer coccyx stage 3 POA QUERY TEXT: PHYSICIAN'S DOCUMENTATION REQUEST Date of Query: 01/08/2025 01:53 PM EDT Patient Name: MATT PETERSON Admit Date: 01/06/2025 Dear Monica Gavin MD, A review of the medical record indicates additional documentation may be needed. Please review below and update the documentation accordingly. Clinical Indicators: Per wound consult 01/07/25: stage 3 pressure injury coccyx present on admission Durafiber AG and Foam dressing to allow for moist wound healing and autolytic debridement Based on the above, could you please provide further information regarding the ulcer/wound: Pressure (decubitus) ulcer coccyx stage 3 POA Other (explain) Clinically unable to determine (explain) Thank you, Mony Catalan RN Use of terms such as suspected, likely, concern for, or probable (associated with a specific diagnosi s that is being evaluated, monitored, or treated as if it exists) are acceptable and can be coded in the inpatient se tting, when documented at the time of discharge. Please use your independent medical judgment in providing your response. THIS QUERY IS PART OF THE PERMANENT MEDICAL RECORD
== END 2025-01-10 18:11 | disposition skilled nursing facility (03) | DRG 137 ==
LOC: HO.ED 07:10 → HO.EDOVER 07:16 → HO.IMC 11:42
PROVIDERS: Admitting Provider Physician Assistant; Emergency Provider Internal Medicine; PCP Internal Medicine; Visit Provider Family Medicine
DX: U07.1 COVID-19 (principal); J96.21 Acute and chronic respiratory failure with hypoxia; L89.153 Pressure ulcer of sacral region, stage 3; G82.20 Paraplegia, unspecified; I95.9 Hypotension, unspecified; G90.9 Disorder of the autonomic nervous system, unspecified; T14.8XXS Other injury of unspecified body region, sequela; D64.9 Anemia, unspecified; Z99.81 Dependence on supplemental oxygen; M46.24 Osteomyelitis of vertebra, thoracic region; F39 Unspecified mood [affective] disorder; J44.1 Chronic obstructive pulmonary disease with (acute) exacerbation; E87.6 Hypokalemia; J44.0 Chronic obstructive pulmonary disease with (acute) lower respiratory infection; W34.00XS Accidental discharge from unspecified firearms or gun, sequela; Z86.711 Personal history of pulmonary embolism; Z74.01 Bed confinement status; Z79.01 Long term (current) use of anticoagulants; Z87.891 Personal history of nicotine dependence; Z79.899 Other long term (current) drug therapy
CPT/HCPCS: 0241U; 36415; 71045; 71275; 80053; 82803; 83605; 83735; 83880; 84145; 84484; 85025; 85027; 85379; 85610; 85730; 86140; 87040; 87147; 87205; 92610; 93005; 94640; 99285; J0696; J1271; J2919; J3370; J3371; J7120; Q9967

== ENCOUNTER → 2025-01-06 04:42 | Outpatient (BNV) | payer MEDICAID, SELFPAY | PROVIDERS: Emergency Provider Internal Medicine; Visit Provider Radiology Vascular & Interventional Radiology | DX: J43.2 Centrilobular emphysema (principal); R06.02 Shortness of breath | CPT/HCPCS: 71045; 71275 ==

== ENCOUNTER 2025-01-06 06:04 | Outpatient (BNV) | payer MEDICAID, SELFPAY | END 2025-01-06 07:06 | PROVIDERS: Admitting Provider Physician Assistant; Emergency Provider Internal Medicine; Visit Provider Internal Medicine | DX: R94.31 Abnormal electrocardiogram [ECG] [EKG] (principal); R07.9 Chest pain, unspecified | CPT/HCPCS: 93010 ==

== ENCOUNTER → 2025-01-06 06:04 | Outpatient (BNV) | payer MEDICAID, SELFPAY | PROVIDERS: Admitting Provider Physician Assistant; Emergency Provider Internal Medicine; Visit Provider Internal Medicine Pulmonary Disease | DX: T17.908A Unspecified foreign body in respiratory tract, part unspecified causing other injury, initial encounter (principal) | CPT/HCPCS: 99223 ==

== ENCOUNTER → 2025-01-06 06:04 | Outpatient (BNV) | payer MEDICAID, SELFPAY | PROVIDERS: Admitting Provider Physician Assistant; Emergency Provider Internal Medicine; Visit Provider Family Medicine | DX: U07.1 COVID-19 (principal); J96.21 Acute and chronic respiratory failure with hypoxia; J44.1 Chronic obstructive pulmonary disease with (acute) exacerbation | CPT/HCPCS: 99223; 99232; 99499 ==

== ENCOUNTER 2025-01-29 20:27 | Inpatient (IN) | payer MEDICAID, SELFPAY ==
[2025-01-29] VITALS (11 sets, daily range): BP systolic 69–156; BP diastolic 24–75; PULSE 71–103; RESP 16–22; TEMP 36.7–38.6; O2SAT 85–98; BMI 23.3
--- NOTE | 2025-01-29 | ECG_ITS ---
Test Reason : SOB Blood Pressure : */* mmHG Vent. Rate : 76 BPM Atrial Rate : 76 BPM P-R Int : 158 ms QRS Dur : 74 ms QT Int : 396 ms P-R-T Axes : 46 9 70 degrees QTcB Int : 445 ms Normal sinus rhythm Nonspecific ST and T wave abnormality Abnormal ECG When compared with ECG of 06-Jan-2025 07:06, T wave inversion no longer evident in Inferior leads T wave inversion no longer evident in Lateral leads QT has lengthened Referred By: Soy Mares Electronically Signed By: ANNA IVAN MD
--- NOTE | ~2025-01-29 | XR_ITS ---
EXAMINATION: XR CHEST 1 VIEW HISTORY: Hypoxia COMPARISON: Comparison is made with the prior examination dated 01/29/2025. FINDINGS: Two AP portable views of the chest performed at 7:23 AM are submitted. There are airspace opacities in both lower lung zones, left greater than right. Findings may represent atelectasis, pneumonia, or pulmonary edema. There is no pneumothorax. The heart is normal in size. The patient is status post cervicothoracic fusion. XR/XR chest 1V IMPRESSION: Airspace opacities in both lower lung zones, left greater than right which may represent atelectasis, pneumonia, or pulmonary edema. Electronically signed by: David Trejo MD 01/31/2025 07:58 AM EDT
--- NOTE | ~2025-01-29 | XR_ITS ---
EXAMINATION: XR CHEST CLINICAL INFORMATION: Hypoxia COMPARISON: January 31, 2025 9 hours earlier TECHNIQUE: Frontal view of the chest was obtained. FINDINGS: Decreased patchy groundglass airspace opacities are present in the right lower lung zone and the mid third to lower third left lung. Pulmonary vascularity is more distinct in the upper lungs. Heart size is within normal limits. XR/XR chest 1V IMPRESSION: Improving pulmonary edema. Electronically signed by: Fransico Solis MD 01/31/2025 04:52 PM EDT
--- NOTE | ~2025-01-29 | XR_ITS ---
CLINICAL HISTORY: Pneumonia 1 view chest x-ray Comparison: CR - XR CHEST 1V - 01/06/25 05:13 EDT Findings: Bilateral basilar hazy opacities, increased from prior. No large pleural effusion. There may be a small right pleural effusion. Heart size is normal. Surgical hardware overlies the lower neck and upper thoracic spine. IMPRESSION: Bilateral basilar hazy opacities, increased from prior which may be infection, aspiration or pulmonary edema. Suspect small right pleural effusion. This document has been electronically signed by: Ilya Liu MD on 01/30/2025 00:46:24
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
[2025-01-29 21:11] LABS: MANUAL DIFF FLAG NO
[2025-01-29 21:14] LABS: VBG HCO3 20 mmol/L (22-26); VBG O2 % Saturation 98.0 %
[2025-01-29 21:14] LABS: Hematocrit 36.0 % (37.0-47.0); Hemoglobin 11.8 g/dl (12.0-16.0); Imm Gran Abs Auto 0.05 X10*3/uL (0.00-0.03); Imm Gran Pct Auto 0.5 % (0.0-0.4); Lymphocytes Absolute Auto 1.4 X10*3/uL (1.2-4.9); Mean Corpuscular HGB Conc 32.8 g/dl (31.0-35.0); Mean Corpuscular Hemoglobin 27.8 pg (27.0-33.0); Mean Corpuscular Volume 84.7 fL (80.0-98.0); NRBC Abs Auto 0.000 X10*3/uL (0.0-0.012); NRBC Pct Auto 0.0 /100WBC (0.0-0.2); Platelet Count 204 X10*3/uL (160-400); Red Blood Count 4.25 X10*6/uL (4.20-5.50); White Blood Count 10.4 X10*3/uL (4.8-10.8)
[2025-01-29 21:15] LABS: Venous Blood Gas Refer to POC result
[2025-01-29 21:19] LABS: INTERNATIONAL NORM RATIO 2.1 (0.9-1.1); Prothrombin Time 23.7 SEC (10.9-12.4)
[2025-01-29 21:22] LABS: Partial Thromboplastin Time 48.3 SEC (26.0-36.8)
[2025-01-29 21:32] LABS: Alanine Aminotransferase 24 U/L (0-31); Albumin Level 3.3 g/dL (3.5-5.0); Alkaline Phosphatase 110 U/L (39-117); Anion Gap 15 (12-20); Aspartate Amino Transferase 45 U/L (5-31); Blood Urea Nitrogen 14 mg/dL (9-16); Calcium 8.7 mg/dL (8.4-10.2); Carbon Dioxide 19 mmol/L (22-29); Chloride 111 mmol/L (96-108); Creatinine Clr Calc Pharmacy 106.7; Estimated Glomerular Filt Rate > 60; Magnesium 1.6 mg/dL (1.6-2.6); Potassium 4.1 mmol/L (3.3-5.1); Sodium 141 mmol/L (135-145); Total Protein 7.5 g/dL (6.5-8.0)
[2025-01-29 21:33] LABS: B Type Natriuretic Peptide 131 pg/mL (<100)
[2025-01-29 21:38] LABS: Troponin-I High Sensitivity < 2.7 ng/L (<3.5-17.0)
[2025-01-29 21:54] LABS: Resp Syncy Virus RNA Qual PCR NEGATIVE (Negative); SARS COV2 PCR INHOUSE POSITIVE (Negative)
--- OUTSIDE RECORDS SUMMARY | 2025-01-29 22:10 | XMS_ITS | Clinical Summary ---
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 Name Role Phone Unavailable Primary Care Provider Unavailabl e Encounters Date Type Department Care Team Description 11/05/2024 Patient Outreach [facility] MED[facility] [address] [place] [address] Boyd Morin MD Care Coordination (CM/CHW outreach) from Last 3 Months Social History Tobacco Use Types Packs/Day Years Used Date Smoking Tobacco: Never Assessed Comments Unknown Sex and Gender Information Value Date Recorded Sex Assigned at Not on file Legal Sex Female 9:58 AM EDT Gender Identity Not on file Sexual Orientation Not on file Plan of Treatment Health Maintenance Due Date Last Done Comments CT Colonography 1967 Colonoscopy 1967 Colorectal Cancer Screening 1967 Depression Screening 1967 FIT DNA/Cologuard 1967 FIT 1967 FOBT 1967 HIV Screening 1967 SDOH Screening 1967 Sigmoidoscopy 1967 Disability Screening 1967 Alcohol/Substance Use Screening 1979 Tobacco Screening 1979 Hepatitis C Screening 1985 DTaP/Tdap/Td Vaccines (1 - Tdap) 1986 Hepatitis B Vaccines (1 of 3 - 19+ 3-dose series) 1986 Pneumococcal Vaccine: 50+ Ye ars (1 of 2 - PCV) 1986 Pap Smear 1988 Cervical Cancer Screening 1997 HPV/Cotest 1997 Mammogram 2007 Zoster Vaccines (1 of 2) 2017 COVID-19 Vaccine ( - 2023-2 5 season) 2024 RSV Patients and Pa tients Aged 60 years or older (1 - 1-dose 75+ series) 2042 Influenza Vaccine Completed 05/11/2024 HIB Vaccines Aged Out No longer eligi [...] age to complete this topic Meningococcal B Vaccine Aged Out No l onger eligible based on patient's age to complete this topic Meningococcal Vaccine Aged Out No dottie sly eligible based on patient's age to complete this topic RSV under 20 months Aged Out No longe r eligible based on patient's age to complete this topic Rotavirus Vaccines Aged Out No longer eligible based on patient's age to complete this topic Insurance [facility] C3
--- OUTSIDE RECORDS SUMMARY | 2025-01-29 22:10 | XMS_ITS | Patient Health Record ---
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 Name Role Phone Elder Heaven HERNANDEZ Primary Care Provider Edy Moran Unavailable [phone] Allergies Allergen (clinical drug ingredient) Drug/Non Drug Allergy documented on EMR Reaction Allergy Type Onset Date Status Biaxin Unknown Drug Allergy Active Penicillin Unknown Drug Allergy Active tramadol Tramadol Unknown Drug Allergy Active Reason For Referral No Information Medications Medication SIG (Take, Route, Frequency, Duration) Notes Start Date End Date Status Acetaminophen 325 MG 2 tablets as needed Orally every 6 hrs Unknown Sennosides 8.6 MG 2 tablets Orally twi ce a day Unknown Magnesium Hydroxide 400 MG/5ML 5 mL as needed Orally Once a day Unknown Lactobacillus - as directed Orally Unknown Bisacodyl 10 MG 1 suppository as nee ded Rectal Once a day Unknown Albuterol Sulfate (2.5 MG/3ML) 0.083% 3 mL as needed Inhalation every 6 hrs Unknown guaiFENesin 100 MG/5ML 20mL as needed Or ally every 4 hrs Unknown Pregabalin 75 MG 1 capsule Orally thr ee times a day Unknown SUMAtriptan Succinate 50 MG 1 tablet as needed, may take second dose at least 2 hours after first dose up to 4 tablets per day as needed Orally Once a day Unknown tiZANidine HCl 2 MG 1 tablet at bedtime Orally Once a day Unknown oxyCODONE HCl 5 MG 1 tablet as needed Orally every 6 hrs Unknown Ascorbic Acid 500 MG 1 tablet Orally Onc e a day Unknown Ondansetron HCl 4 MG 1 tablet as needed Orally every 8 hours Unknown Aspirin 81 81 MG 1 tablet Orally Once a day Unknown Multiple Vitamins-Minerals - as directed Orally Unknown Sertraline HCl 100 MG 2 tablet Orally On ce a day Unknown Cholecalciferol 25 MCG (1000 UT) 1 capsule Orally Once a day Unknown Famotidine 20 MG 1 tablet at bedtime as needed Orally Once a day Unknown Polyethylene Glycol 3350 - as directed Unknown Baclofen 5 MG 1 tablet Orally 3x/day Unknown Docusate Sodium 100 MG 1 capsule as need ed Orally Once a day Unknown Simethicone 80 MG 1 tablet after meals and at bedtime as needed Orally Four times a day Unknown Midodrine HCl 5 MG 1 tablet Orally 3x/day hold for SBP>120mmHg Unknown guaiFENesin ER 600 MG 1 tablet as needed Orally every 12 hrs Unknown QUEtiapine Fumarate 25 MG 3 tablets Orally 2x/day Unknown Sulfamethoxazole-Trimethopri m 800-160 MG 1 tablet Orally 2x/day Unkno wn Melatonin 3 MG 2 tablet at bedtime Orally Once a day Unknown LORazepam 1 MG 1 tablet at bedtime as needed Orally Once a day Unknown Problems Problem Type SNOMED Code ICD Code Onset Dates Problem Status W/U Status Risk Notes Problem 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) Active confirmed Problem Major depression, single episode (97397202) Major depressive disorder, single episode, unspecified (F32.9) Active confirmed Problem Recurrent major depression (73521239) Major depressive disorder, recurrent, unspecified (F33.9) Active confirmed Problem Anxiety disorder (309394339) Anxiety disorder, unspecified (F41.9) Active confirmed Problem Post-traumatic stress disorder (32638179) Post-traumatic stress disorder, unspecified (F43.10) Active confirmed Problem Adjustment disorder with mixed anxiety and depressed mood (072430080) Adjustment disorder with mixed anxiety and depressed mood (F43.23) Active confirmed Problem Paraplegia (90664632) Paraplegia, unspecified (G82.20) Active confirmed Problem Chronic pain (67946104) Other chronic pain (G89.29) Active confirmed Problem Chronic pain syndrome (974591887) Chronic pain syndrome (G89.4) Active confirmed Problem Spinal cord disorder (38899408) Other specified diseases of spinal cord (G95.89) Active confirmed Problem Heart failure (15470625) Heart failure, unspecified (I50.9) Active confirmed Problem Emphysema (35564691) Emphysema, unspecified (J43.9) Active confirmed Problem Acute exacerbation of chronic obstructive airways disease (092285875) Chronic obstructive pulmonary disease with (acute) exacerbation (J44.1) Active confirmed Problem Chronic obstructive pulmonary disease (50934904) Chronic obstructive pulmonary disease, unspecified (J44.9) Active confirmed Problem Constipation (65856550) Constipation, unspecified (K59.00) Active confirmed Problem Pressure injury of sacral region of back stage III (disorder) (92953295463584) Pressure ulcer of sacral region, stage 3 (L89.153) Active confirmed Problem Osteomyelitis of vertebra, thoracic region (M46.24) Active confirmed Problem Oropharyngeal dysphagia (61691241) Dysphagia, oropharyngeal phase (R13.12) Active confirmed Problem Abnormal gait (36605317) Other abnormalities of gait and mobility (R26.89) Active confirmed Problem Lack of coordination (672111801) Other lack of coordination (R27.8) Active confirmed Problem Urinary incontinence (990404276) Unspecified urinary incontinence (R32) Active confirmed Problem Tracheostomy present (623987327) Tracheostomy status (Z93.0) Active confirmed Problem Dependence on supplemental oxygen (580941686399) Dependence on supplemental oxygen (Z99.81) Active confirmed Problem Generalized anxiety disorder (31804019) Anxiety, generalized (F41.1) Active confirmed Encounters Encounter Location Date Provider Diagnosis [address] [place] [address] 11/22/2024 Edy Waien Pressure ulcer of sacral region, stage 3 L89.153 ; Paraplegia, unspecified G82.20 ; Other specified diseases of spinal cord G95.89 ; Chronic obstructive pulmonary disease, unspecified J44.9 ; Major depressive disorder, single episode, unspecified F32.9 and Post-traumatic stress disorder, unspecified F43.10 [facility] [address] [address] [place] [address] 11/29/2024 Edy Waien Pressure ulcer of sacral region, stage 3 L89.153 ; Paraplegia, unspecified G82.20 ; Other specified diseases of spinal cord G95.89 ; Chronic obstructive pulmonary disease, unspecified J44.9 ; Major depressive disorder, single episode, unspecified F32.9 and Post-traumatic stress disorder, unspecified F43.10 [facility] [address] [address] [place] [address] 12/13/2024 Edy Waien Pressure ulcer of sacral region, stage 3 L89.153 ; Paraplegia, unspecified G82.20 ; Other specified diseases of spinal cord G95.89 ; Chronic obstructive pulmonary disease, unspecified J44.9 ; Major depressive disorder, single episode, unspecified F32.9 and Post-traumatic stress disorder, unspecified F43.10 [facility] [address] [address] 12/27/2024 Edy Waien Pressure ulcer of sacral region, stage 3 L89.153 ; Paraplegia, unspecified G82.20 ; Other specified diseases of spinal cord G95.89 ; Chronic obstructive pulmonary disease, unspecified J44.9 ; Major depressive disorder, single episode, unspecified F32.9 and Post-traumatic stress disorder, unspecified F43.10 [facility] and [address] [address] 01/03/2025 Edy Waien Pressure ulcer of sacral region, stage 3 L89.153 ; Paraplegia, unspecified G82.20 ; Other specified diseases of spinal cord G95.89 ; Chronic obstructive pulmonary disease, unspecified J44.9 ; Major depressive disorder, single episode, unspecified F32.9 and Post-traumatic stress disorder, unspecified F43.[address] [address] 01/17/2025 Edy Waien Pressure ulcer of sacral region, stage 3 L89.153 ; Paraplegia, unspecified G82.20 ; Other specified diseases of spinal cord G95.89 ; Chronic obstructive pulmonary disease, unspecified J44.9 ; Major depressive disorder, single episode, unspecified F32.9 and Post-traumatic stress disorder, unspecified F43.10 Assessments Encounter Date Diagnosis (ICD Code) Assessment Notes Treatment Notes Treatment Clinical Notes Section Notes 11/22/2024 Pressure ulcer of sacral region, stage 3 (ICD-10 - L89.153) [facility] and management of an unstageable pressure ulcer on her sacrum. As noted this developed during her recent hospitalization. Nursing staff have been making efforts to offload and reposition her frequently. They have been protecting the area and she has appropriate equipment such as an air mattress and cushions for her motorized wheelchair. On exam today she is afebrile and the remainder of her vital signs are reported to be within normal limits for her. We then removed the dressings and examined the wound site. The wound on her sacrum is essentially covered with an eschar and therefore was unstageable. There was no evidence of any purulent drainage, erythema surrounding the wound site or any other signs to suggest an underlying infective process. After examining the area I performed debridement of it as outlined. She tolerated the procedure well. Post debridement the wound is now a stage III pressure ulcer. Today I recommended the application of Santyl on to the wound base and covering it with a dry dressing. Staff will perform her dressing changes daily and additional changes as necessary. They will also continue to offload and reposition her frequently. I will follow-up with her next week. 11/29/2024 Pressure ulcer of sacral region, stage 3 (ICD-10 - L89.153) Today [facility] for her [facility]-up appointment. Nursing staff have made efforts to offload and reposition her frequently. They have also been making efforts to refrain from sliding her on her buttocks when transferring. They have noticed no foul odor or purulent drainage from the wound site. On exam she is reported to be afebrile, we then removed the dressings and examined the wound site. It is stable, there is evidence of devitalized tissue covering the base of the wound site which I debrided as outlined. She tolerated the procedure. I recommend we continue to apply Santyl on to the wound site and covered it with a dry dressing. Staff will perform her dressing changes daily and additional changes as necessary. They will also be offloading and repositioning her frequently. Once again I advised them to refrain from sliding her on her buttocks. I will follow-up with her next week. 12/13/2024 Pressure ulcer of sacral region, stage 3 (ICD-10 - L89.153) [facility] appointment. Nursing staff have been performing her dressing changes daily and they have also been making additional changes as necessary. In addition they have been offloading her and repositioning her frequently. On exam today she continues to have an open area on her coccyx. There is evidence of devitalized tissue covering the base of the wound site with no evidence of any purulent drainage, foul odor or any other signs to suggest an underlying infective process. After examining the area I performed debridement of it as outlined. He tolerated the procedure well. I recommend we continue to apply Santyl on to the wound base and cover it with a dry dressing. Staff will perform her dressing changes daily and they will also be monitering the site. They will also offload and reposition her frequently. I will follow-up with her next week. 12/27/2024 Pressure ulcer of sacral region, stage 3 (ICD-10 - L89.153) Today I [facility] for her follow-up appointment. Staff have been performing her dressing changes regularly. On exam today she is reported to be afebrile, we then removed the dressings and I examined the wound site. She continues to have an open area involving her coccyx. There is evidence of devitalized tissue covering the base but there is no evidence of any underlying infective process noted. After examining the area I performed debridement of it as outlined. She tolerated the procedure well. We will apply Santyl to the wound base and cover it with a dry dressing. Staff will perform her dressing changes daily and additional changes as necessary. I will follow-up with her next week. 01/03/2025 Pressure ulcer of sacral region, stage 3 (ICD-10 - L89.153) Today I [facility] for her follow-up appointment. Nursing staff have been performing her dressing changes regularly and they will also be offloading and repositioning her frequently. They report no new issues related to the wound site. On exam today she is reported to be afebrile, we then removed the dressings and I examined the wound site. She continues to have an open area on her coccyx and there is evidence of devitalized tissue covering the majority of the base. After examining the area I performed debridement of it as outlined. She tolerated the procedure well. We will continue with the use of Santyl to be applied to the wound base and the site covered with a dry dressing. She will continue to have dressing changes performed daily and additional changes as necessary. Staff will also continue to offload and reposition her frequently. I will follow-up with her next week. 01/17/2025 Pressure ulcer of sacral region, stage 3 (ICD-10 - L89.153) Today I [facility] for follow-up appointment. I last saw her 2 weeks ago. She was recently hospitalized for COVID related complications. [facility] in [facility] condition. On exam she is reported to be afebrile, we then removed the dressings and examined the wound on her coccyx. Overall the wound is stable. There was evidence of overlying devitalized tissue present. After examining the area I performed debridement of it as outlined. She tolerated the procedure well. At this time we will continue with the use of Santyl which was applied of the wound site and the site covered with a dry dressing. She will continue to have dressing changes performed daily along with additional changes as necessary. The site will be monitored. Staff will also continue to offload and reposition her frequently. I will follow-up with her next week. 01/17/2025 Paraplegia, unspecified (ICD-10 - G82.20) 01/03/2025 Paraplegia, unspecified (ICD-10 - G82.20) 12/27/2024 Paraplegia, unspecified (ICD-10 - G82.20) 12/13/2024 Paraplegia, unspecified (ICD-10 - G82.20) 11/29/2024 Paraplegia, unspecified (ICD-10 - G82.20) 11/22/2024 Paraplegia, unspecified (ICD-10 - G82.20) 11/22/2024 Other specified diseases of spinal cord (ICD-10 - G95.89) 11/29/2024 Other specified diseases of spinal cord (ICD-10 - G95.89) 12/13/2024 Other specified diseases of spinal cord (ICD-10 - G95.89) 12/27/2024 Other specified diseases of spinal cord (ICD-10 - G95.89) 01/03/2025 Other specified diseases of spinal cord (ICD-10 - G95.89) 01/17/2025 Other specified diseases of spinal cord (ICD-10 - G95.89) 01/17/2025 Chronic obstructive pulmonary disease, unspecified (ICD-10 - J44.9) 01/03/2025 Chronic obstructive pulmonary disease, unspecified (ICD-10 - J44.9) 12/27/2024 Chronic obstructive pulmonary disease, unspecified (ICD-10 - J44.9) 12/13/2024 Chronic obstructive pulmonary disease, unspecified (ICD-10 - J44.9) 11/29/2024 Chronic obstructive pulmonary disease, unspecified (ICD-10 - J44.9) 11/22/2024 Chronic obstructive pulmonary disease, unspecified (ICD-10 - J44.9) 11/22/2024 Major depressive disorder, single episode, unspecified (ICD-10 - F32.9) 11/29/2024 Major depressive disorder, single episode, unspecified (ICD-10 - F32.9) 12/13/2024 Major depressive disorder, single episode, unspecified (ICD-10 - F32.9) 12/27/2024 Major depressive disorder, single episode, unspecified (ICD-10 - F32.9) 01/03/2025 Major depressive disorder, single episode, unspecified (ICD-10 - F32.9) 01/17/2025 Major depressive disorder, single episode, unspecified (ICD-10 - F32.9) 01/17/2025 Post-traumatic stress disorder, unspecified (ICD-10 - F43.10) 01/03/2025 Post-traumatic stress disorder, unspecified (ICD-10 - F43.10) 12/27/2024 Post-traumatic stress disorder, unspecified (ICD-10 - F43.10) 12/13/2024 Post-traumatic stress disorder, unspecified (ICD-10 - F43.10) 11/29/2024 Post-traumatic stress disorder, unspecified (ICD-10 - F43.10) 11/22/2024 Post-traumatic stress disorder, unspecified (ICD-10 - F43.10) Plan Of Treatment No Information Insurance Providers Payer Name Payer Address Payer Phone Subscriber Number Group Number Insured Name Patient Relationship to Insured Coverage Start Date Coverage End Date [facility] (Medicaid) [address] [place] [id number] Nayely Ramon Self - patient is the insured Medical (General) History Medical History History ICD Code Paraplegia, unspecified G82.20 Enterovirus infection, unspecified B34.1 Acute posthemorrhagic anemia D62 Other disorders of phosphorus metabolism E83.39 Hypokalemia E87.6 Emphysema, unspecified J43.9 Pneumonitis due to inhalation of food an d vomit J69.0 Acute respiratory failure with hypoxia J 96.01 Contusion of abdominal wall, subsequent encounter S30.1XXD Unspecified foreign body in bronchus causing asphyxiation, subsequent encounter T17.500D Muscle weakness (generalized) M62.81 Other abnormalities of gait and mobility R26.89 Other lack of coordination R27.8 Abnormal posture R29.3 Pneumonia, unspecified organism J18.9 Chronic obstructive pulmonary disease wi th (acute) exacerbation J44.1 Dependence on supplemental oxygen Z99.81 Dysphagia, oropharyngeal phase R13.12 Nutritional deficiency, unspecified E63. 9 Major depressive disorder, single episod e, unspecified F32.9 Personal history of other diseases of th e digestive system Z87.19 Personal history of other (healed) physi miriam injury and trauma Z87.828 Unspecified urinary incontinence R32 Retention of urine, unspecified R33.9 Anxiety, generalized F41.1 Other specified respiratory disorders J9 8.8 Nausea R11.0 Hypotension, unspecified I95.9 Constipation, unspecified K59.00 Tracheostomy status Z93.0 Other pulmonary embolism without acute c or pulmonale I26.99 Presence of other specified devices Z97. 8 Heart failure, unspecified I50.9 Ileus, unspecified K56.7 Abdominal distension (gaseous) R14.0 Major depressive disorder, recurrent, un specified F33.9 Adjustment disorder with mixed anxiety a nd depressed mood F43.23 Other chronic pain G89.29 Post-traumatic stress disorder, unspecif ied F43.10 Opioid use, unspecified, uncomplicated F 11.90 Anxiety disorder, unspecified F41.9 Chronic pain syndrome G89.4 Other specified diseases of spinal cord G95.89 Osteomyelitis of vertebra, thoracic susana on M46.24 Bradycardia, unspecified R00.1 Chronic obstructive pulmonary disease, u nspecified J44.9 Other diseases of bronchus, not elsewher e classified J98.09 Surgical History Surgery Date(Month/Year) C6/T3 posterior spinal instrumented fusi on 06/01/2020 Cervical and thoracic spine irrigation a nd debridement 07/14/2028 IVC filter insertion with possible use o f moderate sedation 06/06/2020 percutaneous skeletal fixati on left thumb/brain proximal phalangeal fractures 06/09/2020 tracheostomy 06/25/2020 Debridement of bone, includi ng epidermis, dermis, subcutaneous tissue, fascia to cervical and thoracic spine 08/08/2019
[2025-01-30] VITALS (16 sets, daily range): BP systolic 56–117; BP diastolic 33–78; PULSE 68–84; RESP 12–22; TEMP 36.1–36.5; O2SAT 94–98; BMI 24.6
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
--- NOTE | 2025-01-30 03:57 | PC.NURSE ---
RN stood near bedside with RT suctioned pts stoma.
--- NOTE | 2025-01-30 04:09 | PC.NURSE ---
Pt is awake and alert. Answering questions appropriately. Currently hypotensive, 86/42 HR 70's with MAP 56. [place] text sent to Dr. Armendariz. No new orders at this time. Monitoring is ongoing.
--- NOTE | 2025-01-30 04:24 | PC.NURSE ---
Dr. Marcello webber text to give Midodrine 0900 dose at this time.
[2025-01-30 06:26] LABS: Alanine Aminotransferase 15 U/L (0-31); Albumin Level 2.8 g/dL (3.5-5.0); Alkaline Phosphatase 89 U/L (39-117); Anion Gap 11 (12-20); Aspartate Amino Transferase 27 U/L (5-31); Blood Urea Nitrogen 11 mg/dL (9-16); Calcium 7.5 mg/dL (8.4-10.2); Carbon Dioxide 17 mmol/L (22-29); Chloride 117 mmol/L (96-108); Creatinine Clr Calc Pharmacy 129.1; Estimated Glomerular Filt Rate > 60; Potassium 3.3 mmol/L (3.3-5.1); Sodium 142 mmol/L (135-145); Total Protein 5.8 g/dL (6.5-8.0)
--- NOTE | 2025-01-30 07:10 | PHA.PROG ---
Admission Date/Time: January 30, 2025 00:22 Indication:Respirtory Weight in k.9 kg Serum Creatinine - Last 168 Hours 01/29/25 01/30/25 20:59 05:39 Creatinine 0.46 L 0.38 L Estimated CrCl and GFR - Last 168 Hours 01/29/25 01/30/25 20:59 05:39 Estim Creat Clear Calc 106.7 129.1 Estimated GFR > 60 > 60 Vancomycin Loading Dose: 1,500 Current Vancomycin Dosing Regimen: 1,000 q8h Vancomycin Monitoring using AUC goal of 400 - 600 range with trough as surrogate marker: 560, predicted trough 16.6 Date and Time for next Vancomycin Level to be drawn: 01/30 @ 2100 Pharmacist Comments on Vancomycin Plan: Vancomycin dosing will take advantage of [employer] as a clinical decision support tool that uses Bayesian modeling to calculate individual patient's pharmacokinetic parameters and forecast the patient's drug concentration time course with the target goal AUC 24 range of 400 - 600 mg/L/hr.
[2025-01-30] MEDS: 0.9 % Sodium Chloride Flush 3 ML SYRINGE IVFLUSH (08:16)
--- NOTE | 2025-01-30 09:30 | MHC.CM.PN ---
Plan is for Patient to return to LTC @ [facility] via BLS; Patient is a [facility] bed hold.CM has asked SNF to fax a copy of the HCP to CM. CM has initiated and will follow for dc planning.
--- NOTE | 2025-01-30 10:46 | PC.NURSE ---
Pt incontinent of urine, álvaro care provided and linens changed. Pt transferred over to hospital bed for comfort and to assist with wound healing/prevention. Pt deep suctioned through stoma x 3 with scant thick mckoy secretions obtained. Call berumen within reach.
--- NOTE | 2025-01-30 11:03 | PHA.MEDREC ---
Addendum entered by Paulina Beauchamp RPh 01/30/25 11:39: MED REC REVIEWED BY [facility] Original Note: Pharmacy Consult ? Medication Reconciliation Pharmacy has completed the medication reconciliation. Utilized list from [facility] and [facility].
[2025-01-30] MEDS: guaiFENesin LA 600 MG TAB.ER.12H 1200 MG PO ×2 (12:48→22:49)
[2025-01-30] MEDS: oxyCODONE HCl Immed Release 5 MG TABLET PO (12:48)
--- NOTE | 2025-01-30 13:03 | PC.NURSE ---
Speech eval at bedside.
--- NOTE | 2025-01-30 16:12 | PM.EVENT ---
Event Note Date of Service: 01/30/25 Event Note: Chart reviewed patient examined. Agree with H&P and assessment and plan as outlined Time Spent With Patient Time: Total time managing care of this patient today ____ minutes.
[2025-01-31] VITALS (33 sets, daily range): BP systolic 62–151; BP diastolic 31–92; PULSE 74–125; RESP 12–25; TEMP 36.1–36.6; O2SAT 89–96; BMI 24.6
[2025-01-31] MEDS: Lactated Ringers 500 ML 999 ML IV ×2 (03:46→13:19)
[2025-01-31] MEDS: Albumin Human 25 % 50 ML 100 ML IV ×2 (04:10→04:41)
[2025-01-31 05:22] LABS: MANUAL DIFF FLAG NO
[2025-01-31 05:24] LABS: Venous Blood Gas Refer to POC result
[2025-01-31 05:29] LABS: VBG HCO3 9 mmol/L (22-26); VBG O2 % Saturation 99.0 %
--- NOTE | 2025-01-31 05:34 | PC.NURSE ---
Pt BP 62/42, MD Armendariz priority tiger texted. Pt with low MAP throughout shift. Pt placed in trendelenberg position. MD Armendariz and nursing histology supervisor Rut to bedside. Pedal and posterior tib pulses very weak with doppler. 20g US guided IV placed in L arm. 500mL LR bolus, 10mg midodrine PO, and total of 100mL 25% albumin ordered and administered.
[2025-01-31 05:43] LABS: Alanine Aminotransferase 17 U/L (0-31); Albumin Level 3.5 g/dL (3.5-5.0); Alkaline Phosphatase 84 U/L (39-117); Anion Gap 19 (12-20); Aspartate Amino Transferase 27 U/L (5-31); Blood Urea Nitrogen 5 mg/dL (9-16); Blood Urea Nitrogen 6 mg/dL (9-16); Calcium 8.4 mg/dL (8.4-10.2); Calcium 8.5 mg/dL (8.4-10.2); Carbon Dioxide 11 mmol/L (22-29); Carbon Dioxide 12 mmol/L (22-29); Chloride 111 mmol/L (96-108); Chloride 112 mmol/L (96-108); Creatinine Clr Calc Pharmacy 130.1; Estimated Glomerular Filt Rate > 60; Potassium 3.2 mmol/L (3.3-5.1); Sodium 139 mmol/L (135-145); Total Protein 6.4 g/dL (6.5-8.0)
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
[2025-01-31] MEDS: Lactated Ringers 1,000 ML 999 ML IV (06:31)
--- NOTE | 2025-01-31 06:32 | PC.NURSE ---
Patient arrived to ICU from Med/Tele d/t hypotension. She arrived with systolic in the 90's, started on 0.05 Levophed, blood pressure currently 126/40. SR on tele with a h.r of 90. Titrated oxygen down d/t COPD history, currently on 5L oxymask with a oxygen sat of 91%. Covering physician states goal of oxygen 88-92%/ Patient is alert/oriented, soft spoken, paraplegia with wounds. Wound back of neck covered by dressing from old surgical wound and stage 3 to coccyx. [place] foams to heels for protection. Purewick in place d/t incontinence. One liter IV fluid bolus ordered and in the process of infusing. All immediate needs and safety concerns addressed, report given to oncoming RN.
[2025-01-31 07:16] LABS: Hematocrit 31.0 % (37.0-47.0); Hemoglobin 9.8 g/dl (12.0-16.0); Imm Gran Abs Auto 0.08 X10*3/uL (0.00-0.03); Imm Gran Pct Auto 1.5 % (0.0-0.4); Lymphocytes Absolute Auto 0.7 X10*3/uL (1.2-4.9); Mean Corpuscular HGB Conc 31.6 g/dl (31.0-35.0); Mean Corpuscular Hemoglobin 28.2 pg (27.0-33.0); Mean Corpuscular Volume 89.3 fL (80.0-98.0); NRBC Abs Auto 0.000 X10*3/uL (0.0-0.012); NRBC Pct Auto 0.0 /100WBC (0.0-0.2); Platelet Count 183 X10*3/uL (160-400); Red Blood Count 3.47 X10*6/uL (4.20-5.50); White Blood Count 5.5 X10*3/uL (4.8-10.8)
[2025-01-31] MEDS: Lactated Ringers 1,000 ML 100 ML IVCONT ×2 (07:49→13:24)
[2025-01-31] MEDS: Potassium Chloride/H20 10 MEQ/100 ML PIGGYBACK 100 MEQ IV ×4 (07:50→11:12)
[2025-01-31] MEDS: 0.9 % Sodium Chloride Flush 3 ML SYRINGE IVFLUSH ×3 (07:50→23:08)
[2025-01-31] MEDS: Aspirin Enteric Coated 81 MG TABLET.DR PO (09:25)
--- NOTE | 2025-01-31 10:07 | HE.PHANOTE ---
Re: Vanco Trough returned 01/30 @ 2100: 30. Dose held, Trough 01/31 @ 0800: 20.4. Stable renal. Dose held until 1400, 1,250mg q24h with predicted trough 499, and predicted trough 12.5. Next trough 02/01 @ 1200.
--- NOTE | 2025-01-31 11:10 | PM.CCN ---
Critical Care Event Note Summary Date of Service: 01/31/25 Code activated: Yes Narrative: This case had a high probability of a clinically significant, sudden, or life threatening deterioration of this patient's condition which required my full and direct attention, intervention and personal management. Critical Care Time (minutes): 30 Comment: Saw the patient myself after reviewing labs and x-rays and bedside echo that I did indicating normal LV and RV size and function no primary valve or pericardial disease and inferior vena cava was flat and collapsed with inspiration indicating room for volume in the hopes of minimizing vasopressors
--- NOTE | 2025-01-31 11:39 | MHC.CLN ---
CONSULT PT WITH INCREASED NUTRITION RISK R/T PRESSURE INJURY REGULAR DIET RECOMMEND ADDING ENSURE BID TO PROMOTE WOUND HEALING SUPP TO PROVIDE 700KCALS, 40G PROTEIN MONITOR PO INTAKE AND ENCOURAGE SUPPLEMENTS SEE FULL CLINICAL NUTRITION ASSESSMENT
--- NOTE | 2025-01-31 11:53 | HO.SKINPHOTO ---
Location: Coccyx Category: Pressure Stage: III Location: Upper Back
--- NOTE | 2025-01-31 14:21 | MHC.CM.PN ---
Pt receiving care in ICU for aspiration pna: pt is a LTC resident and bedhold at [facility] and will return when medically stable. CM to follow
--- NOTE | 2025-01-31 14:49 | MHC.SLORD ---
Speech Language Pathology Order Status: Attempted to see patien this p.m. for clinical swallow assessment in ICU. Patient lethargic, c/o too sleepy not appropriate for assessment today. Patient has been put on Regular diet with thin liquids, which is her baseline, RN reports taking medication in puree with no difficulties. HOT PUNCH PRESS OPERATOR will re-attempt swallow assessment 02/01/25.
--- NOTE | 2025-01-31 16:37 | ECG_ITS ---
Test Reason : Tachycardia Blood Pressure : */* mmHG Vent. Rate : 107 BPM Atrial Rate : 107 BPM P-R Int : 170 ms QRS Dur : 76 ms QT Int : 344 ms P-R-T Axes : 77 38 57 degrees QTcB Int : 459 ms Sinus tachycardia Low voltage QRS Borderline ECG When compared with ECG of 29-Jan-2025 21:14, Nonspecific T wave abnormality no longer evident in Anterior leads Referred By: Rashel Bullock Electronically Signed By: ANNA IVAN MD
[2025-01-31] MEDS: Albuterol Sulfate 2.5 MG, Albuterol Sulfate (0.083%) 2.5 MG 5 MG INHALE (17:09)
[2025-01-31] MEDS: Hydrocortisone Sod Succ/PF 100 MG VIAL IVPUSH (17:19)
--- NOTE | 2025-01-31 18:27 | PC.NURSE ---
Assumed care at 0700- pt. currently on norepinephrine gtt, see MAR for titrations. Pt. A&Ox4, soft-spoken and vague at times, follows commands. BLE flaccid, BUE with limited ROM and contractures. Pt. SR/ST on tele, HR 70s-100s. Purewick in place draining cyu. Wound care performed and DSGs changed- see skin note. At approx 1600 pt. became SOB, O2 sats sustaining low 80s, HR up to 130s, and elevated SBPs 140-170s. MD notified and at bedside- suctioning through open stoma performed x4 for mod. amt. thick mckoy sputum. CXR and EKG performed- see reports. LR held per MD, Pt. given solu-cortef and albuterol nebs per SEP. Currently pt. comfortable, no c/o SOB, HR 108, RR 17, O2 sat 91% on 8L Oxymask. Q2 repositioning performed. Plan of care ongoing.
[2025-01-31 18:39] LABS: MRSA Nasal PCR NEGATIVE (Negative); SA Nasal PCR NEGATIVE (Negative)
--- NOTE | 2025-01-31 20:00 | HE.PHANOTE ---
Spoke with Vinicius due to change in antibiotics. Patient had allergic reaction, unknown the exact medications as patient had both Levaquin and Cefepime close together. Patient has penicillin allergy list, therefore it is likely that cefepime was the issue as pencillin and cephalosporin have similar structure. While the chance of cross reactivity of cefepime with pencillin allergy is low, it can be possible. Informed Vinicius, that meropenem also has a very small risk for cross reacitivty with penicillin allergy. While Meropenem is infusing nurses to monitor for possible reactions. Lamar Merida, NancyD
[2025-01-31] MEDS: guaiFENesin LA 600 MG TAB.ER.12H 1200 MG PO (20:13)
[2025-01-31 20:18] LABS: VBG HCO3 11 mmol/L (22-26); VBG O2 % Saturation 100.0 %
[2025-01-31 20:19] LABS: Venous Blood Gas Refer to POC result
[2025-01-31 20:35] LABS: Anion Gap 21 (12-20); Blood Urea Nitrogen 3 mg/dL (9-16); Calcium 9.4 mg/dL (8.4-10.2); Carbon Dioxide 12 mmol/L (22-29); Chloride 109 mmol/L (96-108); Creatinine Clr Calc Pharmacy 115.9; Estimated Glomerular Filt Rate > 60; Magnesium 1.4 mg/dL (1.6-2.6); Potassium 3.8 mmol/L (3.3-5.1); Sodium 138 mmol/L (135-145)
[2025-01-31] MEDS: Magnesium Sulfate/H2O 2 GM/50 ML PIGGYBACK IV (20:45)
[2025-01-31] MEDS: Potassium Phosphate/NS 15 MMOL/250 ML PLAST..BAG 62.5 MMOL IV (20:46)
[2025-02-01] VITALS (34 sets, daily range): BP systolic 75–142; BP diastolic 28–78; PULSE 78–106; RESP 14–27; TEMP 36.3–38.5; O2SAT 90–97
[2025-02-01 04:37] LABS: VBG HCO3 14 mmol/L (22-26); VBG O2 % Saturation 98.0 %
[2025-02-01 04:38] LABS: Venous Blood Gas Refer to POC result
[2025-02-01 04:54] LABS: MANUAL DIFF FLAG NO
[2025-02-01 04:56] LABS: Hematocrit 34.7 % (37.0-47.0); Hemoglobin 11.1 g/dl (12.0-16.0); Imm Gran Abs Auto 0.07 X10*3/uL (0.00-0.03); Imm Gran Pct Auto 1.6 % (0.0-0.4); Lymphocytes Absolute Auto 0.7 X10*3/uL (1.2-4.9); Mean Corpuscular HGB Conc 32.0 g/dl (31.0-35.0); Mean Corpuscular Hemoglobin 27.8 pg (27.0-33.0); Mean Corpuscular Volume 86.8 fL (80.0-98.0); NRBC Abs Auto 0.000 X10*3/uL (0.0-0.012); NRBC Pct Auto 0.0 /100WBC (0.0-0.2); Platelet Count 215 X10*3/uL (160-400); Red Blood Count 4.00 X10*6/uL (4.20-5.50); White Blood Count 4.4 X10*3/uL (4.8-10.8)
[2025-02-01 05:16] LABS: Albumin Level 3.7 g/dL (3.5-5.0); Anion Gap 19 (12-20); Blood Urea Nitrogen < 3 mg/dL (9-16); Calcium 9.0 mg/dL (8.4-10.2); Carbon Dioxide 15 mmol/L (22-29); Chloride 110 mmol/L (96-108); Creatinine Clr Calc Pharmacy 111.0; Estimated Glomerular Filt Rate > 60; Magnesium 2.1 mg/dL (1.6-2.6); Potassium 3.5 mmol/L (3.3-5.1); Sodium 140 mmol/L (135-145)
[2025-02-01] MEDS: Potassium Phosphate/NS 15 MMOL/250 ML PLAST..BAG 62.5 MMOL IV (08:18)
[2025-02-01] MEDS: 0.9 % Sodium Chloride Flush 3 ML SYRINGE IVFLUSH ×3 (08:18→23:07)
[2025-02-01] MEDS: guaiFENesin LA 600 MG TAB.ER.12H 1200 MG PO ×2 (08:19→21:03)
[2025-02-01] MEDS: Aspirin Enteric Coated 81 MG TABLET.DR PO (08:19)
--- NOTE | 2025-02-01 12:35 | MHC.CLN ---
F/U PT WITH INCREASED NUTRITION RISK R/T PRESSURE INJURY REGULAR DIET ENSURE BID TO PROMOTE WOUND HEALING SUPP TO PROVIDE 700KCALS, 40G PROTEIN MONITOR PO INTAKE AND ENCOURAGE SUPPLEMENTS
--- NOTE | 2025-02-01 14:23 | MHC.SL.SWA ---
Speech Pathologist Impression: Risk of Aspiration Due to: Open stoma Dysphasia Diet Status: Continue on REGULAR diet, THIN liquids, Pills whole with puree. Continue 1-1 feed. Encourage patient to participate in electing food preferences from regular menu. Liquid Consistency and Strategies for Safe Swallow: Liquid Intake Recommendation: Thin Liquid Intake Strategies: Solid Food Consistency: Dietary Recommendations: Regular Additional Modifications to Solid Foods: MERCHANDISE PLANNING MANAGER to f/u 1x to monitor Oral Medication Intake: Whole with Puree Please contact the pharmacy regarding appropriate crushable or liquid drug formulations that are available whenever modified delivery is recommended. Compensatory Strategies and Precautions to be Taken for Safe Swallow: Supervision While Eating and Drinking for Safe Swallow: Total Assistance (1:1) Foods to Avoid: Tough, difficult to chew solids. Swallowing Recommended Treatments: Recommendation for Speech: Comment: Patient is at risk for aspiration due to open airway/stoma, however presents with swallow that is otherwise mostly WFL (reduced laryngeal elevation evident on this assessment). Patient at baseline was on Regular diet with Thin liquids, pills whole with puree, which she is recommended to continue on. Patient has history of tolerating this diet well, though she is vulnerable to respiratory infection and at risk for aspiration due to open stoma. Patient requires 1-1 feeding and careful positioning at all meals to assure she is adequately seated upright and breathing/stoma is unobstructed. , RN notified of recommendations in person. MERCHANDISE PLANNING MANAGER will continue to follow while inpatient. Frequency/Duration: Date Range for Service Req: Timeline to reassess: Clinical Informatics Specialist Clinican/Clinical Fellow: No Supervisory Statement: I have reviewed and agree with the student/clinical fellow's documentation: N/A Speech Language Pathologist: Zahida Montano M.A., [facility]-MERCHANDISE PLANNING MANAGER
--- NOTE | 2025-02-01 18:35 | PC.NURSE ---
Assumed care at 0700- pt. remains on norepinephrine gtt, unable to wean off- see EMAR for titrations. Pt. A&Ox4, makes needs known. SR/ST on tele, HR 80s-100s. O2 weaned to 3L nj, Sats >92%. Stoma suctioned x1 by RT for thick cream sputum. Pt. incontinent of stool x1, purewick in place draining CYU. Q2 oral care and repositioning performed. Plan of care ongoing.
--- NOTE | 2025-02-01 18:37 | PM.CCPN ---
Subjective Subjective Date of Service: 02/01/25 Interval History: 59-year-old paraplegic status post spinal injury bed ridden and has a gradually closing tracheal stoma tends to come in with repeated lung infections and this time septic hypotensive transferred here still has a need for very minimal amount of Levophed but she is at typical disorder anemic individual where she is hypersensitive to the Levophed and to its withdrawal as well so her normal pressures on the average or probably between 80 and 90 if we can achieve that to a stable degree but she is in normal sinus rhythm afebrile excellent oxygen saturations resolving very nicely metabolically the no from all her systemic inflammatory response issues acidosis completely resolving and I am hoping as a result of that she will be less sensitive to swings in blood pressure so she remains only because of the small maintenance Levophed Critical Care Time (minutes): 30 Physical Exam Vital Signs: Vital Signs: Last Vital Signs Temp 98.3 F 02/01/25 16:00 Pulse 90 02/01/25 18:07 Resp 27 H 02/01/25 18:00 BP 80/44 L 02/01/25 18:07 Pulse Ox 92 02/01/25 18:00 O2 Del Method Nasal Cannula 02/01/25 18:00 O2 Flow Rate 3 02/01/25 18:00 Oxygen Flow Rate 15 01/29/25 20:36 BMI result Body Mass Index 24.6 Awake and alert no symptoms Skin clear no rash Chest clear to auscultation Abdomen soft no organomegaly nontender Cardiac exam no gallops no murmurs Objective Data Labs 02/02/25 04:10 02/02/25 04:10 Labs: Laboratory Results - last 24 hr 01/31/25 01/31/25 01/31/25 13:28 20:04 20:14 WBC RBC Hgb Hct MCV MCH MCHC RDW Plt Count MPV Immature Gran % (Auto) Neut % (Auto) Lymph % (Auto) [place] % (Auto) Eos % (Auto) Baso % (Auto) Lymph # (Auto) [place] # (Auto) Eos # (Auto) Baso # (Auto) Abs Immat Gran (auto) Absolute Neuts (auto) Absolute Nucleated RBC Nucleated RBC % (auto) VBG pH 7.25 L VBG pCO2 24 VBG pO2 206 VBG HCO3 11 L VBG O2 Saturation 100.0 VBG Base Excess -13.9 Sodium 138 Potassium 3.8 Chloride 109 H Carbon Dioxide 12 L Anion Gap 21 H BUN 3 L Creatinine 0.46 L Estim Creat Clear Calc 115.9 Estimated GFR > 60 Random Glucose 95 Calcium 9.4 D Phosphorus 1.7 L Magnesium 1.4 L* Albumin Nasal Screen MRSA (PCR) NEGATIVE Nasal S. aureus Screen NEGATIVE Nasal MRSA/S.aureus Interp SEE NOTE 02/01/25 02/01/25 04:26 04:33 WBC 4.4 L RBC 4.00 L Hgb 11.1 L Hct 34.7 L MCV 86.8 MCH 27.8 MCHC 32.0 RDW 17.5 H Plt Count 215 MPV 10.9 Immature Gran % (Auto) 1.6 H Neut % (Auto) 75.1 H Lymph % (Auto) 15.8 L [place] % (Auto) 7.1 Eos % (Auto) 0.2 Baso % (Auto) 0.2 Lymph # (Auto) 0.7 L [place] # (Auto) 0.3 Eos # (Auto) 0.0 Baso # (Auto) 0.0 Abs Immat Gran (auto) 0.07 H Absolute Neuts (auto) 3.3 Absolute Nucleated RBC 0.000 Nucleated RBC % (auto) 0.0 VBG pH 7.31 L VBG pCO2 27 VBG pO2 137 VBG HCO3 14 L VBG O2 Saturation 98.0 VBG Base Excess -10.6 Sodium 140 Potassium 3.5 Chloride 110 H Carbon Dioxide 15 L Anion Gap 19 BUN < 3 L Creatinine 0.48 L Estim Creat Clear Calc 111.0 Estimated GFR > 60 Random Glucose 97 Calcium 9.0 Phosphorus 2.0 L Magnesium 2.1 Albumin 3.7 Nasal Screen MRSA (PCR) Nasal S. aureus Screen Nasal MRSA/S.aureus Interp Microbiology Microbiology Results: Microbiology 01/29/25 21:30 Sputum - Suctioned Gram Stain - Final 01/29/25 21:30 Sputum - Suctioned Sputum Culture - Final Enterobacter cloacae complex Proteus mirabilis 01/29/25 21:22 Blood - Venous Blood Culture - Preliminary No growth after 48 hours. 01/29/25 20:59 Blood - Venous Blood Culture - Preliminary No growth after 48 hours. Progress Note: A&P Assessment and plan (1) Acute hypotension: Status: Acute (2) SIRS (systemic inflammatory response syndrome): Status: Acute (3) History of pulmonary embolism: Status: Acute (4) Tracheostomy in place: Status: Chronic (5) COVID: Status: Acute (6) Acute and chronic respiratory failure with hypoxia: Status: Acute (7) Pneumonia: Status: Acute (8) COPD exacerbation: Status: Acute (9) Chronic pulmonary aspiration: Status: Acute (10) Aspiration pneumonia: Status: Acute (11) Anaphylaxis: Status: Acute Plan So just note well that she had what appeared to be an anaphylactic reaction with acute dyspnea and diffuse like the erythroderma reaction mostly to upper body and face with marked respiratory distress diaphragmatic breathing drop sat oxygen to 80% at oxygen saturation and after Solu-Cortef she started to resolve gradually and this was right after IV Levaquin was infused and just prior to that she received cefepime so with her penicillin allergy I would be wary of both cephalosporins as well as quinolones which he is doing well and with the resolution of her metabolic acidosis I am hoping we can get her off the Levophed Quality Stroke Does the patient have a stroke diagnosis?: No VTE Prior VTE?: No VTE Risk Level:: Medical - moderate - high VTE Device Contraindication: N/A - Device Ordered VTE Drug Contraindication: Treatment Not Indicated
[2025-02-01] MEDS: oxyCODONE HCl Immed Release 5 MG TABLET PO (20:46)
[2025-02-02] VITALS (27 sets, daily range): BP systolic 81–131; BP diastolic 44–73; PULSE 74–106; RESP 13–22; TEMP 36.5–37.2; O2SAT 91–95; BMI 24.2
[2025-02-02 04:33] LABS: VBG HCO3 27 mmol/L (22-26); VBG O2 % Saturation 92.0 %
[2025-02-02 05:00] LABS: MANUAL DIFF FLAG NO
[2025-02-02 05:06] LABS: Hematocrit 37.3 % (37.0-47.0); Hemoglobin 12.4 g/dl (12.0-16.0); Imm Gran Abs Auto 0.10 X10*3/uL (0.00-0.03); Imm Gran Pct Auto 1.6 % (0.0-0.4); Lymphocytes Absolute Auto 1.5 X10*3/uL (1.2-4.9); Mean Corpuscular HGB Conc 33.2 g/dl (31.0-35.0); Mean Corpuscular Hemoglobin 27.6 pg (27.0-33.0); Mean Corpuscular Volume 82.9 fL (80.0-98.0); NRBC Abs Auto 0.000 X10*3/uL (0.0-0.012); NRBC Pct Auto 0.0 /100WBC (0.0-0.2); Platelet Count 244 X10*3/uL (160-400); Red Blood Count 4.50 X10*6/uL (4.20-5.50); White Blood Count 6.2 X10*3/uL (4.8-10.8)
[2025-02-02 05:29] LABS: Albumin Level 3.7 g/dL (3.5-5.0); Anion Gap 15 (12-20); Blood Urea Nitrogen 4 mg/dL (9-16); Calcium 9.3 mg/dL (8.4-10.2); Carbon Dioxide 23 mmol/L (22-29); Chloride 109 mmol/L (96-108); Creatinine Clr Calc Pharmacy 133.3; Estimated Glomerular Filt Rate > 60; Magnesium 2.0 mg/dL (1.6-2.6); Potassium 3.6 mmol/L (3.3-5.1); Sodium 143 mmol/L (135-145)
[2025-02-02] MEDS: Potassium Phosphate/NS 15 MMOL/250 ML PLAST..BAG 62.5 MMOL IV ×2 (05:56→10:21)
--- NOTE | 2025-02-02 06:16 | PC.NURSE ---
Assumed care at 1900. Patient is alert and oriented x4, soft spoken and pleasant. Patient's BUE are contracted and limited in ROM, BLE flaccid. SR on tele, HR 70s-80s. Levophed gtt continues?for BP support. Lung sounds diminished, maintaining saturation on 3L NC, SpO2 goal 88-92%. Residual stoma from previous trach cleaned and suctioned for thick cream sputum. Abdomen soft and round, active bowel sounds x4. Purewick in place draining clear concentrated urine. 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 Patient repositioned Q2HR, bed locked in lowest position, call berumen within reach.?
[2025-02-02 06:38] LABS: Venous Blood Gas Refer to POC result
--- NOTE | 2025-02-02 07:43 | P.PNCC_ITS ---
Subjective Subjective Date of Service: 02/02/25 Interval History: 59-year-old female paraplegic from spinal injury and bed ridden with a closing tracheostomy stoma came in with 1 of multiple episodes of pneumonia which has been a presumptive aspiration picture but she had SIRS as a result and hypotensive requiring Levophed temporarily and she had a profound lactic acidosis which is now very much resolved but remains on a small dose of Levophed because of her persistent dysautonomia and she had 1 episode of anaphylaxis following it was either Levaquin or cefepime so both of those should be listed as allergy and she responded to hydrocortisone and and has been doing very well Critical Care Time (minutes): 30 Physical Exam 2 Vital Signs: Vital Signs: Last Vital Signs Temp 98.6 F 02/02/25 03:59 Pulse 84 02/02/25 07:00 Resp 15 02/02/25 07:00 BP 118/61 02/02/25 07:00 Pulse Ox 92 02/02/25 07:00 O2 Del Method Nasal Cannula 02/02/25 06:00 O2 Flow Rate 3 02/02/25 07:00 Oxygen Flow Rate 15 01/29/25 20:36 BMI result Body Mass Index 24.2 Awake alert Skin is intact Lungs clear Abdomen benign Cardiac exam by bedside echo with normal LV and RV function Objective Data Labs 02/02/25 04:10 02/02/25 04:10 Labs: Laboratory Results - last 24 hr 02/02/25 02/02/25 04:10 04:29 WBC 6.2 RBC 4.50 Hgb 12.4 Hct 37.3 MCV 82.9 MCH 27.6 MCHC 33.2 RDW 17.3 H Plt Count 244 MPV 11.5 Immature Gran % (Auto) 1.6 H Neut % (Auto) 55.4 Lymph % (Auto) 25.0 [place] % (Auto) 12.5 H Eos % (Auto) 4.9 H Baso % (Auto) 0.6 Lymph # (Auto) 1.5 [place] # (Auto) 0.8 Eos # (Auto) 0.3 Baso # (Auto) 0.0 Abs Immat Gran (auto) 0.10 H Absolute Neuts (auto) 3.4 Absolute Nucleated RBC 0.000 Nucleated RBC % (auto) 0.0 VBG pH 7.50 H VBG pCO2 34 VBG pO2 68 VBG HCO3 27 H VBG O2 Saturation 92.0 VBG Base Excess 4.3 Sodium 143 Potassium 3.6 Chloride 109 H Carbon Dioxide 23 Anion Gap 15 BUN 4 L Creatinine 0.40 L Estim Creat Clear Calc 133.3 Estimated GFR > 60 Random Glucose 99 Calcium 9.3 Phosphorus 1.0 L* Magnesium 2.0 Albumin 3.7 Microbiology Microbiology Results: Microbiology 01/29/25 21:30 Sputum - Suctioned Gram Stain - Final 01/29/25 21:30 Sputum - Suctioned Sputum Culture - Final Enterobacter cloacae complex Proteus mirabilis 01/29/25 21:22 Blood - Venous Blood Culture - Preliminary No growth after 48 hours. 01/29/25 20:59 Blood - Venous Blood Culture - Preliminary No growth after 48 hours. Progress Note: A&P Assessment and plan (1) SIRS (systemic inflammatory response syndrome): Status: Acute (2) Chronic pulmonary aspiration: Status: Acute (3) COPD exacerbation: Status: Acute (4) Pneumonia: Status: Acute (5) Acute and chronic respiratory failure with hypoxia: Status: Acute (6) Aspiration pneumonia: Status: Acute (7) COVID: Status: Acute (8) History of pulmonary embolism: Status: Acute (9) Acute hypotension: Status: Acute (10) Tracheostomy in place: Status: Chronic Plan So plan is to work on weaning the last drop of Levophed She otherwise is eating well and the pulmonary toileting through suctioning via the tracheostomy being performed by respiratory Quality Stroke Does the patient have a stroke diagnosis?: No VTE Prior VTE?: No VTE Risk Level:: Medical - moderate - high VTE Device Contraindication: N/A - Device Ordered VTE Drug Contraindication: Treatment Not Indicated
[2025-02-02] MEDS: guaiFENesin LA 600 MG TAB.ER.12H 1200 MG PO ×2 (09:00→20:15)
[2025-02-02] MEDS: 0.9 % Sodium Chloride Flush 3 ML SYRINGE IVFLUSH ×3 (09:00→23:08)
[2025-02-02] MEDS: Aspirin Enteric Coated 81 MG TABLET.DR PO (09:01)
[2025-02-03] VITALS (17 sets, daily range): BP systolic 91–119; BP diastolic 51–87; PULSE 72–95; RESP 14–25; TEMP 36.1–36.7; O2SAT 90–95; BMI 24.3
[2025-02-03 04:20] LABS: VBG HCO3 28 mmol/L (22-26); VBG O2 % Saturation 95.0 %
[2025-02-03 04:47] LABS: MANUAL DIFF FLAG NO
[2025-02-03 04:49] LABS: Hematocrit 36.6 % (37.0-47.0); Hemoglobin 12.4 g/dl (12.0-16.0); Imm Gran Abs Auto 0.10 X10*3/uL (0.00-0.03); Imm Gran Pct Auto 1.6 % (0.0-0.4); Lymphocytes Absolute Auto 1.7 X10*3/uL (1.2-4.9); Mean Corpuscular HGB Conc 33.9 g/dl (31.0-35.0); Mean Corpuscular Hemoglobin 28.2 pg (27.0-33.0); Mean Corpuscular Volume 83.4 fL (80.0-98.0); NRBC Abs Auto 0.000 X10*3/uL (0.0-0.012); NRBC Pct Auto 0.0 /100WBC (0.0-0.2); Platelet Count 239 X10*3/uL (160-400); Red Blood Count 4.39 X10*6/uL (4.20-5.50); White Blood Count 6.3 X10*3/uL (4.8-10.8)
--- NOTE | 2025-02-03 04:50 | PM.EVENT ---
Event Note Date of Service: 02/03/25 Event Note: Patient has history of autonomic dysfunction, chronically on midodrine. MAP goal should be >60 Time Spent With Patient Time: Total time managing care of this patient today ____ minutes.
[2025-02-03 05:09] LABS: Alanine Aminotransferase 13 U/L (0-31); Albumin Level 3.5 g/dL (3.5-5.0); Alkaline Phosphatase 104 U/L (39-117); Anion Gap 14 (12-20); Aspartate Amino Transferase 26 U/L (5-31); Blood Urea Nitrogen 6 mg/dL (9-16); Calcium 9.2 mg/dL (8.4-10.2); Carbon Dioxide 26 mmol/L (22-29); Chloride 107 mmol/L (96-108); Creatinine Clr Calc Pharmacy 136.3; Estimated Glomerular Filt Rate > 60; Magnesium 1.9 mg/dL (1.6-2.6); Potassium 3.6 mmol/L (3.3-5.1); Sodium 143 mmol/L (135-145); Total Protein 6.9 g/dL (6.5-8.0)
[2025-02-03 05:34] LABS: Venous Blood Gas Refer to POC result
--- NOTE | 2025-02-03 05:37 | PM.CCPN ---
Subjective Subjective Date of Service: 02/03/25 Interval History: 59-year-old female status post spinal injury resulting in paraplegia and has remained bed ridden and has always displayed significant dysautonomia with orthostatic blood pressure changes and has presented with repeated sepsis this time included and it is in pneumonia and has been a presumptive etiology of aspiration and currently today she is growing Enterobacter and Proteus species which would make you wonder if it it is a could be an aspiration but in addition she has a closing in tracheal stoma through which we have been able to in 0 2 suction her I have had her on meropenem and both organisms are sensitive to that drug and she defervesced beautifully because when she presented she had profound lactate and elevation significant of course anion gap positive metabolic acidosis obviously all the metabolic issues have resolved with which I think her peripheral venous tone has improved and we are currently off the Levophed altogether and were holding at about blood pressure 100/52 normal sinus rhythm EKG with normal QT interval besides some of the medications she is on I decided to stop the quetiapine because the no of some of its peripheral outflow blocking effects and orthostatic contribution Critical Care Time (minutes): 30 Physical Exam Vital Signs: Vital Signs: Last Vital Signs Temp 97.1 F 02/03/25 04:00 Pulse 89 02/03/25 05:00 Resp 18 02/03/25 05:00 BP 91/57 L 02/03/25 05:00 Pulse Ox 90 L 02/03/25 05:00 O2 Del Method Nasal Cannula 02/03/25 05:00 O2 Flow Rate 1 02/03/25 05:00 FiO2 25 02/02/25 08:00 Oxygen Flow Rate 15 01/29/25 20:36 BMI result Body Mass Index 24.2 Awake alert Skin intact with no rashes Abdomen soft with no organomegaly Chest with ever diminishing bilateral rales Cardiac exam normal S1 normal S2 no gallops murmurs and normal LV and RV function by echo Objective Data Labs 02/03/25 04:13 02/03/25 04:13 Labs: Laboratory Results - last 24 hr 02/03/25 02/03/25 04:13 04:14 WBC 6.3 RBC 4.39 Hgb 12.4 Hct 36.6 L MCV 83.4 MCH 28.2 MCHC 33.9 RDW 17.6 H Plt Count 239 MPV 11.0 Immature Gran % (Auto) 1.6 H Neut % (Auto) 55.8 Lymph % (Auto) 26.7 [place] % (Auto) 9.6 Eos % (Auto) 5.5 H Baso % (Auto) 0.8 Lymph # (Auto) 1.7 [place] # (Auto) 0.6 Eos # (Auto) 0.4 Baso # (Auto) 0.1 Abs Immat Gran (auto) 0.10 H Absolute Neuts (auto) 3.5 Absolute Nucleated RBC 0.000 Nucleated RBC % (auto) 0.0 VBG pH 7.53 H VBG pCO2 34 VBG pO2 81 VBG HCO3 28 H VBG O2 Saturation 95.0 VBG Base Excess 6.3 Sodium 143 Potassium 3.6 Chloride 107 Carbon Dioxide 26 Anion Gap 14 BUN 6 L Creatinine 0.36 L Estim Creat Clear Calc 136.3 Estimated GFR > 60 Random Glucose 90 Calcium 9.2 Phosphorus 1.6 L Magnesium 1.9 Total Bilirubin 0.5 AST 26 ALT 13 Alkaline Phosphatase 104 Total Protein 6.9 Albumin 3.5 Microbiology Microbiology Results: Microbiology 01/29/25 21:30 Sputum - Suctioned Gram Stain - Final 01/29/25 21:30 Sputum - Suctioned Sputum Culture - Final Enterobacter cloacae complex Proteus mirabilis 01/29/25 21:22 Blood - Venous Blood Culture - Preliminary No growth after 48 hours. 01/29/25 20:59 Blood - Venous Blood Culture - Preliminary No growth after 48 hours. Progress Note: A&P Assessment and plan (1) Anaphylaxis: Status: Acute (2) Acute hypotension: Status: Acute (3) History of pulmonary embolism: Status: Acute (4) Tracheostomy in place: Status: Chronic (5) COVID: Status: Acute (6) SIRS (systemic inflammatory response syndrome): Status: Acute (7) Closed fracture of 4th metacarpal: Status: Acute (8) Acute and chronic respiratory failure with hypoxia: Status: Acute (9) Pneumonia: Status: Acute (10) COPD exacerbation: Status: Acute (11) Chronic pulmonary aspiration: Status: Acute (12) Aspiration pneumonia: Status: Acute Plan So plan is to maintain the meropenem being that is been so profoundly successful with no side effects and to stop the quetiapine to diminish any contribution to orthostasis and also to be understanding that I think a systolic pressure of 90 and a mean arterial pressure potentially even in the high 50s is probably acceptable for her in her circumstances and being that she is eating and capable of drinking as well I think she is maintaining her volume without the need for are IV fluids and please bear in mind that she had what appeared to be an anaphylactic reaction and that was immediately following IV Levaquin so I be wary of quinolones and probably with listed as a an allergy along with penicillins and just a little while earlier I think she had gotten the cefepime so I discontinue that as well because of possible cross-reactivity with penicillin Quality Stroke Does the patient have a stroke diagnosis?: No VTE Prior VTE?: No VTE Risk Level:: Medical - moderate - high VTE Device Contraindication: N/A - Device Ordered VTE Drug Contraindication: Treatment Not Indicated
[2025-02-03] MEDS: 0.9 % Sodium Chloride Flush 3 ML SYRINGE IVFLUSH ×2 (07:52→15:02)
[2025-02-03] MEDS: guaiFENesin LA 600 MG TAB.ER.12H 1200 MG PO ×2 (07:53→21:09)
[2025-02-03] MEDS: Aspirin Enteric Coated 81 MG TABLET.DR PO (07:53)
--- NOTE | 2025-02-03 13:48 | PM.EVENT ---
Event Note Date of Service: 02/03/25 Event Note: Chart reviewed patient examined agree with note as outlined by remediation technician Time Spent With Patient Time: Total time managing care of this patient today ____ minutes.
[2025-02-03] MEDS: oxyCODONE HCl Immed Release 5 MG TABLET PO ×2 (15:01→21:10)
[2025-02-04] VITALS (7 sets, daily range): BP systolic 85–115; BP diastolic 39–73; PULSE 59–80; RESP 16–20; TEMP 36.2–36.6; O2SAT 90–95; BMI 24.8
[2025-02-04] MEDS: 0.9 % Sodium Chloride Flush 3 ML SYRINGE IVFLUSH ×3 (00:23→16:06)
[2025-02-04] MEDS: oxyCODONE HCl Immed Release 5 MG TABLET PO (03:12)
[2025-02-04] MEDS: guaiFENesin LA 600 MG TAB.ER.12H 1200 MG PO ×2 (08:26→21:17)
[2025-02-04] MEDS: Aspirin Enteric Coated 81 MG TABLET.DR PO (08:27)
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
--- NOTE | 2025-02-04 12:00 | MHC.SLORD ---
Speech Language Pathology Order Status: Pt seen for dysphagia treatment, pt politely refused PO. POC reviewed. Pt satisfied with regular diet at this time. DRINK MIXER recommended pursuing repeat MBSS to visualize physiological function of swallow. Pt wants to have the open stoma from trach site closed when she is able to schedule procedure with MD.
--- NOTE | 2025-02-04 14:45 | MHC.CLN ---
F/U PT WITH INCREASED NUTRITION RISK R/T PRESSURE INJURY STAGE III PRESSURE INJURY TO COCCYX REGULAR DIET ENSURE BID TO PROMOTE WOUND HEALING SUPP TO PROVIDE 700KCALS, 40G PROTEIN PO INTAKE APPROX 25% MONITOR PO INTAKE AND ENCOURAGE SUPPLEMENTS
--- NOTE | 2025-02-04 16:19 | MHC.CM.PN ---
Addendum entered by Zenaida oTrres 02/04/25 16:20: ID recommends: Ertapenem IV x 14 days. Original Note: EMR reviewed and per MD rounds, pt is not medically cleared for discharge due to management of aspiration pneumonia, ID consult today. Anticipating pt will be ready for discharge back to LTC at [facility] tomorrow.
[2025-02-05] VITALS (9 sets, daily range): BP systolic 82–132; BP diastolic 50–71; PULSE 64–90; RESP 16–20; TEMP 35.9–37; O2SAT 92–95
[2025-02-05] MEDS: 0.9 % Sodium Chloride Flush 3 ML SYRINGE IVFLUSH ×3 (00:44→15:44)
[2025-02-05 06:12] LABS: MANUAL DIFF FLAG NO
[2025-02-05 06:22] LABS: Hematocrit 34.7 % (37.0-47.0); Hemoglobin 11.4 g/dl (12.0-16.0); Imm Gran Abs Auto 0.20 X10*3/uL (0.00-0.03); Imm Gran Pct Auto 3.3 % (0.0-0.4); Lymphocytes Absolute Auto 1.7 X10*3/uL (1.2-4.9); Mean Corpuscular HGB Conc 32.9 g/dl (31.0-35.0); Mean Corpuscular Hemoglobin 27.9 pg (27.0-33.0); Mean Corpuscular Volume 84.8 fL (80.0-98.0); NRBC Abs Auto 0.000 X10*3/uL (0.0-0.012); NRBC Pct Auto 0.0 /100WBC (0.0-0.2); Platelet Count 266 X10*3/uL (160-400); Red Blood Count 4.09 X10*6/uL (4.20-5.50); White Blood Count 6.1 X10*3/uL (4.8-10.8)
[2025-02-05 06:36] LABS: Anion Gap 13 (12-20); Blood Urea Nitrogen 10 mg/dL (9-16); Calcium 9.0 mg/dL (8.4-10.2); Carbon Dioxide 26 mmol/L (22-29); Chloride 103 mmol/L (96-108); Creatinine Clr Calc Pharmacy 172.7; Estimated Glomerular Filt Rate > 60; Potassium 3.6 mmol/L (3.3-5.1); Sodium 138 mmol/L (135-145)
[2025-02-05] MEDS: Aspirin Enteric Coated 81 MG TABLET.DR PO (08:49)
[2025-02-05] MEDS: guaiFENesin LA 600 MG TAB.ER.12H 1200 MG PO ×2 (08:50→21:45)
--- NOTE | 2025-02-05 13:35 | MHC.CM.PN ---
EMR reviewed and per MD round,s pt is medically cleared for discharge pending PICC line placement.
--- NOTE | 2025-02-05 15:30 | MHC.SLORD ---
Speech Language Pathology Order Status: Pt not seen by SCRIPT GIRL on this date d/t time constraints. RN reports no concerns w/ current diet: regular solids and thin liquids. Pt taking pills whole in applesauce ok. SCRIPT GIRL to see pt for f/u tomorrow.
--- NOTE | 2025-02-05 16:47 | HO.WOUND ---
Addendum entered by Argenis Baptiste RN 02/06/25 14:00: 02/06/25 @ 1400 Updated per Physician request d/c orders for topical wound care. Original Note: Wound Consult: Initial 59yr old? female admitted to [facility] on 01/30/25 - See progress notes and H&P for detailed history.? Wound consult placed for Upper Back wounds POA and coccyx.? Patient agreeable to assessment and photo documentation.? Patient reports the upper back is secondary to a previous back surgery and poor healing. Upper Back Etiology: ??nonhealing surgical site Wound Bed: small areas of dry yellow crusted drainage vs scab Drainage / Odor: None Edges: ? irregular Álvaro wound: Scar tissue noted - irregular formation of healed skin Goals of Treatment: ?Foam dressing to allow for moist wound healing and protect from friction Coccyx Etiology: ??Stage 3 Pressure Injury POA Wound Bed: Full thickness tissue loss with marbled moist red pink yellow slough adherent to wound bed - no bone or deeper structures noted Drainage / Odor: Flores drainage Edges: ? epibole and macerated Álvaro wound: MASD noted along with scar tissue and hyperpigmentation noted - previously documented as irregular formation of healed skin Goals of Treatment: ?Santyl for enzymatic debridement Left foot - red maroon hyperpigmentaiton noted - remains intact and blanchable Right foot - red maroon hyperpigmentaiton noted Bruising noted - remains intact and blanchable Right Heel Left Heel Bilateral Heels Etiology: ??Deep Tissue Injuries - POA Wound Bed: red maroon intact nonblanchable tissue Drainage / Odor: None Edges: ?well defined Álvaro wound:Intact no induration no fluctuance and no warmth noted Goals of Treatment: Off Load Pressure Recommendations: 1. Turn and Reposition every 2 hours and as needed for patient comfort.? Use pillows or wedges to support off loading positions. 2. Off Load all bony prominences with use of pillows and heel boots if needed.? Apply Preventative foams where needed. ? 3. Monitor for incontinence and moisture control, use barrier creams when needed for prevention and treatment. 4. Provide adequate and supplemental nutrition.? 5. Order low air loss mattress. 6. When applicable maintain blood glucose levels per Providers order. Upper Back - Cleanse with Ns, pat dry. Apply skin prep allow to dry. Cover with foam dressing, change every 5 days and PRN. Coccyx - Off Load Pressure with Q2 hr turns and use of pillows Cleanse with normal saline, pat dry. ?Apply barrier to the immediate álvaro wound, apply thick layer of Santyl to entire wound bed, cover - pack with saline moist gauze, cover with dry gauze, ABD pad and gauze wrap, or foam dressing, change Daily. Bilateral Heels - Elevate heels off of bed surface with pillows. Apply foam dressing - peel back and assess Q shift and change every 5 days and PRN. Re-consult wound care Nurse for wound deterioration or wound changes.
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
[2025-02-06 03:16] VITALS: BP 101/58; PULSE 66; RESP 18; TEMP 36.4; O2SAT 92
[2025-02-06 06:00] VITALS: BMI 25.2
[2025-02-06 07:41] VITALS: BP 90/53; PULSE 86; RESP 18; TEMP 36.2; O2SAT 92
[2025-02-06] MEDS: Aspirin Enteric Coated 81 MG TABLET.DR PO (08:29)
[2025-02-06] MEDS: guaiFENesin LA 600 MG TAB.ER.12H 1200 MG PO (08:29)
--- NOTE | 2025-02-06 09:59 | HO.MIDLINE_ITS ---
Midline Insertion MIDLINE INSERTION Diagnosis: pneumonia Indication: IV antibiotics Pertinent Labs: Reviewed Technique: Using sterile technique including cap and mask, glove and drape, the left arm was prepped and draped in the usual sterile fashion of full barrier technique with CHG. Using ultrasound guidance, the left basilic vein access was obtained in a single attempt by this RN. a 20 guage 8cm NON-PASV Midline was positioned. The procedure was performed in 272. Ultrasound was used to document vein patency and for needle entry. A formal ultrasound picture was recorded. Vascular Records Section Supervisor has released the line for use and it is currently dressed with a StatLock, Tegaderm, and CHG disc. Verification has been performed for blood return and line patency. Arm Circumference: 32cm Equipment: BARD PowerGlide ST Midline Catheter Catheter Type: NON-PASV 20 guage 8cm Midline. Lot #: [id number]
[2025-02-06 10:59] VITALS: BP 97/45; PULSE 62; RESP 18; TEMP 35.8; O2SAT 94
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
--- NOTE | 2025-02-06 13:39 | MHC.CM.PN ---
Pt. has been medically cleared for DC, she will back to [facility] via BLS.
--- NOTE | 2025-02-06 13:53 | MHC.CLN ---
F/U DIET=REGULAR. ENSURE BID PROVIDES 700 KCALS, 40 G PROTEIN. SKIN WITH STAGE III PRESSURE INJURY TO COCCYX AND DTIs BILATERAL HEELS. SUPPLEMENT TO PROMOTE WOUND HEALING. VARIABLE PO INTAKE, 25-75%. MONITOR PO INTAKE AND ENCOURAGE SUPPLEMENTS.
[2025-02-06 15:54] VITALS: BP 84/55; PULSE 81; RESP 17; TEMP 36.6; O2SAT 98
--- NOTE | 2025-02-06 17:12 | MHC.SL.SWA ---
Risk of Aspiration Due to: recurrent aspiration pneumonia Dysphasia Diet Status: no change Liquid Consistency and Strategies for Safe Swallow: Liquid Intake Recommendation: Thin Solid Food Consistency: Dietary Recommendations: Regular Oral Medication Intake: Whole with Puree Please contact the pharmacy regarding appropriate crushable or liquid drug formulations that are available whenever modified delivery is recommended. Compensatory Strategies and Precautions to be Taken for Safe Swallow: sit upright slow rate alternate liquid/solid Supervision While Eating and Drinking for Safe Swallow: Total Assistance (1:1) Foods to Avoid: Tough, difficult to chew solids. Swallowing Recommended Treatments: Recommendation for Speech: Comment: Patient is at risk for aspiration due to open airway/stoma, however presents with swallow that is otherwise mostly WFL (reduced laryngeal elevation evident on this assessment). Patient at baseline was on Regular diet with Thin liquids, pills whole with puree, which she is recommended to continue on. Patient has history of tolerating this diet well, though she is vulnerable to respiratory infection and at risk for aspiration due to open stoma. Recommend continue w/ regular solids and thin liquids. Patient requires 1-1 feeding and careful positioning at all meals to assure she is adequately seated upright and breathing/stoma is unobstructed. Recommend MEDICAL CLERK tx at next level of care d/t recurrent aspiration pneumonia. Pt may benefit from repeat MBSS (outpatient vs. inaptient) given recurrent aspiration pneumonia. Test Car Driver Clinican/Clinical Fellow: No Supervisory Statement: I have reviewed and agree with the student/clinical fellow's documentation: N/A Speech Language Pathologist: Zahida Montano M.A., [facility]-MEDICAL CLERK
== END 2025-02-06 17:00 | disposition skilled nursing facility (03) | DRG 720 ==
LOC: HO.ED 01-30 01:25 → HO.EDOVER 01-30 03:56 → HO.IMC 01-30 18:06 → HO.ICU 01-31 05:29 → HO.IMC 02-03 11:33
PROVIDERS: Hospitalist; Internal Medicine Cardiovascular Disease; Registered Nurse Community Health; Student in an Organized Health Care Education/Training Program; Admitting Provider Hospitalist; Emergency Provider Internal Medicine; PCP Internal Medicine; Visit Provider Internal Medicine
DX: A41.9 Sepsis, unspecified organism (principal); J96.21 Acute and chronic respiratory failure with hypoxia; J69.0 Pneumonitis due to inhalation of food and vomit; Z93.0 Tracheostomy status; R04.0 Epistaxis; G82.20 Paraplegia, unspecified; G90.9 Disorder of the autonomic nervous system, unspecified; U09.9 Post COVID-19 condition, unspecified; T88.6XXA Anaphylactic reaction due to adverse effect of correct drug or medicament properly administered, initial encounter; T36.8X5A Adverse effect of other systemic antibiotics, initial encounter; Y92.230 Patient room in hospital as the place of occurrence of the external cause; T14.8XXS Other injury of unspecified body region, sequela; B96.4 Proteus (mirabilis) (morganii) as the cause of diseases classified elsewhere; M46.24 Osteomyelitis of vertebra, thoracic region; W34.00XS Accidental discharge from unspecified firearms or gun, sequela; Z86.711 Personal history of pulmonary embolism; Z74.01 Bed confinement status; Z87.891 Personal history of nicotine dependence; Z79.01 Long term (current) use of anticoagulants; Z79.899 Other long term (current) drug therapy
CPT/HCPCS: 36410; 36415; 71045; 80048; 80053; 80202; 82040; 82803; 83605; 83735; 83880; 84100; 84484; 85025; 85610; 85730; 87040; 87070; 87077; 87186; 87205; 87637; 87640; 87641; 92526; 92610; 93005; 99285; J0131; J0692; J1335; J1720; J1956; J2185; J2405; J3370; J3371; J3374; J3475; J3480; J7120; P9047

== ENCOUNTER → 2025-01-29 21:14 | Outpatient (BNV) | payer MEDICAID, SELFPAY | PROVIDERS: Admitting Provider Hospitalist; Emergency Provider Internal Medicine; Visit Provider Internal Medicine Cardiovascular Disease | DX: R94.31 Abnormal electrocardiogram [ECG] [EKG] (principal); R06.02 Shortness of breath | CPT/HCPCS: 93010 ==

== ENCOUNTER → 2025-01-29 22:32 | Outpatient (BNV) | payer MEDICAID, SELFPAY | PROVIDERS: Emergency Provider Internal Medicine; Visit Provider Radiology Diagnostic Radiology | DX: R09.02 Hypoxemia (principal) | CPT/HCPCS: 71045 ==

== ENCOUNTER 2025-01-30 00:22 | Outpatient (BNV) | payer MEDICAID, SELFPAY | END 2025-01-31 07:00 | PROVIDERS: Admitting Provider Hospitalist; Emergency Provider Internal Medicine; PCP Internal Medicine; Visit Provider Radiology Diagnostic Radiology | DX: R91.8 Other nonspecific abnormal finding of lung field (principal); J81.0 Acute pulmonary edema | CPT/HCPCS: 71045 ==

== ENCOUNTER 2025-01-30 00:22 | Outpatient (BNV) | payer MEDICAID, SELFPAY | END 2025-01-31 16:37 | PROVIDERS: Admitting Provider Hospitalist; Emergency Provider Internal Medicine; PCP Internal Medicine; Visit Provider Internal Medicine Cardiovascular Disease | DX: R00.0 Tachycardia, unspecified (principal) | CPT/HCPCS: 93010 ==

== ENCOUNTER → 2025-01-30 00:22 | Outpatient (BNV) | payer MEDICAID, SELFPAY | PROVIDERS: Admitting Provider Hospitalist; Emergency Provider Internal Medicine; PCP Internal Medicine; Visit Provider Hospitalist | DX: J96.21 Acute and chronic respiratory failure with hypoxia (principal); J18.9 Pneumonia, unspecified organism; T17.908A Unspecified foreign body in respiratory tract, part unspecified causing other injury, initial encounter; G82.50 Quadriplegia, unspecified | CPT/HCPCS: 99223 ==

== ENCOUNTER → 2025-01-30 00:22 | Outpatient (BNV) | payer MEDICAID, SELFPAY | PROVIDERS: Admitting Provider Hospitalist; Emergency Provider Internal Medicine; PCP Internal Medicine; Visit Provider Registered Nurse Community Health | DX: T78.2XXA Anaphylactic shock, unspecified, initial encounter (principal); Z93.0 Tracheostomy status; I95.9 Hypotension, unspecified; Z86.711 Personal history of pulmonary embolism; U07.1 COVID-19; R65.10 Systemic inflammatory response syndrome (SIRS) of non-infectious origin without acute organ dysfunction; S62.308A Unspecified fracture of other metacarpal bone, initial encounter for closed fracture; J96.21 Acute and chronic respiratory failure with hypoxia; J18.9 Pneumonia, unspecified organism; J44.1 Chronic obstructive pulmonary disease with (acute) exacerbation; T17.908A Unspecified foreign body in respiratory tract, part unspecified causing other injury, initial encounter; J69.0 Pneumonitis due to inhalation of food and vomit | CPT/HCPCS: 99291; 99499 ==

== ENCOUNTER → 2025-01-30 00:22 | Outpatient (BNV) | payer MEDICAID, SELFPAY | PROVIDERS: Admitting Provider Hospitalist; Emergency Provider Internal Medicine; PCP Internal Medicine; Visit Provider Hospitalist | DX: G82.50 Quadriplegia, unspecified (principal); J18.9 Pneumonia, unspecified organism; T78.2XXA Anaphylactic shock, unspecified, initial encounter; J69.0 Pneumonitis due to inhalation of food and vomit | CPT/HCPCS: 99223; 99231; 99233; 99239; 99499 ==

== ENCOUNTER → 2025-01-30 00:22 | Outpatient (BNV) | payer MEDICAID, SELFPAY | PROVIDERS: Admitting Provider Hospitalist; Emergency Provider Internal Medicine; PCP Internal Medicine; Visit Provider Internal Medicine | DX: Z93.0 Tracheostomy status (principal); J96.21 Acute and chronic respiratory failure with hypoxia; T17.908A Unspecified foreign body in respiratory tract, part unspecified causing other injury, initial encounter | CPT/HCPCS: 99222 ==

== ENCOUNTER 2025-02-12 16:46 | Inpatient (IN) | payer MEDICAID, SELFPAY ==
[2025-02-12] VITALS (13 sets, daily range): BP systolic 81–136; BP diastolic 27–95; PULSE 62–111; RESP 13–25; TEMP 35.9–36.3; O2SAT 83–99; BMI 22.3
--- NOTE | ~2025-02-12 | CT_ITS ---
CLINICAL HISTORY: hypoxic, tachycardic, bed ridden CT angiography chest with contrast. 3D Postprocessing. Comparison: CT/SR - CT ANGIO CHEST PE PROTOCOL - 01/06/25 07:44 EDT Findings: The heart size is normal. RV/LV ratio is normal. The thoracic aorta is normal caliber. No pulmonary artery filling defects. Stable bilateral emphysematous changes. Left basilar airspace opacities mildly improved. Stable posterior right lower lobe/right basilar opacity may represent atelectasis. Pneumothorax and no pleural effusion. Thyroid and thoracic esophagus within normal limits. Stable nonacute changes of the spleen. No acute fracture. Stable nonacute right rib fractures, demineralization and posterior fusion in lower cervical upper thoracic spine. IMPRESSION: 1. No pulmonary emboli. 2. Mild improvement of left basilar airspace opacity. 3. Additional stable findings as described. This document has been electronically signed by: Lee Ann Petty MD on 02/12/2025 21:28:32
--- NOTE | ~2025-02-12 | XR_ITS ---
CLINICAL HISTORY: hypoxic, sob, copd 1 view chest x-ray Comparison: CR/SR - XR CHEST 1 VIEW - 01/31/25 16:31 EDT Findings: Heart size is top-normal. Atherosclerotic vascular disease of the aortic arch. Interval resolution of bilateral lower lung airspace opacities. No significant pleural effusion or significant pneumothorax. Stable interstitial changes. Previous cervical/upper thoracic spinal fusion. No acute fracture. IMPRESSION: 1. Interval resolution of bilateral lower lung airspace opacities. 2. Nonacute findings as described. This document has been electronically signed by: Lee Ann Petty MD on 02/12/2025 18:56:08
--- NOTE | 2025-02-12 16:58 | ECG_ITS ---
Test Reason : SOB Blood Pressure : */* mmHG Vent. Rate : 85 BPM Atrial Rate : 85 BPM P-R Int : 130 ms QRS Dur : 86 ms QT Int : 412 ms P-R-T Axes : * 15 32 degrees QTcB Int : 490 ms Artifact in tracing Likely sinus rhythm Due to artifact, cannot assess When compared with ECG of 31-Jan-2025 16:40, Due to artifact, cannot compare Referred By: Tomasa Snyder Electronically Signed By: JET LOZANO
--- NOTE | 2025-02-12 16:58 | PC.NURSE ---
Noted pressur eulcer on coccyx
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
[2025-02-12] MEDS: 0.9 % Sodium Chloride 1,821 ML 1821 ML IV (17:17)
[2025-02-12] MEDS: Albuterol Sulfate 2.5 MG, Albuterol/Iprat 2.5/0.5MG 3 ML 3 ML INHALE (17:21)
[2025-02-12 17:56] LABS: Venous Blood Gas Refer to POC result
[2025-02-12 17:57] LABS: VBG HCO3 28 mmol/L (22-26); VBG O2 % Saturation 92.0 %
[2025-02-12 18:13] LABS: Alanine Aminotransferase 140 U/L (0-31); Albumin Level 3.2 g/dL (3.5-5.0); Alkaline Phosphatase 142 U/L (39-117); Anion Gap 14 (12-20); Aspartate Amino Transferase 183 U/L (5-31); Blood Urea Nitrogen 13 mg/dL (9-16); Calcium 8.5 mg/dL (8.4-10.2); Carbon Dioxide 22 mmol/L (22-29); Chloride 111 mmol/L (96-108); Creatinine Clr Calc Pharmacy 116.3; Estimated Glomerular Filt Rate > 60; Magnesium 2.1 mg/dL (1.6-2.6); Potassium 4.3 mmol/L (3.3-5.1); Sodium 143 mmol/L (135-145); Total Protein 6.9 g/dL (6.5-8.0)
[2025-02-12 18:16] LABS: B Type Natriuretic Peptide 20 pg/mL (<100); Hematocrit 36.2 % (37.0-47.0); Hemoglobin 11.6 g/dl (12.0-16.0); Mean Corpuscular HGB Conc 32.0 g/dl (31.0-35.0); NRBC Abs Auto 0.000 X10*3/uL (0.0-0.012); NRBC Pct Auto 0.0 /100WBC (0.0-0.2); PLT CLUMP 1; SCAN SMEAR FLAG 1
[2025-02-12 18:18] LABS: Imm Gran Abs Auto 0.09 X10*3/uL (0.00-0.03); Imm Gran Pct Auto 0.9 % (0.0-0.4); Lymphocytes Absolute Auto 2.0 X10*3/uL (1.2-4.9); Mean Corpuscular Hemoglobin 27.9 pg (27.0-33.0); Mean Corpuscular Volume 87.0 fL (80.0-98.0); Red Blood Count 4.16 X10*6/uL (4.20-5.50)
[2025-02-12 18:19] LABS: Troponin-I High Sensitivity < 2.7 ng/L (<3.5-17.0)
[2025-02-12 18:24] LABS: Platelet Count 220 X10*3/uL (160-400); White Blood Count 10.3 X10*3/uL (4.8-10.8)
[2025-02-12 18:25] LABS: MANUAL DIFF FLAG NO
[2025-02-12] MEDS: Magnesium Sulfate/H2O 2 GM/50 ML PIGGYBACK IV (18:25)
[2025-02-12 18:35] LABS: Resp Syncy Virus RNA Qual PCR NEGATIVE (Negative); SARS COV2 PCR INHOUSE NEGATIVE (Negative)
--- NOTE | 2025-02-12 19:59 | PC.NURSE ---
RN assumed care at 1900. pt was found to be hypotensive with MAP of 45 and on bipap 12/7 @ 70% O2. RN alerted provider who approved started the levophed at 0.05mcg as per protocol. With good affect, BP increased to 136/66 MAP 89. Levophed currently paused at this time. Pt is asymptomatic. Reports neck pain. Theres currently a dressing on the back of the neck. Wound is intact, no drainage or redness noted. MD at bedside. monitoring is ongoing.
[2025-02-12] MEDS: iohexoL 350 MG/ML 100 ML INFUS..BTL IV (20:41)
--- NOTE | 2025-02-12 23:08 | PC.NURSE ---
Verbal order from MLP to place a ahmadi cath. Pt refuses to have one placed as pt states my bladder rejects it . [place] text sent to Kristel COLLINS with this information. Monitoring is ongoing.
--- NOTE | 2025-02-12 23:33 | PC.NURSE ---
RN spoke to LIVING SUPERVISOR- report confirmed. Pt ok to go to ICU.
[2025-02-13] VITALS (19 sets, daily range): BP systolic 102–130; BP diastolic 32–57; PULSE 62–99; RESP 10–19; TEMP 36–36.5; O2SAT 88–95; BMI 21.7; BMI 22.6; BMI 22.7
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
[2025-02-13] MEDS: Lactated Ringers 1,000 ML 100 ML IVCONT (01:07)
[2025-02-13 03:01] LABS: Appearance Urine Clear; Glucose Urine UA Negative (Negative); PH 6.0 (5.0-9.0); Specific Gravity - Urine >= 1.030 (1.005-1.025); UMIC TRIGGER UACC YES
[2025-02-13 03:08] LABS: UACC Culture Trigger YES
--- NOTE | 2025-02-13 03:12 | MHC.PIE ---
Addendum entered by James Bryson RN 02/13/25 05:14: incontinant x2 but purwik collected 600ML yellow urine 12am-05:20...map remains >60..sao2 91-92% with o2 2 l/m via mask Original Note: ADMIT TO 252-1 APPROX 00:10..ALERT..ORIENTED X3..SPEECH SOFT BUT CLEAR...CHRONIC PARAPLEGIC..UNABLE TO MOVE LEGS....ON BIPAP 07/07 AND FIO2 50% ON TRANSFER FROM ER DEPT...PROVIDER PRESENT ON ARRIVAL..TRANSITIONED TO OXIMASK 3 L/M....DENIES SOB..OCASSIONAL LOOSE COUGH..SAO2 GOAL PER PROVIDER 88-90%....SBP 100'S...MAP GOAL PER ICU PROJECT PROGRAM MANAGER = MAP 60 OR GREATER....LEVOPHED DRIP REMAINS OFF SINCE ER....VANCOMYCIN 1500MG IV X1 INFUSED..MEROPENUM 1000 MG IVP PER SEP..LR 100 CC/HR...INCONTINANT URINE ON ARRIVAL..BLADDER SCANNED ZERO ML..PURWIK PLACED (CONTINUES TO REFUSE FERNANDEZ CATHETER,,,PURWIKE COLLECTED 200 ML FROM ADMIT TO 2AM...DRESSING TO WOUND TO POSTERIOR LOWER NECK,,,COCCYX WITH STAGE 4 WOUND REVIEWED BY PROVIDER..FOAM DRESSING TO SITE AND CONSULT PLACED BY PROVIDER..SWALLOWED SPOONFULS H20 AND DRANK H20 W/O DIFFICULTY..PROVIDER STATED FOR OFFICIAL SPEECH EVAL IN AM....NSR..RARE PAC
[2025-02-13 05:33] LABS: MANUAL DIFF FLAG NO
[2025-02-13 05:34] LABS: VBG HCO3 24 mmol/L (22-26); VBG O2 % Saturation 99.0 %
[2025-02-13 05:35] LABS: Venous Blood Gas Refer to POC result
[2025-02-13 05:35] LABS: Hematocrit 32.3 % (37.0-47.0); Hemoglobin 10.7 g/dl (12.0-16.0); Imm Gran Abs Auto 0.06 X10*3/uL (0.00-0.03); Imm Gran Pct Auto 0.8 % (0.0-0.4); Lymphocytes Absolute Auto 0.7 X10*3/uL (1.2-4.9); Mean Corpuscular HGB Conc 33.1 g/dl (31.0-35.0); Mean Corpuscular Hemoglobin 28.3 pg (27.0-33.0); Mean Corpuscular Volume 85.4 fL (80.0-98.0); NRBC Abs Auto 0.000 X10*3/uL (0.0-0.012); NRBC Pct Auto 0.0 /100WBC (0.0-0.2); Platelet Count 223 X10*3/uL (160-400); Red Blood Count 3.78 X10*6/uL (4.20-5.50); White Blood Count 7.7 X10*3/uL (4.8-10.8)
[2025-02-13 05:49] LABS: Alanine Aminotransferase 122 U/L (0-31); Albumin Level 3.1 g/dL (3.5-5.0); Alkaline Phosphatase 136 U/L (39-117); Anion Gap 11 (12-20); Aspartate Amino Transferase 137 U/L (5-31); Blood Urea Nitrogen 7 mg/dL (9-16); Calcium 8.3 mg/dL (8.4-10.2); Carbon Dioxide 22 mmol/L (22-29); Chloride 112 mmol/L (96-108); Creatinine Clr Calc Pharmacy 136.2; Estimated Glomerular Filt Rate > 60; Magnesium 2.2 mg/dL (1.6-2.6); Potassium 4.2 mmol/L (3.3-5.1); Sodium 141 mmol/L (135-145); Total Protein 6.3 g/dL (6.5-8.0)
--- NOTE | 2025-02-13 09:49 | MHC.CLN ---
PT IS FAMILIAR FROM RECENT ADMISSION PT WITH INCREASED NUTRITION RISK R/T PRESSURE INJURY PT IS CURRENTLY NPO WHEN DIET ADVANCES, RECOMMEND ADDING ENSURE BID TO PROMOTE WOUND HEALING SUPP PROVIDES 700KCALS, 40G PROTEIN FOLLOWING FOR DIET ADVANCEMENT SEE FULL ASSESSMENT
--- NOTE | 2025-02-13 10:22 | MHC.SLORD ---
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 Pt declined clinical bedside swallow evaluation this morning. RN and MD consulted, MEAL TEMPERER to be texted when pt ready for PO evaluation.
--- NOTE | 2025-02-13 11:29 | PM.EVENT ---
Event Note Date of Service: 02/13/25 Event Note: Discussed with ICU attending. Admitted for hypotension, dehydration. Treated with IV fluids and short course of pressors. Stable for transfer to medical floor. Time Spent With Patient Time: Total time managing care of this patient today ____ minutes.
--- NOTE | 2025-02-13 11:41 | PHA.MEDREC ---
Pharmacy Consult ? Medication Reconciliation Pharmacy has completed the medication reconciliation, using med list from [facility]. Noted from med list that dose of sertraline is now 100 mg daily (list was printed @0899 on 02/13/25)
--- NOTE | 2025-02-13 14:27 | MHC.CM.PN ---
Addendum entered by Syvlia Almazan 02/13/25 14:31: Copy of HCP obtained and placed in chart. Original Note: Attempted to meet with patient in regards to discharge planning. Nursing care being provided. Atttempted to speak to patient's daughter/HCPMonet via telephone at [phone] and [phone]. Both numbers are out of service. CM assessment completed using medical record. Patient is a snf care resident of [facility]. Anticipate patient will return via BLS when medically stable. Copy of HCP requested. Continue to monitor for d/c needs.
--- NOTE | 2025-02-13 15:50 | PC.NURSE ---
Assumed care at 0700. PT A&Ox4, soft spoken. LR running at 100mL/hr. Pt complaint of pain in head/neck; takes Lyrica at home. made aware. Pt to be transferred to [place]. Report given to Misty STOLL at approx 1530. In am speech attempted evaluation, pt declined at this time. At 1400, pt asked for speech eval. TigerText sent. Pt repositioned q2hrs as tolerated. See MAR and assessments for further details. Fall/safety precautions in place.
--- NOTE | 2025-02-13 16:47 | MHC.SL.SWA ---
Speech Pathologist Impression: Adequate oropharyngeal coordination observed during clinical bedside swallow evaluation Risk of Aspiration Due to: Hx of dysphagia Open stoma Dependence for all IADLs Recurrent PNAs Dysphasia Diet Status: Recommend continue w/ regular solids and thin liquids. Patient requires 1-1 feeding and careful positioning at all meals to assure she is adequately seated upright and breathing/stoma is unobstructed. Recommend CORRECTIONS CASEWORKER tx at next level of care d/t recurrent aspiration pneumonia. Recommend RT consultation/training for SNF staff on open stoma precautions when showering pt. Pt may benefit from repeat MBSS given recurrent aspiration pneumonia. Liquid Consistency and Strategies for Safe Swallow: Liquid Intake Recommendation: Thin Liquid Intake Strategies: Solid Food Consistency: Dietary Recommendations: Regular Additional Modifications to Solid Foods: CORRECTIONS CASEWORKER to f/u 1x to monitor Oral Medication Intake: Whole with Puree Please contact the pharmacy regarding appropriate crushable or liquid drug formulations that are available whenever modified delivery is recommended. Compensatory Strategies and Precautions to be Taken for Safe Swallow: Supervision While Eating and Drinking for Safe Swallow: Total Assistance (1:1) Foods to Avoid: Tough, difficult to chew solids. Swallowing Recommended Treatments: Recommendation for Speech: Inpatient Speech Therapy Speech Therapy through Rehab Facility Modified Barium Swallow Study - Inpatient Comment: Pt seated upright in bed to highest degree of elevation she can tolerate (approximately 70degrees). Pt voicing breathy and slightly wet. Pt has O2 mask on but is able to phonate with soft quality upon deep inhalation/exhalation. Pt reports that she is concerned this recurrent PNA is d/t poor adherence to safety precautions in keeping stoma covered when staff showers her at the SNF. Pt noted her recurrent hospitalizations coincide with instances when, despite her insistence and reminders, staff does not keep open stoma covered. CORRECTIONS CASEWORKER communicated this concern with attending inpatient MD and with SNF RN. Oropharyngeal coordination of swallow unchanged from previous clinical bedside swallow evaluations. No overt s/s of aspiration with thins by straw sip, purees by tsp or bites of soft solids. Pathology of recurrent PNAs in question, given clinical presentation of adequate oropharyngeal mechanism and question of compromised respiratory protection with open stoma. Frequency/Duration: Daily M-F Date Range for Service Req: Timeline to reassess: Social Welfare Administrator Clinican/Clinical Fellow: No Supervisory Statement: I have reviewed and agree with the student/clinical fellow's documentation: N/A Speech Language Pathologist: Modesta Varela M.S., [facility]-CORRECTIONS CASEWORKER
[2025-02-14] VITALS: BP 107/54; PULSE 52; RESP 18; TEMP 36.6; O2SAT 94
[2025-02-14 04:00] VITALS: BP 105/49; PULSE 52; RESP 16; TEMP 36.6; O2SAT 94
[2025-02-14 07:25] LABS: MANUAL DIFF FLAG NO
[2025-02-14 07:28] LABS: Hematocrit 35.9 % (37.0-47.0); Hemoglobin 11.3 g/dl (12.0-16.0); Imm Gran Abs Auto 0.04 X10*3/uL (0.00-0.03); Imm Gran Pct Auto 0.5 % (0.0-0.4); Lymphocytes Absolute Auto 1.8 X10*3/uL (1.2-4.9); Mean Corpuscular HGB Conc 31.5 g/dl (31.0-35.0); Mean Corpuscular Hemoglobin 27.7 pg (27.0-33.0); Mean Corpuscular Volume 88.0 fL (80.0-98.0); NRBC Abs Auto 0.000 X10*3/uL (0.0-0.012); NRBC Pct Auto 0.0 /100WBC (0.0-0.2); Platelet Count 251 X10*3/uL (160-400); Red Blood Count 4.08 X10*6/uL (4.20-5.50); White Blood Count 7.6 X10*3/uL (4.8-10.8)
[2025-02-14 07:43] LABS: Albumin Level 3.1 g/dL (3.5-5.0); Anion Gap 12 (12-20); Blood Urea Nitrogen 8 mg/dL (9-16); Calcium 8.7 mg/dL (8.4-10.2); Carbon Dioxide 25 mmol/L (22-29); Chloride 109 mmol/L (96-108); Creatinine Clr Calc Pharmacy 124.1; Estimated Glomerular Filt Rate > 60; Magnesium 2.0 mg/dL (1.6-2.6); Potassium 4.0 mmol/L (3.3-5.1); Sodium 142 mmol/L (135-145)
[2025-02-14 08:00] VITALS: BP 112/53; PULSE 64; RESP 17; TEMP 36.3; O2SAT 93
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
--- NOTE | 2025-02-14 11:37 | MHC.CM.PN ---
Pt has been medically cleared to DC, she will go back to [facility] where she resides LT via S.
[2025-02-14 11:47] VITALS: BP 72/50; PULSE 72; RESP 20; TEMP 36.1; O2SAT 93
--- NOTE | 2025-02-14 11:51 | PM.EVENT ---
Event Note Date of Service: 02/14/25 Event Note: hypotension due to autonomic dysfunction not sepsis Time Spent With Patient Time: Total time managing care of this patient today ____ minutes.
--- NOTE | 2025-02-14 13:34 | HO.WOUND ---
Wound Consult: Initial 59yr old? female admitted [place] [facility] [place] 02[place]12[place]25 - See progress notes and H&P for detailed history.? Wound consult placed for Upper Back and coccyx.? Patient agreeable to assessment and photo documentation.? Patient is well known to this process description writer from prior admission. Upper Back Etiology: ?old surgical site - Chronic tissue defect Wound Bed: small areas of dry scab stable Drainage / Odor: None Edges: ? irregular Mckenna wound: Scar tissue noted - irregular formation of healed skin Goals of Treatment: ?Foam dressing to protect from friction Coccyx Etiology: ??Stage 4 Pressure Injury POA Wound Bed: Full thickness tissue loss with deeper structures noted marbled with yellow slough and red moist tissue Drainage / Odor: Flores drainage Edges: ? epibole and macerated Mckenna wound: MASD noted along with scar tissue and hyperpigmentation noted - previously documented as irregular formation of healed skin Goals of Treatment: ?Durafiber AG for moisture management Left foot - red maroon hyperpigmentaiton noted - remains intact and blanchable Right foot - red maroon hyperpigmentaiton noted Bruising noted - remains intact and blanchable Right Heel Left Heel Bilateral Heels Etiology: ??Red - POA Wound Bed: red maroon intact blanchable tissue Drainage / Odor: None Edges: ?well defined Mckenna wound: Intact no induration no fluctuance and no warmth noted Goals of Treatment: Off Load Pressure - foam dressing in place Recommendations: 1. Turn and Reposition every 2 hours and as needed for patient comfort.? Use pillows or wedges to support off loading positions. 2. Off Load all bony prominences with use of pillows and heel boots if needed.? Apply Preventative foams where needed. ? 3. Monitor for incontinence and moisture control, use barrier creams when needed for prevention and treatment. 4. Provide adequate and supplemental nutrition.? 5. Order low air loss mattress. 6. When applicable maintain blood glucose levels per Providers order. Upper Back - Cleanse with Ns, pat dry. Apply skin prep allow to dry. Cover with foam dressing, change every 5 days and PRN. Coccyx - Off Load Pressure with Q2 hr turns and use of pillows Cleanse with normal saline, pat dry. ?Apply barrier to periwound, lightly pack with Durafiber AG, be sure to leave a wick to easy removal.? Cover with Foam dressing.? Change every 2-3 days. Bilateral Heels - Elevate heels off of bed surface with pillows. Apply foam dressing - peel back and assess Q shift and change every 5 days and PRN. Re-consult wound care Nurse for wound deterioration or wound changes.
[2025-02-14 14:08] VITALS: BP 105/58
--- NOTE | 2025-02-14 15:19 | MHC.SLORD ---
Speech Language Pathology Order Status: FACILITIES MAINTENANCE WORKER recommending MBSS (outpatient vs. inpatient) to rule in/out silent aspiration. Per conversation w/ MD, plan is for pt to pursue MBSS as outpatient. Should patient be hospitalized prior to outpatient MBSS date, it would be beneficial to pursue MBSS as inpatient to rule in/out silent aspiration d/t frequent hospitalizations and pneumonia.
== END 2025-02-14 15:28 | disposition other institution (70) | DRG 137 ==
LOC: HO.ED 22:19 → HO.EDOVER 22:33 → HO.ICU 23:08 → HO.IMC 02-13 15:06
PROVIDERS: Internal Medicine Pulmonary Disease; Admitting Provider Nurse Practitioner Family; Emergency Provider Emergency Medicine; PCP Internal Medicine; Visit Provider Internal Medicine
DX: J69.0 Pneumonitis due to inhalation of food and vomit (principal); J96.01 Acute respiratory failure with hypoxia; I95.9 Hypotension, unspecified; G82.20 Paraplegia, unspecified; E86.0 Dehydration; J44.9 Chronic obstructive pulmonary disease, unspecified; G90.9 Disorder of the autonomic nervous system, unspecified; W34.00XS Accidental discharge from unspecified firearms or gun, sequela; Z20.822 Contact with and (suspected) exposure to COVID-19; Z86.711 Personal history of pulmonary embolism; Z93.0 Tracheostomy status; Z79.01 Long term (current) use of anticoagulants; Z79.899 Other long term (current) drug therapy
CPT/HCPCS: 36415; 71045; 71275; 80048; 80053; 80076; 80202; 81001; 82040; 82803; 83605; 83735; 83880; 84100; 84484; 85025; 87040; 87086; 87637; 92610; 93005; 99285; J2185; J2270; J2919; J3374; J3475; J7120; Q9967

== ENCOUNTER → 2025-02-12 16:58 | Outpatient (BNV) | payer MEDICAID, SELFPAY | PROVIDERS: Emergency Provider Emergency Medicine; Visit Provider Specialist | DX: R00.0 Tachycardia, unspecified (principal); R09.02 Hypoxemia; J44.9 Chronic obstructive pulmonary disease, unspecified; Z74.01 Bed confinement status | CPT/HCPCS: 71045; 71275 ==

== ENCOUNTER → 2025-02-12 16:58 | Outpatient (BNV) | payer MEDICAID, SELFPAY | PROVIDERS: Admitting Provider Nurse Practitioner Family; Emergency Provider Emergency Medicine; PCP Internal Medicine; Visit Provider Internal Medicine | DX: R06.02 Shortness of breath (principal) | CPT/HCPCS: 93010 ==

== ENCOUNTER → 2025-02-12 22:23 | Outpatient (BNV) | payer MEDICAID, SELFPAY | PROVIDERS: Admitting Provider Nurse Practitioner Family; Emergency Provider Emergency Medicine; Visit Provider Nurse Practitioner Acute Care | DX: J96.21 Acute and chronic respiratory failure with hypoxia (principal) | CPT/HCPCS: 99239; 99499 ==

== ENCOUNTER → 2025-02-12 22:23 | Outpatient (BNV) | payer MEDICAID, SELFPAY | PROVIDERS: Admitting Provider Nurse Practitioner Family; Emergency Provider Emergency Medicine; Visit Provider Nurse Practitioner Family | DX: J96.21 Acute and chronic respiratory failure with hypoxia (principal) | CPT/HCPCS: 99223 ==

== ENCOUNTER 2025-05-06 12:32 | Outpatient (AMB) | payer MEDICAID, SELFPAY ==
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
[2025-05-06 14:05] VITALS: BP 110/60
--- OUTSIDE RECORDS SUMMARY | 2025-05-06 14:57 | XMS_ITS | Encounter Summary ---
Author Organization [facility] Address [address] [place] [address] Care Team Providers Care Etcher Hand Name Role Phone Heaven Robertson MD Primary Care Provider + Encounter Details Date Type Department Care Team (Late st Contact Info) Description 03/03/[address] [facility] - Main Lab [address] [facility] [place] [address] Heaevn Robertson MD [address] [address] Pneumonia, unspecified organism Social History Tobacco Use [...] Associated Diagnosis Comments COMPLETE BLOOD COUNT Routine 03/04/2025 6:56 AM EDT Pneumonia, unspecified organism COMPREHENSIVE METABOLIC PANEL Routine 03/04/2025 6:56 AM EDT Pneumonia, unspecified organism documented in this encounter Results * (ABNORMAL) Comprehensive metabolic panel (03/04/2025 6:56 AM EDT) Sodium 140 133 - 145 mmol/L LAB CHEMISTRY METHOD 03/04/2025 12:[address] [facility] Potassium 4.3 3.5 - 5.5 mmol/L LAB CHEMISTRY METHOD 03/04/2025 12:[address] [facility] Chloride 109 96 - 110 mmol/L LAB CHEMISTRY METHOD 03/04/2025 12:[address] [facility] CO2 24 21 - 32 mmol/L LAB CHEMISTRY METHOD 03/04/2025 12:[address] [facility] Anion Gap 7 3 - 11 LAB CHEMISTRY METHOD 03/04/2025 12:[address] [facility] Glucose 70 70 - 100 mg/dL LAB CHEMISTRY METHOD 03/04/2025 12:[address] [facility] BUN 12 5 - 25 mg/dL LAB CHEMISTRY METHOD 03/04/2025 12:[address] [facility] Creatinine 0.51 0.50 - 1.10 mg/dL LAB CHEMISTRY METHOD 03/04/2025 12:[address] [facility] eGFR 109 >=60 mL/min/1. 73m2 LAB CHEMISTRY METHOD 03/04/2025 12:[address] [facility] Comment:Calculation based on the Chronic Kidney Disease Epidemiology Collaboration (CKD-EPI) equation refit without adjustment for race. BUN/Creatinine Ratio 23.5 LAB CHEMISTRY METHOD 03/04/2025 12:[address] [facility] Calcium 9.2 8.5 - 10.5 mg/dL LAB CHEMISTRY METHOD 03/04/2025 12:[address] [facility] AST (SGOT) 46(H) 10 - 42 unit/L LAB CHEMISTRY METHOD 03/04/2025 12:[address] [facility] ALT (SGPT) 34 10 - 60 unit/L LAB CHEMISTRY METHOD 03/04/2025 12:[address] [facility] Alkaline Phosphatase 135(H) 42 - 121 unit/L LAB CHEMISTRY METHOD 03/04/2025 12:[address] [facility] Total Protein 6.7 6.0 - 8.0 g/dL LAB CHEMISTRY METHOD 03/04/2025 12:[address] [facility] Albumin 2.8(L) 3.2 - 5.0 g/dL LAB CHEMISTRY METHOD 03/04/2025 12:51 PM EDT [facility] Total Bilirubin 0.2 0.0 - 1.4 mg/dL LAB CHEMISTRY METHOD 03/04/2025 12:[address] [facility] Blood Venous blood specimen / Unknown Venipuncture / Unknown 03/04/2025 6:56 AM EDT 03/04/2025 11:10 AM EDT us Heaven Robertson MD LAB BLOOD ORDERABLES Fin al Result [facility] [address] [place] [address], * (ABNORMAL) Complete blood count (03/04/2025 6:56 AM EDT) WBC 7.3 4.8 - 10.8 K/mcL LAB HEMETOLOGY METHOD 03/04/2025 11:[address] [facility] RBC 4.20 3.80 - 4.80 M/mcL LAB HEMETOLOGY METHOD 03/04/2025 11:[address] [facility] Hemoglobin 11.9 11.5 - 16.0 g/dL LAB HEMETOLOGY METHOD 03/04/2025 11:[address] [facility] Hematocrit 38.1 35.0 - 47.0 % LAB HEMETOLOGY METHOD 03/04/2025 11:35 AM T [facility] MCV 91.1 79.0 - 98.0 FL LAB HEMETOLOGY METHOD 03/04/2025 11:[address] [facility] MCH 28.5 27.0 - 32.0 pcg LAB HEMETOLOGY METHOD 03/04/2025 11:[address] [facility] MCHC 31.2(L) 32.0 - 37.0 g/dL LAB HEMETOLOGY METHOD 03/04/2025 11:35 AM EDT [facility] RDW 17.9(H) 11.0 - 15.0 % LAB HEMETOLOGY METHOD 03/04/2025 11:35 AM EDT [facility] Platelets 257 130 - 400 K/mcL LAB HEMETOLOGY METHOD 03/04/2025 11:35 AM EDT [facility] MPV 11.5(H) 7.0 - 11.0 FL LAB HEMETOLOGY METHOD 03/04/2025 11:35 AM EDT [facility] NRBC 0.0 <1.0 % LAB HEMETOLOGY METHOD 03/04/2025 11:35 AM EDT [facility] NRBC Absolute 0.00 <0.10 K/mcL LAB HEMETOLOGY METHOD 03/04/2025 11:35 AM EDT [facility] Blood Venous blood specimen / Unknown Venipuncture / Unknown 03/04/2025 6:56 AM EDT 03/04/2025 11:10 AM EDT us Heaven Robertson MD LAB BLOOD ORDERABLES Fin al Result [facility] [address] [place] [address], documented in this encounter Visit Diagnoses Diagnosis Pneumonia, unspecified organism documented in this encounter Care Teams Etcher Hand Relationship Specialty Start Date End Date Heaven Robertson MD [address] [address] PCP - General Family Medicine 06/13/24 documented as of this encounter
--- OUTSIDE RECORDS SUMMARY | 2025-05-06 14:57 | XMS_ITS | Encounter Summary ---
Author Organization [facility] Address [address] [place] [address] Care Team Providers Care Water Resources Project Manager Name Role Phone Heaven Robertson MD Primary Care Provider + Encounter Details Date Type Department Care Team (Late st Contact Info) Description 11/26/[address] [facility] - Main Lab [address] [facility] [place] [address] Heaven Robertson MD [address] [address] Unspecified protein-calorie malnutrition (CMS/HCC V24) Social History Tobacco Use Types Packs/Day Years [...] Procedure Name Priority Date/Time Associated Diagnosis Comments PREALBUMIN Routine 11/26/2024 7:55 AM EDT Unspecified protein-calorie malnutrition (CMS/HCC V24) documented in this encounter Results * (ABNORMAL) Prealbumin (11/26/2024 7:55 AM EDT) Prealbumin 16(L) 18 - 45 mg/dL LAB CHEMISTRY METHOD 11/26/2024 6:49 PM EDT [facility] Blood Venous blood specimen / Unknown Venipuncture / Unknown 11/26/2024 7:55 AM EDT 11/26/2024 11:32 AM EDT Heaven Robertson MD LAB BLOOD ORDERABLES Fin al Result [facility] [address] [place] [address], documented in this encounter Visit Diagnoses Diagnosis Unspecified protein-calorie malnutrition (CMS/HCC V24) Unspecified protein-calorie malnutrition documented in this encounter Care Teams Water Resources Project Manager Relationship Specialty Start Date End Date Heaven Robertson MD [address] [place] [id number] PCP - General Family Medicine 06/13/24 documented as of this encounter
--- OUTSIDE RECORDS SUMMARY | 2025-05-06 14:57 | XMS_ITS | Encounter Summary ---
Author Organization [employer] Address [address] [place] [address] Care Team Providers Care Leather Goods I Assembler Name Role Phone Heaven Robertson MD Primary Care Provider + Encounter Details Date Type Department Care Team (Late st Contact Info) Description 09/30/2024 Lab Requisition [facility] - Main Lab 299 [facility] [place] [address] eHaven Robertson MD [address] [address] Other mcc (current) drug therapy; Heart failure, unspecified (CMS/HCC V24, CMS/HCC V28) Social History Tobacco Use Types Packs/Day Years Used Date Smoking Tobacco: Never Assessed Comments Unknown Sex and Gender Information Value Date Recorded Sex Assigned at Not on file Legal Sex Female 9:48 AM EST Gender Identity Not on file Sexual Orientation Not on file documented as of this encounter Plan of Treatment Not on file documented as of this encounter Visit Diagnoses Diagnosis Other mcc (current) drug therapy Heart failure, unspecified (CMS/HCC V24, CMS/HCC V28) Heart failure, unspecified documented in this encounter Care Teams Leather Goods I Assembler Relationship Specialty Start Date End Date Heaven Robertson MD [address] [address] PCP - General Family Medicine 06/13/24 documented as of this encounter
--- OUTSIDE RECORDS SUMMARY | 2025-05-06 14:57 | XMS_ITS | Clinical Summary ---
Author Organization [employer] Address [address] [facility] 7t [place] [address] Care Team Providers Care Production Corrugator Name Role Phone Unavailable Primary Care Provider Unavailabl e Social History Tobacco Use Types Packs/Day Years [...] COVID-19 Vaccine ( - 2023-2 5 season) 2025 Influenza Vaccine (#1) 2025 05/11/2024 RSV Patients and Pa tients Aged 60 years or older (1 - 1-dose 75+ series) 2042 HIB Vaccines Aged Out No longer eligi [...] patient's age to complete this topic Insurance [facility] C3
--- OUTSIDE RECORDS SUMMARY | 2025-05-06 14:57 | XMS_ITS | Encounter Summary ---
Author Organization [employer] Address [address] [place] [address] Care Team Providers Care Coal Briquette Machine Operator Name Role Phone Heaven Robertson MD Primary Care Provider + Encounter Details Date Type Department Care Team (Late st Contact Info) Description 03/08/2025 Lab Requisition [facility] - Main Lab 299 [facility] [place] [address] Heaven Robertson MD [address] [address] Pneumonia, unspecified organism Social History Tobacco Use [...] Associated Diagnosis Comments COMPLETE BLOOD COUNT Routine 03/11/2025 8:33 AM EDT Pneumonia, unspecified organism COMPREHENSIVE METABOLIC PANEL Routine 03/11/2025 8:33 AM EDT Pneumonia, unspecified organism documented in this encounter Results * (ABNORMAL) Comprehensive metabolic panel (03/11/2025 8:33 AM EDT) Sodium 136 133 - 145 mmol/L LAB CHEMISTRY METHOD 03/11/2025 12:56 PM [facility] Potassium 4.6 3.5 - 5.5 mmol/L LAB CHEMISTRY METHOD 03/11/2025 12:56 PM [facility] Chloride 104 96 - 110 mmol/L LAB CHEMISTRY METHOD 03/11/2025 12:56 PM [facility] CO2 23 21 - 32 mmol/L LAB CHEMISTRY METHOD 03/11/2025 12:56 PM [facility] Anion Gap 9 3 - 11 LAB CHEMISTRY METHOD 03/11/2025 12:56 PM [facility] Glucose 63(L) 70 - 100 mg/dL LAB CHEMISTRY METHOD 03/11/2025 12:56 PM [facility] BUN 12 5 - 25 mg/dL LAB CHEMISTRY METHOD 03/11/2025 12:56 PM [facility] Creatinine 0.43(L) 0.50 - 1.10 mg/dL LAB CHEMISTRY METHOD 03/11/2025 12:56 PM [facility] eGFR 114 >=60 mL/min/1. 73m2 LAB CHEMISTRY METHOD 03/11/2025 12:56 PM [facility] Comment:Calculation based on the Chronic Kidney Disease Epidemiology Collaboration (CKD-EPI) equation refit without adjustment for race. BUN/Creatinine Ratio 27.9 LAB CHEMISTRY METHOD 03/11/2025 12:56 PM [facility] Calcium 8.9 8.5 - 10.5 mg/dL LAB CHEMISTRY METHOD 03/11/2025 12:56 PM [facility] AST (SGOT) 38 10 - 42 unit/L LAB CHEMISTRY METHOD 03/11/2025 12:56 PM [facility] ALT (SGPT) 31 10 - 60 unit/L LAB CHEMISTRY METHOD 03/11/2025 12:56 PM [facility] Alkaline Phosphatase 130(H) 42 - 121 unit/L LAB CHEMISTRY METHOD 03/11/2025 12:56 PM [facility] Total Protein 6.6 6.0 - 8.0 g/dL LAB CHEMISTRY METHOD 03/11/2025 12:56 PM [facility] Albumin 3.0(L) 3.2 - 5.0 g/dL LAB CHEMISTRY METHOD 03/11/2025 12:56 PM EDT [facility] Total Bilirubin 0.3 0.0 - 1.4 mg/dL LAB CHEMISTRY METHOD 03/11/2025 12:56 PM EDT [facility] Blood Venous blood specimen / Unknown Venipuncture / Unknown 03/11/2025 8:33 AM EDT 03/11/2025 11:26 AM EDT us Heaven Robertson MD LAB BLOOD ORDERABLES Fin al Result [facility] [address] [place] [address], * (ABNORMAL) Complete blood count (03/11/2025 8:33 AM EDT) WBC 5.3 4.8 - 10.8 K/mcL LAB HEMETOLOGY METHOD 03/11/2025 12:28 PM EDT [facility] RBC 4.20 3.80 - 4.80 M/mcL LAB HEMETOLOGY METHOD 03/11/2025 12:28 PM EDT [facility] Hemoglobin 12.1 11.5 - 16.0 g/dL LAB HEMETOLOGY METHOD 03/11/2025 12:28 PM EDT [facility] Hematocrit 39.9 35.0 - 47.0 % LAB HEMETOLOGY METHOD 03/11/2025 12:28 PM EDT [facility] MCV 94.3 79.0 - 98.0 FL LAB HEMETOLOGY METHOD 03/11/2025 12:28 PM EDT [facility] MCH 28.6 27.0 - 32.0 pcg LAB HEMETOLOGY METHOD 03/11/2025 12:28 PM EDT [facility] MCHC 30.3(L) 32.0 - 37.0 g/dL LAB HEMETOLOGY METHOD 03/11/2025 12:28 PM EDT [facility] RDW 17.3(H) 11.0 - 15.0 % LAB HEMETOLOGY METHOD 03/11/2025 12:28 PM EDT [facility] Platelets 214 130 - 400 K/mcL LAB HEMETOLOGY METHOD 03/11/2025 12:28 PM EDT [facility] MPV 12.2(H) 7.0 - 11.0 FL LAB HEMETOLOGY METHOD 03/11/2025 12:28 PM EDT [facility] NRBC 0.0 <1.0 % LAB HEMETOLOGY METHOD 03/11/2025 12:28 PM EDT [facility] NRBC Absolute 0.00 <0.10 K/mcL LAB HEMETOLOGY METHOD 03/11/2025 12:28 PM EDT [facility] Blood Venous blood specimen / Unknown Venipuncture / Unknown 03/11/2025 8:33 AM EDT 03/11/2025 11:26 AM EDT us Heaven Robertson MD LAB BLOOD ORDERABLES Fin al Result [facility] [address] [place] [address], documented in this encounter Visit Diagnoses Diagnosis Pneumonia, unspecified organism documented in this encounter Care Teams Coal Briquette Machine Operator Relationship Specialty Start Date End Date Heaven Robertson MD [address] [address] PCP - General Family Medicine 06/13/24 documented as of this encounter
--- OUTSIDE RECORDS SUMMARY | 2025-05-06 14:57 | XMS_ITS | Encounter Summary ---
Author Organization [employer] [facility] Address [address] [place] [address] Care Team Providers Care Vat Packer Name Role Phone Heaven Robertson MD Primary Care Provider + Encounter Details Date Type Department Care Team (Late st Contact Info) Description 07/17/2024 Lab Requisition [facility] - Main Lab 299 [facility] [place] [address] Heaven Robertson MD [address] [address] Vitamin D deficiency, unspecified Social History Tobacco [...] LAB CHEMISTRY METHOD 07/18/2024 10:47 AM EST [facility] ACUNA [place] ([facility]) [facility] Blood Venous blood specimen / Unknown Venipuncture / Unknown 07/18/2024 5:37 AM EST 07/18/2024 10:05 AM EST us Heaven Robertson MD LAB BLOOD ORDERABLES Fin al Result [facility] ACU[facility] [place] [facility]) HOSPITAL LAB [address] [place] [address], documented in this encounter Visit Diagnoses Diagnosis Vitamin D deficiency, unspecified documented in this encounter Care Teams Vat Packer Relationship Specialty Start Date End Date Heaven Robertson MD [address] [address] PCP - General Family Medicine 06/13/24 documented as of this encounter
--- OUTSIDE RECORDS SUMMARY | 2025-05-06 14:57 | XMS_ITS | Encounter Summary ---
Author Organization [employer] Address [address] [place] [address] Care Team Providers Care Kennel Supervisor Name Role Phone Heaven Robertson MD Primary Care Provider + Encounter Details Date Type Department Care Team (Late st Contact Info) Description 02/07/2025 Lab Requisition [facility] - Main Lab 299 [facility] [place] [address] Heaven Robertson MD [address] [address] Pneumonia, unspecified organism Social History Tobacco Use [...] Associated Diagnosis Comments COMPLETE BLOOD COUNT Routine 02/07/2025 5:08 AM EDT Pneumonia, unspecified organism COMPREHENSIVE METABOLIC PANEL Routine 02/07/2025 5:08 AM EDT Pneumonia, unspecified organism documented in this encounter Results * (ABNORMAL) Comprehensive metabolic panel (02/07/2025 5:08 AM EDT) Sodium 142 133 - 145 mmol/L LAB CHEMISTRY METHOD 02/07/2025 9:33 AM [facility] Potassium 3.5 3.5 - 5.5 mmol/L LAB CHEMISTRY METHOD 02/07/2025 9:33 AM [facility] Chloride 107 96 - 110 mmol/L LAB CHEMISTRY METHOD 02/07/2025 9:33 AM [facility] CO2 30 21 - 32 mmol/L LAB CHEMISTRY METHOD 02/07/2025 9:33 AM [facility] Anion Gap 5 3 - 11 LAB CHEMISTRY METHOD 02/07/2025 9:33 AM [facility] Glucose 71 70 - 100 mg/dL LAB CHEMISTRY METHOD 02/07/2025 9:33 AM [facility] BUN 9 5 - 25 mg/dL LAB CHEMISTRY METHOD 02/07/2025 9:33 AM [facility] Creatinine 0.28(L) 0.50 - 1.10 mg/dL LAB CHEMISTRY METHOD 02/07/2025 9:33 AM [facility] eGFR 126 >=60 mL/min/1. 73m2 LAB CHEMISTRY METHOD 02/07/2025 9:33 AM [facility] Comment:Calculation based on the Chronic Kidney Disease Epidemiology Collaboration (CKD-EPI) equation refit without adjustment for race. BUN/Creatinine Ratio 32.1 LAB CHEMISTRY METHOD 02/07/2025 9:33 AM [facility] Calcium 8.4(L) 8.5 - 10.5 mg/dL LAB CHEMISTRY METHOD 02/07/2025 9:33 AM [facility] AST (SGOT) 42 10 - 42 unit/L LAB CHEMISTRY METHOD 02/07/2025 9:33 AM [facility] ALT (SGPT) 30 10 - 60 unit/L LAB CHEMISTRY METHOD 02/07/2025 9:33 AM [facility] Alkaline Phosphatase 130(H) 42 - 121 unit/L LAB CHEMISTRY METHOD 02/07/2025 9:33 AM [facility] Total Protein 6.1 6.0 - 8.0 g/dL LAB CHEMISTRY METHOD 02/07/2025 9:33 AM [facility] Albumin 2.5(L) 3.2 - 5.0 g/dL LAB CHEMISTRY METHOD 02/07/2025 9:33 AM EDT [facility] Total Bilirubin 0.2 0.0 - 1.4 mg/dL LAB CHEMISTRY METHOD 02/07/2025 9:33 AM [facility] Blood Venous blood specimen / Unknown Venipuncture / Unknown 02/07/2025 5:08 AM EDT 02/07/2025 8:19 AM EDT us Heaven Robertson MD LAB BLOOD ORDERABLES Fin al Result [facility] [address] [place] [address], * (ABNORMAL) Complete blood count (02/07/2025 5:08 AM EDT) WBC 6.8 4.8 - 10.8 K/mcL LAB HEMETOLOGY METHOD 02/07/2025 9:01 AM [facility] RBC 3.90 3.80 - 4.80 M/mcL LAB HEMETOLOGY METHOD 02/07/2025 9:01 AM [facility] Hemoglobin 11.0(L) 11.5 - 16.0 g/dL LAB HEMETOLOGY METHOD 02/07/2025 9:01 AM [facility] Hematocrit 35.2 35.0 - 47.0 % LAB HEMETOLOGY METHOD 02/07/2025 9:01 AM [facility] MCV 89.6 79.0 - 98.0 FL LAB HEMETOLOGY METHOD 02/07/2025 9:01 AM [facility] MCH 28.0 27.0 - 32.0 pcg LAB HEMETOLOGY METHOD 02/07/2025 9:01 AM [facility] MCHC 31.3(L) 32.0 - 37.0 g/dL LAB HEMETOLOGY METHOD 02/07/2025 9:01 AM EDT [facility] RDW 18.0(H) 11.0 - 15.0 % LAB HEMETOLOGY METHOD 02/07/2025 9:01 AM EDT [facility] Platelets 260 130 - 400 K/mcL LAB HEMETOLOGY METHOD 02/07/2025 9:01 AM EDT [facility] MPV 12.2(H) 7.0 - 11.0 FL LAB HEMETOLOGY METHOD 02/07/2025 9:01 AM EDT [facility] NRBC 0.0 <1.0 % LAB HEMETOLOGY METHOD 02/07/2025 9:01 AM EDT [facility] NRBC Absolute 0.00 <0.10 K/mcL LAB HEMETOLOGY METHOD 02/07/2025 9:01 AM EDT [facility] Blood Venous blood specimen / Unknown Venipuncture / Unknown 02/07/2025 5:08 AM EDT 02/07/2025 8:19 AM EDT us Heaven Robertson MD LAB BLOOD ORDERABLES Fin al Result [facility] [address] [place] [address], documented in this encounter Visit Diagnoses Diagnosis Pneumonia, unspecified organism documented in this encounter Care Teams Kennel Supervisor Relationship Specialty Start Date End Date Heaven Robertson MD [address] [place] [id number] PCP - General Family Medicine 06/13/24 documented as of this encounter
--- OUTSIDE RECORDS SUMMARY | 2025-05-06 14:57 | XMS_ITS | Encounter Summary ---
Author Organization [employer] Address [address] [place] [address] Care Team Providers Care Yacht Rigger Name Role Phone Heaven Robertson MD Primary Care Provider + Encounter Details Date Type Department Care Team (Late st Contact Info) Description 11/14/2024 Lab Requisition [facility] - Main Lab 299 [facility] [place] [address] Heaven Robertson MD [address] [address] Respiratory failure, unspecified, unspecified whether with hypoxia or hypercapnia (CMS/HCC V24, CMS/HCC V28); Chronic obstructive pulmonary disease, unspecified (CMS/HCC V24, CMS/HCC V28) Social History [...] Associated Diagnosis Comments COMPLETE BLOOD COUNT Routine 11/14/2024 9:37 AM EDT Respiratory failure, unspecified, unspecified whether with hypoxia or hypercapnia (CMS/HCC V24, CMS/HCC V28) Chronic obstructive pulmonary disease, unspecified (CMS/HCC V24, CMS/HCC V28) COMPREHENSIVE METABOLIC PANEL Routine 11/14/2024 9:37 AM EDT Respiratory failure, unspecified, unspecified whether with hypoxia or hypercapnia (CMS/HCC V24, CMS/HCC V28) Chronic obstructive pulmonary disease, unspecified (CMS/HCC V24, CMS/HCC V28) documented in this encounter Results * (ABNORMAL) Comprehensive metabolic panel (11/14/2024 9:37 AM EDT) Sodium 137 133 - 145 mmol/L LAB CHEMISTRY METHOD 11/14/2024 1:57 PM [facility] Potassium 3.4(L) 3.5 - 5.5 mmol/L LAB CHEMISTRY METHOD 11/14/2024 1:57 PM [facility] Chloride 104 96 - 110 mmol/L LAB CHEMISTRY METHOD 11/14/2024 1:57 PM [facility] CO2 22 21 - 32 mmol/L LAB CHEMISTRY METHOD 11/14/2024 1:57 PM [facility] Anion Gap 11 3 - 11 LAB CHEMISTRY METHOD 11/14/2024 1:57 PM [facility] Glucose 153(H) 70 - 100 mg/dL LAB CHEMISTRY METHOD 11/14/2024 1:57 PM [facility] BUN 13 5 - 25 mg/dL LAB CHEMISTRY METHOD 11/14/2024 1:57 PM [facility] Creatinine 0.47(L) 0.50 - 1.10 mg/dL LAB CHEMISTRY METHOD 11/14/2024 1:57 PM [facility] eGFR 111 >=60 mL/min/1. 73m2 LAB CHEMISTRY METHOD 11/14/2024 1:57 PM [facility] Comment:Calculation based on the Chronic Kidney Disease Epidemiology Collaboration (CKD-EPI) equation refit without adjustment for race. BUN/Creatinine Ratio 27.7 LAB CHEMISTRY METHOD 11/14/2024 1:57 PM [facility] Calcium 8.9 8.5 - 10.5 mg/dL LAB CHEMISTRY METHOD 11/14/2024 1:57 PM [facility] AST (SGOT) 91(H) 10 - 42 unit/L LAB CHEMISTRY METHOD 11/14/2024 1:57 PM [facility] ALT (SGPT) 61(H) 10 - 60 unit/L LAB CHEMISTRY METHOD 11/14/2024 1:57 PM EDT [facility] Alkaline Phosphatase 118 42 - 121 unit/L LAB CHEMISTRY METHOD 11/14/2024 1:57 PM EDT [facility] Total Protein 7.6 6.0 - 8.0 g/dL LAB CHEMISTRY METHOD 11/14/2024 1:57 PM EDT [facility] Albumin 3.1(L) 3.2 - 5.0 g/dL LAB CHEMISTRY METHOD 11/14/2024 1:57 PM EDT [facility] Total Bilirubin 0.3 0.0 - 1.4 mg/dL LAB CHEMISTRY METHOD 11/14/2024 1:57 PM EDT [facility] Blood Venous blood specimen / Unknown Venipuncture / Unknown 11/14/2024 9:37 AM EDT 11/14/2024 11:45 AM EDT us Heaven Robertson MD LAB BLOOD ORDERABLES Fin al Result [facility] [address] [place] [address], * (ABNORMAL) Complete blood count (11/14/2024 9:37 AM EDT) WBC 5.4 4.8 - 10.8 K/mcL LAB HEMETOLOGY METHOD 11/14/2024 12:43 PM EDT [facility] RBC 3.80 3.80 - 4.80 M/mcL LAB HEMETOLOGY METHOD 11/14/2024 12:43 PM EDT [facility] Hemoglobin 11.0(L) 11.5 - 16.0 g/dL LAB HEMETOLOGY METHOD 11/14/2024 12:43 PM EDT [facility] Hematocrit 36.2 35.0 - 47.0 % LAB HEMETOLOGY METHOD 11/14/2024 12:43 PM EDT [facility] MCV 95.5 79.0 - 98.0 FL LAB HEMETOLOGY METHOD 11/14/2024 12:43 PM EDT [facility] MCH 29.0 27.0 - 32.0 pcg LAB HEMETOLOGY METHOD 11/14/2024 12:43 PM EDT [facility] MCHC 30.4(L) 32.0 - 37.0 g/dL LAB HEMETOLOGY METHOD 11/14/2024 12:43 PM EDT [facility] RDW 18.9(H) 11.0 - 15.0 % LAB HEMETOLOGY METHOD 11/14/2024 12:43 PM EDT [facility] Platelets 181 130 - 400 K/mcL LAB HEMETOLOGY METHOD 11/14/2024 12:43 PM EDT [facility] MPV 12.3(H) 7.0 - 11.0 FL LAB HEMETOLOGY METHOD 11/14/2024 12:43 PM EDT [facility] NRBC 0.0 <1.0 % LAB HEMETOLOGY METHOD 11/14/2024 12:43 PM EDT [facility] NRBC Absolute 0.00 <0.10 K/mcL LAB HEMETOLOGY METHOD 11/14/2024 12:43 PM T [facility] Blood Venous blood specimen / Unknown Venipuncture / Unknown 11/14/2024 9:37 AM EDT 11/14/2024 11:45 AM EDT us Heaven Robertson MD LAB BLOOD ORDERABLES Fin al Result [facility] [address] [place] [address], documented in this encounter Visit Diagnoses Diagnosis Respiratory failure, unspecified, unspecified whether with hypoxia or hypercapnia (CMS/HCC V24, CMS/[facility] V28) Chronic obstructive pulmonary disease, unspecified ([facility] V24, [facility] V28) documented in this encounter Care Teams Yacht Rigger Relationship Specialty Start Date End Date Heaven Robertson MD [address] [place] [id number] PCP - General Family Medicine 06/13/24 documented as of this encounter
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
--- OUTSIDE RECORDS SUMMARY | 2025-05-06 14:57 | XMS_ITS | Encounter Summary ---
Author Organization [employer] Address [address] [place] [address] Care Team Providers Care Media Strategist Name Role Phone Heaven Robertson MD Primary Care Provider + Encounter Details Date Type Department Care Team (Late st Contact Info) Description 03/23/2025 Lab Requisition [facility] - Main Lab 299 Pending Sale To [facility] [place] [address] Heaven Robertson MD [address] [address] Pneumonia, unspecified organism Social History Tobacco Use [...] Associated Diagnosis Comments COMPLETE BLOOD COUNT Routine 03/25/2025 7:14 AM EDT Pneumonia, unspecified organism COMPREHENSIVE METABOLIC PANEL Routine 03/25/2025 7:14 AM EDT Pneumonia, unspecified organism documented in this encounter Results * (ABNORMAL) Comprehensive metabolic panel (03/25/2025 7:14 AM EDT) Sodium 137 133 - 145 mmol/L LAB CHEMISTRY METHOD 03/25/2025 1:44 PM EDT [facility] Potassium 4.2 3.5 - 5.5 mmol/L LAB CHEMISTRY METHOD 03/25/2025 1:44 PM EDT [facility] Chloride 108 96 - 110 mmol/L LAB CHEMISTRY METHOD 03/25/2025 1:44 PM [facility] CO2 23 21 - 32 mmol/L LAB CHEMISTRY METHOD 03/25/2025 1:44 PM [facility] Anion Gap 6 3 - 11 LAB CHEMISTRY METHOD 03/25/2025 1:44 PM [facility] Glucose 68(L) 70 - 100 mg/dL LAB CHEMISTRY METHOD 03/25/2025 1:44 PM [facility] BUN 12 5 - 25 mg/dL LAB CHEMISTRY METHOD 03/25/2025 1:44 PM [facility] Creatinine 0.45(L) 0.50 - 1.10 mg/dL LAB CHEMISTRY METHOD 03/25/2025 1:44 PM [facility] eGFR 112 >=60 mL/min/1. 73m2 LAB CHEMISTRY METHOD 03/25/2025 1:44 PM [facility] Comment:Calculation based on the Chronic Kidney Disease Epidemiology Collaboration (CKD-EPI) equation refit without adjustment for race. BUN/Creatinine Ratio 26.7 LAB CHEMISTRY METHOD 03/25/2025 1:44 PM [facility] Calcium 9.2 8.5 - 10.5 mg/dL LAB CHEMISTRY METHOD 03/25/2025 1:44 PM [facility] AST (SGOT) 23 10 - 42 unit/L LAB CHEMISTRY METHOD 03/25/2025 1:44 PM [facility] ALT (SGPT) 21 10 - 60 unit/L LAB CHEMISTRY METHOD 03/25/2025 1:44 PM [facility] Alkaline Phosphatase 142(H) 42 - 121 unit/L LAB CHEMISTRY METHOD 03/25/2025 1:44 PM [facility] Total Protein 6.9 6.0 - 8.0 g/dL LAB CHEMISTRY METHOD 03/25/2025 1:44 PM [facility] Albumin 3.2 3.2 - 5.0 g/dL LAB CHEMISTRY METHOD 03/25/2025 1:44 PM EDT [facility] Total Bilirubin 0.3 0.0 - 1.4 mg/dL LAB CHEMISTRY METHOD 03/25/2025 1:44 PM [facility] Blood Venous blood specimen / Unknown Venipuncture / Unknown 03/25/2025 7:14 AM EDT 03/25/2025 10:22 AM EDT us Heaven Robertson MD LAB BLOOD ORDERABLES Fin al Result [facility] [address] [place] [address], * (ABNORMAL) Complete blood count (03/25/2025 7:14 AM EDT) WBC 6.4 4.8 - 10.8 K/mcL LAB HEMETOLOGY METHOD 03/25/2025 11:02 AM [facility] RBC 4.30 3.80 - 4.80 M/mcL LAB HEMETOLOGY METHOD 03/25/2025 11:02 AM [facility] Hemoglobin 12.5 11.5 - 16.0 g/dL LAB HEMETOLOGY METHOD 03/25/2025 11:02 AM [facility] Hematocrit 39.9 35.0 - 47.0 % LAB HEMETOLOGY METHOD 03/25/2025 11:02 AM [facility] MCV 92.6 79.0 - 98.0 FL LAB HEMETOLOGY METHOD 03/25/2025 11:02 AM [facility] MCH 29.0 27.0 - 32.0 pcg LAB HEMETOLOGY METHOD 03/25/2025 11:02 AM [facility] MCHC 31.3(L) 32.0 - 37.0 g/dL LAB HEMETOLOGY METHOD 03/25/2025 11:02 AM EDT [facility] RDW 15.9(H) 11.0 - 15.0 % LAB HEMETOLOGY METHOD 03/25/2025 11:02 AM EDT [facility] Platelets 184 130 - 400 K/mcL LAB HEMETOLOGY METHOD 03/25/2025 11:02 AM EDT [facility] MPV 12.7(H) 7.0 - 11.0 FL LAB HEMETOLOGY METHOD 03/25/2025 11:02 AM EDT [facility] NRBC 0.0 <1.0 % LAB HEMETOLOGY METHOD 03/25/2025 11:02 AM EDT [facility] NRBC Absolute 0.00 <0.10 K/mcL LAB HEMETOLOGY METHOD 03/25/2025 11:02 AM EDT [facility] Blood Venous blood specimen / Unknown Venipuncture / Unknown 03/25/2025 7:14 AM EDT 03/25/2025 10:26 AM EDT us Heaven Robertson MD LAB BLOOD ORDERABLES Fin al Result [facility] [address] [place] [address], documented in this encounter Visit Diagnoses Diagnosis Pneumonia, unspecified organism documented in this encounter Care Teams Media Strategist Relationship Specialty Start Date End Date Heaven Robertson MD [address] [address] PCP - General Family Medicine 06/13/24 documented as of this encounter
--- OUTSIDE RECORDS SUMMARY | 2025-05-06 14:57 | XMS_ITS | Encounter Summary ---
Author Organization [employer] Address [address] [place] [address] Care Team Providers Care Fruit Farmer Name Role Phone Heaven Robertson MD Primary Care Provider + Encounter Details Date Type Department Care Team (Late st Contact Info) Description 02/27/2025 Lab Requisition [facility] - Main Lab 299 [facility] [place] [address] Heaven Robertson MD 8[address] [facility] [place] [address] Hypokalemia; Pneumonia, unspecified organism; Chronic obstructive pulmonary disease, unspecified (CMS/HCC V24, CMS/HCC V28); Gout, unspecified; Chronic pain syndrome Social History Tobacco Use Types Packs/Day Years [...] Procedure Name Priority Date/Time Associated Diagnosis Comments SEDIMENTATION RATE Routine 02/27/2025 4: 56 AM EDT Hypokalemia Pneumonia, unspecified organism Chronic obstructive pulmonary disease, unspecified (CMS/HCC V24, CMS/HCC V28) Gout, unspecified Chronic pain syndrome COMPLETE BLOOD COUNT Routine 02/27/2025 4:56 AM EDT Hypokalemia Pneumonia, unspecified organism Chronic obstructive pulmonary disease, unspecified (CMS/HCC V24, CMS/HCC V28) Gout, unspecified Chronic pain syndrome C-REACTIVE PROTEIN Routine 02/27/2025 4: 56 AM EDT Hypokalemia Pneumonia, unspecified organism Chronic obstructive pulmonary disease, unspecified (CMS/HCC V24, CMS/HCC V28) Gout, unspecified Chronic pain syndrome URIC ACID Routine 02/27/2025 4:56 AM EDT Hypokalemia Pneumonia, unspecified organism Chronic obstructive pulmonary disease, unspecified ([facility] V24, [facility] V28) Gout, unspecified Chronic pain syndrome documented in this encounter Results * Uric acid (02/27/2025 4:56 AM EDT) [facility] Uric Acid 4.1 3.1 - 7.8 mg/dL LAB CHEMISTRY METHOD 02/28/2025 2:17 PM EDT [facility] Blood Venous blood specimen / Unknown Venipuncture / Unknown 02/27/2025 4:56 AM EDT 02/27/2025 9:21 AM EDT Heaven Robertson MD LAB BLOOD ORDERABLES Fin al Result Performing Organization Address City/[facility]/ZIP Co de Phone Number [facility] [address] [place] [address], [place] [phone] * (ABNORMAL) Sedimentation rate (02/27/2025 4:56 AM EDT) [facility] Sed Rate 86(H) 0 - 30 mm/hr LAB HEMETOLOGY METHOD 02/27/2025 10:48 AM EDT [facility] Blood Venous blood specimen / Unknown Venipuncture / Unknown 02/27/2025 4:56 AM EDT 02/27/2025 9:21 AM EDT Heaven Robertson MD LAB BLOOD ORDERABLES Fin al Result Performing Organization Address City/[facility]/ZIP Co de Phone Number [facility] [address] [place] [address], [place] [phone] * (ABNORMAL) C-reactive protein (02/27/2025 4:56 AM EDT) [facility] C-Reactive Protein 2.77(H) <=0.50 mg/dL LAB CHEMISTRY METHOD 02/27/2025 11:11 AM EDT [facility] Blood Venous blood specimen / Unknown Venipuncture / Unknown 02/27/2025 4:56 AM EDT 02/27/2025 9:21 AM EDT us Heaven Robertson MD LAB BLOOD ORDERABLES Fin al Result [facility] [address] [place] [address], * (ABNORMAL) Complete blood count (02/27/2025 4:56 AM EDT) [facility] WBC 7.0 4.8 - 10.8 K/mcL LAB HEMETOLOGY METHOD 02/27/2025 10:38 AM [facility] RBC 4.00 3.80 - 4.80 M/mcL LAB HEMETOLOGY METHOD 02/27/2025 10:38 AM [facility] Hemoglobin 11.2(L) 11.5 - 16.0 g/dL LAB HEMETOLOGY METHOD 02/27/2025 10:38 AM [facility] Hematocrit 36.2 35.0 - 47.0 % LAB HEMETOLOGY METHOD 02/27/2025 10:38 AM [facility] MCV 91.2 79.0 - 98.0 FL LAB HEMETOLOGY METHOD 02/27/2025 10:38 AM [facility] MCH 28.2 27.0 - 32.0 pcg LAB HEMETOLOGY METHOD 02/27/2025 10:38 AM [facility] MCHC 30.9(L) 32.0 - 37.0 g/dL LAB HEMETOLOGY [facility] RDW 18.7(H) 11.0 - 15.0 % LAB HEMETOLOGY METHOD 02/27/2025 10:38 AM EDT [facility] Platelets 211 130 - 400 K/mcL LAB HEMETOLOGY METHOD 02/27/2025 10:38 AM EDT [facility] MPV 12.7(H) 7.0 - 11.0 FL LAB HEMETOLOGY METHOD 02/27/2025 10:38 AM EDT [facility] NRBC 0.0 <1.0 % LAB HEMETOLOGY METHOD 02/27/2025 10:38 AM EDT [facility] NRBC Absolute 0.00 <0.10 K/mcL LAB HEMETOLOGY METHOD 02/27/2025 10:38 AM EDT [facility] Blood Venous blood specimen / Unknown Venipuncture / Unknown 02/27/2025 4:56 AM EDT 02/27/2025 9:21 AM EDT us Heaven Robertson MD LAB BLOOD ORDERABLES Fin al Result [facility] [address] [place] [address], documented in this encounter Visit Diagnoses Diagnosis Hypokalemia Hypopotassemia Pneumonia, unspecified organism Chronic obstructive pulmonary disease, unspecified (CMS/HCC V24, CMS/HCC V28) Gout, unspecified Chronic pain syndrome documented in this encounter Care Teams Fruit Farmer Relationship Specialty Start Date End Date Heaven Robertson MD [address] [place] [id number] PCP - General Family Medicine 06/13/24 documented as of this encounter
--- OUTSIDE RECORDS SUMMARY | 2025-05-06 14:57 | XMS_ITS | Encounter Summary ---
Author Organization [employer] Address [address] [place] [address] Care Team Providers Care Nuclear Process Engineer Name Role Phone Heaven Robertson MD Primary Care Provider + Encounter Details Date Type Department Care Team (Late st Contact Info) Description 03/17/2025 Lab Requisition [facility] - Main Lab 299 [facility] [place] [address] Heaven Robertson MD [address] [address] Pneumonia, unspecified organism Social History Tobacco Use [...] Associated Diagnosis Comments COMPLETE BLOOD COUNT Routine 03/18/2025 6:44 AM EDT Pneumonia, unspecified organism COMPREHENSIVE METABOLIC PANEL Routine 03/18/2025 6:44 AM EDT Pneumonia, unspecified organism documented in this encounter Results * (ABNORMAL) Comprehensive metabolic panel (03/18/2025 6:44 AM EDT) Sodium 139 133 - 145 mmol/L LAB CHEMISTRY METHOD 03/18/2025 2:[address] [facility] Potassium 4.0 3.5 - 5.5 mmol/L LAB CHEMISTRY METHOD 03/18/2025 2:[address] [facility] Chloride 108 96 - 110 mmol/L LAB CHEMISTRY METHOD 03/18/2025 2:[address] [facility] CO2 24 21 - 32 mmol/L LAB CHEMISTRY METHOD 03/18/2025 2:[address] [facility] Anion Gap 7 3 - 11 LAB CHEMISTRY METHOD 03/18/2025 2:[address] [facility] Glucose 72 70 - 100 mg/dL LAB CHEMISTRY METHOD 03/18/2025 2:[address] [facility] BUN 14 5 - 25 mg/dL LAB CHEMISTRY METHOD 03/18/2025 2:[address] [facility] Creatinine 0.44(L) 0.50 - 1.10 mg/dL LAB CHEMISTRY METHOD 03/18/2025 2:[address] [facility] eGFR 113 >=60 mL/min/1. 73m2 LAB CHEMISTRY METHOD 03/18/2025 2:[address] [facility] Comment:Calculation based on the Chronic Kidney Disease Epidemiology Collaboration (CKD-EPI) equation refit without adjustment for race. BUN/Creatinine Ratio 31.8 LAB CHEMISTRY METHOD 03/18/2025 2:[address] [facility] Calcium 9.4 8.5 - 10.5 mg/dL LAB CHEMISTRY METHOD 03/18/2025 2:[address] [facility] AST (SGOT) 24 10 - 42 unit/L LAB CHEMISTRY METHOD 03/18/2025 2:[address] [facility] ALT (SGPT) 19 10 - 60 unit/L LAB CHEMISTRY METHOD 03/18/2025 2:[address] [facility] Alkaline Phosphatase 133(H) 42 - 121 unit/L LAB CHEMISTRY METHOD 03/18/2025 2:[address] [facility] Total Protein 6.9 6.0 - 8.0 g/dL LAB CHEMISTRY METHOD 03/18/2025 2:[address] [facility] Albumin 3.2 3.2 - 5.0 g/dL LAB CHEMISTRY METHOD 03/18/2025 2:06 PM EDT [facility] Total Bilirubin 0.3 0.0 - 1.4 mg/dL LAB CHEMISTRY METHOD 03/18/2025 2:06 PM EDT [facility] Blood Venous blood specimen / Unknown Venipuncture / Unknown 03/18/2025 6:44 AM EDT 03/18/2025 11:15 AM EDT us Heaven Robertson MD LAB BLOOD ORDERABLES Fin al Result [facility] [address] [place] [address], * (ABNORMAL) Complete blood count (03/18/2025 6:44 AM EDT) WBC 7.7 4.8 - 10.8 K/mcL LAB HEMETOLOGY METHOD 03/18/2025 12:42 PM T [facility] RBC 4.30 3.80 - 4.80 M/mcL LAB HEMETOLOGY METHOD 03/18/2025 12:42 PM T [facility] Hemoglobin 12.2 11.5 - 16.0 g/dL LAB HEMETOLOGY METHOD 03/18/2025 12:[address] [facility] Hematocrit 39.3 35.0 - 47.0 % LAB HEMETOLOGY METHOD 03/18/2025 12:42 PM EDT [facility] MCV 92.3 79.0 - 98.0 FL LAB HEMETOLOGY METHOD 03/18/2025 12:[address] [facility] MCH 28.6 27.0 - 32.0 pcg LAB HEMETOLOGY METHOD 03/18/2025 12:[address] [facility] MCHC 31.0(L) 32.0 - 37.0 g/dL LAB HEMETOLOGY METHOD 03/18/2025 12:42 PM EDT [facility] RDW 17.0(H) 11.0 - 15.0 % LAB HEMETOLOGY METHOD 03/18/2025 12:42 PM EDT [facility] Platelets 224 130 - 400 K/mcL LAB HEMETOLOGY METHOD 03/18/2025 12:42 PM EDT [facility] MPV 12.4(H) 7.0 - 11.0 FL LAB HEMETOLOGY METHOD 03/18/2025 12:42 PM EDT [facility] NRBC 0.0 <1.0 % LAB HEMETOLOGY METHOD 03/18/2025 12:42 PM EDT [facility] NRBC Absolute 0.00 <0.10 K/mcL LAB HEMETOLOGY METHOD 03/18/2025 12:42 PM EDT [facility] Blood Venous blood specimen / Unknown Venipuncture / Unknown 03/18/2025 6:44 AM EDT 03/18/2025 11:15 AM EDT us Heaven Robertson MD LAB BLOOD ORDERABLES Fin al Result [facility] [address] [place] [address], documented in this encounter Visit Diagnoses Diagnosis Pneumonia, unspecified organism documented in this encounter Care Teams Nuclear Process Engineer Relationship Specialty Start Date End Date Heaven Robertson MD [address] [place] [address] PCP - General Family Medicine 06/13/24 documented as of this encounter
--- OUTSIDE RECORDS SUMMARY | 2025-05-06 14:57 | XMS_ITS | Encounter Summary ---
Author Organization [employer] Address [address] [place] [address] Care Team Providers Care Inside Solar Sales Consultant Name Role Phone Heaven Robertson MD Primary Care Provider + Encounter Details Date Type Department Care Team (Late st Contact Info) Description 02/23/2025 Lab Requisition [facility] - Main Lab 299 [facility] [place] [address] Heaven Robertson MD [address] [address] Pneumonia, unspecified organism Social History Tobacco Use [...] Associated Diagnosis Comments COMPLETE BLOOD COUNT Routine 02/25/2025 7:22 AM EDT Pneumonia, unspecified organism COMPREHENSIVE METABOLIC PANEL Routine 02/25/2025 7:22 AM EDT Pneumonia, unspecified organism documented in this encounter Results * (ABNORMAL) Comprehensive metabolic panel (02/25/2025 7:22 AM EDT) Sodium 141 133 - 145 mmol/L LAB CHEMISTRY METHOD 02/25/2025 12:35 PM [facility] Potassium 3.7 3.5 - 5.5 mmol/L LAB CHEMISTRY METHOD 02/25/2025 12:35 PM [facility] Chloride 109 96 - 110 mmol/L LAB CHEMISTRY METHOD 02/25/2025 12:35 PM [facility] CO2 23 21 - 32 mmol/L LAB CHEMISTRY METHOD 02/25/2025 12:35 PM [facility] Anion Gap 9 3 - 11 LAB CHEMISTRY METHOD 02/25/2025 12:35 PM [facility] Glucose 70 70 - 100 mg/dL LAB CHEMISTRY METHOD 02/25/2025 12:35 PM [facility] BUN 11 5 - 25 mg/dL LAB CHEMISTRY METHOD 02/25/2025 12:35 PM [facility] Creatinine 0.56 0.50 - 1.10 mg/dL LAB CHEMISTRY METHOD 02/25/2025 12:35 PM [facility] eGFR 107 >=60 mL/min/1. 73m2 LAB CHEMISTRY METHOD 02/25/2025 12:35 PM [facility] Comment:Calculation based on the Chronic Kidney Disease Epidemiology Collaboration (CKD-EPI) equation refit without adjustment for race. BUN/Creatinine Ratio 19.6 LAB CHEMISTRY METHOD 02/25/2025 12:35 PM [facility] Calcium 9.0 8.5 - 10.5 mg/dL LAB CHEMISTRY METHOD 02/25/2025 12:35 PM [facility] AST (SGOT) 48(H) 10 - 42 unit/L LAB CHEMISTRY METHOD 02/25/2025 12:35 PM [facility] ALT (SGPT) 41 10 - 60 unit/L LAB CHEMISTRY METHOD 02/25/2025 12:35 PM [facility] Alkaline Phosphatase 147(H) 42 - 121 unit/L LAB CHEMISTRY METHOD 02/25/2025 12:35 PM [facility] Total Protein 6.7 6.0 - 8.0 g/dL LAB CHEMISTRY METHOD 02/25/2025 12:35 PM [facility] Albumin 2.9(L) 3.2 - 5.0 g/dL LAB CHEMISTRY METHOD 02/25/2025 12:35 PM EDT [facility] Total Bilirubin 0.3 0.0 - 1.4 mg/dL LAB CHEMISTRY METHOD 02/25/2025 12:35 PM T [facility] Blood Venous blood specimen / Unknown Venipuncture / Unknown 02/25/2025 7:22 AM EDT 02/25/2025 10:50 AM EDT us Heaven Robertson MD LAB BLOOD ORDERABLES Fin al Result [facility] [address] [place] [address], * (ABNORMAL) Complete blood count (02/25/2025 7:22 AM EDT) WBC 6.5 4.8 - 10.8 K/mcL LAB HEMETOLOGY METHOD 02/25/2025 11:45 AM T [facility] RBC 4.30 3.80 - 4.80 M/mcL LAB HEMETOLOGY METHOD 02/25/2025 11:45 AM [facility] Hemoglobin 12.1 11.5 - 16.0 g/dL LAB HEMETOLOGY METHOD 02/25/2025 11:45 AM [facility] Hematocrit 39.3 35.0 - 47.0 % LAB HEMETOLOGY METHOD 02/25/2025 11:45 AM EDT [facility] MCV 90.8 79.0 - 98.0 FL LAB HEMETOLOGY METHOD 02/25/2025 11:45 AM [facility] MCH 27.9 27.0 - 32.0 pcg LAB HEMETOLOGY METHOD 02/25/2025 11:45 AM [facility] MCHC 30.8(L) 32.0 - 37.0 g/dL LAB HEMETOLOGY METHOD 02/25/2025 11:45 AM EDT [facility] RDW 18.8(H) 11.0 - 15.0 % LAB HEMETOLOGY METHOD 02/25/2025 11:45 AM EDT [facility] Platelets 217 130 - 400 K/mcL LAB HEMETOLOGY METHOD 02/25/2025 11:45 AM EDT [facility] MPV 12.8(H) 7.0 - 11.0 FL LAB HEMETOLOGY METHOD 02/25/2025 11:45 AM EDT [facility] NRBC 0.0 <1.0 % LAB HEMETOLOGY METHOD 02/25/2025 11:45 AM EDT [facility] NRBC Absolute 0.00 <0.10 K/mcL LAB HEMETOLOGY METHOD 02/25/2025 11:45 AM EDT [facility] Blood Venous blood specimen / Unknown Venipuncture / Unknown 02/25/2025 7:22 AM EDT 02/25/2025 10:50 AM EDT us Heaven Robertson MD LAB BLOOD ORDERABLES Fin al Result [facility] [address] [place] [address], documented in this encounter Visit Diagnoses Diagnosis Pneumonia, unspecified organism documented in this encounter Care Teams Inside Solar Sales Consultant Relationship Specialty Start Date End Date Heaven Robertson MD [address] [address] PCP - General Family Medicine 06/13/24 documented as of this encounter
--- OUTSIDE RECORDS SUMMARY | 2025-05-06 14:57 | XMS_ITS | Encounter Summary ---
Author Organization [employer] Address [address] [place] [address] Care Team Providers Care Math Instructor Name Role Phone Heaven Robertson MD Primary Care Provider + Encounter Details Date Type Department Care Team (Late st Contact Info) Description 02/17/2025 Lab Requisition [facility] - Main Lab 299 [facility] [place] [address] Heaven Robertson MD [address] [address] Pneumonia, unspecified organism Social History Tobacco Use [...] Associated Diagnosis Comments COMPLETE BLOOD COUNT Routine 02/18/2025 7:05 AM EDT Pneumonia, unspecified organism COMPREHENSIVE METABOLIC PANEL Routine 02/18/2025 7:05 AM EDT Pneumonia, unspecified organism documented in this encounter Results * (ABNORMAL) Comprehensive metabolic panel (02/18/2025 7:05 AM EDT) Sodium 141 133 - 145 mmol/L LAB CHEMISTRY METHOD 02/18/2025 2:48 PM EDT [facility] Potassium 4.0 3.5 - 5.5 mmol/L LAB CHEMISTRY METHOD 02/18/2025 2:48 PM EDT [facility] Chloride 107 96 - 110 mmol/L LAB CHEMISTRY METHOD 02/18/2025 2:48 PM [facility] CO2 24 21 - 32 mmol/L LAB CHEMISTRY METHOD 02/18/2025 2:48 PM [facility] Anion Gap 10 3 - 11 LAB CHEMISTRY METHOD 02/18/2025 2:48 PM [facility] Glucose 67(L) 70 - 100 mg/dL LAB CHEMISTRY METHOD 02/18/2025 2:48 PM [facility] BUN 9 5 - 25 mg/dL LAB CHEMISTRY METHOD 02/18/2025 2:48 PM [facility] Creatinine 0.42(L) 0.50 - 1.10 mg/dL LAB CHEMISTRY METHOD 02/18/2025 2:48 PM [facility] eGFR 114 >=60 mL/min/1. 73m2 LAB CHEMISTRY METHOD 02/18/2025 2:48 PM [facility] Comment:Calculation based on the Chronic Kidney Disease Epidemiology Collaboration (CKD-EPI) equation refit without adjustment for race. BUN/Creatinine Ratio 21.4 LAB CHEMISTRY METHOD 02/18/2025 2:48 PM [facility] Calcium 9.1 8.5 - 10.5 mg/dL LAB CHEMISTRY METHOD 02/18/2025 2:48 PM [facility] AST (SGOT) 40 10 - 42 unit/L LAB CHEMISTRY METHOD 02/18/2025 2:48 PM [facility] Comment:Results verified by repeat testing ALT (SGPT) 52 10 - 60 unit/L LAB CHEMISTRY METHOD 02/18/2025 2:48 PM [facility] Alkaline Phosphatase 151(H) 42 - 121 unit/L LAB CHEMISTRY METHOD 02/18/2025 2:48 PM [facility] Total Protein 6.4 6.0 - 8.0 g/dL LAB CHEMISTRY METHOD 02/18/2025 2:48 PM [facility] Albumin 2.7(L) 3.2 - 5.0 g/dL LAB CHEMISTRY METHOD 02/18/2025 2:48 PM EDT [facility] Total Bilirubin 0.2 0.0 - 1.4 mg/dL LAB CHEMISTRY METHOD 02/18/2025 2:48 PM EDT [facility] Blood Venous blood specimen / Unknown Venipuncture / Unknown 02/18/2025 7:05 AM EDT 02/18/2025 11:37 AM EDT us Heaven Robertson MD LAB BLOOD ORDERABLES Fin al Result [facility] [address] [place] [address], * (ABNORMAL) Complete blood count (02/18/2025 7:05 AM EDT) WBC 7.1 4.8 - 10.8 K/mcL LAB HEMETOLOGY METHOD 02/18/2025 12:23 PM EDT [facility] RBC 4.10 3.80 - 4.80 M/mcL LAB [facility] Hemoglobin 11.5 11.5 - 16.0 g/dL LAB HEMETOLOGY METHOD 02/18/2025 12:23 PM [facility] Hematocrit 37.5 35.0 - 47.0 % LAB HEMETOLOGY METHOD 02/18/2025 12:23 PM EDT [facility] MCV 90.6 79.0 - 98.0 FL LAB HEMETOLOGY METHOD 02/18/2025 12:23 PM [facility] MCH 27.8 27.0 - 32.0 pcg LAB HEMETOLOGY METHOD 02/18/2025 12:23 PM [facility] MCHC 30.7(L) 32.0 - 37.0 g/dL LAB HEMETOLOGY METHOD 02/18/2025 12:23 PM EDT [facility] RDW 18.8(H) 11.0 - 15.0 % LAB HEMETOLOGY METHOD 02/18/2025 12:23 PM EDT [facility] Platelets 208 130 - 400 K/mcL LAB HEMETOLOGY METHOD 02/18/2025 12:23 PM EDT [facility] MPV 12.1(H) 7.0 - 11.0 FL LAB HEMETOLOGY METHOD 02/18/2025 12:23 PM EDT [facility] NRBC 0.0 <1.0 % LAB HEMETOLOGY METHOD 02/18/2025 12:23 PM EDT [facility] NRBC Absolute 0.00 <0.10 K/mcL [facility] 02/18/2025 12:23 PM EDT [facility] Blood Venous blood specimen / Unknown Venipuncture / Unknown 02/18/2025 7:05 AM EDT 02/18/2025 11:37 AM EDT us Heaven Robertson MD LAB BLOOD ORDERABLES Fin al Result [facility] [address] [place] [address], documented in this encounter Visit Diagnoses Diagnosis Pneumonia, unspecified organism documented in this encounter Care Teams Math Instructor Relationship Specialty Start Date End Date Heaven Robertson MD [address] [place] [id number] PCP - General Family Medicine 06/13/24 documented as of this encounter
--- OUTSIDE RECORDS SUMMARY | 2025-05-06 14:57 | XMS_ITS | Encounter Summary ---
Author Organization [employer] Address [address] [place] [address] Care Team Providers Care Physical Education Specialist Name Role Phone Heaven Robertson MD Primary Care Provider + Encounter Details Date Type Department Care Team (Late st Contact Info) Description 02/09/2025 Lab Requisition [facility] - Main Lab 299 [facility] [place] [address] Heaven Robertson MD [address] [address] Pneumonia, unspecified organism Social History Tobacco Use [...] Associated Diagnosis Comments COMPLETE BLOOD COUNT Routine 02/11/2025 6:41 AM EDT Pneumonia, unspecified organism COMPREHENSIVE METABOLIC PANEL Routine 02/11/2025 6:41 AM EDT Pneumonia, unspecified organism documented in this encounter Results * (ABNORMAL) Comprehensive metabolic panel (02/11/2025 6:41 AM EDT) Sodium 140 133 - 145 mmol/L LAB CHEMISTRY METHOD 02/11/2025 5:19 PM [facility] Potassium 4.2 3.5 - 5.5 mmol/L LAB CHEMISTRY METHOD 02/11/2025 5:19 PM [facility] Chloride 107 96 - 110 mmol/L LAB CHEMISTRY METHOD 02/11/2025 5:19 PM [facility] CO2 25 21 - 32 mmol/L LAB CHEMISTRY METHOD 02/11/2025 5:19 PM [facility] Anion Gap 8 3 - 11 LAB CHEMISTRY METHOD 02/11/2025 5:19 PM [facility] Glucose 59(L) 70 - 100 mg/dL LAB CHEMISTRY METHOD 02/11/2025 5:19 PM [facility] BUN 13 5 - 25 mg/dL LAB CHEMISTRY METHOD 02/11/2025 5:19 PM [facility] Creatinine 0.48(L) 0.50 - 1.10 mg/dL LAB CHEMISTRY METHOD 02/11/2025 5:19 PM [facility] eGFR 111 >=60 mL/min/1. 73m2 LAB CHEMISTRY METHOD 02/11/2025 5:19 PM [facility] Comment:Calculation based on the Chronic Kidney Disease Epidemiology Collaboration (CKD-EPI) equation refit without adjustment for race. BUN/Creatinine Ratio 27.1 LAB CHEMISTRY METHOD 02/11/2025 5:19 PM [facility] Calcium 9.0 8.5 - 10.5 mg/dL LAB CHEMISTRY METHOD 02/11/2025 5:19 PM [facility] AST (SGOT) 261(H) 10 - 42 unit/L LAB CHEMISTRY METHOD 02/11/2025 5:19 PM [facility] ALT (SGPT) 171(H) 10 - 60 unit/L LAB CHEMISTRY METHOD 02/11/2025 5:19 PM [facility] Alkaline Phosphatase 146(H) 42 - 121 unit/L LAB CHEMISTRY METHOD 02/11/2025 5:19 PM [facility] Total Protein 6.8 6.0 - 8.0 g/dL LAB CHEMISTRY METHOD 02/11/2025 5:19 PM [facility] Albumin 2.9(L) 3.2 - 5.0 g/dL LAB CHEMISTRY METHOD 02/11/2025 5:19 PM EDT [facility] Total Bilirubin 0.2 0.0 - 1.4 mg/dL LAB CHEMISTRY METHOD 02/11/2025 5:19 PM [facility] Blood Venous blood specimen / Unknown Venipuncture / Unknown 02/11/2025 6:41 AM EDT 02/11/2025 10:25 AM EDT us Heaven Robertson MD LAB BLOOD ORDERABLES Fin al Result [facility] [address] [place] [address], * (ABNORMAL) Complete blood count (02/11/2025 6:41 AM EDT) WBC 7.9 4.8 - 10.8 K/mcL LAB HEMETOLOGY METHOD 02/11/2025 11:46 AM [facility] RBC 4.40 3.80 - 4.80 M/mcL LAB HEMETOLOGY METHOD 02/11/2025 11:46 AM [facility] Hemoglobin 12.4 11.5 - 16.0 g/dL LAB HEMETOLOGY METHOD 02/11/2025 11:46 AM [facility] Hematocrit 39.9 35.0 - 47.0 % LAB HEMETOLOGY METHOD 02/11/2025 11:46 AM [facility] MCV 90.5 79.0 - 98.0 FL LAB HEMETOLOGY METHOD 02/11/2025 11:46 AM [facility] MCH 28.1 27.0 - 32.0 pcg LAB HEMETOLOGY METHOD 02/11/2025 11:46 AM [facility] MCHC 31.1(L) 32.0 - 37.0 g/dL LAB HEMETOLOGY METHOD 02/11/2025 11:46 AM EDT [facility] RDW 18.6(H) 11.0 - 15.0 % LAB HEMETOLOGY METHOD 02/11/2025 11:46 AM EDT [facility] Platelets 275 130 - 400 K/mcL LAB HEMETOLOGY METHOD 02/11/2025 11:46 AM EDT [facility] MPV 12.7(H) 7.0 - 11.0 FL LAB HEMETOLOGY METHOD 02/11/2025 11:46 AM EDT [facility] NRBC 0.0 <1.0 % LAB HEMETOLOGY METHOD 02/11/2025 11:46 AM EDT [facility] NRBC Absolute 0.00 <0.10 K/mcL LAB HEMETOLOGY METHOD 02/11/2025 11:46 AM EDT [facility] Blood Venous blood specimen / Unknown Venipuncture / Unknown 02/11/2025 6:41 AM EDT 02/11/2025 10:28 AM EDT us Heaven Robertson MD LAB BLOOD ORDERABLES Fin al Result [facility] [address] [place] [address], documented in this encounter Visit Diagnoses Diagnosis Pneumonia, unspecified organism documented in this encounter Care Teams Physical Education Specialist Relationship Specialty Start Date End Date Heaven Robertson MD [address] [place] [id number] PCP - General Family Medicine 06/13/24 documented as of this encounter
--- OUTSIDE RECORDS SUMMARY | 2025-05-06 14:57 | XMS_ITS | Encounter Summary ---
Author Organization [employer] Address [address] [place] [address] Care Team Providers Care Weight Shifter Name Role Phone Heaven Robertson MD Primary Care Provider + Encounter Details Date Type Department Care Team (Late st Contact Info) Description 03/29/2025 Lab Requisition [facility] - Main Lab 299 [facility] [place] [address] Heaven Robertson MD [address] [address] Pneumonia, unspecified organism Social History Tobacco Use [...] Associated Diagnosis Comments COMPLETE BLOOD COUNT Routine 04/02/2025 7:49 AM EDT Pneumonia, unspecified organism COMPREHENSIVE METABOLIC PANEL Routine 04/02/2025 7:49 AM EDT Pneumonia, unspecified organism documented in this encounter Results * (ABNORMAL) Comprehensive metabolic panel (04/02/2025 7:49 AM EDT) Sodium 139 133 - 145 mmol/L LAB CHEMISTRY METHOD 04/02/2025 7:20 PM [facility] Potassium 4.1 3.5 - 5.5 mmol/L LAB CHEMISTRY METHOD 04/02/2025 7:20 PM [facility] Chloride 106 96 - 110 mmol/L LAB CHEMISTRY METHOD 04/02/2025 7:20 PM [facility] CO2 22 21 - 32 mmol/L LAB CHEMISTRY METHOD 04/02/2025 7:20 PM [facility] Anion Gap 11 3 - 11 LAB CHEMISTRY METHOD 04/02/2025 7:20 PM [facility] Glucose 63(L) 70 - 100 mg/dL LAB CHEMISTRY METHOD 04/02/2025 7:20 PM [facility] BUN 17 5 - 25 mg/dL LAB CHEMISTRY METHOD 04/02/2025 7:20 PM [facility] Creatinine 0.57 0.50 - 1.10 mg/dL LAB CHEMISTRY METHOD 04/02/2025 7:20 PM [facility] eGFR 106 >=60 mL/min/1. 73m2 LAB CHEMISTRY METHOD 04/02/2025 7:20 PM [facility] Comment:Calculation based on the Chronic Kidney Disease Epidemiology Collaboration (CKD-EPI) equation refit without adjustment for race. BUN/Creatinine Ratio 29.8 LAB CHEMISTRY METHOD 04/02/2025 7:20 PM [facility] Calcium 9.2 8.5 - 10.5 mg/dL LAB CHEMISTRY METHOD 04/02/2025 7:20 PM [facility] AST (SGOT) 31 10 - 42 unit/L LAB CHEMISTRY METHOD 04/02/2025 7:20 PM [facility] ALT (SGPT) 20 10 - 60 unit/L LAB CHEMISTRY METHOD 04/02/2025 7:20 PM [facility] Alkaline Phosphatase 129(H) 42 - 121 unit/L LAB CHEMISTRY METHOD 04/02/2025 7:20 PM [facility] Total Protein 7.3 6.0 - 8.0 g/dL LAB CHEMISTRY METHOD 04/02/2025 7:20 PM [facility] Albumin 3.6 3.2 - 5.0 g/dL LAB CHEMISTRY METHOD 04/02/2025 7:20 PM EDT [facility] Total Bilirubin 0.2 0.0 - 1.4 mg/dL LAB CHEMISTRY METHOD 04/02/2025 7:20 PM EDT [facility] Blood Venous blood specimen / Unknown 04/02/2025 7:49 AM EDT 04/02/2025 7:01 PM EDT us Heaven Robertson MD LAB BLOOD ORDERABLES Fin al Result [facility] [address] [place] [address], * (ABNORMAL) Complete blood count (04/02/2025 7:49 AM EDT) WBC 5.5 4.8 - 10.8 K/mcL LAB HEMETOLOGY METHOD 04/02[facility]2025 1:[facility] RBC 4.60 3.80 - 4.80 M/mcL LAB HEMETOLOGY METHOD 04/02/2025 1:[facility] Hemoglobin 13.1 11.5 - 16.0 g/dL LAB HEMETOLOGY METHOD 04/02/2025 1:[facility] Hematocrit 42.2 35.0 - 47.0 % LAB HEMETOLOGY METHOD 04/02/2025 1:14 PM EDT [facility] MCV 91.7 79.0 - 98.0 FL LAB HEMETOLOGY METHOD 04/02/2025 1:[facility] MCH 28.5 27.0 - 32.0 pcg LAB HEMETOLOGY METHOD 04/02/2025 1:14 PM [facility] MCHC 31.0(L) 32.0 - 37.0 g/dL LAB HEMETOLOGY METHOD 04/02/2025 1:[facility] RDW 15.4(H) 11.0 - 15.0 % LAB HEMETOLOGY METHOD 04/02/2025 1:14 PM EDT [facility] Platelets 203 130 - 400 K/mcL LAB HEMETOLOGY METHOD 04/02/2025 1:14 PM EDT [facility] MPV 12.9(H) 7.0 - 11.0 FL LAB HEMETOLOGY METHOD 04/02/2025 1:14 PM EDT [facility] NRBC 0.0 <1.0 % LAB HEMETOLOGY METHOD 04/02/2025 1:14 PM EDT [facility] NRBC Absolute 0.00 <0.10 K/mcL LAB HEMETOLOGY METHOD 04/02/2025 1:14 PM EDT [facility] Blood Venous blood specimen / Unknown Venipuncture / Unknown 04/02/2025 7:49 AM EDT 04/02/2025 12:26 PM EDT us Heaven Robertson MD LAB BLOOD ORDERABLES Fin al Result [facility] [address] [place] [address], documented in this encounter Visit Diagnoses Diagnosis Pneumonia, unspecified organism documented in this encounter Care Teams Weight Shifter Relationship Specialty Start Date End Date Heaven Robertson MD [address] [place] [phone] PCP - General Family Medicine 06/13/24 documented as of this encounter
--- OUTSIDE RECORDS SUMMARY | 2025-05-06 14:57 | XMS_ITS | Encounter Summary ---
Author Organization [employer] Address [address] [place] [address] Care Team Providers Care Proof Coin Collector Name Role Phone Heaven Robertson MD Primary Care Provider + Encounter Details Date Type Department Care Team (Late st Contact Info) Description 01/11/2025 Lab Requisition [facility] - Main Lab [address] [place] [address] Heaven Roberston MD [address] [address] Anemia, unspecified; Other disorders of electrolyte and fluid balance, not elsewhere classified Social History Tobacco Use Types Packs/Day Years [...] Associated Diagnosis Comments COMPLETE BLOOD COUNT Routine 01/11/2025 5:55 AM EDT Anemia, unspecified Other disorders of electrolyte and fluid balance, not elsewhere classified COMPREHENSIVE METABOLIC PANEL Routine 01/11/2025 5:55 AM EDT Anemia, unspecified Other disorders of electrolyte and fluid balance, not elsewhere classified documented in this encounter Results * (ABNORMAL) Comprehensive metabolic panel (01/11/2025 5:55 AM EDT) Sodium 138 133 - 145 mmol/L LAB CHEMISTRY METHOD 01/11/2025 11:[address] [facility] Potassium 4.0 3.5 - 5.5 mmol/L LAB CHEMISTRY METHOD 01/11/2025 11:19 AM [facility] Chloride 106 96 - 110 mmol/L LAB CHEMISTRY METHOD 01/11/2025 11:19 AM [facility] CO2 22 21 - 32 mmol/L LAB CHEMISTRY METHOD 01/11/2025 11:19 AM [facility] Anion Gap 10 3 - 11 LAB CHEMISTRY METHOD 01/11/2025 11:19 AM [facility] Glucose 49(L) 70 - 100 mg/dL LAB CHEMISTRY METHOD 01/11/2025 11:19 AM [facility] BUN 36(H) 5 - 25 mg/dL LAB CHEMISTRY METHOD 01/11/2025 11:19 AM [facility] Comment:Results verified by repeat testing Creatinine 0.56 0.50 - 1.10 mg/dL LAB CHEMISTRY METHOD 01/11/2025 11:19 AM [facility] eGFR 107 >=60 mL/min/1. 73m2 LAB CHEMISTRY METHOD 01/11/2025 11:19 AM [facility] Comment:Calculation based on the Chronic Kidney Disease Epidemiology Collaboration (CKD-EPI) equation refit without adjustment for race. BUN/Creatinine Ratio 64.3 LAB CHEMISTRY METHOD 01/11/2025 11:19 AM [facility] Calcium 9.2 8.5 - 10.5 mg/dL LAB CHEMISTRY METHOD 01/11/2025 11:19 AM [facility] AST (SGOT) 42 10 - 42 unit/L LAB CHEMISTRY METHOD 01/11/2025 11:19 AM [facility] ALT (SGPT) 43 10 - 60 unit/L LAB CHEMISTRY METHOD 01/11/2025 11:19 AM [facility] Alkaline Phosphatase 126(H) 42 - 121 unit/L LAB CHEMISTRY METHOD 01/11/2025 11:19 AM [facility] Total Protein 7.1 6.0 - 8.0 g/dL LAB CHEMISTRY METHOD 01/11/2025 11:19 AM EDT [facility] Albumin 3.1(L) 3.2 - 5.0 g/dL LAB CHEMISTRY METHOD 01/11/2025 11:19 AM EDT [facility] Total Bilirubin 0.2 0.0 - 1.4 mg/dL LAB CHEMISTRY METHOD 01/11/2025 11:19 AM EDT [facility] Blood Venous blood specimen / Unknown Venipuncture / Unknown 01/11/2025 5:55 AM EDT 01/11/2025 9:42 AM EDT us Heaven Robertson MD LAB BLOOD ORDERABLES Fin al Result [facility] [address] [place] [address], * (ABNORMAL) Complete blood count (01/11/2025 5:55 AM EDT) WBC 9.2 4.8 - 10.8 K/mcL LAB HEMETOLOGY METHOD 01/11/2025 10:24 AM T [facility] RBC 4.90(H) 3.80 - 4.80 M/mcL LAB HEMETOLOGY METHOD 01/11/2025 10:24 AM [facility] Hemoglobin 13.6 11.5 - 16.0 g/dL LAB HEMETOLOGY METHOD 01/11/2025 10:24 AM EDT [facility] Hematocrit 42.7 35.0 - 47.0 % LAB HEMETOLOGY METHOD 01/11/2025 10:24 AM EDT [facility] MCV 88.0 79.0 - 98.0 FL LAB HEMETOLOGY METHOD 01/11/2025 10:24 AM [facility] MCH 28.0 27.0 - 32.0 pcg LAB HEMETOLOGY METHOD 01/11/2025 10:24 AM EDT [facility] MCHC 31.9(L) 32.0 - 37.0 g/dL LAB HEMETOLOGY METHOD 01/11/2025 10:24 AM EDT [facility] RDW 16.6(H) 11.0 - 15.0 % LAB HEMETOLOGY METHOD 01/11/2025 10:24 AM EDT [facility] Platelets 321 130 - 400 K/mcL LAB HEMETOLOGY METHOD 01/11/2025 10:24 AM EDT [facility] MPV 11.9(H) 7.0 - 11.0 FL LAB HEMETOLOGY METHOD 01/11/2025 10:24 AM EDT [facility] NRBC 0.0 <1.0 % LAB HEMETOLOGY METHOD 01/11/2025 10:24 AM EDT [facility] NRBC Absolute 0.00 <0.10 K/mcL LAB HEMETOLOGY METHOD 01/11/2025 10:24 AM EDT [facility] Blood Venous blood specimen / Unknown Venipuncture / Unknown 01/11/2025 5:55 AM EDT 01/11/2025 9:42 AM EDT us Heaven Robertson MD LAB BLOOD ORDERABLES Fin al Result [facility] [address] [place] [address], documented in this encounter Visit Diagnoses Diagnosis Anemia, unspecified Other disorders of electrolyte and fluid balance, not elsewhere classified documented in this encounter Care Teams Proof Coin Collector Relationship Specialty Start Date End Date Heaven Robertson MD [address] [place] [id number] PCP - General Family Medicine 06/13/24 documented as of this encounter
--- OUTSIDE RECORDS SUMMARY | 2025-05-06 14:57 | XMS_ITS | Encounter Summary ---
Author Organization Press Address [address] [place] [address] Care Team Providers Care Assemblyman Or Woman Name Role Phone Heaven Robertson MD Primary Care Provider + Encounter Details Date Type Department Care Team (Late st Contact Info) Description 12/27/2024 Lab Requisition [facility] - Main Lab 299 [facility] [place] [address] Heaven Robertson MD 819 [facility] 1 [place] [address] Hypokalemia; Personal history of other diseases of the digestive system; Nutritional deficiency, unspecified; Heart failure, unspecified (CMS/HCC V24, CMS/HCC V28) [...] Procedure Name Priority Date/Time Associated Diagnosis Comments IRON AND TIBC Routine 12/27/2024 5:38 AM EDT Hypokalemia Personal history of other diseases of the digestive system Nutritional deficiency, unspecified Heart failure, unspecified (CMS/HCC V24, CMS/HCC V28) ZINC Routine 12/27/2024 5:38 AM EDT Hypokalemia Personal history of other diseases of the digestive system Nutritional deficiency, unspecified Heart failure, unspecified (CMS/HCC V24, CMS/HCC V28) COMPLETE BLOOD COUNT Routine 12/27/2024 5:38 AM EDT Hypokalemia Personal history of other diseases of the digestive system Nutritional deficiency, unspecified Heart failure, unspecified (CMS/HCC V24, CMS/HCC V28) THYROID STIMULATING HORMONE Routine 12/27/2024 5:38 AM EDT Hypokalemia Personal history of other diseases of the digestive system Nutritional deficiency, unspecified Heart failure, unspecified (CMS/HCC V24, CMS/HCC V28) FOLATE Routine 12/27/2024 5:38 AM EDT Hypokalemia Personal history of other diseases of the digestive system Nutritional deficiency, unspecified Heart failure, unspecified (CMS/HCC V24, CMS/HCC V28) FERRITIN Routine 12/27/2024 5:38 AM EDT Hypokalemia Personal history of other diseases of the digestive system Nutritional deficiency, unspecified Heart failure, unspecified (CMS/HCC V24, CMS/HCC V28) VITAMIN B12 Routine 12/27/2024 5:38 AM EDT Hypokalemia Personal history of other diseases of the digestive system Nutritional deficiency, unspecified Heart failure, unspecified (CMS/HCC V24, CMS/HCC V28) COMPREHENSIVE METABOLIC PANEL Routine 12/27/2024 5:38 AM EDT Hypokalemia Personal history of other diseases of the digestive system Nutritional deficiency, unspecified Heart failure, unspecified (CMS/HCC V24, CMS/HCC V28) documented in this encounter Results * Ferritin (12/27/2024 5:38 AM EDT) Ferritin 164 8 - 252 ng/mL LAB CHEMISTRY METHOD 12/27/2024 11:38 AM EDT [facility] Blood Venous blood specimen / Unknown Venipuncture / Unknown 12/27/2024 5:38 AM EDT 12/27/2024 9:52 AM EDT us Heaven Robertson MD LAB BLOOD ORDERABLES Fin al Result [facility] [address] [place] [address], [place] [phone] * Iron and TIBC (12/27/2024 5:38 AM EDT) Iron 51 40 - 150 mcg/dL LAB CHEMISTRY METHOD 12/27/2024 11:38 AM EDT [facility] TIBC 262 250 - 450 mcg/dL LAB CHEMISTRY METHOD 12/27/2024 11:38 AM EDT [facility] Iron Saturation 19 15 - 50 % LAB CHEMISTRY METHOD 12/27/2024 11:38 AM EDT [facility] Blood Venous blood specimen / Unknown Venipuncture / Unknown 12/27/2024 5:38 AM EDT 12/27/2024 9:52 AM EDT Heaven Robertson MD LAB BLOOD ORDERABLES Fin al Result [facility] [address] [place] [address], [place] [phone] * Zinc (12/27/2024 5:38 AM EDT) Pathologist [facility] Zinc 68 60 - 130 ug/dL 12/31/2024 3:14 PM EDT [facility] Comment: Elevated results may be due to sample collected in a non-certified trace element-free tube. This test was developed and the performance characteristics determined by [facility]. It has not been cleared or approved by the FDA. The laboratory is regulated under CLIA as qualified to perform high-complexity testing. This test is used for patient testing purposes. It should not be regarded as investigational or for research. Test performed at [facility], [address] , [place], [place] [id number] Lillian Pichardo MD, PhD - [employer] Blood Venous blood specimen / Unknown Venipuncture / Unknown 12/27/2024 5:38 AM EDT 12/27/2024 9:52 AM EDT Heaven Robertson MD LAB BLOOD ORDERABLES Fin al [place] [address] [place] [address] * Folate (12/27/2024 5:38 AM EDT) Pathologist [facility] Folate 6.8 2.8 - 17.0 ng/ml LAB CHEMISTRY METHOD 12/27/2024 11:59 AM EDT [facility] Blood Venous blood specimen / Unknown Venipuncture / Unknown 12/27/2024 5:38 AM EDT 12/27/2024 9:52 AM EDT Heaven Robertson MD LAB BLOOD ORDERABLES Fin al Result Performing Organization Address [facility] de Phone Number [facility] [address] [place] [address], * Vitamin B12 (12/27/2024 5:38 AM EDT) [facility] Vitamin B-12 345 250 - 900 pcg/mL LAB CHEMISTRY METHOD 12/27/2024 11:59 AM EDT [facility] Blood Venous blood specimen / Unknown Venipuncture / Unknown 12/27/2024 5:38 AM EDT 12/27/2024 9:52 AM EDT Heaven Robertson MD LAB BLOOD ORDERABLES Fin al Result Performing Organization Address City/[facility]/ZIP Co de Phone Number [facility] [address] [place] [address], [place] [phone] * (ABNORMAL) Thyroid stimulating hormone (12/27/2024 5:38 AM EDT) Pathologist [facility] TSH 6.84(H) 0.40 - 4.00 mcIU/mL LAB CHEMISTRY METHOD 12/27/2024 12:29 PM EDT [facility] Blood Venous blood specimen / Unknown Venipuncture / Unknown 12/27/2024 5:38 AM EDT 12/27/2024 9:52 AM EDT us Heaven Robertson MD LAB BLOOD ORDERABLES Fin al Result [facility] [address] [place] [address], * (ABNORMAL) Comprehensive metabolic panel (12/27/2024 5:38 AM EDT) Sodium 138 133 - 145 mmol/L LAB CHEMISTRY METHOD 12/27/2024 11:59 AM [facility] Potassium 3.7 3.5 - 5.5 mmol/L LAB CHEMISTRY METHOD 12/27/2024 11:59 AM [facility] Chloride 107 96 - 110 mmol/L LAB CHEMISTRY METHOD 12/27/2024 11:59 AM [facility] CO2 24 21 - 32 mmol/L LAB CHEMISTRY METHOD 12/27/2024 11:59 AM [facility] Anion Gap 7 3 - 11 LAB CHEMISTRY METHOD 12/27/2024 11:59 AM [facility] Glucose 73 70 - 100 mg/dL LAB CHEMISTRY METHOD 12/27/2024 11:59 AM [facility] BUN 17 5 - 25 mg/dL LAB CHEMISTRY METHOD 12/27/2024 11:59 AM [facility] Creatinine 0.40(L) 0.50 - 1.10 mg/dL LAB CHEMISTRY METHOD 12/27/2024 11:59 AM [facility] eGFR 116 >=60 mL/min/1. 73m2 LAB CHEMISTRY METHOD 12/27/2024 11:59 AM [facility] Comment:Calculation based on the Chronic Kidney Disease Epidemiology Collaboration (CKD-EPI) equation refit without adjustment for race. BUN/Creatinine Ratio 42.5 LAB CHEMISTRY METHOD 12/27/2024 11:59 AM [facility] Calcium 9.1 8.5 - 10.5 mg/dL LAB CHEMISTRY METHOD 12/27/2024 11:59 AM [facility] AST (SGOT) 32 10 - 42 unit/L LAB CHEMISTRY METHOD 12/27/2024 11:59 AM [facility] ALT (SGPT) 35 10 - 60 unit/L LAB CHEMISTRY METHOD 12/27/2024 11:59 AM [facility] Alkaline Phosphatase 150(H) 42 - 121 unit/L LAB CHEMISTRY METHOD 12/27/2024 11:59 AM [facility] Total Protein 7.2 6.0 - 8.0 g/dL LAB CHEMISTRY METHOD 12/27/2024 11:59 AM [facility] Albumin 3.2 3.2 - 5.0 g/dL LAB CHEMISTRY METHOD 12/27/2024 11:59 AM [facility] Total Bilirubin 0.2 0.0 - 1.4 mg/dL LAB CHEMISTRY METHOD 12/27/2024 11:59 AM [facility] Blood Venous blood specimen / Unknown Venipuncture / Unknown 12/27/2024 5:38 AM EDT 12/27/2024 9:52 AM EDT us Heaven Robertson MD LAB BLOOD ORDERABLES Fin al Result [facility] [address] [place] [address], * (ABNORMAL) Complete blood count (12/27/2024 5:38 AM EDT) WBC 4.9 4.8 - 10.8 K/mcL LAB HEMETOLOGY METHOD 12/27/2024 10:55 AM EDT [facility] RBC 4.60 3.80 - 4.80 M/mcL LAB HEMETOLOGY METHOD 12/27/2024 10:55 AM [facility] Hemoglobin 13.1 11.5 - 16.0 g/dL LAB HEMETOLOGY METHOD 12/27/2024 10:55 AM [facility] Hematocrit 41.5 35.0 - 47.0 % LAB HEMETOLOGY METHOD 12/27/2024 10:55 AM [facility] MCV 91.2 79.0 - 98.0 FL LAB HEMETOLOGY METHOD 12/27/2024 10:55 AM [facility] MCH 28.8 27.0 - 32.0 pcg LAB HEMETOLOGY METHOD 12/27/2024 10:55 AM [facility] MCHC 31.6(L) 32.0 - 37.0 g/dL LAB HEMETOLOGY METHOD 12/27/2024 10:55 AM [facility] RDW 16.7(H) 11.0 - 15.0 % LAB HEMETOLOGY METHOD 12/27/2024 10:55 AM [facility] Platelets 191 130 - 400 K/mcL LAB HEMETOLOGY METHOD 12/27/2024 10:55 AM [facility] MPV 12.2(H) 7.0 - 11.0 FL LAB HEMETOLOGY METHOD 12/27/2024 10:55 AM [facility] NRBC 0.0 <1.0 % LAB HEMETOLOGY METHOD 12/27/2024 10:55 AM [facility] NRBC Absolute 0.00 <0.10 K/mcL LAB HEMETOLOGY METHOD 12/27/2024 10:55 AM [facility] Blood Venous blood specimen / Unknown Venipuncture / Unknown 12/27/2024 5:38 AM EDT 12/27/2024 9:52 AM EDT us Heaven Robertson MD LAB BLOOD ORDERABLES Fin al Result [facility] ([facility]) [facility] [address] [place] [address], documented in this encounter Visit Diagnoses Diagnosis Hypokalemia Hypopotassemia Personal history of other diseases of the digestive system Nutritional deficiency, unspecified Heart failure, unspecified (CMS/HCC V24, CMS/HCC V28) Heart failure, unspecified documented in this encounter Care Teams Assemblyman Or Woman Relationship Specialty Start Date End Date Heaven Robertson MD [address] [address] PCP - General Family Medicine 06/13/24 documented as of this encounter
--- OUTSIDE RECORDS SUMMARY | 2025-05-06 14:57 | XMS_ITS | Encounter Summary ---
Author Organization [employer] Address [address] [place] [address] Care Team Providers Care Union Representative Name Role Phone Heaven Robertson MD Primary Care Provider + Encounter Details Date Type Department Care Team (Late st Contact Info) Description 06/13/[address] [facility] - Main Lab 299 [facility] [place] [address] Heaven Robertson MD [address] [phone] Heart failure, unspecified (CMS/HCC V24, CMS/HCC V28) [...] LAB HEMETOLOGY METHOD 06/13/2024 11:[address] [facility] RBC 4.20 3.80 - 4.80 M/mcL LAB HEMETOLOGY METHOD 06/13/2024 11:[address] [facility] Hemoglobin 12.1 11.5 - 16.0 g/dL LAB HEMETOLOGY METHOD 06/13/2024 11:[address] [facility] Hematocrit 39.1 35.0 - 47.0 % LAB HEMETOLOGY METHOD 06/13/2024 11:18 AM [facility] MCV 94.2 79.0 - 98.0 FL LAB HEMETOLOGY METHOD 06/13/2024 11:18 AM [facility] MCH 29.2 27.0 - 32.0 pcg LAB HEMETOLOGY METHOD 06/13/2024 11:18 AM [facility] MCHC 30.9(L) 32.0 - 37.0 g/dL LAB HEMETOLOGY METHOD 06/13/2024 11:18 AM [facility] RDW 14.6 11.0 - 15.0 % LAB HEMETOLOGY METHOD 06/13/2024 11:18 AM [facility] Platelets 256 130 - 400 K/mcL LAB HEMETOLOGY METHOD 06/13/2024 11:18 AM [facility] MPV 11.8(H) 7.0 - 11.0 FL LAB HEMETOLOGY METHOD 06/13/2024 11:18 AM [facility] NRBC 0.0 <1.0 % LAB HEMETOLOGY METHOD 06/13/2024 11:18 AM [facility] NRBC Absolute 0.00 <0.10 K/mcL LAB HEMETOLOGY METHOD 06/13/2024 11:18 AM [facility] Blood Venous blood specimen / Unknown Venipuncture / Unknown 06/13/2024 7:41 AM EST 06/13/2024 9:51 AM EST us Heaven Robertson MD LAB BLOOD ORDERABLES Fin al Result [facility] [address] [place] [address], documented in this encounter Visit Diagnoses Diagnosis Heart failure, unspecified (CMS/[facility] V24, CMS/[facility] V28) Heart failure, unspecified documented in this encounter Care Teams Union Representative Relationship Specialty Start Date End Date Heaven Robertson MD [address] [address] PCP - General Family Medicine 06/13/24 documented as of this encounter
--- OUTSIDE RECORDS SUMMARY | 2025-05-06 14:58 | XMS_ITS | Encounter Summary ---
Author Organization [employer] Address [address] [place] [address] Care Team Providers Care Tractor Trailer Mechanic Name Role Phone Heaven Robertson MD Primary Care Provider + Encounter Details Date Type Department Care Team (Late st Contact Info) Description 05/03/2025 Lab Requisition [facility] - Main Lab 299 [facility] [place] [address] Heaven Robertson MD [address] [address] Pneumonia, unspecified organism Social History Tobacco Use [...] Associated Diagnosis Comments COMPLETE BLOOD COUNT Routine 05/06/2025 8:02 AM EDT Pneumonia, unspecified organism COMPREHENSIVE METABOLIC PANEL Routine 05/06/2025 8:02 AM EDT Pneumonia, unspecified organism documented in this encounter Results * (ABNORMAL) Comprehensive metabolic panel (05/06/2025 8:02 AM EDT) Sodium 138 133 - 145 mmol/L LAB CHEMISTRY METHOD 05/06/2025 12:50 PM [facility] Potassium 4.1 3.5 - 5.5 mmol/L LAB CHEMISTRY METHOD 05/06/2025 12:50 PM [facility] Chloride 107 96 - 110 mmol/L LAB CHEMISTRY METHOD 05/06/2025 12:50 PM [facility] CO2 22 21 - 32 mmol/L LAB CHEMISTRY METHOD 05/06/2025 12:50 PM [facility] Anion Gap 9 3 - 11 LAB CHEMISTRY METHOD 05/06/2025 12:50 PM [facility] Glucose 70 70 - 100 mg/dL LAB CHEMISTRY METHOD 05/06/2025 12:50 PM [facility] BUN 11 5 - 25 mg/dL LAB CHEMISTRY METHOD 05/06/2025 12:50 PM [facility] Creatinine 0.48(L) 0.50 - 1.10 mg/dL LAB CHEMISTRY METHOD 05/06/2025 12:50 PM [facility] eGFR 111 >=60 mL/min/1. 73m2 LAB CHEMISTRY METHOD 05/06/2025 12:50 PM [facility] Comment:Calculation based on the Chronic Kidney Disease Epidemiology Collaboration (CKD-EPI) equation refit without adjustment for race. BUN/Creatinine Ratio 22.9 LAB CHEMISTRY METHOD 05/06/2025 12:50 PM [facility] Calcium 9.1 8.5 - 10.5 mg/dL LAB CHEMISTRY METHOD 05/06/2025 12:50 PM [facility] AST (SGOT) 23 10 - 42 unit/L LAB CHEMISTRY METHOD 05/06/2025 12:50 PM [facility] ALT (SGPT) 20 10 - 60 unit/L LAB CHEMISTRY METHOD 05/06/2025 12:50 PM [facility] Alkaline Phosphatase 125(H) 42 - 121 unit/L LAB CHEMISTRY METHOD 05/06/2025 12:50 PM [facility] Total Protein 6.7 6.0 - 8.0 g/dL LAB CHEMISTRY METHOD 05/06/2025 12:50 PM [facility] Albumin 2.9(L) 3.2 - 5.0 g/dL LAB CHEMISTRY METHOD 05/06/2025 12:50 PM EDT [facility] Total Bilirubin 0.2 0.0 - 1.4 mg/dL LAB CHEMISTRY METHOD 05/06/2025 12:50 PM EDT [facility] Blood Venous blood specimen / Unknown Venipuncture / Unknown 05/06/2025 8:02 AM EDT 05/06/2025 10:56 AM EDT us Heaven Robertson MD LAB BLOOD ORDERABLES Fin al Result [facility] [address] [place] [address], * (ABNORMAL) Complete blood count (05/06/2025 8:02 AM EDT) WBC 4.9 4.8 - 10.8 K/mcL LAB HEMETOLOGY METHOD 05/06/2025 12:30 PM EDT [facility] RBC 4.60 3.80 - 4.80 M/mcL LAB HEMETOLOGY METHOD 05/06/2025 12:30 PM EDT [facility] Hemoglobin 12.9 11.5 - 16.0 g/dL LAB HEMETOLOGY METHOD 05/06/2025 12:30 PM T [facility] Hematocrit 41.5 35.0 - 47.0 % LAB HEMETOLOGY METHOD 05/06/2025 12:30 PM EDT [facility] MCV 89.4 79.0 - 98.0 FL LAB HEMETOLOGY METHOD 05/06/2025 12:30 PM EDT [facility] MCH 27.8 27.0 - 32.0 pcg LAB HEMETOLOGY METHOD 05/06/2025 12:30 PM [facility] MCHC 31.1(L) 32.0 - 37.0 g/dL LAB HEMETOLOGY METHOD 05/06/2025 12:30 PM EDT [facility] RDW 15.0 11.0 - 15.0 % LAB HEMETOLOGY METHOD 05/06/2025 12:30 PM EDT [facility] Platelets 187 130 - 400 K/mcL LAB HEMETOLOGY METHOD 05/06/2025 12:30 PM EDT [facility] MPV 11.9(H) 7.0 - 11.0 FL LAB HEMETOLOGY METHOD 05/06/2025 12:30 PM EDT [facility] NRBC 0.0 <1.0 % LAB HEMETOLOGY METHOD 05/06/2025 12:30 PM EDT [facility] NRBC Absolute 0.00 <0.10 K/mcL LAB HEMETOLOGY METHOD 05/06/2025 12:30 PM EDT [facility] Blood Venous blood specimen / Unknown Venipuncture / Unknown 05/06/2025 8:02 AM EDT 05/06/2025 10:54 AM EDT us Heaven Robertson MD LAB BLOOD ORDERABLES Fin al Result [facility] [address] [place] [address], documented in this encounter Visit Diagnoses Diagnosis Pneumonia, unspecified organism documented in this encounter Care Teams Tractor Trailer Mechanic Relationship Specialty Start Date End Date Heaven Robertson MD [address] [place] [phone] PCP - General Family Medicine 06/13/24 documented as of this encounter
--- OUTSIDE RECORDS SUMMARY | 2025-05-06 14:58 | XMS_ITS | Encounter Summary ---
Author Organization [employer] Address [address] [place] [address] Care Team Providers Care Manager Managing Name Role Phone Heaven Robertson MD Primary Care Provider + Encounter Details Date Type Department Care Team (Late st Contact Info) Description 04/16/[address] [facility] - Main Lab 299 [facility] [place] [address] Heaven Robertson MD 819 [facility] 1 [place] [address] Pneumonia, unspecified organism; Contact with contaminated hypodermic needle, initial encounter Social History Tobacco Use Types Packs/Day Years [...] Procedure Name Priority Date/Time Associated Diagnosis Comments HEPATITIS C ANTIBODY Routine 04/16/2025 5:25 AM EDT Pneumonia, unspecified organism Contact with contaminated hypodermic needle, initial encounter HIV 1, 2 ANTIBODY, P24 ANTIGEN WITH REFLEX TO DIFFERENTIATION Routine 04/16/2025 5:25 AM EDT Pneumonia, unspecified organism Contact with contaminated hypodermic needle, initial encounter documented in this encounter Results * HIV 1,2 antibody, p24 antigen with reflex to differentiation (04/16/2025 5:25 AM EDT) HIV Combo AB/AG Negative Negative LAB CHEMISTRY METHOD 04/16/2025 11:43 AM EDT [facility] ([facility]) [facility] Blood Venous blood specimen / Unknown Venipuncture / Unknown 04/16/2025 5:25 AM EDT 04/16/2025 9:46 AM EDT Narrative [facility] - 04/16/2025 11:43 AM EDT This assay is a 4th generation assay allowing for earlier detection of HIV infection by detecting the presence of the HIV-1 p24 antigen as well as the traditional antibodies to HIV type 1 (including group O) and type 2. Use of a 4th generation assay is the current CDC recommendation for HIV screening. Heaven Robertson MD LAB BLOOD ORDERABLES Fin al Result Performing Organization Address City/[facility]/ZIP Co de Phone Number [facility] [address] [place] [address], [place] [phone] * Hepatitis C antibody (04/16/2025 5:25 AM EDT) [facility] Hepatitis C Antibody Negative Negative LAB CHEMISTRY METHOD 04/16/2025 11:43 AM EDT [facility] Blood Venous blood specimen / Unknown Venipuncture / Unknown 04/16/2025 5:25 AM EDT 04/16/2025 9:46 AM EDT Heaven Robertson MD LAB BLOOD ORDERABLES Fin al Result Performing Organization Address [facility]/ZIP Co de Phone Number [facility] [address] [place] [address], [place] [phone] documented in this encounter Visit Diagnoses Diagnosis Pneumonia, unspecified organism Contact with contaminated hypodermic needle, initial encounter documented in this encounter Care Teams Manager Managing Relationship Specialty Start Date End Date Heaven Robertson MD [address] [place] [phone] PCP - General Family Medicine 06/13/24 documented as of this encounter
--- OUTSIDE RECORDS SUMMARY | 2025-05-06 14:58 | XMS_ITS | Encounter Summary ---
Author Organization [employer] Address [address] [place] [address] Care Team Providers Care Plate Printer Name Role Phone Heaven Robertson MD Primary Care Provider + Encounter Details Date Type Department Care Team (Late st Contact Info) Description 04/27/2025 Lab Requisition [facility] - Main Lab 299 [facility] [place] [address] Heaven Robertson MD [address] [address] Pneumonia, unspecified organism Social History Tobacco Use [...] Associated Diagnosis Comments COMPLETE BLOOD COUNT Routine 04/29/2025 7:05 AM EDT Pneumonia, unspecified organism COMPREHENSIVE METABOLIC PANEL Routine 04/29/2025 7:05 AM EDT Pneumonia, unspecified organism documented in this encounter Results * (ABNORMAL) Comprehensive metabolic panel (04/29/2025 7:05 AM EDT) Sodium 137 133 - 145 mmol/L LAB CHEMISTRY METHOD 04/29/2025 12:51 PM T [facility] Potassium 4.3 3.5 - 5.5 mmol/L LAB CHEMISTRY METHOD 04/29/2025 12:51 PM T [facility] Comment:Hemolysis present Chloride 106 96 - 110 mmol/L LAB CHEMISTRY METHOD 04/29/2025 12:51 PM [facility] CO2 23 21 - 32 mmol/L LAB CHEMISTRY METHOD 04/29/2025 12:51 PM [facility] Anion Gap 8 3 - 11 LAB CHEMISTRY METHOD 04/29/2025 12:51 PM [facility] Glucose 73 70 - 100 mg/dL LAB CHEMISTRY METHOD 04/29/2025 12:51 PM [facility] BUN 15 5 - 25 mg/dL LAB CHEMISTRY METHOD 04/29/2025 12:51 PM [facility] Creatinine 0.46(L) 0.50 - 1.10 mg/dL LAB CHEMISTRY METHOD 04/29/2025 12:51 PM [facility] eGFR 112 >=60 mL/min/1. 73m2 LAB CHEMISTRY METHOD 04/29/2025 12:51 PM [facility] Comment:Calculation based on the Chronic Kidney Disease Epidemiology Collaboration (CKD-EPI) equation refit without adjustment for race. BUN/Creatinine Ratio 32.6 LAB CHEMISTRY METHOD 04/29/2025 12:51 PM [facility] Calcium 8.8 8.5 - 10.5 mg/dL LAB CHEMISTRY METHOD 04/29/2025 12:51 PM [facility] AST (SGOT) 32 10 - 42 unit/L LAB CHEMISTRY METHOD 04/29/2025 12:51 PM [facility] ALT (SGPT) 18 10 - 60 unit/L LAB CHEMISTRY METHOD 04/29/2025 12:51 PM [facility] Comment:Hemolysis present Alkaline Phosphatase 116 42 - 121 unit/L LAB CHEMISTRY METHOD 04/29/2025 12:51 PM [facility] Total Protein 6.9 6.0 - 8.0 g/dL LAB CHEMISTRY METHOD 04/29/2025 12:51 PM [facility] Albumin 3.0(L) 3.2 - 5.0 g/dL LAB CHEMISTRY METHOD 04/29/2025 12:51 PM EDT [facility] Total Bilirubin 0.2 0.0 - 1.4 mg/dL LAB CHEMISTRY METHOD 04/29/2025 12:51 PM EDT [facility] Blood Venous blood specimen / Unknown Venipuncture / Unknown 04/29/2025 7:05 AM EDT 04/29/2025 10:57 AM EDT us Heaven Robertson MD LAB BLOOD ORDERABLES Fin al Result [facility] [address] [place] [address], * (ABNORMAL) Complete blood count (04/29/2025 7:05 AM EDT) WBC 5.6 4.8 - 10.8 K/mcL LAB HEMETOLOGY METHOD 04/29/2025 12:16 PM EDT [facility] RBC 4.70 3.80 - 4.80 M/mcL LAB HEMETOLOGY METHOD 04/29/2025 12:16 PM EDT [facility] Hemoglobin 13.4 11.5 - 16.0 g/dL LAB HEMETOLOGY METHOD 04/29/2025 12:16 PM EDT [facility] Hematocrit 42.3 35.0 - 47.0 % LAB HEMETOLOGY METHOD 04/29/2025 12:16 PM EDT [facility] MCV 90.2 79.0 - 98.0 FL LAB HEMETOLOGY METHOD 04/29/2025 12:16 PM EDT [facility] MCH 28.6 27.0 - 32.0 pcg LAB HEMETOLOGY METHOD 04/29/2025 12:16 PM EDT [facility] MCHC 31.7(L) 32.0 - 37.0 g/dL LAB HEMETOLOGY METHOD 04/29/2025 12:16 PM EDT [facility] RDW 14.7 11.0 - 15.0 % LAB HEMETOLOGY METHOD 04/29/2025 12:16 PM EDT [facility] Platelets 219 130 - 400 K/mcL LAB HEMETOLOGY METHOD 04/29/2025 12:16 PM EDT [facility] MPV 11.5(H) 7.0 - 11.0 FL LAB HEMETOLOGY METHOD 04/29/2025 12:16 PM EDT [facility] NRBC 0.0 <1.0 % LAB HEMETOLOGY METHOD 04/29/2025 12:16 PM EDT [facility] NRBC Absolute 0.00 <0.10 K/mcL LAB HEMETOLOGY METHOD 04/29/2025 12:16 PM EDT [facility] Blood Venous blood specimen / Unknown Venipuncture / Unknown 04/29/2025 7:05 AM EDT 04/29/2025 10:54 AM EDT us Heaven Robertson MD LAB BLOOD ORDERABLES Fin al Result [facility] [address] [place] [address], documented in this encounter Visit Diagnoses Diagnosis Pneumonia, unspecified organism documented in this encounter Care Teams Plate Printer Relationship Specialty Start Date End Date Heaven Robertson MD [address] [address] PCP - General Family Medicine 06/13/24 documented as of this encounter
--- OUTSIDE RECORDS SUMMARY | 2025-05-06 14:58 | XMS_ITS | Encounter Summary ---
Author Organization [employer] Address [address] [place] [address] Care Team Providers Care Us Administrative Law Judge Name Role Phone Heaven Robertson MD Primary Care Provider + Encounter Details Date Type Department Care Team (Late st Contact Info) Description 04/14/2025 Lab Requisition [facility] - Main Lab 299 [facility] [place] [address] Heaven Robertson MD [address] [address] Pneumonia, unspecified organism Social History Tobacco Use [...] Associated Diagnosis Comments COMPLETE BLOOD COUNT Routine 04/15/2025 7:19 AM EDT Pneumonia, unspecified organism COMPREHENSIVE METABOLIC PANEL Routine 04/15/2025 7:19 AM EDT Pneumonia, unspecified organism documented in this encounter Results * (ABNORMAL) Comprehensive metabolic panel (04/15/2025 7:19 AM EDT) Sodium 137 133 - 145 mmol/L LAB CHEMISTRY METHOD [facility]2025 2[facility] PM [facility] Potassium 4.4 3.5 - 5.5 mmol/L LAB CHEMISTRY METHOD 04/15/2025 2:25 PM [facility] Chloride 106 96 - 110 mmol/L LAB CHEMISTRY METHOD 04/15/2025 2:25 PM [facility] CO2 22 21 - 32 mmol/L LAB CHEMISTRY METHOD 04/15/2025 2:25 PM [facility] Anion Gap 9 3 - 11 LAB CHEMISTRY METHOD 04/15/2025 2:25 PM [facility] Glucose 66(L) 70 - 100 mg/dL LAB CHEMISTRY METHOD 04/15/2025 2:25 PM [facility] BUN 16 5 - 25 mg/dL LAB CHEMISTRY METHOD 04/15/2025 2:25 PM [facility] Creatinine 0.46(L) 0.50 - 1.10 mg/dL LAB CHEMISTRY METHOD 04/15/2025 2:25 PM [facility] eGFR 112 >=60 mL/min/1. 73m2 LAB CHEMISTRY METHOD 04/15/2025 2:25 PM [facility] Comment:Calculation based on the Chronic Kidney Disease Epidemiology Collaboration (CKD-EPI) equation refit without adjustment for race. BUN/Creatinine Ratio 34.8 LAB CHEMISTRY METHOD 04/15/2025 2:25 PM [facility] Calcium 9.1 8.5 - 10.5 mg/dL LAB CHEMISTRY METHOD 04/15/2025 2:25 PM [facility] AST (SGOT) 29 10 - 42 unit/L LAB CHEMISTRY METHOD 04/15/2025 2:25 PM [facility] ALT (SGPT) 21 10 - 60 unit/L LAB CHEMISTRY METHOD 04/15/2025 2:25 PM [facility] Alkaline Phosphatase 131(H) 42 - 121 unit/L LAB CHEMISTRY METHOD 04/15/2025 2:25 PM [facility] Total Protein 7.1 6.0 - 8.0 g/dL LAB CHEMISTRY METHOD 04/15/2025 2:25 PM [facility] Albumin 3.3 3.2 - 5.0 g/dL LAB CHEMISTRY METHOD 04/15/2025 2:25 PM EDT [facility] Total Bilirubin 0.2 0.0 - 1.4 mg/dL LAB CHEMISTRY METHOD 04/15/2025 2:25 PM EDT [facility] Blood Venous blood specimen / Unknown Venipuncture / Unknown 04/15/2025 7:19 AM EDT 04/15/2025 11:50 AM EDT us Heaven Robertson MD LAB BLOOD ORDERABLES Fin al Result [facility] [address] [place] [address], * (ABNORMAL) Complete blood count (04/15/2025 7:19 AM EDT) WBC 6.6 4.8 - 10.8 K/mcL LAB HEMETOLOGY METHOD 04/15/2025 1:24 PM EDT [facility] RBC 4.80 3.80 - 4.80 M/mcL LAB HEMETOLOGY METHOD 04/15/2025 1:24 PM EDT [facility] Hemoglobin 13.5 11.5 - 16.0 g/dL LAB HEMETOLOGY METHOD 04/15/2025 1:24 PM EDT [facility] Hematocrit 42.9 35.0 - 47.0 % LAB HEMETOLOGY METHOD 04/15/2025 1:24 PM EDT [facility] MCV 89.0 79.0 - 98.0 FL LAB HEMETOLOGY METHOD 04/15/2025 1:24 PM EDT [facility] MCH 28.0 27.0 - 32.0 pcg LAB HEMETOLOGY METHOD 04/15/2025 1:24 PM EDT [facility] MCHC 31.5(L) 32.0 - 37.0 g/dL LAB HEMETOLOGY METHOD 04/15/2025 1:24 PM EDT [facility] RDW 14.6 11.0 - 15.0 % LAB HEMETOLOGY METHOD 04/15/2025 1:24 PM EDT [facility] Platelets 199 130 - 400 K/mcL LAB HEMETOLOGY METHOD 04/15/2025 1:24 PM EDT [facility] MPV 11.5(H) 7.0 - 11.0 FL LAB HEMETOLOGY METHOD 04/15/2025 1:24 PM EDT [facility] NRBC 0.0 <1.0 % LAB HEMETOLOGY METHOD 04/15/2025 1:24 PM EDT [facility] NRBC Absolute 0.00 <0.10 K/mcL LAB HEMETOLOGY METHOD 04/15/2025 1:24 PM EDT [facility] Blood Venous blood specimen / Unknown Venipuncture / Unknown 04/15/2025 7:19 AM EDT 04/15/2025 11:52 AM EDT us Heaven Robertson MD LAB BLOOD ORDERABLES Fin al Result [facility] [address] [place] [address], documented in this encounter Visit Diagnoses Diagnosis Pneumonia, unspecified organism documented in this encounter Care Teams Us Administrative Law Judge Relationship Specialty Start Date End Date Heaven Robertson MD [address] [place] [id number] PCP - General Family Medicine 06/13/24 documented as of this encounter
--- OUTSIDE RECORDS SUMMARY | 2025-05-06 14:58 | XMS_ITS | Encounter Summary ---
Author Organization [facility] [place] Address [address] [place] [address] Care Team Providers Care Carbide Grinder Name Role Phone Heaven Robertson MD Primary Care Provider + Encounter Details Date Type Department Care Team (Late st Contact Info) Description 04/22/2025 Lab Requisition [facility] - Main Lab 299 [facility] [place] [address] Heaven Robertson MD [address] [address] Pneumonia, unspecified organism Social History Tobacco Use [...] Associated Diagnosis Comments COMPLETE BLOOD COUNT Routine 04/23/2025 5:05 AM EDT Pneumonia, unspecified organism COMPREHENSIVE METABOLIC PANEL Routine 04/23/2025 5:05 AM EDT Pneumonia, unspecified organism documented in this encounter Results * (ABNORMAL) Comprehensive metabolic panel (04/23/2025 5:05 AM EDT) Sodium 139 133 - 145 mmol/L LAB CHEMISTRY METHOD 04/23/2025 11:04 AM [facility] Potassium 4.0 3.5 - 5.5 mmol/L LAB CHEMISTRY METHOD 04/23/2025 11:04 AM [facility] Chloride 107 96 - 110 mmol/L LAB CHEMISTRY METHOD 04/23/2025 11:04 AM [facility] CO2 25 21 - 32 mmol/L LAB CHEMISTRY METHOD 04/23/2025 11:04 AM [facility] Anion Gap 7 3 - 11 LAB CHEMISTRY METHOD 04/23/2025 11:04 AM [facility] Glucose 72 70 - 100 mg/dL LAB CHEMISTRY METHOD 04/23/2025 11:04 AM [facility] BUN 11 5 - 25 mg/dL LAB CHEMISTRY METHOD 04/23/2025 11:04 AM [facility] Creatinine 0.30(L) 0.50 - 1.10 mg/dL LAB CHEMISTRY METHOD 04/23/2025 11:04 AM [facility] eGFR 124 >=60 mL/min/1. 73m2 LAB CHEMISTRY METHOD 04/23/2025 11:04 AM [facility] Comment:Calculation based on the Chronic Kidney Disease Epidemiology Collaboration (CKD-EPI) equation refit without adjustment for race. BUN/Creatinine Ratio 36.7 LAB CHEMISTRY METHOD 04/23/2025 11:04 AM [facility] Calcium 9.0 8.5 - 10.5 mg/dL LAB CHEMISTRY METHOD 04/23/2025 11:04 AM [facility] AST (SGOT) 22 10 - 42 unit/L LAB CHEMISTRY METHOD 04/23/2025 11:04 AM [facility] ALT (SGPT) 17 10 - 60 unit/L LAB CHEMISTRY METHOD 04/23/2025 11:04 AM [facility] Alkaline Phosphatase 122(H) 42 - 121 unit/L LAB CHEMISTRY METHOD 04/23/2025 11:04 AM [facility] Total Protein 6.4 6.0 - 8.0 g/dL LAB CHEMISTRY METHOD 04/23/2025 11:04 AM [facility] Albumin 3.0(L) 3.2 - 5.0 g/dL LAB CHEMISTRY METHOD 04/23/2025 11:04 AM EDT [facility] Total Bilirubin 0.1 0.0 - 1.4 mg/dL LAB CHEMISTRY METHOD 04/23/2025 11:04 AM [facility] Blood Venous blood specimen / Unknown Venipuncture / Unknown 04/23/2025 5:05 AM EDT 04/23/2025 10:10 AM EDT us Heaven Robertson MD LAB BLOOD ORDERABLES Fin al Result [facility] [address] [place] [address], * (ABNORMAL) Complete blood count (04/23/2025 5:05 AM EDT) WBC 5.3 4.8 - 10.8 K/mcL LAB HEMETOLOGY METHOD 04/23/2025 10:29 AM [facility] RBC 4.40 3.80 - 4.80 M/mcL LAB HEMETOLOGY METHOD 04/23/2025 10:29 AM [facility] Hemoglobin 12.6 11.5 - 16.0 g/dL LAB HEMETOLOGY METHOD 04/23/2025 10:29 AM [facility] Hematocrit 39.2 35.0 - 47.0 % LAB HEMETOLOGY METHOD 04/23/2025 10:29 AM EDT [facility] MCV 88.3 79.0 - 98.0 FL LAB HEMETOLOGY METHOD 04/23/2025 10:29 AM [facility] MCH 28.4 27.0 - 32.0 pcg LAB HEMETOLOGY METHOD 04/23/2025 10:29 AM [facility] MCHC 32.1 32.0 - 37.0 g/dL LAB HEMETOLOGY METHOD 04/23/2025 10:29 AM EDT [facility] RDW 14.7 11.0 - 15.0 % LAB HEMETOLOGY METHOD 04/23/2025 10:29 AM EDT [facility] Platelets 208 130 - 400 K/mcL LAB HEMETOLOGY METHOD 04/23/2025 10:29 AM EDT [facility] MPV 11.6(H) 7.0 - 11.0 FL LAB HEMETOLOGY METHOD 04/23/2025 10:29 AM EDT [facility] NRBC 0.0 <1.0 % LAB HEMETOLOGY METHOD 04/23/2025 10:29 AM EDT [facility] NRBC Absolute 0.00 <0.10 K/mcL LAB HEMETOLOGY METHOD 04/23/2025 10:29 AM EDT [facility] Blood Venous blood specimen / Unknown Venipuncture / Unknown 04/23/2025 5:05 AM EDT 04/23/2025 10:09 AM EDT us Heaven Robertson MD LAB BLOOD ORDERABLES Fin al Result [facility] [address] [place] [address], documented in this encounter Visit Diagnoses Diagnosis Pneumonia, unspecified organism documented in this encounter Care Teams Carbide Grinder Relationship Specialty Start Date End Date Heaven Robertson MD [address] [address] PCP - General Family Medicine 06/13/24 documented as of this encounter
--- OUTSIDE RECORDS SUMMARY | 2025-05-06 14:58 | XMS_ITS | Encounter Summary ---
Author Organization [employer] Address [address] [place] [address] Care Team Providers Care Inspector Final Assembly Conveyor Line Name Role Phone Heaven Rboertson MD Primary Care Provider + Encounter Details Date Type Department Care Team (Late st Contact Info) Description 04/06/[address] [facility] - Main Lab 299 [facility] [place] [address] Heaven Robertson MD [address] [address] Pneumonia, unspecified organism Social History Tobacco Use [...] Associated Diagnosis Comments COMPLETE BLOOD COUNT Routine 04/08/2025 8:23 AM EDT Pneumonia, unspecified organism COMPREHENSIVE METABOLIC PANEL Routine 04/08/2025 8:23 AM EDT Pneumonia, unspecified organism documented in this encounter Results * (ABNORMAL) Comprehensive metabolic panel (04/08/2025 8:23 AM EDT) Sodium 137 133 - 145 mmol/L LAB CHEMISTRY METHOD 04/08/2025 2:06 PM [facility] Potassium 4.1 3.5 - 5.5 mmol/L LAB CHEMISTRY METHOD 04/08/2025 2:06 PM [facility] Chloride 106 96 - 110 mmol/L LAB CHEMISTRY METHOD 04/08/2025 2:06 PM [facility] CO2 22 21 - 32 mmol/L LAB CHEMISTRY METHOD 04/08/2025 2:06 PM [facility] Anion Gap 9 3 - 11 LAB CHEMISTRY METHOD 04/08/2025 2:06 PM [facility] Glucose 71 70 - 100 mg/dL LAB CHEMISTRY METHOD 04/08/2025 2:06 PM [facility] BUN 12 5 - 25 mg/dL LAB CHEMISTRY METHOD 04/08/2025 2:06 PM [facility] Creatinine 0.35(L) 0.50 - 1.10 mg/dL LAB CHEMISTRY METHOD 04/08/2025 2:06 PM [facility] eGFR 119 >=60 mL/min/1. 73m2 LAB CHEMISTRY METHOD 04/08/2025 2:06 PM [facility] Comment:Calculation based on the Chronic Kidney Disease Epidemiology Collaboration (CKD-EPI) equation refit without adjustment for race. BUN/Creatinine Ratio 34.3 LAB CHEMISTRY METHOD 04/08/2025 2:06 PM [facility] Calcium 9.0 8.5 - 10.5 mg/dL LAB CHEMISTRY METHOD 04/08/2025 2:06 PM [facility] AST (SGOT) 20 10 - 42 unit/L LAB CHEMISTRY METHOD 04/08/2025 2:06 PM [facility] ALT (SGPT) 23 10 - 60 unit/L LAB CHEMISTRY METHOD 04/08/2025 2:06 PM [facility] Alkaline Phosphatase 132(H) 42 - 121 unit/L LAB CHEMISTRY METHOD 04/08/2025 2:06 PM [facility] Total Protein 6.9 6.0 - 8.0 g/dL LAB CHEMISTRY METHOD 04/08/2025 2:06 PM [facility] Albumin 3.3 3.2 - 5.0 g/dL LAB CHEMISTRY METHOD 04/08/2025 2:06 PM EDT [facility] Total Bilirubin 0.2 0.0 - 1.4 mg/dL LAB CHEMISTRY METHOD 04/08/2025 2:06 PM EDT [facility] Blood Venous blood specimen / Unknown Venipuncture / Unknown 04/08/2025 8:23 AM EDT 04/08/2025 11:44 AM EDT us Heaven Robertson MD LAB BLOOD ORDERABLES Fin al Result [facility] [address] [place] [address], * (ABNORMAL) Complete blood count (04/08/2025 8:23 AM EDT) WBC 5.4 4.8 - 10.8 K/mcL LAB HEMETOLOGY METHOD 04/08/2025 12:42 PM [facility] RBC 4.60 3.80 - 4.80 M/[facility] LAB HEMETOLOGY METHOD 04/08/2025 12:42 PM [facility] Hemoglobin 13.1 11.5 - 16.0 g/dL LAB HEMETOLOGY METHOD 04/08/2025 12:42 PM [facility] Hematocrit 41.3 35.0 - 47.0 % LAB HEMETOLOGY METHOD 04/08/2025 12:42 PM EDT [facility] MCV 90.8 79.0 - 98.0 FL LAB HEMETOLOGY METHOD 04/08/2025 12:42 PM [facility] MCH 28.8 27.0 - 32.0 pcg LAB HEMETOLOGY METHOD 04/08/2025 12:42 PM [facility] MCHC 31.7(L) 32.0 - 37.0 g/dL LAB HEMETOLOGY METHOD 04/08/2025 12:42 PM EDT [facility] RDW 14.6 11.0 - 15.0 % LAB HEMETOLOGY METHOD 04/08/2025 12:42 PM EDT [facility] Platelets 191 130 - 400 K/mcL LAB HEMETOLOGY METHOD 04/08/2025 12:42 PM EDT [facility] MPV 12.6(H) 7.0 - 11.0 FL LAB HEMETOLOGY METHOD 04/08/2025 12:42 PM EDT [facility] NRBC 0.0 <1.0 % LAB HEMETOLOGY METHOD 04/08/2025 12:42 PM EDT [facility] NRBC Absolute 0.00 <0.10 K/mcL LAB HEMETOLOGY METHOD 04/08/2025 12:42 PM EDT [facility] Blood Venous blood specimen / Unknown Venipuncture / Unknown 04/08/2025 8:23 AM EDT 04/08/2025 11:43 AM EDT us Heaven Robertson MD LAB BLOOD ORDERABLES Fin al Result [facility] [address] [place] [address], documented in this encounter Visit Diagnoses Diagnosis Pneumonia, unspecified organism documented in this encounter Care Teams Inspector Final Assembly Conveyor Line Relationship Specialty Start Date End Date Heaven Robertson MD [address] [address] PCP - General Family Medicine 06/13/24 documented as of this encounter
--- OUTSIDE RECORDS SUMMARY | 2025-05-06 14:58 | XMS_ITS | Encounter Summary ---
Author Organization [employer] Address [address] [place] [address] Care Team Providers Care Warehouse Distribution Associate Name Role Phone Heaven Robertson MD Primary Care Provider + Encounter Details Date Type Department Care Team (Late st Contact Info) Description 10/11/2024 Lab Requisition [facility] - Main Lab [address] [facility] [place] [address] Heaven Robertson MD [address] [address] Encounter for other preprocedural examination; [facility] (current) use of anticoagulants; Nonspecific low blood-pressure reading Social History Tobacco Use Types Packs/Day Years [...] Procedure Name Priority Date/Time Associated Diagnosis Comments ACTIVATED PARTIAL THROMBOPLASTIN TIME Routine 10/11/2024 6:27 AM EDT Encounter for other preprocedural examination [facility] (current) use of anticoagulants Nonspecific low blood-pressure reading PROTHROMBIN TIME WITH INR Routine 10/11/2024 6:27 AM EDT Encounter for other preprocedural examination [facility] (current) use of anticoagulants Nonspecific low blood-pressure reading COMPLETE BLOOD COUNT Routine 10/11/2024 6:27 AM EDT Encounter for other preprocedural examination long term (current) use of anticoagulants Nonspecific low blood-pressure reading BASIC METABOLIC PANEL Routine 10/11/2024 6:27 AM EDT Encounter for other preprocedural examination [facility] (current) use of anticoagulants Nonspecific low blood-pressure reading documented in this encounter Results * (ABNORMAL) Activated partial thromboplastin time (10/11/2024 6:27 AM EDT) aPTT 40.0(H) 24.1 - 39.3 sec LAB COAGULATION METHOD 10/11/2024 9:48 AM EDT [facility] Blood Venous blood specimen / Unknown Venipuncture / Unknown 10/11/2024 6:27 AM EDT 10/11/2024 9:11 AM EDT Heaven Robertson MD LAB BLOOD ORDERABLES Fin al Result Performing Organization Address [facility] Co de Phone Number [facility] [address] [place] [address], [place] [phone] * Prothrombin time with INR (10/11/2024 6:27 AM EDT) [facility] Protime 12.9 10.6 - 13.9 sec LAB COAGULATION METHOD 10/11/2024 9:48 AM EDT [facility] INR 1.0 LAB COAGULATION METHOD 10/11/2024 9:48 AM EDT [facility] Blood Venous blood specimen / Unknown Venipuncture / Unknown 10/11/2024 6:27 AM EDT 10/11/2024 9:11 AM EDT Heaven Robertson MD LAB BLOOD ORDERABLES Fin al Result Performing Organization Address [facility]/ZIP Co de Phone Number [facility] [address] [place] [address], [place] [phone] * (ABNORMAL) Basic metabolic panel (10/11/2024 6:27 AM EDT) [facility] Sodium 139 133 - 145 mmol/L LAB CHEMISTRY METHOD 10/11/2024 10:17 AM EDT [facility] Potassium 4.2 3.5 - 5.5 mmol/L LAB CHEMISTRY METHOD 10/11/2024 10:[address] [facility] Chloride 109 96 - 110 mmol/L LAB CHEMISTRY METHOD 10/11/2024 10:[address] [facility] CO2 22 21 - 32 mmol/L LAB CHEMISTRY METHOD 10/11/2024 10:[address] [facility] Anion Gap 8 3 - 11 LAB CHEMISTRY METHOD 10/11/2024 10:[address] [facility] Glucose 83 70 - 100 mg/dL LAB CHEMISTRY METHOD 10/11/2024 10:[address] [facility] BUN 10 5 - 25 mg/dL LAB CHEMISTRY METHOD 10/11/2024 10:[address] [facility] Creatinine 0.37(L) 0.50 - 1.10 mg/dL LAB CHEMISTRY METHOD 10/11/2024 10:[address] [facility] eGFR 118 >=60 mL/min/1. 73m2 LAB CHEMISTRY METHOD 10/11/2024 10:[address] [facility] Comment:Calculation based on the Chronic Kidney Disease Epidemiology Collaboration (CKD-EPI) equation refit without adjustment for race. BUN/Creatinine Ratio 27.0 LAB CHEMISTRY METHOD 10/11/2024 10:[address] [facility] Calcium 8.6 8.5 - 10.5 mg/dL LAB CHEMISTRY METHOD 10/11/2024 10:[address] [facility] Blood Venous blood specimen / Unknown Venipuncture / Unknown 10/11/2024 6:27 AM EDT 10/11/2024 9:11 AM EDT us Heaven Robertson MD LAB BLOOD ORDERABLES Fin al Result [facility] [address] [place] [address], [place] [phone] * (ABNORMAL) Complete blood count (10/11/2024 6:27 AM EDT) [facility] WBC 6.8 4.8 - 10.8 K/mcL LAB HEMETOLOGY METHOD 10/11/2024 9:[address] [facility] RBC 4.10 3.80 - 4.80 M/mcL LAB HEMETOLOGY METHOD 10/11/2024 9:[address] [facility] Hemoglobin 12.1 11.5 - 16.0 g/dL LAB HEMETOLOGY METHOD 10/11/2024 9:[address] [facility] Hematocrit 37.0 35.0 - 47.0 % LAB HEMETOLOGY METHOD 10/11/2024 9:[address] [facility] MCV 90.5 79.0 - 98.0 FL LAB HEMETOLOGY METHOD 10/11/2024 9:[address] [facility] MCH 29.6 27.0 - 32.0 pcg LAB HEMETOLOGY METHOD 10/11/2024 9:[address] [facility] MCHC 32.7 32.0 - 37.0 g/dL LAB HEMETOLOGY METHOD 10/11/2024 9:[address] [facility] RDW 16.9(H) 11.0 - 15.0 % LAB HEMETOLOGY METHOD 10/11/2024 9:[address] [facility] Platelets 203 130 - 400 K/mcL LAB HEMETOLOGY METHOD 10/11/2024 9:[address] [facility] MPV 12.1(H) 7.0 - 11.0 FL LAB HEMETOLOGY METHOD 10/11/2024 9:[address] [facility] NRBC 0.0 <1.0 % LAB HEMETOLOGY METHOD 10/11/2024 9:[address] [facility] NRBC Absolute 0.00 <0.10 K/mcL LAB HEMETOLOGY METHOD 10/11/2024 9:42 AM EDT [facility] Blood Venous blood specimen / Unknown Venipuncture / Unknown 10/11/2024 6:27 AM EDT 10/11/2024 9:11 AM EDT us Heaven Robertson MD LAB BLOOD ORDERABLES Fin al Result [facility] [address] [place] [address], documented in this encounter Visit Diagnoses Diagnosis Encounter for other preprocedural examination long term (current) use of anticoagulants Long-term (current) use of anticoagulants Nonspecific low blood-pressure reading documented in this encounter Care Teams Warehouse Distribution Associate Relationship Specialty Start Date End Date Heaven Robertson MD [address] [place] [id number] PCP - General Family Medicine 06/13/24 documented as of this encounter
--- OUTSIDE RECORDS SUMMARY | 2025-05-06 14:58 | XMS_ITS | Clinical Summary ---
Author Organization [address] Address [address] [place] [address] Phone Care Team Providers Care Esthetic Dermatologist Name Role Phone Heaven Robertson MD Primary Care Provider + Encounters Date Type Department Care Team Description 05/03/2025 Lab Requisition [facility] [address] [place] [address] Heaven Robertson MD Pneumonia, unspecified organism 04/27/2025 Lab Requisition [facility] [address] [place] [address] Heaven Robertson MD Pneumonia, unspecified organism 04/22/2025 Lab Requisition [facility] [address] [place] [address] Heaven Robertson MD Pneumonia, unspecified organism 04/21/2025 Lab Requisition [facility] [address] [place] [address] Heaven Robertson MD Pneumonia, unspecified organism 04/16/2025 Lab Requisition [facility] [address] [place] [address] Heaven Robertson MD Pneumonia, unspecified organism; Contact with contaminated hypodermic needle, initial encounter 04/14/2025 Lab Requisition [facility] [address] [place] [address] Heaven Robertson MD Pneumonia, unspecified organism 04/06/2025 Lab Requisition [facility] [address] [place] [address] Heaven Robertson MD Pneumonia, unspecified organism 03/29/2025 Lab Requisition [facility] [address] [place] [address] Heaven Robertson MD Pneumonia, unspecified organism 03/23/2025 Lab Requisition [facility] [address] [place] [address] Heaven Robertson MD Pneumonia, unspecified organism 03/17/2025 Lab Requisition [facility] [address] [place] [address] Heaven Robertson MD Pneumonia, unspecified organism 03/08/2025 Lab Requisition [facility] [address] [place] [address] Heaven Robertson MD Pneumonia, unspecified organism 03/03/2025 Lab Requisition [facility] [address] [place] [address] Heaven Robertson MD Pneumonia, unspecified organism 02/27/2025 Lab Requisition [facility] [address] [place] [phone] Heaven Robertson MD Hypokalemia; Pneumonia, unspecified organism; Chronic obstructive pulmonary disease, unspecified (CMS/HCC V24, CMS/HCC V28); Gout, unspecified; Chronic pain syndrome 02/23/2025 Lab Requisition [facility] [address] [place] [address] Heaven Robertson MD Pneumonia, unspecified organism 02/17/2025 Lab Requisition [facility] [address] [place] [address] Heaven Robertson MD Pneumonia, unspecified organism 02/09/2025 Lab Requisition [facility] [address] [place] [phone] Heaven Robertson MD Pneumonia, unspecified organism 02/07/2025 Lab Requisition [facility] - Main Lab [address] [place] [address] Heaven Robertson MD Pneumonia, unspecified organism from [...] Last Done Comments Breast Cancer Screening 1967 Colorectal Cancer Screening: Colonoscopy 1967 DTaP,Tdap,and Td Vaccines (1 - Tdap) 1986 Hepatitis B Vaccines (1 of 3 - 19+ 3-dose series) 1986 Pneumococcal Vaccine: 50+ Ye ars (1 of 2 - PCV) 1986 Cervical Cancer Screening: P ap Smear 1988 Zoster Vaccines (1 of 2) 2017 Cholesterol Screening (Lipid Panel) 06/13/2024 Social Influencers of Health Screening 06/13/2024 Depression Screening 08/01/2024 COVID-19 Vaccine (1 - 2023-2 5 season) 2025 Influenza Vaccine (#1) 2025 05/11/2024 RSV Immunization Adult Patie nts (1 - 1-dose 75+ series) 2042 HIV Screening Completed 04/16/2025 Hepatitis C Screening Completed 04/16/2025 HIB Vaccines Aged Out No longer eligi [...] to complete this topic RSV Immunization Patients Un esteban 20 months Aged Out No longer eligible b ased on patient's age to complete this topic Varicella Vaccines Aged Out No longer eligible based on patient's age to complete this topic Procedures Procedure Name Priority Date/Time Associated Diagnosis Comments COMPREHENSIVE METABOLIC PANEL Routine 05/06/2025 8:02 AM EDT Pneumonia, unspecified organism COMPLETE BLOOD COUNT Routine 05/06/2025 8:02 AM EDT Pneumonia, unspecified organism COMPREHENSIVE METABOLIC PANEL Routine 04/29/2025 7:05 AM EDT Pneumonia, unspecified organism COMPLETE BLOOD COUNT Routine 04/29/2025 7:05 AM EDT Pneumonia, unspecified organism COMPREHENSIVE METABOLIC PANEL Routine 04/23/2025 5:05 AM EDT Pneumonia, unspecified organism COMPLETE BLOOD COUNT Routine 04/23/2025 5:05 AM EDT Pneumonia, unspecified organism HIV 1, 2 ANTIBODY, P24 ANTIGEN WITH REFLEX TO DIFFERENTIATION Routine 04/16/2025 5:25 AM EDT Pneumonia, unspecified organism Contact with contaminated hypodermic needle, initial encounter HEPATITIS C ANTIBODY Routine 04/16/2025 5:25 AM EDT Pneumonia, unspecified organism Contact with contaminated hypodermic needle, initial encounter COMPREHENSIVE METABOLIC PANEL Routine 04/15/2025 7:19 AM EDT Pneumonia, unspecified organism COMPLETE BLOOD COUNT Routine 04/15/2025 7:19 AM EDT Pneumonia, unspecified organism COMPREHENSIVE METABOLIC PANEL Routine 04/08/2025 8:23 AM EDT Pneumonia, unspecified organism COMPLETE BLOOD COUNT Routine 04/08/2025 8:23 AM EDT Pneumonia, unspecified organism COMPREHENSIVE METABOLIC PANEL Routine 04/02/2025 7:49 AM EDT Pneumonia, unspecified organism COMPLETE BLOOD COUNT Routine 04/02/2025 7:49 AM EDT Pneumonia, unspecified organism COMPREHENSIVE METABOLIC PANEL Routine 03/25/2025 7:14 AM EDT Pneumonia, unspecified organism COMPLETE BLOOD COUNT Routine 03/25/2025 7:14 AM EDT Pneumonia, unspecified organism COMPREHENSIVE METABOLIC PANEL Routine 03/18/2025 6:44 AM EDT Pneumonia, unspecified organism COMPLETE BLOOD COUNT Routine 03/18/2025 6:44 AM EDT Pneumonia, unspecified organism COMPREHENSIVE METABOLIC PANEL Routine 03/11/2025 8:33 AM EDT Pneumonia, unspecified organism COMPLETE BLOOD COUNT Routine 03/11/2025 8:33 AM EDT Pneumonia, unspecified organism COMPREHENSIVE METABOLIC PANEL Routine 03/04/2025 6:56 AM EDT Pneumonia, unspecified organism COMPLETE BLOOD COUNT Routine 03/04/2025 6:56 AM EDT Pneumonia, unspecified organism URIC ACID Routine 02/27/2025 4:56 AM EDT Hypokalemia Pneumonia, unspecified organism Chronic obstructive pulmonary disease, unspecified (CMS/HCC V24, CMS/[facility] V28) Gout, unspecified Chronic pain syndrome SEDIMENTATION RATE Routine 02/27/2025 4: 56 AM [...] unspecified organism Chronic obstructive pulmonary disease, unspecified ([facility] V24, [facility] V28) Gout, unspecified Chronic pain syndrome COMPREHENSIVE METABOLIC PANEL Routine 02/25/2025 7:22 AM EDT Pneumonia, unspecified organism COMPLETE BLOOD COUNT Routine 02/25/2025 7:22 AM EDT Pneumonia, unspecified organism COMPREHENSIVE METABOLIC PANEL Routine 02/18/2025 7:05 AM EDT Pneumonia, unspecified organism COMPLETE BLOOD COUNT Routine 02/18/2025 7:05 AM EDT Pneumonia, unspecified organism COMPREHENSIVE METABOLIC PANEL Routine 02/11/2025 6:41 AM EDT Pneumonia, unspecified organism COMPLETE BLOOD COUNT Routine 02/11/2025 6:41 AM EDT Pneumonia, unspecified organism COMPREHENSIVE METABOLIC PANEL Routine 02/07/2025 5:08 AM EDT Pneumonia, unspecified organism COMPLETE BLOOD COUNT Routine 02/07/2025 5:08 AM EDT Pneumonia, unspecified organism from Last 3 Months Results * (ABNORMAL) Complete blood count (05/06/2025 8:02 AM EDT) Only the most recent of15 resultswithin the time period is included. WBC 4.9 4.8 - 10.8 K/mcL LAB HEMETOLOGY METHOD 05/06/2025 12:30 PM EDT [facility] RBC 4.60 3.80 - 4.80 M/mcL LAB HEMETOLOGY METHOD 05/06/2025 12:30 PM EDT [facility] Hemoglobin 12.9 11.5 - 16.0 g/dL LAB HEMETOLOGY METHOD 05/06/2025 12:30 PM EDT [facility] Hematocrit 41.5 35.0 - 47.0 % LAB HEMETOLOGY METHOD 05/06/2025 12:30 PM EDT [facility] MCV 89.4 79.0 - 98.0 FL LAB HEMETOLOGY METHOD 05/06/2025 12:30 PM EDT [facility] MCH 27.8 27.0 - 32.0 pcg LAB HEMETOLOGY METHOD 05/06/2025 12:30 PM EDT [facility] MCHC 31.1(L) 32.0 - 37.0 g/dL LAB HEMETOLOGY METHOD 05/06/2025 12:30 PM EDT [facility] RDW 15.0 11.0 - 15.0 % LAB HEMETOLOGY METHOD 05/06/2025 12:30 PM EDT [facility] Platelets 187 130 - 400 K/mcL LAB HEMETOLOGY METHOD 05/06/2025 12:30 PM EDT [facility] MPV 11.9(H) 7.0 - 11.0 FL LAB HEMETOLOGY METHOD 05/06/2025 12:30 PM EDT [facility] NRBC 0.0 <1.0 % LAB HEMETOLOGY METHOD 05/06/2025 12:30 PM EDT [facility] NRBC Absolute 0.00 <0.10 K/mcL LAB HEMETOLOGY METHOD 05/06/2025 12:30 PM EDT [facility] Blood Venous blood specimen / Unknown Venipuncture / Unknown 05/06/2025 8:02 AM EDT 05/06/2025 10:54 AM EDT us Heaven Robertson MD LAB BLOOD ORDERABLES Fin al Result [facility] [address] [place] [address], * (ABNORMAL) Comprehensive metabolic panel (05/06/2025 8:02 AM EDT) Only the most recent of14 resultswithin the time period is included. Sodium 138 133 - 145 mmol/L LAB CHEMISTRY METHOD 05/06/2025 12:50 PM [facility] Potassium 4.1 3.5 - 5.5 mmol/L LAB CHEMISTRY METHOD 05/06/2025 12:50 PM [facility] Chloride 107 96 - 110 mmol/L LAB CHEMISTRY METHOD 05/06/2025 12:50 PM [facility] CO2 22 21 - 32 mmol/L LAB CHEMISTRY METHOD 05/06/2025 12:50 PM [facility] Anion Gap 9 3 - 11 LAB CHEMISTRY METHOD 05/06/2025 12:50 PM [facility] Glucose 70 70 - 100 mg/dL LAB CHEMISTRY METHOD 05/06/2025 12:50 PM [facility] BUN 11 5 - 25 mg/dL LAB CHEMISTRY METHOD 05/06/2025 12:50 PM [facility] Creatinine 0.48(L) 0.50 - 1.10 mg/dL LAB CHEMISTRY METHOD 05/06/2025 12:50 PM [facility] eGFR 111 >=60 mL/min/1. 73m2 LAB CHEMISTRY METHOD 05/06/2025 12:50 PM [facility] Comment:Calculation based on the Chronic Kidney Disease Epidemiology Collaboration (CKD-EPI) equation refit without adjustment for race. BUN/Creatinine Ratio 22.9 LAB CHEMISTRY METHOD 05/06/2025 12:50 PM [facility] Calcium 9.1 8.5 - 10.5 mg/dL LAB CHEMISTRY METHOD 05/06/2025 12:50 PM [facility] AST (SGOT) 23 10 - 42 unit/L LAB CHEMISTRY METHOD 05/06/2025 12:50 PM [facility] ALT (SGPT) 20 10 - 60 unit/L LAB CHEMISTRY METHOD 05/06/2025 12:50 PM EDT [facility] Alkaline Phosphatase 125(H) 42 - 121 unit/L LAB CHEMISTRY METHOD 05/06/2025 12:50 PM EDT [facility] Total Protein 6.7 6.0 - 8.0 g/dL LAB CHEMISTRY METHOD 05/06/2025 12:50 PM EDT [facility] Albumin 2.9(L) 3.2 - 5.0 g/dL LAB CHEMISTRY METHOD 05/06/2025 12:50 PM EDT [facility] Total Bilirubin 0.2 0.0 - 1.4 mg/dL LAB CHEMISTRY METHOD 05/06/2025 12:50 PM EDT [facility] Blood Venous blood specimen / Unknown Venipuncture / Unknown 05/06/2025 8:02 AM EDT 05/06/2025 10:56 AM EDT Heaven Robertson MD LAB BLOOD ORDERABLES Fin al Result [facility] [address] [place] [address], [place] [phone] * Hepatitis C antibody (04/16/2025 5:25 AM EDT) Hepatitis C Antibody Negative Negative LAB CHEMISTRY METHOD 04/16/2025 11:43 AM EDT [facility] Blood Venous blood specimen / Unknown Venipuncture / Unknown 04/16/2025 5:25 AM EDT 04/16/2025 9:46 AM EDT Heaven Robertson MD LAB BLOOD ORDERABLES Fin al Result [facility] [address] [place] [address], [place] [phone] * HIV 1,2 antibody, p24 antigen with reflex to differentiation (04/16/2025 5:25 AM EDT) [facility] HIV Combo AB/AG Negative Negative LAB CHEMISTRY METHOD 04/16/2025 11:43 AM EDT [facility] Blood Venous blood specimen / Unknown Venipuncture / Unknown 04/16/2025 5:25 AM EDT 04/16/2025 9:46 AM EDT Narrative [facility] - 04/16/2025 11:43 AM EDT [...] ORDERABLES Fin al Result Performing Organization Address City/[facility]/ZIP Co de Phone Number [facility] [address] [place] [address], [place] [phone] * (ABNORMAL) Sedimentation rate (02/27/2025 4:56 AM EDT) [facility] Sed Rate 86(H) 0 - 30 mm/hr LAB HEMETOLOGY METHOD 02/27/2025 10:48 AM EDT [facility] Blood Venous blood specimen / Unknown Venipuncture / Unknown 02/27/2025 4:56 AM EDT 02/27/2025 9:21 AM EDT Heaven Robertson MD LAB BLOOD ORDERABLES Fin al Result [facility] [address] [place] [address], [place] [phone] * (ABNORMAL) C-reactive protein (02/27/2025 4:56 AM EDT) [facility] C-Reactive Protein 2.77(H) <=0.50 mg/dL LAB CHEMISTRY METHOD 02/27/2025 11:11 AM EDT [facility] Blood Venous blood specimen / Unknown Venipuncture / Unknown 02/27/2025 4:56 AM EDT 02/27/2025 9:21 AM EDT Heaven Robertson MD LAB BLOOD ORDERABLES Fin al Result Performing Organization Address [facility]/ZIP Co de Phone Number [facility] [address] [place] [address], [place] [phone] * Uric acid (02/27/2025 4:56 AM EDT) Pathologist [facility] Uric Acid 4.1 3.1 - 7.8 mg/dL LAB CHEMISTRY METHOD 02/28/2025 2:17 PM EDT [facility] Blood Venous blood specimen / Unknown Venipuncture / Unknown 02/27/2025 4:56 AM EDT 02/27/2025 9:21 AM EDT Heaven Robertson MD LAB BLOOD ORDERABLES Fin al Result Performing Organization Address [facility] de Phone Number [facility] [address] [place] [address], [place] [phone] from Last 3 Months Insurance MEDICAID - [place] Care Teams Esthetic Dermatologist Relationship Specialty Start Date End Date Heaven Robertson MD [address] [place] [address] PCP - General Family Medicine 06/13/24
--- OUTSIDE RECORDS SUMMARY | 2025-05-06 14:58 | XMS_ITS | Encounter Summary ---
Author Organization [employer] Address [address] [place] [address] Care Team Providers Care Marketing Support Assistant Name Role Phone Heaven Robertson MD Primary Care Provider + Encounter Details Date Type Department Care Team (Late st Contact Info) Description 07/10/2024 Lab Requisition [facility] - Main Lab [address] [facility] [place] [address] Heaven Robertson MD [address] [address] Pneumonia, unspecified organism Social History Tobacco Use [...] LAB CHEMISTRY METHOD 07/10/2024 9:39 AM EST [facility] Potassium 3.5 3.5 - 5.5 mmol/L LAB CHEMISTRY METHOD 07/10/2024 9:39 AM EST [facility] Chloride 107 96 - 110 mmol/L LAB CHEMISTRY METHOD 07/10/2024 9:39 AM EST [facility] CO2 25 21 - 32 mmol/L LAB CHEMISTRY METHOD 07/10/2024 9:39 AM [facility] Anion Gap 8 3 - 11 LAB CHEMISTRY METHOD 07/10/2024 9:39 AM [facility] Glucose 87 70 - 100 mg/dL LAB CHEMISTRY METHOD 07/10/2024 9:39 AM [facility] BUN 14 5 - 25 mg/dL LAB CHEMISTRY METHOD 07/10/2024 9:39 AM [facility] Creatinine 0.42(L) 0.50 - 1.10 mg/dL LAB CHEMISTRY METHOD 07/10/2024 9:39 AM [facility] eGFR 115 >=60 mL/min/1. 73m2 LAB CHEMISTRY METHOD 07/10/2024 9:39 AM [facility] Comment:Calculation based on the Chronic Kidney Disease Epidemiology Collaboration (CKD-EPI) equation refit without adjustment for race. BUN/Creatinine Ratio 33.3 LAB CHEMISTRY METHOD 07/10/2024 9:39 AM [facility] Calcium 9.4 8.5 - 10.5 mg/dL LAB CHEMISTRY METHOD 07/10/2024 9:39 AM [facility] AST (SGOT) 50(H) 10 - 42 unit/L LAB CHEMISTRY METHOD 07/10/2024 9:39 AM [facility] ALT (SGPT) 40 10 - 60 unit/L LAB CHEMISTRY METHOD 07/10/2024 9:39 AM [facility] Alkaline Phosphatase 104 42 - 121 unit/L LAB CHEMISTRY METHOD 07/10/2024 9:39 AM [facility] Total Protein 7.6 6.0 - 8.0 g/dL LAB CHEMISTRY METHOD 07/10/2024 9:39 AM [facility] Albumin 3.8 3.2 - 5.0 g/dL LAB CHEMISTRY METHOD 07/10/2024 9:39 AM [facility] Total Bilirubin 0.3 0.0 - 1.4 mg/dL LAB CHEMISTRY METHOD 07/10/2024 9:39 AM [facility] Blood Venous blood specimen / Unknown Venipuncture / Unknown 07/10/2024 6:28 AM EST 07/10/2024 9:03 AM EST us Heaven Robertson MD LAB BLOOD ORDERABLES Fin al Result [facility] [address] [place] [address], * (ABNORMAL) Complete blood count (07/10/2024 6:28 AM EST) WBC 5.8 4.8 - 10.8 K/mcL LAB HEMETOLOGY METHOD 07/10/2024 9:14 AM [facility] RBC 3.90 3.80 - 4.80 M/[facility] LAB HEMETOLOGY METHOD 07/10/2024 9:14 AM [facility] Hemoglobin 11.1(L) 11.5 - 16.0 g/dL LAB HEMETOLOGY METHOD 07/10/2024 9:14 AM [facility] Hematocrit 34.6(L) 35.0 - 47.0 % LAB HEMETOLOGY METHOD 07/10/2024 9:14 AM [facility] MCV 88.3 79.0 - 98.0 FL LAB HEMETOLOGY METHOD 07/10/2024 9:14 AM [facility] MCH 28.3 27.0 - 32.0 pcg LAB HEMETOLOGY METHOD 07/10/2024 9:14 AM [facility] MCHC 32.1 32.0 - 37.0 g/dL LAB HEMETOLOGY METHOD 07/10/2024 9:14 AM [facility] RDW 15.0 11.0 - 15.0 % LAB HEMETOLOGY METHOD 07/10/2024 9:14 AM EST [facility] Platelets 212 130 - 400 K/mcL LAB HEMETOLOGY METHOD 07/10/2024 9:14 AM EST [facility] MPV 11.6(H) 7.0 - 11.0 FL LAB HEMETOLOGY METHOD 07/10/2024 9:14 AM EST [facility] NRBC 0.0 <1.0 % LAB HEMETOLOGY METHOD 07/10/2024 9:14 AM EST [facility] NRBC Absolute 0.00 <0.10 K/mcL LAB HEMETOLOGY METHOD 07/10/2024 9:14 AM [facility] Blood Venous blood specimen / Unknown Venipuncture / Unknown 07/10/2024 6:28 AM EST 07/10/2024 9:03 AM EST us Heaven Robertson MD LAB BLOOD ORDERABLES Fin al Result [facility] [address] [place] [address], documented in this encounter Visit Diagnoses Diagnosis Pneumonia, unspecified organism documented in this encounter Care Teams Marketing Support Assistant Relationship Specialty Start Date End Date Heaven Robertson MD [address] [place] [phone] PCP - General Family Medicine 06/13/24 documented as of this encounter
--- OUTSIDE RECORDS SUMMARY | 2025-05-06 14:58 | XMS_ITS | Encounter Summary ---
Author Organization [employer] Address [address] [place] [address] Care Team Providers Care Alum Plant Supervisor Name Role Phone Heaven Robertson MD Primary Care Provider + Encounter Details Date Type Department Care Team (Late st Contact Info) Description 09/10/2024 Lab Requisition [facility] - Main Lab 299 [facility] [place] [address] Heaven Robertson MD [address] [address] Essential (primary) hypertension Social History Tobacco Use [...] LAB CHEMISTRY METHOD 09/10/2024 3:06 PM EST [facility] Potassium 3.5 3.5 - 5.5 mmol/L LAB CHEMISTRY METHOD 09/10/2024 3:[address] [facility] Chloride 111(H) 96 - 110 mmol/L LAB CHEMISTRY METHOD 09/10/2024 3:[address] [facility] CO2 21 21 - 32 mmol/L LAB CHEMISTRY METHOD 09/10/2024 3:[address] [facility] Anion Gap 8 3 - 11 LAB CHEMISTRY METHOD 09/10/2024 3:[address] [facility] Glucose 90 70 - 100 mg/dL LAB CHEMISTRY METHOD 09/10/2024 3:[address] [facility] BUN 13 5 - 25 mg/dL LAB CHEMISTRY METHOD 09/10/2024 3:[address] [facility] Creatinine 0.47(L) 0.50 - 1.10 mg/dL LAB CHEMISTRY METHOD 09/10/2024 3:[address] [facility] eGFR 111 >=60 mL/min/1. 73m2 LAB CHEMISTRY METHOD 09/10/2024 3:[address] [facility] Comment:Calculation based on the Chronic Kidney Disease Epidemiology Collaboration (CKD-EPI) equation refit without adjustment for race. BUN/Creatinine Ratio 27.7 LAB CHEMISTRY METHOD 09/10/2024 3:[address] [facility] Calcium 8.9 8.5 - 10.5 mg/dL LAB CHEMISTRY METHOD 09/10/2024 3:[address] [facility] Blood Venous blood specimen / Unknown Venipuncture / Unknown 09/10/2024 9:02 AM EST 09/10/2024 11:43 AM EST us Heaven Robertson MD LAB BLOOD ORDERABLES Fin al Result [facility] [address] [place] [address], * (ABNORMAL) Complete blood count (09/10/2024 9:02 AM EST) WBC 5.7 4.8 - 10.8 K/mcL LAB HEMETOLOGY METHOD 09/10/2024 1:[address] [facility] RBC 4.50 3.80 - 4.80 M/mcL LAB HEMETOLOGY METHOD 09/10/2024 1:[address] [facility] Hemoglobin 12.9 11.5 - 16.0 g/dL LAB HEMETOLOGY METHOD 09/10/2024 1:[address] [facility] Hematocrit 41.1 35.0 - 47.0 % LAB HEMETOLOGY METHOD 09/10/2024 1:[address] [facility] MCV 90.5 79.0 - 98.0 FL LAB HEMETOLOGY METHOD 09/10/2024 1:[address] [facility] MCH 28.4 27.0 - 32.0 pcg LAB HEMETOLOGY METHOD 09/10/2024 1:[address] [facility] MCHC 31.4(L) 32.0 - 37.0 g/dL LAB HEMETOLOGY METHOD 09/10/2024 1:[address] [facility] RDW 17.4(H) 11.0 - 15.0 % LAB HEMETOLOGY METHOD 09/10/2024 1:[address] [facility] Platelets 217 130 - 400 K/mcL LAB HEMETOLOGY METHOD 09/10/2024 1:[address] [facility] MPV 11.8(H) 7.0 - 11.0 FL LAB HEMETOLOGY METHOD 09/10/2024 1:[address] [facility] NRBC 0.0 <1.0 % LAB HEMETOLOGY METHOD 09/10/2024 1:[address] [facility] NRBC Absolute 0.00 <0.10 K/mcL LAB HEMETOLOGY METHOD 09/10/2024 1:[address] [facility] Blood Venous blood specimen / Unknown Venipuncture / Unknown 09/10/2024 9:02 AM EST 09/10/2024 11:43 AM EST us Heaven Robertson MD LAB BLOOD ORDERABLES Fin al Result [facility] [address] [place] [address], documented in this encounter Visit Diagnoses Diagnosis Essential (primary) hypertension Unspecified essential hypertension documented in this encounter Care Teams Alum Plant Supervisor Relationship Specialty Start Date End Date Heaven Robertson MD [address] [place] [phone] PCP - General Family Medicine 06/13/24 documented as of this encounter
--- OUTSIDE RECORDS SUMMARY | 2025-05-06 14:58 | XMS_ITS | Encounter Summary ---
Author Organization [employer] Address [address] [place] [address] Care Team Providers Care Robot Operator Name Role Phone Heaven Robertson MD Primary Care Provider + Encounter Details Date Type Department Care Team (Late st Contact Info) Description 04/21/2025 Lab Requisition [facility] - Main Lab [address] [facility] [place] [address] Heaven Robertson MD [address] [phone] Pneumonia, unspecified organism Social History Tobacco Use [...] as of this encounter Visit Diagnoses Diagnosis Pneumonia, unspecified organism documented in this encounter Care Teams Robot Operator Relationship Specialty Start Date End Date Heaven Robertson MD [address] [place] [phone] PCP - General Family Medicine 06/13/24 documented as of this encounter
== END 2025-05-06 13:38 | disposition home or self-care (01) ==
LOC: HO.HGS 12:32
PROVIDERS: PCP Internal Medicine; Visit Provider Surgery
DX: G82.50 Quadriplegia, unspecified (principal); M54.2 Cervicalgia
CPT/HCPCS: 99204

== ENCOUNTER → 2025-05-06 12:32 | Outpatient (BNVA) | payer MEDICAID, SELFPAY | PROVIDERS: PCP Internal Medicine; Visit Provider Surgery | DX: M54.2 Cervicalgia (principal); G82.50 Quadriplegia, unspecified | CPT/HCPCS: 99202 ==